=== PATIENT | female | born 1965 | race Caucasian/White ===

== ENCOUNTER 2017-07-21 14:20 | Inpatient (IN) | payer MEDICAID, SELFPAY ==
[2017-07-21 09:42] VITALS: BP 117/86; PULSE 67; RESP 18; TEMP 36.7; O2SAT 100; BMI 20.5
--- NOTE | 2017-07-21 10:05 | ED.VISSUMM ---
- ER Visit Summary Date of Service: 07/21/17 Chief Complaint: Abdominal and back pain History of Present Illness: The patient is a 52 F presenting with abdominal pain and back pain. She states this has been ongoing for several months. She states she is scheduled to have a partial colectomy and her ovaries removed on August 05. She states the surgery was initially scheduled for July 25 and was pushed back to August 05. She is having similar pain to previous. She has had no fever. She has nausea and vomiting with no diarrhea. She has been taking oxycodone at home and has almost run out of that prescription. Physical Examination: Vitals are stable. Patient is afebrile. Alert no acute distress. HEENT exam is unremarkable. Neck is supple. Lungs are clear and equal bilaterally. Heart is regular rate and rhythm. Abdomen is soft left lower quadrant tenderness, no rebound or guarding Extremities are unremarkable. Skin is warm and dry. Remainder of exam is unremarkable. Emergency Department Course and Treatment: Patient is given IV fluids, morphine, Zofran IV. CBC shows white count 12.0. Chemistries unremarkable. Alk phos 130, AST 42, lipase is normal. Discussed with Dr. Rios. Patient was evaluated by Dr. Rios in the ED and will be admitted to his service. Disposition: Admission Impression: Abdominal pain, leukocytosis This note was generated with [employer] [facility] [employer] dictation software. It may contain incorrect words, spelling, and punctuation that were not noted in review of the chart prior to signing ED Disposition - Plan for ED Patient: Chief Complaint: Back Referrals: Mack Langston MD [Primary Care Provider] -
[2017-07-21] MEDS: Ondansetron 4 MG/2 ML Vial IV (10:33)
[2017-07-21 10:35] VITALS: PULSE 101; RESP 19; O2SAT 97
[2017-07-21 10:53] LABS: Absolute Lymphocyte Count 3.64 X10^3/ul (0.83-4.51); Absolute Neutrophil Count 7.1 X10^3/uL (2.0-7.7); Basophil# 0.04 X10^3/uL; Basophil% 0.3 % (0-1); Eosinophil# 0.13 X10^3/uL; Eosinophils% 1.1 % (0-5); Hematocrit 40.1 % (37-47); Hemoglobin 13.7 g/dl (12.0-15.0); Lymphocyte # 3.64 X10^3/ul (4.0); Lymphocyte % 30.2 % (19-41); Mean Corp Hgb Conc 34.2 g/gl (32-36); Mean Corpuscular Volume 96.6 fL (81-99); Mean Platelet Vol. 9.8 fl (6.2-12.0); Monocyte# 1.12 X10^3/uL; Monocyte% 9.3 % (0-10); Neutrophil # 7.09 X10^3/uL (2.7-7.7); Neutrophil % 58.9 % (47-70); Platelet Count 333 K/mm3 (150-450); RBC Distribution Width CV 13.3 % (11.6-14.6); RBC Distribution Width SD 46.1 fl (35.1-43.9); Red Blood Count 4.15 M/mm3 (4.2-5.4)
[2017-07-21 10:54] LABS: Differential Indicated SCAN CRITERIA MET; POSITIVE COUNT NO; POSITIVE DIFFERENTIAL NO; POSITIVE MORPHOLOGY YES
[2017-07-21 11:08] LABS: ALB/GLOB Ratio 0.7 RATIO (0.9-2.4); AST(SGOT) 42 U/L (15-37); Alanine Aminotransfer ALT/SGPT 47 U/L (12-78); Albumin, Serum 3.2 g/dL (3.4-5.0); Alkaline Phosphatase 130 U/L (45-117); Anion Gap 7 (5-15); BUN 5 mg/dL (7-18); BUN/Creat Ratio 9.6 RATIO (10-20); Calcium,Total 9.2 mg/dL (8.5-10.1); Chloride 110 mmol/L (98-107); Creatinine, Serum 0.52 mg/dL (0.55-1.02); EST Glomerular Filtration Rate 130 mL/min (>60); Est Glom Filt Rate - Afr Amer 158 mL/min (>60); Estimated Creatinine Clearance 102.31 ml/min; Globulin 4.7 g/dL (2.2-4.2); Glucose 86 mg/dL (70-110); Lipase 114 U/L (73-393); Potassium 4.1 mmol/L (3.5-5.1); Protein, Total 7.9 g/dL (6.4-8.2); Sodium Level 141 mmol/L (136-145)
[2017-07-21 11:33] LABS: Atypical Lymphocyte 1+ %
[2017-07-21 13:32] VITALS: BP 112/74; PULSE 88; RESP 14; O2SAT 96
[2017-07-21 14:57] LABS: Mucous, Urine 0 SEEN /hpf (<or=2+); Red Blood Cells-Urine 0 SEEN /hpf (0-5); White Blood Cells 0 SEEN /hpf (0-5)
[2017-07-21 14:59] LABS: Color, Urine Yellow (Yellow); Glucose, Dipstick Normal (Normal); Ketone-Dipstick Negative (Negative); Leukocyte Esterase-Dipstick Negative /ul (Negative); Nitrite-Dipstick Negative (Negative); Occult Blood-Urine Negative /ul (Negative); Protein-Dipstick Negative (Negative); Urine Bilirubin Dipstick Negative (Negative); Urine Clarity Clear (Clear); Urine Urobilinogen Normal (Normal)
[2017-07-21 15:03] VITALS: BMI 21.4
[2017-07-21 15:05] LABS: Bacteria RARE /hpf (None Seen); Squamous Epithelial Cells - UA 0-5 SEEN /hpf (5-10)
[2017-07-21 15:09] VITALS: BMI 21.4
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
[2017-07-21 15:50] VITALS: O2SAT 98
[2017-07-21 15:55] VITALS: BP 101/73; PULSE 82; RESP 18; TEMP 35.8; O2SAT 99
[2017-07-21] MEDS: Calcium Carbonate 500 MG Tablet 1000 MG PO (17:43)
[2017-07-21] MEDS: oxyCODONE 5 MG Tablet PO ×2 (17:51→23:34)
[2017-07-21] MEDS: Lactated Ringers 1,000 ML 75 ML IV (17:54)
[2017-07-21 21:14] VITALS: BP 111/72; PULSE 88; RESP 16; TEMP 37.1; O2SAT 99
[2017-07-21] MEDS: Ciprofloxacin 400 MG/200 ML BAG 200 MG IV (21:17)
[2017-07-21] MEDS: Famotidine 20 MG Tablet PO (21:27)
[2017-07-21] MEDS: LORazepam 0.5 MG Tablet PO (23:33)
[2017-07-22 03:00] VITALS: BP 102/69; PULSE 60; RESP 16; TEMP 36.8; O2SAT 95
[2017-07-22] MEDS: oxyCODONE 5 MG Tablet PO ×5 (05:59→23:04)
[2017-07-22 06:34] LABS: Absolute Neutrophil Count 5.1 X10^3/uL (2.0-7.7); Basophil# 0.03 X10^3/uL; Basophil% 0.3 % (0-1); Eosinophil# 0.29 X10^3/uL; Eosinophils% 2.7 % (0-5); Hematocrit 38.7 % (37-47); Hemoglobin 13.1 g/dl (12.0-15.0); Lymphocyte % 37.5 % (19-41); Mean Corp Hgb Conc 33.9 g/gl (32-36); Mean Corpuscular Hgb 33.3 pg (27.0-32.0); Mean Corpuscular Volume 98.5 fL (81-99); Mean Platelet Vol. 9.5 fl (6.2-12.0); Monocyte# 1.24 X10^3/uL; Monocyte% 11.6 % (0-10); Neutrophil % 47.7 % (47-70); Platelet Count 337 K/mm3 (150-450); RBC Distribution Width CV 13.4 % (11.6-14.6); RBC Distribution Width SD 47.3 fl (35.1-43.9); Red Blood Count 3.93 M/mm3 (4.2-5.4); White Blood Count 10.7 K/mm3 (4.4-11.0)
[2017-07-22 06:35] LABS: POSITIVE COUNT NO; POSITIVE DIFFERENTIAL NO; POSITIVE MORPHOLOGY NO
[2017-07-22 06:53] LABS: Anion Gap 7 (5-15); BUN 6 mg/dL (7-18); BUN/Creat Ratio 8.8 RATIO (10-20); Calcium,Total 9.1 mg/dL (8.5-10.1); Chloride 102 mmol/L (98-107); Creatinine, Serum 0.68 mg/dL (0.55-1.02); EST Glomerular Filtration Rate 96 mL/min (>60); Est Glom Filt Rate - Afr Amer 116 mL/min (>60); Glucose 84 mg/dL (70-110); Phosphorus 4.2 mg/dL (2.5-4.9); Sodium Level 136 mmol/L (136-145)
--- NOTE | 2017-07-22 07:32 | PCM.PN.SRG ---
Subjective: Patient reports she is doing well this morning. She did have a soft bowel movement this morning. She is not having any nausea or vomiting she is still having severe pelvic pain only controlled with narcotic pain medicine. - Physical Exam General: Alert, Cooperative, No apparent distress Lungs: Normal air movement Cardiovascular: Regular rate, Regular Rhythm Abdomen: Soft, Non-Distended, Tender - Tender in the lower abdomen with no guarding or rebound. Musculoskeletal: No Muscle Wasting Neurological: Cranial nerves II-XII grossly intact Vital Signs Temp Pulse Resp BP Pulse Ox 98.3 F 60 16 102/69 95 07/22/17 03:00 07/22/17 03:00 07/22/17 03:00 07/22/17 03:00 07/22/17 03:00 Oxygen Delivery Method Room Air Weight: 117 lb Body Mass Index (BMI) 21.4 Intake and Output for Last 24 Hours 07/20/17 07/21/17 07/22/17 23:59 23:59 23:59 Intake Total 1550 / 1550 724 / 724 Output Total 400 / 400 600 / 600 Balance 1150 / 1150 124 / 124 Laboratory Tests Past 24 Hrs 07/21/17 07/22/17 07/22/17 14:52 06:20 06:20 WBC 10.7 RBC 3.93 L Hgb 13.1 Hct 38.7 MCV 98.5 MCH 33.3 H MCHC 33.9 RDW 13.4 RDW Differential 47.3 H Plt Count 337 MPV 9.5 Immature Gran % (Auto) 0.200 Neut % (Auto) 47.7 Lymph % (Auto) 37.5 [place] % (Auto) 11.6 H Eos % (Auto) 2.7 Baso % (Auto) 0.3 Absolute Neuts (auto) 5.1 Absolute Lymphs (auto) 4.00 Total Counted Not Reportable Sodium 136 Potassium 4.0 Chloride 102 Carbon Dioxide 27.0 Anion Gap 7 BUN 6 L Creatinine 0.68 Estim Creat Clear Calc 74.80 Est GFR (MDRD) Af Amer 116 Est GFR (MDRD) Non-Af 96 BUN/Creatinine Ratio 8.8 L Glucose 84 Calcium 9.1 Phosphorus 4.2 Magnesium 2.0 Urine Color Yellow Urine Clarity Clear Urine pH 6.0 Ur Specific [place] 1.020 Urine Protein Negative Urine Glucose (UA) Normal Urine Ketones Negative Urine Occult Blood Negative Urine Nitrite Negative Urine Bilirubin Negative Urine Urobilinogen Normal Ur Leukocyte Esterase Negative Urine RBC 0 SEEN Urine WBC 0 SEEN Ur Squamous Epith Cells 0-5 SEEN Urine Bacteria RARE Urine Mucus 0 SEEN Assessment/Plan 52-year-old female with acute diverticulitis 1. Patient WBC improving on Cipro and vanc. Continue antibiotics until C. difficile results are back. If C. difficile is negative I will decrease vancomycin to twice a day. 2. Continue clear liquids and IV fluids. Likely to start gentle bowel prep today in anticipation of surgery . All patient's questions were answered sufficiently. I will put in a consult for Dr. Chiang to see her as an inpatient before surgery. Felipe Rios MD Pager: [facility] [address], [address] [phone] Office:
[2017-07-22 07:52] VITALS: BP 122/74; PULSE 75; RESP 18; TEMP 36.8; O2SAT 99
[2017-07-22] MEDS: Enoxaparin 40 MG/0.4 ML Syringe SC (09:47)
[2017-07-22] MEDS: Famotidine 20 MG Tablet PO ×2 (09:47→23:11)
[2017-07-22] MEDS: Lactated Ringers 1,000 ML 75 ML IV ×2 (09:48→23:05)
[2017-07-22] MEDS: Ciprofloxacin 400 MG/200 ML BAG 200 MG IV ×2 (09:48→23:05)
[2017-07-22 13:53] VITALS: BP 112/69; PULSE 80; RESP 18; TEMP 36.9; O2SAT 99
--- NOTE | 2017-07-22 14:11 | CASEMGMT ---
Readmit Note. Pt dc'd 06/23/17 after treatment for recurrent sigmoid diverticulitits. She presents on 06/21/17 with abd pain, C.difficile colitis. Was switched to po vancomycin. Diarrhea worsening past 2 days. Surgery consult- plan is for surgery on for colectomy and hysterectomy with possible colostomy. LR @ 75 ml/hr. Pt is independent. Will continue to follow and assist with dc planning. Phani PHILLIPSN RN ACM
[2017-07-22 15:44] LABS: Pathologist Review Reviewed
[2017-07-22] MEDS: Electrolyte Solution/Peg's 4000 ML 2000 ML PO (16:07)
[2017-07-22] MEDS: Ondansetron 4 MG/2 ML Vial 8 MG IV (18:15)
[2017-07-22 19:53] VITALS: BP 117/72; PULSE 90; RESP 16; TEMP 37.3; O2SAT 98
[2017-07-22] MEDS: LORazepam 0.5 MG Tablet PO (23:04)
[2017-07-23 02:30] VITALS: BP 121/62; PULSE 89; RESP 16; TEMP 37.4; O2SAT 98
[2017-07-23] MEDS: oxyCODONE 5 MG Tablet PO ×5 (05:23→21:40)
[2017-07-23 07:52] VITALS: BP 122/79; PULSE 75; RESP 18; TEMP 37; O2SAT 97
[2017-07-23] MEDS: Ciprofloxacin 400 MG/200 ML BAG 200 MG IV ×2 (09:39→21:26)
[2017-07-23] MEDS: Famotidine 20 MG Tablet PO ×2 (09:40→21:27)
[2017-07-23] MEDS: Enoxaparin 40 MG/0.4 ML Syringe SC (09:40)
--- NOTE | 2017-07-23 09:59 | PCM.PN.SRG ---
Subjective: Patient is having pelvic pain this morning. She says she was having clear stool after her 1 L of GoLYTELY she is able to tolerate. - Physical Exam General: Alert, Oriented x3, Cooperative, No apparent distress HEENT: Atraumatic Oral: Moist Mucosa Neck: No JVD Lungs: Normal air movement Cardiovascular: Regular rate, Regular Rhythm Abdomen: Soft, Non-Distended, Tender Vital Signs Temp Pulse Resp BP Pulse Ox 98.6 F 75 18 122/79 H 97 07/23/17 07:52 07/23/17 07:52 07/23/17 07:52 07/23/17 07:52 07/23/17 07:52 Oxygen Delivery Method Room Air Weight: 116 lb 15.989 oz Body Mass Index (BMI) 21.4 Intake and Output for Last 24 Hours 07/21/17 07/22/17 07/23/17 23:59 23:59 23:59 Intake Total 1550 / 1550 3464 / 3464 743 / 743 Output Total 400 / 400 600 / 600 1999 / 1999 Balance 1150 / 1150 2864 / 2864 -1257 / -1257 Microbiology Past 72 Hours 07/22/17 06:20 C. difficile DNA Amplification - Final Stool Assessment/Plan 52-year-old female with diverticulitis and hydrosalpinx on the left 1. I have ordered mechanical and antibiotic bowel prep for her today. Continue vancomycin to prevent C. difficile recurrence. 2. Plan is for surgery tomorrow morning. I discussed this with her again in detail. Plan is for sigmoid colectomy with hysterectomy and ureteral stents bilaterally. I did reiterate that there is a possibility of having to perform a stoma and this may not be reversible. If there is inflammation but the colon appears viable I will perform a colonic anastomosis with a diverting ileostomy which should be reversible. Felipe Rios MD Pager: [facility] [address], [address] [place] [address] Office:
--- NOTE | 2017-07-23 11:09 | EKG12_ITS ---
Test Reason : PREOP Blood Pressure : / mmHG Vent. Rate : 085 BPM Atrial Rate : 085 BPM P-R Int : 132 ms QRS Dur : 080 ms QT Int : 378 ms P-R-T Axes : 066 048 040 degrees QTc Int : 449 ms Sinus rhythm Normal ECG When compared with ECG of 16-OCT-2015 10:17, Fusion complexes are no longer Present Confirmed by GLORY DODSON MD ([id number]), production editor JIMBO SMITH ([id number] on 07/31/2017 1:04:10 PM Referred By: Confirmed By:GLORY DODSON MD
[2017-07-23] MEDS: Electrolyte Solution/Peg's 4000 ML 1000 ML PO (12:59)
[2017-07-23] MEDS: metroNIDAZOLE 500 MG Tablet 1000 MG PO ×3 (13:00→23:39)
[2017-07-23] MEDS: Calcium Carbonate 500 MG Tablet 1000 MG PO (13:07)
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
[2017-07-23] MEDS: LORazepam 0.5 MG Tablet PO (14:15)
[2017-07-23] MEDS: Lactated Ringers 1,000 ML 75 ML IV (14:15)
[2017-07-23 14:22] VITALS: BP 112/73; PULSE 83; RESP 18; TEMP 36.9; O2SAT 99
[2017-07-23 20:19] VITALS: BP 120/64; PULSE 68; RESP 16; TEMP 37; O2SAT 98
[2017-07-23] MEDS: 0.9% NaCl Peripheral Flush Adult/Peds IV ×2 (21:26→23:38)
[2017-07-23] MEDS: Ondansetron 4 MG/2 ML Vial 8 MG IV (23:38)
[2017-07-24] VITALS (22 sets, daily range): BP systolic 105–146; BP diastolic 63–102; PULSE 72–116; RESP 8–18; TEMP 36.4–37.1; O2SAT 97–100; BMI 21.4
--- NOTE | 2017-07-24 | COLBX_PTH ---
PATIENT: LISA BULLOCK LOC: MS3 U#:[id number] AGE/SX: 52/F ROOM: MS310 RE07/21/[address]: Dr. Felipe Rios MD : 1965 BED: 1 DIS: 07/29/2017 SPEC #: [id number] RECD: 07/24/17 14:37 STATUS: CRISTIAN RETrina #: [id number] GARIMA: 07/24/17 00:[address]: Felipe Rios DEPT: SURGICAL PATHOLOGY RECD BY: Shelby Roach ENTERED: 07/24/17 15:31 SP TYPE: COLON BX OTHR DR: MD Dr. Sabiha Liang MD Tissues: A - Sigmoid colon biopsy B - Uterine cervix, NOS C - Colon Donuts D - Colon Donuts Procedures: Frozen Section (charge) Surgery Specimen Level III Surgery Specimen Level V HEADER OPERATION: Colectomy sigmoid, open, stents with primary anastomosis PRE-OP DIAGNOSIS: Acute diverticulitis and left hydrosalpinx TISSUE SUBMITTED: A ? Sigmoid colon and tubal mass, suture escalante distal colon ? sent to lab at 1434, B ? Uterus and cervix with right fallopian tube, C ? proximal and distal donuts, D ? suture escalante new distal margin FROZEN SECTION DIAGNOSIS A. Sigmoid colon and tubal mass: Diverticular disease with associated ruptured diverticula and inflammation and fibrosis. No mass lesion is identified. BECKY:mely 07/24/17 MICROSCOPIC DIAGNOSIS A. Sigmoid colon and tubal mass: Colon ? diverticulosis and diverticulitis with ruptured diverticula and associated acute inflammation. Ovary - no pathologic diagnosis. Fallopian tube - no pathologic diagnosis. B. Uterus, cervix and right fallopian tube: Cervix ? chronic cystic cervicitis. Endometrium ? cystic atrophic endometrium. Myometrium ? focal adenomyosis. Fallopian tube ? subserosal acute inflammation and fibrinous exudation. Paratubal cyst. C. Proximal and distal donuts: Colonic donuts with focal mucosal congestion and hemorrhage. D. Segment of colon: Focal subserosal acute inflammation and reactive changes. BECKY:mely 07/29/17 MICROSCOPIC DESCRIPTION Slides are reviewed. GROSS DESCRIPTION A - Received fresh for frozen section consultation labeled with the patient's name is a specimen designated sigmoid colon and tubal mass, suture escalante distal colon. The specimen consists of a segment of colon with attached adipose tissue measuring 18 cm in length. In the central portion of the colon, there is red soft tissue attached containing ovary and possible fallopian tube measuring 5.5 x 4 x 3 cm. Both resection margins of colon are stapled. The distal end is identified by a suture. The specimen is opened and shows fecal material and no mucosal lesion. Serial sections reveal multiple diverticula with a few of the diverticula appear to be ruptured. A section from the diverticular area is submitted for frozen section diagnosis. Sections of the pericolonic adipose tissue do not reveal any obviously enlarged lymph node. Sections of adherent tissue reveal an ovary which measures 2 x 1.5 x 1 cm. Sections reveal unremarkable cut surfaces. A focal area suggestive of fallopian tube is noted. Emt B sections are submitted in ten cassettes as follows: 1 ? frozen section, 2 ? proximal resection margin, 3 ? distal resection margin, 4-6 ? diverticula, 7 ? pericolonic adipose tissue, 8 ? ovary, entirely submitted, 9 & 10 ? tissue surrounding the colon with possible fallopian tube. B - Received in fixative is one container labeled with the patient's name and designated uterus, cervix and right fallopian. The specimen consists of a hysterectomy specimen consisting of uterus with cervix and detached fallopian tube. The uterus with cervix weighs 39.8 gm and measures 6.5 x 5 x 3 cm. The serosal surface is camacho, glistening. The ectocervical mucosa is circular in contour. The endocervical canal measures 3 cm in length and the endocervical mucosa shows a small camacho-pink polyp measuring 0.4 cm in greatest dimension. The triangular endometrial cavity measures 3 cm in length and 1.5 cm in width. The endometrium is camacho-pink without any mass lesion and measures <0.1 cm in thickness. Sections of the uterine wall do not reveal any mass lesion and it measures up to 1.5 cm in thickness. The detached fallopian tube measures 4 cm in length and 0.5 cm in diameter. The fimbrial end is identified. A paratubal cyst is noted measuring 1.5 cm in greatest dimension. Sections reveal unremarkable cut surfaces. Emt B sections are submitted in seven cassettes as follows: 1 - anterior cervix, 2 - posterior cervix, 3 & 4 - anterior uterine wall, 5 & 6 - posterior uterine wall, 7 ? fallopian tube and paratubal cyst. C - Received in fixative is one container labeled with the patient's name and designated proximal and distal donuts. The specimen consists of two pieces of colonic tissue measuring 2.5 x 0.5 x 0.2 cm. One of the pieces shows a suture. The second piece measures 1.5 x 1 x 0.5 cm. The entire specimen is submitted in two cassettes as follows: 1 ? colonic piece with suture, 2 ? second piece. D - Received in fixative is one container labeled with the patient's name and designated suture escalante new distal margin. The specimen consists of a segment of colon with adipose tissue measuring 3 cm in length. No mucosal lesion is identified. The new distal resection margin is open and the proximal margin is stapled. Emt B sections are submitted in three cassettes as follows: 1 ? new distal resection margin, 2 ? proximal margin, 3 ? major account representative sections from other area. / SJ:mely 07/25/17 TC:5 CPT: 41899 x3, 66354 x2, 35315
--- NOTE | 2017-07-24 | FLU_PTH ---
PATIENT: LISA BULLOCK LOC: MS3 U#:[id number] AGE/SX: 52/F ROOM: DE310 RE07/21/[address]: Dr. Felipe Rios MD : 1965 BED: 1 DIS: 07/29/2017 SPEC #: [id number] RECD: 07/24/17 15:26 STATUS: CRISTIAN RETrina #: [id number] GARIMA: 07/24/17 00:[address]: Felipe Rios DEPT: CYTOLOGY RECD BY: Michele Lloyd ENTERED: 07/24/17 15:26 SP TYPE: Fluid OTHR DR: MD Dr. Sabiha Liang MD Tissues: Pelvis, NOS Procedures: Pap Stain (control) Special Stain Group II Surgery Specimen Level IV Diff Quik Stain (control) Cell Block Cytospin Fluid HEADER OPERATION: Laparoscopic sigmoid colectomy PRE-OP DIAGNOSIS: Diverticulitis TISSUE SUBMITTED: Pelvic washing for cytology DIAGNOSIS CYTOLOGY Pelvic washing (cytospin and cell block): Negative for malignant cells. See comment. SJ:mely 07/29/17 COMMENT Please also correlate with corresponding surgical specimen [id number]. CYTOLOGY STUDY Slides are reviewed. CYTOLOGY GROSS Received is 20 ml of red, cloudy fluid labeled with the patient's name and and designated per the requisition as pelvis. Submitted for cytology preparation including cell block. 07/24/17 TC:5 CPT: 35169, 09198
[2017-07-24] MEDS: 0.9% NaCl Peripheral Flush Adult/Peds IV ×2 (00:25→05:04)
[2017-07-24] MEDS: Lactated Ringers 1,000 ML 75 ML IV (03:33)
[2017-07-24] MEDS: oxyCODONE 5 MG Tablet PO ×2 (03:33→21:50)
[2017-07-24 07:02] LABS: Absolute Lymphocyte Count 2.39 X10^3/ul (0.83-4.51); Absolute Neutrophil Count 2.9 X10^3/uL (2.0-7.7); Basophil# 0.03 X10^3/uL; Basophil% 0.5 % (0-1); Eosinophil# 0.26 X10^3/uL; Hematocrit 35.2 % (37-47); Hemoglobin 11.8 g/dl (12.0-15.0); Lymphocyte # 2.39 X10^3/ul (4.0); Lymphocyte % 36.5 % (19-41); Mean Corp Hgb Conc 33.5 g/gl (32-36); Mean Corpuscular Hgb 32.4 pg (27.0-32.0); Mean Corpuscular Volume 96.7 fL (81-99); Mean Platelet Vol. 9.5 fl (6.2-12.0); Monocyte# 0.99 X10^3/uL; Monocyte% 15.1 % (0-10); Neutrophil # 2.87 X10^3/uL (2.7-7.7); Neutrophil % 43.9 % (47-70); Platelet Count 288 K/mm3 (150-450); RBC Distribution Width CV 12.6 % (11.6-14.6); RBC Distribution Width SD 44.7 fl (35.1-43.9); Red Blood Count 3.64 M/mm3 (4.2-5.4); White Blood Count 6.5 K/mm3 (4.4-11.0)
[2017-07-24 07:06] LABS: POSITIVE COUNT NO; POSITIVE DIFFERENTIAL NO; POSITIVE MORPHOLOGY NO
[2017-07-24 07:18] LABS: Anion Gap 8 (5-15); BUN 7 mg/dL (7-18); BUN/Creat Ratio 12.6 RATIO (10-20); Calcium,Total 9.2 mg/dL (8.5-10.1); Chloride 100 mmol/L (98-107); Creatinine, Serum 0.56 mg/dL (0.55-1.02); EST Glomerular Filtration Rate 121 mL/min (>60); Est Glom Filt Rate - Afr Amer 146 mL/min (>60); Estimated Creatinine Clearance 90.83 ml/min; Glucose 85 mg/dL (70-110); Potassium 3.8 mmol/L (3.5-5.1); Sodium Level 134 mmol/L (136-145)
--- NOTE | 2017-07-24 07:24 | PCM.PN.SRG ---
Patient Problems: Active and Suspected Problems Tubo-ovarian abscess (Acute) Subjective: Patient is doing well this morning. She did complete her bowel prep yesterday evening. She still complains of pelvic pain. She does not have any nausea or vomiting. - Physical Exam General: Alert, Cooperative, No apparent distress HEENT: Atraumatic Neck: Supple, No JVD Lungs: Normal air movement Cardiovascular: Regular rate, Regular Rhythm Abdomen: Soft, Non-Distended, Tender Musculoskeletal: No Tenderness to Palpation of Joints or Extremities Neurological: Cranial nerves II-XII grossly intact Psych/Mental Status: Normal Affect Vital Signs Temp Pulse Resp BP Pulse Ox 98.2 F 74 18 112/67 98 07/24/17 03:38 07/24/17 03:38 07/24/17 03:38 07/24/17 03:38 07/24/17 03:38 Oxygen Delivery Method Room Air Weight: 116 lb 15.989 oz Body Mass Index (BMI) 21.4 Intake and Output for Last 24 Hours 07/22/17 07/23/17 07/24/17 23:59 23:59 23:59 Intake Total 3464 / 3464 3113 / 3113 423 / 423 Output Total 600 / 600 1999 / 1999 Balance 2864 / 2864 1113 / 1113 423 / 423 Microbiology Past 72 Hours 07/22/17 06:20 C. difficile DNA Amplification - Final Stool Laboratory Tests Past 24 Hrs 07/24/17 07/24/17 07/24/17 06:35 06:35 06:35 WBC 6.5 RBC 3.64 L Hgb 11.8 L Hct 35.2 L MCV 96.7 MCH 32.4 H MCHC 33.5 RDW 12.6 RDW Differential 44.7 H Plt Count 288 MPV 9.5 Immature Gran % (Auto) 0.000 Neut % (Auto) 43.9 L Lymph % (Auto) 36.5 [place] % (Auto) 15.1 H Eos % (Auto) 4.0 Baso % (Auto) 0.5 Absolute Neuts (auto) 2.9 Absolute Lymphs (auto) 2.39 Total Counted Not Reportable Sodium 134 L Potassium 3.8 Chloride 100 Carbon Dioxide 26.0 Anion Gap 8 BUN 7 Creatinine 0.56 Estim Creat Clear Calc 90.83 Est GFR (MDRD) Af Amer 146 Est GFR (MDRD) Non-Af 121 BUN/Creatinine Ratio 12.6 Glucose 85 Calcium 9.2 Blood Type Pending Antibody Screen Pending Assessment/Plan Active and Suspected Problems Tubo-ovarian abscess (Acute) 52-year-old female with acute diverticulitis and right hydrosalpinx 1. Plan for surgery today. All questions were answered and the risks and benefits were reviewed with the patient once again. 2. I reviewed once more the possibility of having to perform only a salpingectomy if the uterus was stuck with inflammation. I also reviewed the possibility of having to perform a colostomy or diverting ileostomy once more. Felipe Rios MD Pager: [facility] [address], [address] [place] [address] Office:
--- NOTE | 2017-07-24 07:36 | PN.SURG_ITS ---
Patient Problems: Active and Suspected Problems Tubo-ovarian abscess (Acute) Subjective: Patient is doing well this morning. She did complete her bowel prep yesterday evening. She still complains of pelvic pain. She does not have any nausea or vomiting. - Physical Exam General: Alert, Cooperative, No apparent distress HEENT: Atraumatic Neck: Supple, No JVD Lungs: Normal air movement Cardiovascular: Regular rate, Regular Rhythm Abdomen: Soft, Non-Distended, Tender Musculoskeletal: No Tenderness to Palpation of Joints or Extremities Neurological: Cranial nerves II-XII grossly intact Psych/Mental Status: Normal Affect Vital Signs Temp Pulse Resp BP Pulse Ox 98.2 F 74 18 112/67 98 07/24/17 03:38 07/24/17 03:38 07/24/17 03:38 07/24/17 03:38 07/24/17 03:38 Oxygen Delivery Method Room Air Weight: 116 lb 15.989 oz Body Mass Index (BMI) 21.4 Intake and Output for Last 24 Hours 07/22/17 07/23/17 07/24/17 23:59 23:59 23:59 Intake Total 3464 / 3464 3113 / 3113 423 / 423 Output Total 600 / 600 1999 / 1999 Balance 2864 / 2864 1113 / 1113 423 / 423 Microbiology Past 72 Hours 07/22/17 06:20 C. difficile DNA Amplification - Final Stool Laboratory Tests Past 24 Hrs 07/24/17 07/24/17 07/24/17 06:35 06:35 06:35 WBC 6.5 RBC 3.64 L Hgb 11.8 L Hct 35.2 L MCV 96.7 MCH 32.4 H MCHC 33.5 RDW 12.6 RDW Differential 44.7 H Plt Count 288 MPV 9.5 Immature Gran % (Auto) 0.000 Neut % (Auto) 43.9 L Lymph % (Auto) 36.5 [place] % (Auto) 15.1 H Eos % (Auto) 4.0 Baso % (Auto) 0.5 Absolute Neuts (auto) 2.9 Absolute Lymphs (auto) 2.39 Total Counted Not Reportable Sodium 134 L Potassium 3.8 Chloride 100 Carbon Dioxide 26.0 Anion Gap 8 BUN 7 Creatinine 0.56 Estim Creat Clear Calc 90.83 Est GFR (MDRD) Af Amer 146 Est GFR (MDRD) Non-Af 121 BUN/Creatinine Ratio 12.6 Glucose 85 Calcium 9.2 Blood Type Pending Antibody Screen Pending Assessment/Plan Active and Suspected Problems Tubo-ovarian abscess (Acute) 52-year-old female with acute diverticulitis and right hydrosalpinx 1. Plan for surgery today. All questions were answered and the risks and benefits were reviewed with the patient once again. 2. I reviewed once more the possibility of having to perform only a salpingectomy if the uterus was stuck with inflammation. I also reviewed the possibility of having to perform a colostomy or diverting ileostomy once more. Feilpe Rios MD Pager: [facility] [address], [address] [place] [address] Office:
[2017-07-24] MEDS: LORazepam 2 MG/ML Syringe 0.5 MG IV (08:09)
[2017-07-24] MEDS: Clindamycin 900 MG/50 ML BAG 75 MG IV ×2 (10:21→16:40)
[2017-07-24 11:44] LABS: Cytology, Body Fluid / CSF SEE PATHOLOGY REPORT
--- NOTE | 2017-07-24 14:59 | PCM.OPRPT ---
Problem List (1) Hydrosalpinx Status: Acute Report of Operation Date of Procedure: 07/24/17 Pre-Operative Diagnosis: Chronic left tubo-ovarian abscess, diverticulitis Post-Operative Diagnosis: Left hydrosalpinx, diverticulitis Surgery/Procedure Performed:: Exploratory laparotomy, total abdominal hysterectomy, left salpingo-oophorectomy, right fimbriectomy Description of Surgical Findings:: Left hydrosalpinx with significant pelvic adhesions, normal appearing left ovary, normal-appearing right tube and ovary mail handler equipment operator: Felipe Rios mail handler equipment operator: Sangita Patterson Type of Anesthesia:: General Anesthesiologist: Constantino August Specimen's removed: 1. Uterus and cervix. 2. Left tube and ovary and colon en bloc. 3. Right tubal fimbria Estimated Blood Loss (mL): 300 Description of Procedure: Indication: Ms. Palumbo is a 52-year-old postmenopausal woman with a history of chronic abdominal pelvic pain with history of diverticulitis who was found to have a left adnexal mass on CT as well as colonic mass. Her presentation was suspicious for a chronic tubo-ovarian abscess with colonic involvement due to diverticulitis. A CA 125 was normal. Following counseling she opted to proceed with total abdominal hysterectomy, left salpingo-oophorectomy, right salpingectomy at the time of laparotomy for diverticular disease. She was counseled regarding the potential residual risk for gynecologic malignancy and need for further follow-up surgery. Risks, benefits, indications and alternatives were reviewed at length. Informed consent was obtained and the patient desired to proceed. Procedure: Ms. Botello was taken to the operating room and signed and was performed. She is placed in the dorsal supine position and induced under general anesthesia and intubated. She was then placed into dorsal lithotomy and the perineum prepped and draped in sterile fashion. At this time Dr. Thompson perform cystoscopy with placement of bilateral ureteral stents. Once that portion of the procedure was completed the drapes are removed. The abdomen, vagina and rectum were prepped and draped in sterile fashion. She was placed into mid lithotomy. Attention was turned to the abdomen. A midline laparotomy is made using a scalpel brought down to incise the subcutaneous tissue and the rectus fascia at the midline. The rectus muscles were the peritoneum was identified and entered sharply accessing the intra-abdominal cavity. The abdomen was explored. The Bookwalter retractor was secured and the bowel was packed. The artery was a left adnexal mass the ovary was not able to be seen however it was suspicious for hydrosalpinx there is no soft solid component appreciated at this time. There was however significant adhesions of this to the pelvic sidewall, the sigmoid sacral depression and the uterus medially with no mobility. At this time we opted to proceed with hysterectomy to allow laterally mobility. The right lung round ligament was isolated and incised. The anterior broad ligament was opened using a Bovie and the uterine vessels were skeletonized. A bladder flap was created. Due to the significant adhesions of the mass however was unable to begin the hysterectomy from the left side. Attention was then turned to the sigmoid colon, the feeding vessel was identified and then doubly clamped and cut and STEWART stapler used to transect. We continued dissection along the posterior portion of the mass and the sigmoid colon however these were clearly encased. Please refer to the surgery dictation for further details. Significant URETEROLYSIS was also performed continued dissection and Dr. Thompson was requested for intraoperative consultation due to concern for urinary abutting the mass. With continued dissection it was clear the ureter was not encased within the mass. With freedom of the posterior cul-de-sac the uterine ovarian ligament was identified at the left this was doubly clamped and incised using the scalpel and the ovarian pedicle was suture-ligated using 0 Vicryl. The anterior broad ligament was opened and gently dissected. Due to the adherence of the mass I continued with dissection of the areolar tissue and then subsequently identified the uterine artery. The uterine artery was doubly clamped cut and the distal portion suture-ligated with hemostasis maintained. Rest of the bladder flap was also created. Posterior portion of the broad ligament was opened up however there was rupture of the hydrosalpinx. The fluid was clear and nonodorous. I continued performing a hysterectomy with serial clamping cutting and suture ligation using 0 Vicryl of the cardinal ligaments and then the uterosacral ligaments. The uterus and cervix were removed and once specimen en bloc. The vaginal cuff was reapproximated using serial 0 Vicryl figure of 8 sutures. Half attention then returned to the left hydrosalpinx and colonic complex the complex was further dissected from the deep pelvis with sharp and blunt dissection and once while mobilized the distal sigmoid was transected using surgical stapler. I continue to assist with the remaining surgery please refer to Dr. Choi does operative report for further details. - Admit VTE Documentation VTE Present on Admission: No VTE Mechan Device Prophylaxis: SCD's VTE Pharm Prophylaxis ordered?: No
[2017-07-24] MEDS: Bupivacaine Mpf 0.5% 30 ML VIAL (17:10)
--- NOTE | 2017-07-24 17:39 | EKG12_ITS ---
Test Reason : POST OP Blood Pressure : / mmHG Vent. Rate : 112 BPM Atrial Rate : 112 BPM P-R Int : 140 ms QRS Dur : 088 ms QT Int : 358 ms P-R-T Axes : 078 066 063 degrees QTc Int : 488 ms Sinus tachycardia with Premature supraventricular complexes with occasional Premature ventricular com plexes ST & T wave abnormality, consider anterior ischemia Abnormal ECG Confirmed by WEST KIM, GLORY ([id number]), brands editor JIMBO SMITH ([id number]) on 07/30/2017 9:56:10 AM Referred By: TAMELA Confirmed By:GLORY DODSON MD
--- NOTE | 2017-07-24 18:15 | PCM.OPRPT ---
Problem List (1) Acute diverticulitis Status: Acute Report of Operation Date of Procedure: 07/24/17 Pre-Operative Diagnosis: Acute on chronic diverticulitis with colon and rectal stricture Post-Operative Diagnosis: Same Surgery/Procedure Performed:: Sigmoid colectomy with primary anastomosis and diverting loop ileostomy with placement of bilateral ureteral stents, release of splenic flexure transmission operator: Sabiha Chiang transmission operator: Sangita Patterson Type of Anesthesia:: General Anesthesiologist: Constantino August Specimen's removed: 1. Sigmoid colon stitch marking the distal end. 2. New distal anastomosis margin. 3. Anastomotic doughnuts Drains: TYLER ?1 Estimated Blood Loss (mL): 300 cc Description of Procedure: The patient was brought back to the operating room and general anesthesia was induced. The patient was placed in lithotomy position. Next a cystoscopy was performed by Dr. Thompson and he placed bilateral ureteral stents. Once this was done the vagina and colon were lavaged with Betadine and saline solution. Next the abdomen was prepped and draped in the usual sterile fashion. A midline incision was made from the pubic symphysis to just superior to the umbilicus. This was deepened to the level of the fascia. The fascia was then elevated and incised sharply. Once the abdomen was entered 2 fingers were used to elevate the abdominal wall and electrocautery was used to extend the incision. Next a wound protector was placed into the abdomen. A Bookwalter was used to retract the abdomen for visualization. The abdomen was inspected visually. There is no studding of the peritoneum and the liver appeared and felt normal. Attention was then paid to the colon. The colon appeared normal except for a strong adhesion to a left hydrosalpinx. There was a concern that this was malignant. The decision was made to remove this mass en bloc with the colon. The colon was dissected free from the lateral abdominal sidewall and 5 cm were measured proximal to the mass. A linear stapler was used to divide the colon proximally. Next the colon was elevated and the sigmoidal artery was located and tied off. The mesentery was then divided inferiorly until the sacral promontory was reached using LigaSure. Next a hysterectomy was performed by Dr. Annie Durbin please see her operative report for that part of the procedure. The left tube was also dissected free from the abdominal sidewall. Once the uterus was out the located the left ureter and followed this distally. This was densely adhesed to the inflammatory mass. It was sharply divided from the mass keeping it intact. Once the pelvis was reached the colon was dissected free distally and a radial stapler was used to divide the distal colon. There was a lot of inflammation in the pelvis especially on the left side. Once the specimen was removed it was sent for pathology and frozen section. Frozen section determined that it was inflammatory in nature and there was no malignancy identified. There was not enough length to bring the descending colon into the pelvis and so a splenic flexure release was performed. The colon and splenic flexure were released from the surrounding tissue using electrocautery. After this there was adequate laxity of the colon to reach the pelvis. Next the distal end of the colon was brought through the incision and the staple line was removed. Sizers were used to size the colon. Sizers were then brought down into the pelvis and at this time it was noted that the patient had a stricture of the mid rectum. The sizers were unable to traverse the stricture where there was dense inflammation surrounding the rectum. At this time I decided to take my distal resection point into the pelvis past this area of stricture. The previously dissected rectal stump was removed leaving a short amount of rectum. This rectum was closed using interrupted 2-0 PDS sutures. Next the 25 mm EEA stapler was placed through the anus and into the distal rectum. The anvil was attached to the stapler and the stapler was fired successfully. The stapler was then removed. The pelvis was then irrigated copiously and suctioned. The ureter was inspected once more and Dr. Thompson came back to look at the ureter and he believed that it looked intact. A drain was placed in the pelvis and over the left ureter. This was brought out the left lower abdominal sidewall. Due to the fact that the patient had a lot of inflammation in the pelvis and a very low anastomosis I elected to protect it with a diverting loop ileostomy. A small area was chosen just to the right of the umbilicus and the skin was removed with electrocautery. The subcutaneous tissue was dissected free until the fascia was reached and a cruciate incision was made in the fascia. The dissection carried forward until the posterior rectus sheath was reached and this was opened as well. 2 fingers were used to dilate this tract and a loop of distal ileum was brought through this opening. Next the omentum was brought back down into the pelvis and placed between the vaginal wall and the colonic anastomosis. The wound protector was removed and all surgical staff changed their gown and gloves. The fascia was then closed with interrupted #1 PDS suture starting from both ends and joining in the middle. The wound was then copiously irrigated and stapled shut. Next attention was made to maturing the ileostomy. An ileostomy bar was placed under the loop ileostomy. This was sutured in place with 2-0 nylon suture. Next electrocautery was used to open the ileostomy and this was matured using interrupted 3-0 Vicryl sutures in a Melissa fashion. The stoma appliance was then placed over this ileostomy and the drain was placed to suction bulb. The stents were removed at the end of the case but the Correa remains in place until tomorrow. The patient was taken to PACU in stable condition and will be placed in a telemetry monitored bed overnight. The patient tolerated the procedure well. Estimated operating time was 7 hours. - Admit VTE Documentation VTE Present on Admission: No VTE Mechan Device Prophylaxis: SCD's VTE Pharm Prophylaxis ordered?: Yes
[2017-07-24 18:33] LABS: Anion Gap 12 (5-15); BUN 9 mg/dL (7-18); BUN/Creat Ratio 13.5 RATIO (10-20); Chloride 101 mmol/L (98-107); Creatinine, Serum 0.66 mg/dL (0.55-1.02); EST Glomerular Filtration Rate 98 mL/min (>60); Est Glom Filt Rate - Afr Amer 119 mL/min (>60); Estimated Creatinine Clearance 77.07 ml/min; Glucose 184 mg/dL (70-110); Magnesium 1.2 mg/dL (1.8-2.4); Potassium 3.7 mmol/L (3.5-5.1); Sodium Level 136 mmol/L (136-145)
[2017-07-24] MEDS: Ketorolac 15 MG/ML Vial IV (18:45)
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
[2017-07-24] MEDS: Lactated Ringers 1,000 ML 125 ML IV (21:10)
[2017-07-24] MEDS: Famotidine 20 MG Tablet PO (21:26)
[2017-07-24] MEDS: Ciprofloxacin 400 MG/200 ML BAG 200 MG IV (22:09)
[2017-07-24 22:44] LABS: M R Staph aureus DNA By PCR Negative (Negative); Probe Check PASS; Specimen Processing Control PASS
[2017-07-25] VITALS (30 sets, daily range): BP systolic 82–110; BP diastolic 54–87; PULSE 68–89; RESP 10–21; TEMP 36.6–37.2; O2SAT 10–100
[2017-07-25] MEDS: Lactated Ringers 1,000 ML 125 ML IV ×3 (04:35→19:40)
[2017-07-25 05:10] LABS: Absolute Lymphocyte Count 1.25 X10^3/ul (0.83-4.51); Absolute Neutrophil Count 9.8 X10^3/uL (2.0-7.7); Hematocrit 27.9 % (37-47); Hemoglobin 9.6 g/dl (12.0-15.0); Lymphocyte # 1.25 X10^3/ul (4.0); Mean Corp Hgb Conc 34.4 g/gl (32-36); Mean Corpuscular Hgb 33.2 pg (27.0-32.0); Mean Corpuscular Volume 96.5 fL (81-99); Mean Platelet Vol. 9.8 fl (6.2-12.0); Monocyte% 11.2 % (0-10); Neutrophil # 9.78 X10^3/uL (2.7-7.7); Neutrophil % 78.5 % (47-70); Platelet Count 280 K/mm3 (150-450); RBC Distribution Width CV 12.2 % (11.6-14.6); RBC Distribution Width SD 41.7 fl (35.1-43.9); Red Blood Count 2.89 M/mm3 (4.2-5.4); White Blood Count 12.5 K/mm3 (4.4-11.0)
[2017-07-25 05:11] LABS: POSITIVE COUNT NO; POSITIVE DIFFERENTIAL NO; POSITIVE MORPHOLOGY NO
[2017-07-25 05:34] LABS: Anion Gap 8 (5-15); BUN 9 mg/dL (7-18); BUN/Creat Ratio 15.2 RATIO (10-20); Calcium,Total 7.9 mg/dL (8.5-10.1); Chloride 100 mmol/L (98-107); Cholesterol 127 mg/dL (200); Creatinine, Serum 0.59 mg/dL (0.55-1.02); EST Glomerular Filtration Rate 113 mL/min (>60); Est Glom Filt Rate - Afr Amer 136 mL/min (>60); Estimated Creatinine Clearance 86.21 ml/min; Glucose 128 mg/dL (70-110); High Density Lipoprotein 46 mg/dL; Magnesium 3.1 mg/dL (1.8-2.4); Phosphorus 3.2 mg/dL (2.5-4.9); Potassium 4.4 mmol/L (3.5-5.1); Sodium Level 135 mmol/L (136-145); Triglycerides 48 mg/dL; Very Low Density Lipoprotein 10 mg/dL (5-40)
--- NOTE | 2017-07-25 05:55 | EKG12_ITS ---
Test Reason : AM EKG Blood Pressure : / mmHG Vent. Rate : 077 BPM Atrial Rate : 077 BPM P-R Int : 142 ms QRS Dur : 086 ms QT Int : 430 ms P-R-T Axes : 060 045 059 degrees QTc Int : 486 ms Normal sinus rhythm Prolonged QT Abnormal ECG When compared with ECG of 24-JUL-2017 17:45, MANUAL COMPARISON REQUIRED, DATA IS UNCONFIRMED Confirmed by WEST KIM, GLORY ([id number]), magazine editor JIMBO SMITH ([id number]) on 07/30/2017 9:44:45 AM Referred By: NATALY Confirmed By:GLORY DODSON MD
[2017-07-25] MEDS: Ketorolac 15 MG/ML Vial IV ×3 (06:47→21:06)
[2017-07-25] MEDS: Ipratropium/Albuterol Sulfate 3 ML AMPUL.NEB INHALATION (07:18)
--- NOTE | 2017-07-25 08:09 | PN.SURG_ITS ---
Patient Problems: Active and Suspected Problems Tubo-ovarian abscess (Acute) Hydrosalpinx (Acute) Subjective: Patient is complaining of extreme abdominal pain this morning but she says the pain is incisional is not pelvic as she had before. - Physical Exam General: Alert, Oriented x3 HEENT: Atraumatic Oral: Moist Mucosa Neck: No JVD Lungs: Normal air movement Cardiovascular: Regular rate, Regular Rhythm Abdomen: Soft, Non-Distended, Tender - Appropriate tenderness at the incision and drain site., - - Incision is covered with operative bandage. Ileostomy is pink with nothing in the stoma bag. Drain is serosanguineous. Musculoskeletal: No Tenderness to Palpation of Joints or Extremities, No Muscle Wasting Neurological: Cranial nerves II-XII grossly intact Vital Signs Temp Pulse Resp BP Pulse Ox 97.9 F 86 16 97/61 97 07/25/17 00:38 07/25/17 07:19 07/25/17 07:19 07/25/17 06:50 07/25/17 07:19 Oxygen Flow Rate 1 Oxygen Delivery Method Nasal Cannula Weight: 124 lb 12.506 oz Body Mass Index (BMI) 21.4 Intake and Output for Last 24 Hours 07/23/17 07/24/17 07/25/17 23:59 23:59 23:59 Intake Total 6226 / 6226 4846 / 4846 869 / 869 Output Total 4000 / 4000 1100 / 1100 1080 / 1080 Balance 2226 / 2226 3746 / 3746 -211 / -211 Microbiology Past 72 Hours 07/22/17 06:20 C. difficile DNA Amplification - Final Stool Laboratory Tests Past 24 Hrs 07/24/17 07/24/17 07/24/17 18:00 20:30 22:17 WBC RBC Hgb Hct MCV MCH MCHC RDW RDW Differential Plt Count MPV Immature Gran % (Auto) Neut % (Auto) Lymph % (Auto) [place] % (Auto) Eos % (Auto) Baso % (Auto) Absolute Neuts (auto) Absolute Lymphs (auto) Total Counted Sodium 136 Potassium 3.7 Chloride 101 Carbon Dioxide 23.0 Anion Gap 12 BUN 9 Creatinine 0.66 Estim Creat Clear Calc 77.07 Est GFR (MDRD) Af Amer 119 Est GFR (MDRD) Non-Af 98 BUN/Creatinine Ratio 13.5 Glucose 184 H Calcium 8.0 L Phosphorus Magnesium 1.2 L Troponin I < 0.02 < 0.02 Triglycerides Cholesterol LDL Cholesterol VLDL Cholesterol HDL Cholesterol MRSA (PCR) Negative Miscellaneous Cytology 07/24/17 07/25/17 07/25/17 Unknown 01:10 04:55 WBC 12.5 H RBC 2.89 L Hgb 9.6 L Hct 27.9 L MCV 96.5 MCH 33.2 H MCHC 34.4 RDW 12.2 RDW Differential 41.7 Plt Count 280 MPV 9.8 Immature Gran % (Auto) 0.300 Neut % (Auto) 78.5 H Lymph % (Auto) 10.0 L [place] % (Auto) 11.2 H Eos % (Auto) 0.0 Baso % (Auto) 0.0 Absolute Neuts (auto) 9.8 H Absolute Lymphs (auto) 1.25 Total Counted Not Reportable Sodium Potassium Chloride Carbon Dioxide Anion Gap BUN Creatinine Estim Creat Clear Calc Est GFR (MDRD) Af Amer Est GFR (MDRD) Non-Af BUN/Creatinine Ratio Glucose Calcium Phosphorus Magnesium Troponin I < 0.02 Triglycerides Cholesterol LDL Cholesterol VLDL Cholesterol HDL Cholesterol MRSA (PCR) Miscellaneous Cytology Pending 07/25/17 07/25/17 04:55 04:55 WBC RBC Hgb Hct MCV MCH MCHC RDW RDW Differential Plt Count MPV Immature Gran % (Auto) Neut % (Auto) Lymph % (Auto) [place] % (Auto) Eos % (Auto) Baso % (Auto) Absolute Neuts (auto) Absolute Lymphs (auto) Total Counted Sodium 135 L Potassium 4.4 Chloride 100 Carbon Dioxide 27.0 Anion Gap 8 BUN 9 Creatinine 0.59 Estim Creat Clear Calc 86.21 Est GFR (MDRD) Af Amer 136 Est GFR (MDRD) Non-Af 113 BUN/Creatinine Ratio 15.2 Glucose 128 H Calcium 7.9 L Phosphorus 3.2 Magnesium 3.1 H Troponin I < 0.02 Triglycerides 48 Cholesterol 127 LDL Cholesterol 71 VLDL Cholesterol 10 HDL Cholesterol 46 MRSA (PCR) Miscellaneous Cytology Assessment/Plan Active and Suspected Problems Tubo-ovarian abscess (Acute) Hydrosalpinx (Acute) 52-year-old female status post sigmoid colectomy and hysterectomy with low anterior anastomosis and diverting loop ileostomy. POD 1 1. Cardiac --patient was placed in the ICU postoperatively due to changes on her EKG in PACU. At that time her magnesium was low and it was replaced. Since then her telemetry has been normal. She has had 4 negative troponins. Repeat EKG this morning was normal sinus rhythm with no changes. I will transfer her out of the ICU to a telemetry Medr bed. I would hold on aspirin for now as all of her EKG changes have been reversed with repleting her magnesium. I would wait at least 1 more day before starting aspirin if that is what the hospital service would like. I will start her on Lovenox today. 2. Pain control--patient is opioid tolerant and not getting good relief from morphine. I will start her on a Dilaudid [employer] pump. I have also given her Toradol 48 hours. 3. GI--continue n.p.o., IV fluids. Expect postoperative ileus. Stoma looks pink and viable. Okay for sips and ice chips. Await bowel function. 4. Urinary--continue Correa for 24 more hours. The inflammatory mass was attached to the left ureter. A drain was left in place in the pelvis and I will continue to keep the bladder decompressed with Correa for 24 more hours. Urine output adequate. Urine is pink tinged due to the ureter stents. 5. ID-stop antibiotics. If there is any sign of C. difficile recurrence, I would have to place a catheter into her descending limb of her loop ileostomy for vancomycin enemas. 6. Prophylaxis-Pepcid, SCDs, Lovenox Felipe Rios MD Pager: [facility] [address], [address] [place] [address] Office:
[2017-07-25] MEDS: HYDROmorphone 1 MG/ML Syringe IV (08:30)
[2017-07-25] MEDS: HYDROmorphone PCA 0.2 MG/ML 100 ML BAG 20 MG IV (09:51)
[2017-07-25] MEDS: Enoxaparin 40 MG/0.4 ML Syringe SC (11:36)
[2017-07-25] MEDS: 0.9% NaCl Peripheral Flush Adult/Peds IV ×2 (11:36→14:10)
--- NOTE | 2017-07-25 13:04 | PN.OBGYN_ITS ---
Patient Problems: Active and Suspected Problems (Last Updated 07/25/17 @ 08:41 by Marla Baltazar) Tubo-ovarian abscess (Acute) Hydrosalpinx (Acute) Subjective: Had severe pain this morning, this is controlled with ASBESTOS SIDING INSTALLER now. Denies nausea or vomiting, tolerates sips and chips. Denies vaginal bleeding. Objective: AVSS - Physical Exam General: Alert, Oriented x3, Cooperative, No apparent distress HEENT: Atraumatic, Normocephalic Abdomen: Soft, Non-Distended, - - appropriately tender postop - incision with dressing c/d/i, TYLER in situ and stoma present Extremities: No edema, No Calf Tenderness Neurological: Neuro grossly intact Psych/Mental Status: Normal Affect, Appropriate, Alert and oriented to time, place, person, mood and affect Vital Signs Temp Pulse Resp BP Pulse Ox 98.0 F 79 16 89/54 L 96 07/25/17 12:00 07/25/17 12:00 07/25/17 12:00 07/25/17 12:00 07/25/17 12:00 Oxygen Flow Rate 1 Oxygen Delivery Method Room Air Weight: 56.6 kg Body Mass Index (BMI) 21.4 Intake and Output for Last 24 Hours 07/23/17 07/24/17 07/25/17 23:59 23:59 23:59 Intake Total 6226 / 6226 4846 / 4846 869 / 869 Output Total 4000 / 4000 1100 / 1100 1080 / 1080 Balance 2226 / 2226 3746 / 3746 -211 / -211 Microbiology Past 72 Hours 07/22/17 06:20 C. difficile DNA Amplification - Final Stool Laboratory Tests Past 24 Hrs 07/24/17 07/24/17 07/24/17 18:00 20:30 22:17 WBC RBC Hgb Hct MCV MCH MCHC RDW RDW Differential Plt Count MPV Immature Gran % (Auto) Neut % (Auto) Lymph % (Auto) [place] % (Auto) Eos % (Auto) Baso % (Auto) Absolute Neuts (auto) Absolute Lymphs (auto) Total Counted Sodium 136 Potassium 3.7 Chloride 101 Carbon Dioxide 23.0 Anion Gap 12 BUN 9 Creatinine 0.66 Estim Creat Clear Calc 77.07 Est GFR (MDRD) Af Amer 119 Est GFR (MDRD) Non-Af 98 BUN/Creatinine Ratio 13.5 Glucose 184 H Calcium 8.0 L Phosphorus Magnesium 1.2 L Troponin I < 0.02 < 0.02 Triglycerides Cholesterol LDL Cholesterol VLDL Cholesterol HDL Cholesterol MRSA (PCR) Negative 07/25/17 07/25/17 07/25/17 01:10 04:55 04:55 WBC 12.5 H RBC 2.89 L Hgb 9.6 L Hct 27.9 L MCV 96.5 MCH 33.2 H MCHC 34.4 RDW 12.2 RDW Differential 41.7 Plt Count 280 MPV 9.8 Immature Gran % (Auto) 0.300 Neut % (Auto) 78.5 H Lymph % (Auto) 10.0 L [place] % (Auto) 11.2 H Eos % (Auto) 0.0 Baso % (Auto) 0.0 Absolute Neuts (auto) 9.8 H Absolute Lymphs (auto) 1.25 Total Counted Not Reportable Sodium 135 L Potassium 4.4 Chloride 100 Carbon Dioxide 27.0 Anion Gap 8 BUN 9 Creatinine 0.59 Estim Creat Clear Calc 86.21 Est GFR (MDRD) Af Amer 136 Est GFR (MDRD) Non-Af 113 BUN/Creatinine Ratio 15.2 Glucose 128 H Calcium 7.9 L Phosphorus 3.2 Magnesium 3.1 H Troponin I < 0.02 Triglycerides 48 Cholesterol 127 LDL Cholesterol 71 VLDL Cholesterol 10 HDL Cholesterol 46 MRSA (PCR) 07/25/17 04:55 WBC RBC Hgb Hct MCV MCH MCHC RDW RDW Differential Plt Count MPV Immature Gran % (Auto) Neut % (Auto) Lymph % (Auto) [place] % (Auto) Eos % (Auto) Baso % (Auto) Absolute Neuts (auto) Absolute Lymphs (auto) Total Counted Sodium Potassium Chloride Carbon Dioxide Anion Gap BUN Creatinine Estim Creat Clear Calc Est GFR (MDRD) Af Amer Est GFR (MDRD) Non-Af BUN/Creatinine Ratio Glucose Calcium Phosphorus Magnesium Troponin I < 0.02 Triglycerides Cholesterol LDL Cholesterol VLDL Cholesterol HDL Cholesterol MRSA (PCR) Assessment/Plan Active and Suspected Problems (Last Updated 07/25/17 @ 08:41 by Marla Baltazar) Tubo-ovarian abscess (Acute) Hydrosalpinx (Acute) 52yo POD#1 s/p ex lap with partial colectomy, JOANN, LSO, right salpingectomy doing well. -UO adequate, maintain ureteral stents -GI: per Gen Surg -Heme: H/H appropriate for surgical blood loss. DVT ppx -Routine post-op care
[2017-07-25] MEDS: Famotidine 20 MG Tablet PO ×2 (13:34→21:05)
[2017-07-25] MEDS: LORazepam 0.5 MG Tablet PO (14:10)
--- NOTE | 2017-07-25 17:42 | PN_ITS ---
Patient Problems: Active and Suspected Problems (Last Updated 07/25/17 @ 08:41 by Marla Baltazar) Tubo-ovarian abscess (Acute) Hydrosalpinx (Acute) Subjective: Patient was seen and examined today in the ICU, she has not had significant arrhythmias, she is being medicated for pain with a PROPAGATOR LABORER pump. She has no complaints of any shortness of breath, she continues to complain of postop pain but is being medicated. - Physical Exam General: Alert, Oriented x3, Cooperative, No apparent distress, Well developed, Well nourished HEENT: Atraumatic, PERRLA, EOMI, Normocephalic Oral: Moist Mucosa Neck: Supple, No JVD, No Nuchal Rigidity, Trachea Midline, Thyroid Normal Size and Texture Lungs: Clear to auscultation, Normal air movement, No rhonchi, No wheeze, No rales Cardiovascular: Regular rate, Regular Rhythm, Normal S1, Normal S2, No murmurs, No Ectopic Activity, PMI Normal Abdomen: - - Ileostomy in place Extremities: No clubbing, No cyanosis, No edema, Capillary Refill Less than 3 Seconds Neurological: Cranial nerves II-XII grossly intact, Neuro grossly intact, Sensory exam intact to light touch and pain, Coordination normal Psych/Mental Status: Normal Affect, Appropriate, Alert and oriented to time, place, person, mood and affect Vital Signs Temp Pulse Resp BP Pulse Ox 99.0 F 77 14 96/58 L 96 07/25/17 14:00 07/25/17 16:14 07/25/17 16:00 07/25/17 16:00 07/25/17 16:00 Oxygen Flow Rate 1 Oxygen Delivery Method Room Air Weight: 56.6 kg Body Mass Index (BMI) 21.4 Intake and Output for Last 24 Hours 07/23/17 07/24/17 07/25/17 23:59 23:59 23:59 Intake Total 6226 / 6226 4846 / 4846 869 / 869 Output Total 4000 / 4000 1100 / 1100 1140 / 1140 Balance 2226 / 2226 3746 / 3746 -271 / -271 Laboratory Tests Past 24 Hrs 07/24/17 07/24/17 07/24/17 18:00 20:30 22:17 WBC RBC Hgb Hct MCV MCH MCHC RDW RDW Differential Plt Count MPV Immature Gran % (Auto) Neut % (Auto) Lymph % (Auto) [place] % (Auto) Eos % (Auto) Baso % (Auto) Absolute Neuts (auto) Absolute Lymphs (auto) Total Counted Sodium 136 Potassium 3.7 Chloride 101 Carbon Dioxide 23.0 Anion Gap 12 BUN 9 Creatinine 0.66 Estim Creat Clear Calc 77.07 Est GFR (MDRD) Af Amer 119 Est GFR (MDRD) Non-Af 98 BUN/Creatinine Ratio 13.5 Glucose 184 H Calcium 8.0 L Phosphorus Magnesium 1.2 L Troponin I < 0.02 < 0.02 Triglycerides Cholesterol LDL Cholesterol VLDL Cholesterol HDL Cholesterol MRSA (PCR) Negative 07/25/17 07/25/17 07/25/17 01:10 04:55 04:55 WBC 12.5 H RBC 2.89 L Hgb 9.6 L Hct 27.9 L MCV 96.5 MCH 33.2 H MCHC 34.4 RDW 12.2 RDW Differential 41.7 Plt Count 280 MPV 9.8 Immature Gran % (Auto) 0.300 Neut % (Auto) 78.5 H Lymph % (Auto) 10.0 L [place] % (Auto) 11.2 H Eos % (Auto) 0.0 Baso % (Auto) 0.0 Absolute Neuts (auto) 9.8 H Absolute Lymphs (auto) 1.25 Total Counted Not Reportable Sodium 135 L Potassium 4.4 Chloride 100 Carbon Dioxide 27.0 Anion Gap 8 BUN 9 Creatinine 0.59 Estim Creat Clear Calc 86.21 Est GFR (MDRD) Af Amer 136 Est GFR (MDRD) Non-Af 113 BUN/Creatinine Ratio 15.2 Glucose 128 H Calcium 7.9 L Phosphorus 3.2 Magnesium 3.1 H Troponin I < 0.02 Triglycerides 48 Cholesterol 127 LDL Cholesterol 71 VLDL Cholesterol 10 HDL Cholesterol 46 MRSA (PCR) 07/25/17 04:55 WBC RBC Hgb Hct MCV MCH MCHC RDW RDW Differential Plt Count MPV Immature Gran % (Auto) Neut % (Auto) Lymph % (Auto) [place] % (Auto) Eos % (Auto) Baso % (Auto) Absolute Neuts (auto) Absolute Lymphs (auto) Total Counted Sodium Potassium Chloride Carbon Dioxide Anion Gap BUN Creatinine Estim Creat Clear Calc Est GFR (MDRD) Af Amer Est GFR (MDRD) Non-Af BUN/Creatinine Ratio Glucose Calcium Phosphorus Magnesium Troponin I < 0.02 Triglycerides Cholesterol LDL Cholesterol VLDL Cholesterol HDL Cholesterol MRSA (PCR) Assessment/Plan Active and Suspected Problems (Last Updated 07/25/17 @ 08:41 by Marla Baltazar) Tubo-ovarian abscess (Acute) Hydrosalpinx (Acute) #1 chronic obstructive pulmonary disease-patient only uses her inhaler at home as needed, aerosol treatments were changed to every 6 hours as needed #2 hypomagnesemia-corrected at this time #3 PVCs-resolved, probably secondary to hypomagnesemia #4 GERD-patient is currently on Pepcid Patient appears stable for transfer to medical floor Code Visit Inpatient E&M: 35660 Subs Hosp L2
[2017-07-26] VITALS (19 sets, daily range): BP systolic 107–154; BP diastolic 62–88; PULSE 70–105; RESP 16–20; TEMP 36.7–38.3; O2SAT 93–100
--- NOTE | 2017-07-26 02:25 | NURSING ---
SATS DROPPED TO HIGH 90'S, PLACED ON 2L O2. SATS STEADY AT 98-100%.
[2017-07-26] MEDS: Lactated Ringers 1,000 ML 125 ML IV (03:08)
[2017-07-26] MEDS: Ketorolac 15 MG/ML Vial IV ×2 (05:26→13:49)
[2017-07-26] MEDS: 0.9% NaCl Peripheral Flush Adult/Peds IV ×2 (05:26→11:32)
[2017-07-26 07:31] LABS: Absolute Lymphocyte Count 2.08 X10^3/ul (0.83-4.51); Absolute Neutrophil Count 5.1 X10^3/uL (2.0-7.7); Basophil# 0.02 X10^3/uL; Basophil% 0.2 % (0-1); Eosinophil# 0.12 X10^3/uL; Eosinophils% 1.5 % (0-5); Hematocrit 25.2 % (37-47); Hemoglobin 8.3 g/dl (12.0-15.0); Lymphocyte # 2.08 X10^3/ul (4.0); Lymphocyte % 25.6 % (19-41); Mean Corp Hgb Conc 32.9 g/gl (32-36); Mean Corpuscular Hgb 32.7 pg (27.0-32.0); Mean Corpuscular Volume 99.2 fL (81-99); Mean Platelet Vol. 10.3 fl (6.2-12.0); Monocyte# 0.84 X10^3/uL; Monocyte% 10.3 % (0-10); Neutrophil # 5.06 X10^3/uL (2.7-7.7); Neutrophil % 62.2 % (47-70); Platelet Count 230 K/mm3 (150-450); RBC Distribution Width CV 12.7 % (11.6-14.6); RBC Distribution Width SD 43.5 fl (35.1-43.9); Red Blood Count 2.54 M/mm3 (4.2-5.4); White Blood Count 8.1 K/mm3 (4.4-11.0)
[2017-07-26 07:35] LABS: POSITIVE COUNT NO; POSITIVE DIFFERENTIAL NO; POSITIVE MORPHOLOGY NO
[2017-07-26 07:58] LABS: Anion Gap 9 (5-15); BUN 11 mg/dL (7-18); BUN/Creat Ratio 31.5 RATIO (10-20); Calcium,Total 7.7 mg/dL (8.5-10.1); Chloride 103 mmol/L (98-107); Creatinine, Serum 0.35 mg/dL (0.55-1.02); EST Glomerular Filtration Rate 207 mL/min (>60); Est Glom Filt Rate - Afr Amer 250 mL/min (>60); Estimated Creatinine Clearance 145.33 ml/min; Glucose 68 mg/dL (70-110); Potassium 4.1 mmol/L (3.5-5.1); Sodium Level 137 mmol/L (136-145)
--- NOTE | 2017-07-26 09:17 | PCM.PN.SRG ---
Patient Problems: Active and Suspected Problems (Last Updated 07/25/17 @ 08:41 by Marla Baltazar) Tubo-ovarian abscess (Acute) Hydrosalpinx (Acute) Subjective: Patient is doing better this morning. Her pain is much better controlled on Dilaudid BIOSTATISTICS PROFESSOR. She is not having any nausea or vomiting but she is belching a lot. - Physical Exam General: Alert, Oriented x3, Cooperative HEENT: Atraumatic Oral: Moist Mucosa Neck: No JVD Lungs: Normal air movement Cardiovascular: Regular rate, Regular Rhythm Abdomen: Soft, Non-Distended, Tender, - - TYLER is serosanguineous. Incision is clean and intact but there is serous drainage from the inferior portion. There is no erythema or ecchymosis. Stoma is pink. Musculoskeletal: No Muscle Wasting Neurological: Cranial nerves II-XII grossly intact Psych/Mental Status: Normal Affect, Appropriate Vital Signs Temp Pulse Resp BP Pulse Ox 98.1 F 83 16 125/72 H 93 07/26/17 07:00 07/26/17 07:41 07/26/17 07:27 07/26/17 07:00 07/26/17 07:36 Oxygen Flow Rate 2 Oxygen Delivery Method Room Air Weight: 132 lb 11.492 oz Body Mass Index (BMI) 21.4 Intake and Output for Last 24 Hours 07/24/17 07/25/17 07/26/17 23:59 23:59 23:59 Intake Total 4846 / 4846 2379 / 2379 1366 / 1366 Output Total 1100 / 1100 1450 / 1450 740 / 740 Balance 3746 / 3746 929 / 929 626 / 626 Laboratory Tests Past 24 Hrs 07/26/17 07/26/17 06:43 06:43 WBC 8.1 RBC 2.54 L Hgb 8.3 L Hct 25.2 L MCV 99.2 H MCH 32.7 H MCHC 32.9 RDW 12.7 RDW Differential 43.5 Plt Count 230 MPV 10.3 Immature Gran % (Auto) 0.200 Neut % (Auto) 62.2 Lymph % (Auto) 25.6 [place] % (Auto) 10.3 H Eos % (Auto) 1.5 Baso % (Auto) 0.2 Absolute Neuts (auto) 5.1 Absolute Lymphs (auto) 2.08 Total Counted Not Reportable Sodium 137 Potassium 4.1 Chloride 103 Carbon Dioxide 25.0 Anion Gap 9 BUN 11 Creatinine 0.35 L Estim Creat Clear Calc 145.33 Est GFR (MDRD) Af Amer 250 Est GFR (MDRD) Non-Af 207 BUN/Creatinine Ratio 31.5 H Glucose 68 L Calcium 7.7 L Assessment/Plan Active and Suspected Problems (Last Updated 07/25/17 @ 08:41 by Marla Baltazar) Tubo-ovarian abscess (Acute) Hydrosalpinx (Acute) 52-year-old female status post sigmoid colectomy and hysterectomy with low anterior anastomosis and diverting loop ileostomy. POD 2 1. Cardiac --patient seems stable with a normal rate and rhythm. She is on telemetry on the floor currently. 2. Pain control--patient's pain control is improved on a Dilaudid BIOSTATISTICS PROFESSOR. When she is starting a diet I will stop the BIOSTATISTICS PROFESSOR in order oral pain medicine. 3. GI--continue n.p.o. as she is having a lot of belching. I will decrease her IV fluids. Await bowel function from the stoma. Her incision is having a lot of serous drainage. There is no purulence or redness but I am concerned for a fascial dehiscence given the amount of drainage. I will check on her this afternoon and see how saturated her dressings are. I do not feel any herniated bowel contents at this time and there is no evisceration. If there is evisceration she would have to return to OR for revision. 4. Urinary--urine is clear. Will DC Correa. 5. ID-WBC normal. 6. Prophylaxis-Pepcid, SCDs, Lovenox Felipe Rios MD Pager: [facility] [address], [address] [place] [address] Office:
--- NOTE | 2017-07-26 09:31 | PN.SURG_ITS ---
Patient Problems: Active and Suspected Problems (Last Updated 07/25/17 @ 08:41 by Marla Baltazar) Tubo-ovarian abscess (Acute) Hydrosalpinx (Acute) Subjective: Patient is doing better this morning. Her pain is much better controlled on Dilaudid ABRASIVE COATING MACHINE OPERATOR. She is not having any nausea or vomiting but she is belching a lot. - Physical Exam General: Alert, Oriented x3, Cooperative HEENT: Atraumatic Oral: Moist Mucosa Neck: No JVD Lungs: Normal air movement Cardiovascular: Regular rate, Regular Rhythm Abdomen: Soft, Non-Distended, Tender, - - TYLER is serosanguineous. Incision is clean and intact but there is serous drainage from the inferior portion. There is no erythema or ecchymosis. Stoma is pink. Musculoskeletal: No Muscle Wasting Neurological: Cranial nerves II-XII grossly intact Psych/Mental Status: Normal Affect, Appropriate Vital Signs Temp Pulse Resp BP Pulse Ox 98.1 F 83 16 125/72 H 93 07/26/17 07:00 07/26/17 07:41 07/26/17 07:27 07/26/17 07:00 07/26/17 07:36 Oxygen Flow Rate 2 Oxygen Delivery Method Room Air Weight: 132 lb 11.492 oz Body Mass Index (BMI) 21.4 Intake and Output for Last 24 Hours 07/24/17 07/25/17 07/26/17 23:59 23:59 23:59 Intake Total 4846 / 4846 2379 / 2379 1366 / 1366 Output Total 1100 / 1100 1450 / 1450 740 / 740 Balance 3746 / 3746 929 / 929 626 / 626 Laboratory Tests Past 24 Hrs 07/26/17 07/26/17 06:43 06:43 WBC 8.1 RBC 2.54 L Hgb 8.3 L Hct 25.2 L MCV 99.2 H MCH 32.7 H MCHC 32.9 RDW 12.7 RDW Differential 43.5 Plt Count 230 MPV 10.3 Immature Gran % (Auto) 0.200 Neut % (Auto) 62.2 Lymph % (Auto) 25.6 [place] % (Auto) 10.3 H Eos % (Auto) 1.5 Baso % (Auto) 0.2 Absolute Neuts (auto) 5.1 Absolute Lymphs (auto) 2.08 Total Counted Not Reportable Sodium 137 Potassium 4.1 Chloride 103 Carbon Dioxide 25.0 Anion Gap 9 BUN 11 Creatinine 0.35 L Estim Creat Clear Calc 145.33 Est GFR (MDRD) Af Amer 250 Est GFR (MDRD) Non-Af 207 BUN/Creatinine Ratio 31.5 H Glucose 68 L Calcium 7.7 L Assessment/Plan Active and Suspected Problems (Last Updated 07/25/17 @ 08:41 by Marla Baltazar) Tubo-ovarian abscess (Acute) Hydrosalpinx (Acute) 52-year-old female status post sigmoid colectomy and hysterectomy with low anterior anastomosis and diverting loop ileostomy. POD 2 1. Cardiac --patient seems stable with a normal rate and rhythm. She is on telemetry on the floor currently. 2. Pain control--patient's pain control is improved on a Dilaudid ABRASIVE COATING MACHINE OPERATOR. When she is starting a diet I will stop the ABRASIVE COATING MACHINE OPERATOR in order oral pain medicine. 3. GI--continue n.p.o. as she is having a lot of belching. I will decrease her IV fluids. Await bowel function from the stoma. Her incision is having a lot of serous drainage. There is no purulence or redness but I am concerned for a fascial dehiscence given the amount of drainage. I will check on her this afternoon and see how saturated her dressings are. I do not feel any herniated bowel contents at this time and there is no evisceration. If there is evisceration she would have to return to OR for revision. 4. Urinary--urine is clear. Will DC Correa. 5. ID-WBC normal. 6. Prophylaxis-Pepcid, SCDs, Lovenox Felipe Rios MD Pager: [facility] [address], [address] [place] [address] Office:
[2017-07-26] MEDS: Enoxaparin 40 MG/0.4 ML Syringe SC (09:38)
[2017-07-26] MEDS: Famotidine 20 MG Tablet PO ×2 (09:38→21:12)
[2017-07-26] MEDS: Ondansetron 4 MG/2 ML Vial 8 MG IV (11:30)
[2017-07-26] MEDS: Lactated Ringers 1,000 ML 75 ML IV (11:32)
[2017-07-26] MEDS: HYDROmorphone PCA 0.2 MG/ML 100 ML BAG 20 MG IV (13:31)
[2017-07-26] MEDS: oxyCODONE 5 MG Tablet PO (15:55)
--- NOTE | 2017-07-26 16:00 | NURSING ---
attempted to start IV x2, accuvein was used without success, Agustin Drawer Waxer called he attempted x2 unsuccessful, Brian from ER called to start after 3 attempts was able to get IV- Dr. Wright aware of the multiple attempts
--- NOTE | 2017-07-26 18:09 | PN_ITS ---
Patient Problems: Active and Suspected Problems (Last Updated 07/25/17 @ 08:41 by Marla Baltazar) Tubo-ovarian abscess (Acute) Hydrosalpinx (Acute) Subjective: Patient was seen and examined today, she still complaining of incisional pain, hemoglobin today is 8.3. Patient has PVC's on the monitor. - Physical Exam General: Alert, Oriented x3, Cooperative, No apparent distress, Well developed, Well nourished HEENT: Atraumatic, PERRLA, EOMI, Normocephalic Oral: Moist Mucosa Neck: Supple, No JVD, No Nuchal Rigidity, Trachea Midline, Thyroid Normal Size and Texture Lungs: Clear to auscultation, Normal air movement, No rhonchi, No wheeze, No rales Cardiovascular: Regular rate, Regular Rhythm, No murmurs, - - Frequent ectopic beats were noted Extremities: No clubbing, No cyanosis, No edema, Capillary Refill Less than 3 Seconds Skin: No rashes, No breakdown Musculoskeletal: No Tenderness to Palpation of Joints or Extremities Neurological: Cranial nerves II-XII grossly intact, Neuro grossly intact, Sensory exam intact to light touch and pain, Coordination normal Psych/Mental Status: Normal Affect, Appropriate, Alert and oriented to time, place, person, mood and affect Vital Signs Temp Pulse Resp BP Pulse Ox 101 F H 105 H 20 H 134/69 H 100 07/26/17 17:00 07/26/17 17:00 07/26/17 17:00 07/26/17 17:00 07/26/17 17:00 Oxygen Flow Rate 2 Oxygen Delivery Method Room Air Weight: 60.2 kg Body Mass Index (BMI) 21.4 Intake and Output for Last 24 Hours 07/24/17 07/25/17 07/26/17 23:59 23:59 23:59 Intake Total 4846 / 4846 2379 / 2379 2768 / 2768 Output Total 1100 / 1100 1450 / 1450 1450 / 1450 Balance 3746 / 3746 929 / 929 1318 / 1318 Laboratory Tests Past 24 Hrs 07/26/17 07/26/17 06:43 06:43 WBC 8.1 RBC 2.54 L Hgb 8.3 L Hct 25.2 L MCV 99.2 H MCH 32.7 H MCHC 32.9 RDW 12.7 RDW Differential 43.5 Plt Count 230 MPV 10.3 Immature Gran % (Auto) 0.200 Neut % (Auto) 62.2 Lymph % (Auto) 25.6 [place] % (Auto) 10.3 H Eos % (Auto) 1.5 Baso % (Auto) 0.2 Absolute Neuts (auto) 5.1 Absolute Lymphs (auto) 2.08 Total Counted Not Reportable Sodium 137 Potassium 4.1 Chloride 103 Carbon Dioxide 25.0 Anion Gap 9 BUN 11 Creatinine 0.35 L Estim Creat Clear Calc 145.33 Est GFR (MDRD) Af Amer 250 Est GFR (MDRD) Non-Af 207 BUN/Creatinine Ratio 31.5 H Glucose 68 L Calcium 7.7 L Assessment/Plan Active and Suspected Problems (Last Updated 07/25/17 @ 08:41 by Marla Baltazar) Tubo-ovarian abscess (Acute) Hydrosalpinx (Acute) #1 chronic obstructive pulmonary disease-continue every 6hr aerosol treatments as needed #2 Postoperative anemia-expected as a consequence of surgery-no transfusion at the present time is needed #3 PVCs-these are periodic in nature, no treatment #4 GERD-patient is currently on Pepcid Code Visit Inpatient E&M: 92495 Subs Hosp L2
[2017-07-26] MEDS: Acetaminophen 325 MG Tablet 650 MG PO (18:30)
[2017-07-26 19:01] LABS: Hematocrit 30.7 % (37-47); Hemoglobin 10.1 g/dl (12.0-15.0); Mean Corp Hgb Conc 32.9 g/gl (32-36); Mean Corpuscular Hgb 32.6 pg (27.0-32.0); Mean Platelet Vol. 9.8 fl (6.2-12.0); Platelet Count 269 K/mm3 (150-450); RBC Distribution Width SD 47.2 fl (35.1-43.9); White Blood Count 12.6 K/mm3 (4.4-11.0)
[2017-07-26 19:07] LABS: Scan Indicated on CBC? Y/N NO
[2017-07-26 19:41] LABS: Mucous, Urine 0 SEEN /hpf (<or=2+)
[2017-07-26 19:47] LABS: Color, Urine Yellow (Yellow); Glucose, Dipstick Normal (Normal); Leukocyte Esterase-Dipstick 100 /ul (Negative); Nitrite-Dipstick Negative (Negative); Occult Blood-Urine 250 /ul (Negative); Protein-Dipstick 15 mg/dl (Negative); Urine Bilirubin Dipstick Negative (Negative); Urine Clarity Cloudy (Clear); Urine Urobilinogen Normal (Normal)
[2017-07-26 19:53] LABS: Ketone-Dipstick 150 mg/dl (Negative)
[2017-07-26 20:01] LABS: Red Blood Cells-Urine 50-100 SEEN /hpf (0-5)
[2017-07-26 20:02] LABS: Squamous Epithelial Cells - UA 5-10 SEEN /hpf (5-10); White Blood Cells 5-10 SEEN /hpf (0-5)
[2017-07-26 20:03] LABS: Bacteria RARE /hpf (None Seen); Yeast-Urine RARE /hpf (None Seen)
[2017-07-26] MEDS: Albuterol 2.5 MG/3 ML VIAL.NEB. INHALATION (20:33)
[2017-07-27] VITALS (13 sets, daily range): BP systolic 126–146; BP diastolic 48–91; PULSE 89–107; RESP 16–18; TEMP 37.2–37.9; O2SAT 94–100
[2017-07-27] MEDS: Acetaminophen 325 MG Tablet 650 MG PO (00:33)
[2017-07-27] MEDS: Ondansetron 4 MG/2 ML Vial 8 MG IV (01:46)
[2017-07-27] MEDS: Lactated Ringers 1,000 ML 75 ML IV (05:02)
--- NOTE | 2017-07-27 08:20 | RAD_ITS ---
STUDY: X-RAY CHEST REASON FOR EXAM: Female, 52 years old. Cough TECHNIQUE: PA and lateral views of the chest. COMPARISON: 08/20/2016 chest FINDINGS: There is trace blunting of the left costophrenic angle new since prior study. There is no demonstrated pleural abnormality. There is borderline cardiomegaly. Normal mediastinum and hillary. Normal visualized pulmonary arteries. Normal visualized aortic arch and descending thoracic aorta. Normal visualized thoracic spine. Normal visualized ribs, clavicles, and shoulders. There is no demonstrated abnormality of the visualized soft tissue structures of the upper abdomen. RAD/Chest PA and Lateral IMPRESSION: There is a new focal opacity in the left lung base which may represent a small focus of pneumonia and/or effusion with atelectasis. Electronically Signed: eRna Christopher MD at 8:59 EST Tel , Service support ,
[2017-07-27 10:44] LABS: Anion Gap 13 (5-15); BUN 7 mg/dL (7-18); Calcium,Total 7.9 mg/dL (8.5-10.1); Chloride 100 mmol/L (98-107); Creatinine, Serum 0.35 mg/dL (0.55-1.02); EST Glomerular Filtration Rate 206 mL/min (>60); Est Glom Filt Rate - Afr Amer 250 mL/min (>60); Estimated Creatinine Clearance 145.33 ml/min; Glucose 48 mg/dL (70-110); Potassium 3.9 mmol/L (3.5-5.1); Sodium Level 135 mmol/L (136-145)
[2017-07-27 10:49] LABS: Absolute Lymphocyte Count 1.47 X10^3/ul (0.83-4.51); Basophil# 0.02 X10^3/uL; Basophil% 0.2 % (0-1); Eosinophil# 0.09 X10^3/uL; Eosinophils% 0.8 % (0-5); Hemoglobin 8.7 g/dl (12.0-15.0); Lymphocyte # 1.47 X10^3/ul (4.0); Lymphocyte % 12.5 % (19-41); Mean Corp Hgb Conc 33.5 g/gl (32-36); Mean Corpuscular Hgb 32.7 pg (27.0-32.0); Mean Corpuscular Volume 97.7 fL (81-99); Mean Platelet Vol. 9.9 fl (6.2-12.0); Monocyte# 1.19 X10^3/uL; Monocyte% 10.1 % (0-10); Neutrophil # 8.97 X10^3/uL (2.7-7.7); Neutrophil % 76.2 % (47-70); Platelet Count 246 K/mm3 (150-450); RBC Distribution Width CV 12.9 % (11.6-14.6); RBC Distribution Width SD 45.9 fl (35.1-43.9); Red Blood Count 2.66 M/mm3 (4.2-5.4); White Blood Count 11.8 K/mm3 (4.4-11.0)
[2017-07-27 10:52] LABS: POSITIVE COUNT NO; POSITIVE DIFFERENTIAL NO; POSITIVE MORPHOLOGY NO
[2017-07-27] MEDS: levoFLOXacin 750 MG Tablet PO (11:40)
[2017-07-27] MEDS: Famotidine 20 MG Tablet PO ×2 (11:41→21:07)
[2017-07-27] MEDS: Enoxaparin 40 MG/0.4 ML Syringe SC (11:41)
[2017-07-27 11:42] LABS: Magnesium 1.5 mg/dL (1.8-2.4)
--- NOTE | 2017-07-27 11:53 | NURSING ---
Patient ambulated around unit with son.
[2017-07-27 12:15] LABS: Phosphorus 3.7 mg/dL (2.5-4.9)
[2017-07-27] MEDS: Albuterol 2.5 MG/3 ML VIAL.NEB. INHALATION (14:37)
--- NOTE | 2017-07-27 14:57 | PN_ITS ---
Patient Problems: Active and Suspected Problems (Last Updated 07/25/17 @ 08:41 by Marla Baltazar) Tubo-ovarian abscess (Acute) Hydrosalpinx (Acute) Subjective: She was seen and examined today, surgery noted that the patient was running a temperature last night and today, chest x-ray was ordered which showed a left lower lobe infiltrate versus atelectasis, we have decided to treat the patient for pneumonia. Due to the patient's tenuous IV site, I will elect to treat the patient with Levaquin, CBC and chest x-ray will be repeated to assure that the area is resolving. Patient has been refusing aerosol treatments yesterday, I have informed her that she must take them 4 times a day starting today. This area on the left lower lung may be an area of atelectasis which could cause also a spike in temperature. - Physical Exam General: Alert, Oriented x3, Cooperative, No apparent distress, Well developed, Well nourished HEENT: Atraumatic, PERRLA, EOMI, Normocephalic Oral: Moist Mucosa Neck: Supple, No JVD, Negative Carotid Bruits, Trachea Midline, Thyroid Normal Size and Texture Lungs: Clear to auscultation, Normal air movement, No rhonchi, No wheeze, Rales - Vibratory rales over the left lower lung noted on auscultation Cardiovascular: Regular rate, No murmurs, No Ectopic Activity Extremities: No clubbing, No cyanosis, No edema, Capillary Refill Less than 3 Seconds Skin: No rashes, No breakdown Musculoskeletal: No Tenderness to Palpation of Joints or Extremities Neurological: Cranial nerves II-XII grossly intact, Neuro grossly intact, Sensory exam intact to light touch and pain, Coordination normal Psych/Mental Status: Normal Affect, Appropriate, Alert and oriented to time, place, person, mood and affect Vital Signs Temp Pulse Resp BP Pulse Ox 100.0 F H 90 18 134/69 H 98 07/27/17 12:32 07/27/17 14:39 07/27/17 14:39 07/27/17 12:32 07/27/17 14:39 Oxygen Flow Rate 2 Oxygen Delivery Method Room Air Weight: 60.2 kg Body Mass Index (BMI) 21.4 Intake and Output for Last 24 Hours 07/25/17 07/26/17 07/27/17 23:59 23:59 23:59 Intake Total 2379 / 2379 2768 / 2768 477 / 477 Output Total 1450 / 1450 1450 / 1450 550 / 550 Balance 929 / 929 1318 / 1318 -73 / -73 Laboratory Tests Past 24 Hrs 07/26/17 07/26/17 07/27/17 18:30 18:45 07:45 WBC 12.6 H 11.8 H RBC 3.10 L 2.66 L Hgb 10.1 L 8.7 L Hct 30.7 L 26.0 L MCV 99.0 97.7 MCH 32.6 H 32.7 H MCHC 32.9 33.5 RDW 13.0 12.9 RDW Differential 47.2 H 45.9 H Plt Count 269 246 MPV 9.8 9.9 Immature Gran % (Auto) 0.200 Neut % (Auto) 76.2 H Lymph % (Auto) 12.5 L [place] % (Auto) 10.1 H Eos % (Auto) 0.8 Baso % (Auto) 0.2 Absolute Neuts (auto) 9.0 H Absolute Lymphs (auto) 1.47 Total Counted Not Reportable Sodium Potassium Chloride Carbon Dioxide Anion Gap BUN Creatinine Estim Creat Clear Calc Est GFR (MDRD) Af Amer Est GFR (MDRD) Non-Af BUN/Creatinine Ratio Glucose Calcium Phosphorus Magnesium Urine Color Yellow Urine Clarity Cloudy Urine pH 6.0 Ur Specific [place] 1.010 Urine Protein 15 H Urine Glucose (UA) Normal Urine Ketones 150 H Urine Occult Blood 250 H Urine Nitrite Negative Urine Bilirubin Negative Urine Urobilinogen Normal Ur Leukocyte Esterase 100 H Urine RBC 50-100 SEEN Urine WBC 5-10 SEEN Ur Squamous Epith Cells 5-10 SEEN Urine Bacteria RARE Urine Mucus 0 SEEN Urine Yeast RARE 07/27/17 07/27/17 07:45 07:45 WBC RBC Hgb Hct MCV MCH MCHC RDW RDW Differential Plt Count MPV Immature Gran % (Auto) Neut % (Auto) Lymph % (Auto) [place] % (Auto) Eos % (Auto) Baso % (Auto) Absolute Neuts (auto) Absolute Lymphs (auto) Total Counted Sodium 135 L Potassium 3.9 Chloride 100 Carbon Dioxide 22.0 Anion Gap 13 BUN 7 Creatinine 0.35 L Estim Creat Clear Calc 145.33 Est GFR (MDRD) Af Amer 250 Est GFR (MDRD) Non-Af 206 BUN/Creatinine Ratio 20.0 Glucose 48 L Calcium 7.9 L Phosphorus 3.7 Magnesium 1.5 L Urine Color Urine Clarity Urine pH Ur Specific [place] Urine Protein Urine Glucose (UA) Urine Ketones Urine Occult Blood Urine Nitrite Urine Bilirubin Urine Urobilinogen Ur Leukocyte Esterase Urine RBC Urine WBC Ur Squamous Epith Cells Urine Bacteria Urine Mucus Urine Yeast Assessment/Plan Active and Suspected Problems (Last Updated 07/25/17 @ 08:41 by Marla Baltazar) Tubo-ovarian abscess (Acute) Hydrosalpinx (Acute) #1 chronic obstructive pulmonary disease-continue every 6hr aerosol treatments #2 left lower lobe pneumonia-possibly healthcare acquired-versus atelectasis- every 6 hours aerosol treatments will be given, patient was placed on Levaquin 750 mg daily, follow-up chest x-ray will be need to be repeated #3 Postoperative anemia-expected as a consequence of surgery-no transfusion at the present time is needed #3 PVCs-these are periodic in nature, no treatment #4 GERD-patient is currently on Pepcid Code Visit Inpatient E&M: 68724 Subs Hosp L2
[2017-07-27] MEDS: HYDROmorphone PCA 0.2 MG/ML 100 ML BAG 20 MG IV (19:49)
[2017-07-28] VITALS (11 sets, daily range): BP systolic 106–132; BP diastolic 67–84; PULSE 89–117; RESP 16–18; TEMP 36.6–37.3; O2SAT 96–98
[2017-07-28] MEDS: Ondansetron 4 MG/2 ML Vial 8 MG IV (00:20)
[2017-07-28] MEDS: 0.9% NaCl Peripheral Flush Adult/Peds IV ×2 (00:20→21:18)
[2017-07-28] MEDS: LORazepam 0.5 MG Tablet PO (00:25)
[2017-07-28] MEDS: Acetaminophen 325 MG Tablet 650 MG PO ×2 (00:38→10:24)
[2017-07-28] MEDS: levoFLOXacin 750 MG Tablet PO (05:26)
--- NOTE | 2017-07-28 05:55 | RAD_ITS ---
STUDY: X-RAY CHEST REASON FOR EXAM: Female, 52 years old. Cough TECHNIQUE: Single AP portable view of the chest. COMPARISON: 07/27/2017 FINDINGS: There is minimal left basilar atelectasis. A tiny left pleural effusion is again suspected. Normal size heart. Normal mediastinum and hillary. Normal visualized pulmonary arteries. Normal visualized aortic arch and descending thoracic aorta. Normal visualized thoracic spine. Normal visualized ribs, clavicles, and shoulders. There is no demonstrated abnormality of the visualized soft tissue structures of the upper abdomen. RAD/Chest 1 View (Portable) IMPRESSION: Minimal left lower lobe airspace disease with a tiny left pleural effusion. Electronically Signed: Edilberto Soriano DO at 9:00 EST Tel , Service support ,
--- NOTE | 2017-07-28 06:51 | EKG12_ITS ---
Test Reason : Blood Pressure : / mmHG Vent. Rate : 080 BPM Atrial Rate : 080 BPM P-R Int : 128 ms QRS Dur : 082 ms QT Int : 402 ms P-R-T Axes : 059 041 046 degrees QTc Int : 463 ms Normal sinus rhythm Normal ECG When compared with ECG of 25-JUL-2017 04:54, No significant change was found Confirmed by WEST KIM, GLORY ([id number]), technical editor JIMBO SMITH ([id number]) on 08/08/2017 12:03:55 PM Referred By: ZOHRA Confirmed By:GLORY DODSON MD
--- NOTE | 2017-07-28 07:08 | PCM.PN.SRG ---
Patient Problems: Active and Suspected Problems (Last Updated 07/25/17 @ 08:41 by Marla Baltazar) Tubo-ovarian abscess (Acute) Hydrosalpinx (Acute) Subjective: Patient is doing well this morning. She tolerated a clear liquid diet with no nausea or vomiting. She is having stool in her stoma bag. Her abdominal pain is minimal this morning. - Physical Exam General: Alert, Oriented x3, Cooperative, No apparent distress HEENT: Atraumatic Neck: No JVD Lungs: Normal air movement Cardiovascular: Regular rate, - - Intermittent PVCs this morning Abdomen: Soft, Non-Distended, Tender - Mild tenderness., - - Incision is clean dry and intact. TYLER is serosanguineous. Stoma is pink with stool in the bag. Neurological: Cranial nerves II-XII grossly intact Psych/Mental Status: Normal Affect Vital Signs Temp Pulse Resp BP Pulse Ox 99.1 F 117 H 16 132/84 H 98 07/28/17 01:55 07/28/17 03:50 07/28/17 01:55 07/28/17 01:55 07/28/17 01:55 Oxygen Flow Rate 2 Oxygen Delivery Method Room Air Weight: 119 lb 14.903 oz Body Mass Index (BMI) 21.4 Intake and Output for Last 24 Hours 07/26/17 07/27/17 07/28/17 23:59 23:59 23:59 Intake Total 2768 / 2768 1007 / 1007 Output Total 1450 / 1450 1790 / 1790 2084 / 2084 Balance 1318 / 1318 -783 / -783 -2084 / -2084 Laboratory Tests Past 24 Hrs 07/27/17 07/27/17 07/27/17 07:45 07:45 07:45 WBC 11.8 H RBC 2.66 L Hgb 8.7 L Hct 26.0 L MCV 97.7 MCH 32.7 H MCHC 33.5 RDW 12.9 RDW Differential 45.9 H Plt Count 246 MPV 9.9 Immature Gran % (Auto) 0.200 Neut % (Auto) 76.2 H Lymph % (Auto) 12.5 L [place] % (Auto) 10.1 H Eos % (Auto) 0.8 Baso % (Auto) 0.2 Absolute Neuts (auto) 9.0 H Absolute Lymphs (auto) 1.47 Total Counted Not Reportable Sodium 135 L Potassium 3.9 Chloride 100 Carbon Dioxide 22.0 Anion Gap 13 BUN 7 Creatinine 0.35 L Estim Creat Clear Calc 145.33 Est GFR (MDRD) Af Amer 250 Est GFR (MDRD) Non-Af 206 BUN/Creatinine Ratio 20.0 Glucose 48 L Calcium 7.9 L Phosphorus 3.7 Magnesium 1.5 L Clinical Impression(s) from Imaging Studies Chest X-Ray 07/27/17 08:20 IMPRESSION: There is a new focal opacity in the left lung base which may represent a small focus of pneumonia and/or effusion with atelectasis. Electronically Signed: Rena Christopher MD at 8:59 EST Tel , Service support , Assessment/Plan Active and Suspected Problems (Last Updated 07/25/17 @ 08:41 by Marla Baltazar) Tubo-ovarian abscess (Acute) Hydrosalpinx (Acute) 52-year-old female status post sigmoid colectomy and hysterectomy with low anterior anastomosis and diverting loop ileostomy. POD 4 1. Cardiac --patient having PVCs. Mag pending, was hypomagnesia yesterday. I repeated an EKG today which was normal sinus rhythm with a rate of 80. 2. Pain control--DC the WOOD FENCE INSTALLER. OxyIR with morphine for breakthrough. 3. GI--tolerating clear liquid diet. There is stool in her bag. Will advance to regular diet as tolerated. 4. Respiratory--the patient was having productive cough yesterday sputum culture is pending. A chest x-ray did reveal an opacity in the left lower lobe which is possible pneumonia versus atelectasis. She was started on Levaquin due to increased white count. CBC today is pending. I did encourage incentive spirometer and ambulation. 5. Prophylaxis-Pepcid, SCDs, Lovenox 6. If she tolerates a regular diet and pain is well controlled on oral medication anticipate DC tomorrow. Felipe Rios MD Pager: [facility] [address], [address] [place] [address] Office:
--- NOTE | 2017-07-28 07:12 | PN.SURG_ITS ---
Patient Problems: Active and Suspected Problems (Last Updated 07/25/17 @ 08:41 by Marla Baltazar) Tubo-ovarian abscess (Acute) Hydrosalpinx (Acute) Subjective: Patient is doing well this morning. She tolerated a clear liquid diet with no nausea or vomiting. She is having stool in her stoma bag. Her abdominal pain is minimal this morning. - Physical Exam General: Alert, Oriented x3, Cooperative, No apparent distress HEENT: Atraumatic Neck: No JVD Lungs: Normal air movement Cardiovascular: Regular rate, - - Intermittent PVCs this morning Abdomen: Soft, Non-Distended, Tender - Mild tenderness., - - Incision is clean dry and intact. TYLER is serosanguineous. Stoma is pink with stool in the bag. Neurological: Cranial nerves II-XII grossly intact Psych/Mental Status: Normal Affect Vital Signs Temp Pulse Resp BP Pulse Ox 99.1 F 117 H 16 132/84 H 98 07/28/17 01:55 07/28/17 03:50 07/28/17 01:55 07/28/17 01:55 07/28/17 01:55 Oxygen Flow Rate 2 Oxygen Delivery Method Room Air Weight: 119 lb 14.903 oz Body Mass Index (BMI) 21.4 Intake and Output for Last 24 Hours 07/26/17 07/27/17 07/28/17 23:59 23:59 23:59 Intake Total 2768 / 2768 1007 / 1007 Output Total 1450 / 1450 1790 / 1790 2084 / 2084 Balance 1318 / 1318 -783 / -783 -2084 / -2084 Laboratory Tests Past 24 Hrs 07/27/17 07/27/17 07/27/17 07:45 07:45 07:45 WBC 11.8 H RBC 2.66 L Hgb 8.7 L Hct 26.0 L MCV 97.7 MCH 32.7 H MCHC 33.5 RDW 12.9 RDW Differential 45.9 H Plt Count 246 MPV 9.9 Immature Gran % (Auto) 0.200 Neut % (Auto) 76.2 H Lymph % (Auto) 12.5 L [place] % (Auto) 10.1 H Eos % (Auto) 0.8 Baso % (Auto) 0.2 Absolute Neuts (auto) 9.0 H Absolute Lymphs (auto) 1.47 Total Counted Not Reportable Sodium 135 L Potassium 3.9 Chloride 100 Carbon Dioxide 22.0 Anion Gap 13 BUN 7 Creatinine 0.35 L Estim Creat Clear Calc 145.33 Est GFR (MDRD) Af Amer 250 Est GFR (MDRD) Non-Af 206 BUN/Creatinine Ratio 20.0 Glucose 48 L Calcium 7.9 L Phosphorus 3.7 Magnesium 1.5 L Clinical Impression(s) from Imaging Studies Chest X-Ray 07/27/17 08:20 IMPRESSION: There is a new focal opacity in the left lung base which may represent a small focus of pneumonia and/or effusion with atelectasis. Electronically Signed: Rena Christopher MD at 8:59 EST Tel , Service support , Assessment/Plan Active and Suspected Problems (Last Updated 07/25/17 @ 08:41 by Marla Baltazar) Tubo-ovarian abscess (Acute) Hydrosalpinx (Acute) 52-year-old female status post sigmoid colectomy and hysterectomy with low anterior anastomosis and diverting loop ileostomy. POD 4 1. Cardiac --patient having PVCs. Mag pending, was hypomagnesia yesterday. I repeated an EKG today which was normal sinus rhythm with a rate of 80. 2. Pain control--DC the AERIAL GUNNER. OxyIR with morphine for breakthrough. 3. GI--tolerating clear liquid diet. There is stool in her bag. Will advance to regular diet as tolerated. 4. Respiratory--the patient was having productive cough yesterday sputum culture is pending. A chest x-ray did reveal an opacity in the left lower lobe which is possible pneumonia versus atelectasis. She was started on Levaquin due to increased white count. CBC today is pending. I did encourage incentive spirometer and ambulation. 5. Prophylaxis-Pepcid, SCDs, Lovenox 6. If she tolerates a regular diet and pain is well controlled on oral medication anticipate DC tomorrow. Felipe Rios MD Pager: [facility] [address], [address] [place] [address] Office:
[2017-07-28 07:31] LABS: Absolute Lymphocyte Count 1.69 X10^3/ul (0.83-4.51); Absolute Neutrophil Count 8.6 X10^3/uL (2.0-7.7); Basophil# 0.01 X10^3/uL; Basophil% 0.1 % (0-1); Eosinophils% 0.9 % (0-5); Hematocrit 27.2 % (37-47); Hemoglobin 9.3 g/dl (12.0-15.0); Lymphocyte # 1.69 X10^3/ul (4.0); Lymphocyte % 14.9 % (19-41); Mean Corp Hgb Conc 34.2 g/gl (32-36); Mean Corpuscular Hgb 32.9 pg (27.0-32.0); Mean Corpuscular Volume 96.1 fL (81-99); Mean Platelet Vol. 9.3 fl (6.2-12.0); Monocyte# 0.95 X10^3/uL; Monocyte% 8.3 % (0-10); Neutrophil % 75.5 % (47-70); POSITIVE COUNT NO; POSITIVE DIFFERENTIAL NO; POSITIVE MORPHOLOGY NO; Platelet Count 270 K/mm3 (150-450); RBC Distribution Width CV 12.6 % (11.6-14.6); Red Blood Count 2.83 M/mm3 (4.2-5.4); White Blood Count 11.4 K/mm3 (4.4-11.0)
[2017-07-28 07:52] LABS: Magnesium 1.6 mg/dL (1.8-2.4)
[2017-07-28] MEDS: oxyCODONE 5 MG Tablet PO ×4 (08:37→21:08)
[2017-07-28] MEDS: Famotidine 20 MG Tablet PO ×2 (08:38→21:19)
[2017-07-28] MEDS: Enoxaparin 40 MG/0.4 ML Syringe SC (08:38)
--- NOTE | 2017-07-28 10:34 | PCM.PROGNOTE ---
Patient Problems: Active and Suspected Problems (Last Updated 07/25/17 @ 08:41 by Marla Baltazar) Tubo-ovarian abscess (Acute) Hydrosalpinx (Acute) Subjective: Chief complaint: Follow-up after consultation for postoperative medical management. Patient was admitted for acute on chronic diverticulitis with colon and rectal stricture, status post sigmoid colectomy with primary anastomosis, status post exploratory laparotomy with total abdominal hysterectomy, left salpingo-oophorectomy. Patient mentioned that her pain is manageable, 3-4 out of 10 in severity. She is status post colostomy tube and surgical drain. She is on IV morphine as well as OxyIR as needed. Her vital signs are stable, afebrile. - Physical Exam General: Alert, Oriented x3, Cooperative, No apparent distress HEENT: Atraumatic, PERRLA, EOMI Oral: Moist Mucosa, No Gingival or Mucosal Lesions/ Ulcerations Neck: Supple, No JVD, Negative Carotid Bruits, Trachea Midline, Thyroid Normal Size and Texture Lungs: Clear to auscultation, No wheeze, No rales, Diminished, Rhonchi Cardiovascular: Regular rate, Regular Rhythm, Normal S1, Normal S2, No murmurs, PMI Normal Abdomen: Bowel Sounds Present, Soft, No Hepato-splenomegaly, Tender, - - Colostomy bag in place. Surgical drain at the incision site. Extremities: No clubbing, No cyanosis, No edema Skin: No rashes, No breakdown Lymphatic: No Cervical, Supraclavicular, or Inguinal Adenopathy Neurological: Cranial nerves II-XII grossly intact, Motor Exam 5/5 strength throughout Psych/Mental Status: Normal Affect, Appropriate, Alert and oriented to time, place, person, mood and affect Vital Signs Temp Pulse Resp BP Pulse Ox 97.8 F 99 18 117/70 98 07/28/17 08:33 07/28/17 08:47 07/28/17 08:33 07/28/17 08:33 07/28/17 08:33 Oxygen Flow Rate 2 Oxygen Delivery Method Room Air Weight: 119 lb 14.903 oz Body Mass Index (BMI) 21.4 Intake and Output for Last 24 Hours 07/26/17 07/27/17 07/28/17 23:59 23:59 23:59 Intake Total 2768 / 2768 1007 / 1007 Output Total 1450 / 1450 1790 / 1790 2085 / 2085 Balance 1318 / 1318 -783 / -783 -2084 / Microbiology Past 72 Hours 07/26/17 18:30 Urine Culture - Final Urine, Clean Catch Mixed Gram Positive Organisms Laboratory Tests Past 24 Hrs 07/27/17 07/27/17 07/27/17 07:45 07:45 07:45 WBC 11.8 H RBC 2.66 L Hgb 8.7 L Hct 26.0 L MCV 97.7 MCH 32.7 H MCHC 33.5 RDW 12.9 RDW Differential 45.9 H Plt Count 246 MPV 9.9 Immature Gran % (Auto) 0.200 Neut % (Auto) 76.2 H Lymph % (Auto) 12.5 L [place] % (Auto) 10.1 H Eos % (Auto) 0.8 Baso % (Auto) 0.2 Absolute Neuts (auto) 9.0 H Absolute Lymphs (auto) 1.47 Total Counted Not Reportable Sodium 135 L Potassium 3.9 Chloride 100 Carbon Dioxide 22.0 Anion Gap 13 BUN 7 Creatinine 0.35 L Estim Creat Clear Calc 145.33 Est GFR (MDRD) Af Amer 250 Est GFR (MDRD) Non-Af 206 BUN/Creatinine Ratio 20.0 Glucose 48 L Calcium 7.9 L Phosphorus 3.7 Magnesium 1.5 L 07/28/17 07/28/17 07:23 07:23 WBC 11.4 H RBC 2.83 L Hgb 9.3 L Hct 27.2 L MCV 96.1 MCH 32.9 H MCHC 34.2 RDW 12.6 RDW Differential 44.0 H Plt Count 270 MPV 9.3 Immature Gran % (Auto) 0.300 Neut % (Auto) 75.5 H Lymph % (Auto) 14.9 L [place] % (Auto) 8.3 Eos % (Auto) 0.9 Baso % (Auto) 0.1 Absolute Neuts (auto) 8.6 H Absolute Lymphs (auto) 1.69 Total Counted Not Reportable Sodium Potassium Chloride Carbon Dioxide Anion Gap BUN Creatinine Estim Creat Clear Calc Est GFR (MDRD) Af Amer Est GFR (MDRD) Non-Af BUN/Creatinine Ratio Glucose Calcium Phosphorus Magnesium 1.6 L Clinical Impression(s) from Imaging Studies Chest X-Ray 07/28/17 05:55 IMPRESSION: Minimal left lower lobe airspace disease with a tiny left pleural effusion. Electronically Signed: Edilberto Soriano, at 9:00 EST Tel , Service support , Assessment/Plan Active and Suspected Problems (Last Updated 07/25/17 @ 08:41 by Marla Baltazar) Tubo-ovarian abscess (Acute) Hydrosalpinx (Acute) This is a 52 years old female patient with past history of recurrent diverticulitis with frequent flareups, admitted for acute on chronic diverticulitis, underwent surgery with sigmoid colectomy with primary anastomosis as well as exploratory laparotomy by LINEN SUPPLY LOAD BUILDER for total abdominal hysterectomy and left salpingo-oophorectomy. #1 acute on chronic/recurrent diverticulitis: Status post sigmoid colectomy with primary anastomosis and colostomy. Postoperative day 4. She is on oral Levaquin. Vital signs are stable, tolerating regular diet. She is on IV morphine and OxyIR as needed for pain, pain is manageable. General surgery on the case. #2 chronic left tubo-ovarian abscess/left hydrosalpinx: Status post exploratory laparotomy, total abdominal hysterectomy and left salpingectomy, postoperative day 4. As above, she is tolerating regular diet. Pain is manageable. Vital signs are stable. LINEN SUPPLY LOAD BUILDER on the case. #3 acute anemia: Likely because of blood loss during surgery as well as hemodilution. Baseline hemoglobin is normal. Today's hemoglobin is 9.3 g/dL. No indication for transfusion. Plan to repeat CBC tomorrow morning. #4 hypomagnesemia: Serum magnesium is 1.5 that was yesterday. Today is 1.6. Still low. Plan to give another dose of magnesium sulfate IV 4 g ?1. #5 COPD: Clinically stable. Pulse ox is normal on room air. Chest x-ray from today reviewed, showed possible atelectasis. She is on albuterol as needed. Encourage incentive spirometer, deep breathing techniques. #6 chronic pain syndrome: Continue IV morphine and OxyIR as needed. #7 anxiety: Continue Ativan as needed. #8 VT prophylaxis: Subcu Lovenox. This note was generated with [id number] software. It may contain incorrect words, spelling, and punctuation that were not noted in checking the note before signing. DVT prophylaxis: Code Visit Inpatient E&M: 68736 Subs Hosp L2
--- NOTE | 2017-07-28 10:45 | PN_ITS ---
Patient Problems: Active and Suspected Problems (Last Updated 07/25/17 @ 08:41 by Marla Baltazar) Tubo-ovarian abscess (Acute) Hydrosalpinx (Acute) Subjective: Chief complaint: Follow-up after consultation for postoperative medical management. Patient was admitted for acute on chronic diverticulitis with colon and rectal stricture, status post sigmoid colectomy with primary anastomosis, status post exploratory laparotomy with total abdominal hysterectomy, left salpingo- oophorectomy. Patient mentioned that her pain is manageable, 3-4 out of 10 in severity. She is status post colostomy tube and surgical drain. She is on IV morphine as well as OxyIR as needed. Her vital signs are stable, afebrile. - Physical Exam General: Alert, Oriented x3, Cooperative, No apparent distress HEENT: Atraumatic, PERRLA, EOMI Oral: Moist Mucosa, No Gingival or Mucosal Lesions/ Ulcerations Neck: Supple, No JVD, Negative Carotid Bruits, Trachea Midline, Thyroid Normal Size and Texture Lungs: Clear to auscultation, No wheeze, No rales, Diminished, Rhonchi Cardiovascular: Regular rate, Regular Rhythm, Normal S1, Normal S2, No murmurs, PMI Normal Abdomen: Bowel Sounds Present, Soft, No Hepato-splenomegaly, Tender, - - Colostomy bag in place. Surgical drain at the incision site. Extremities: No clubbing, No cyanosis, No edema Skin: No rashes, No breakdown Lymphatic: No Cervical, Supraclavicular, or Inguinal Adenopathy Neurological: Cranial nerves II-XII grossly intact, Motor Exam 5/5 strength throughout Psych/Mental Status: Normal Affect, Appropriate, Alert and oriented to time, place, person, mood and affect Vital Signs Temp Pulse Resp BP Pulse Ox 97.8 F 99 18 117/70 98 07/28/17 08:33 07/28/17 08:47 07/28/17 08:33 07/28/17 08:33 07/28/17 08:33 Oxygen Flow Rate 2 Oxygen Delivery Method Room Air Weight: 119 lb 14.903 oz Body Mass Index (BMI) 21.4 Intake and Output for Last 24 Hours 07/26/17 07/27/17 07/28/17 23:59 23:59 23:59 Intake Total 2768 / 2768 1007 / 1007 Output Total 1450 / 1450 1790 / 1790 2085 / 2085 Balance 1318 / 1318 -783 / -783 -2084 / Microbiology Past 72 Hours 07/26/17 18:30 Urine Culture - Final Urine, Clean Catch Mixed Gram Positive Organisms Laboratory Tests Past 24 Hrs 07/27/17 07/27/17 07/27/17 07:45 07:45 07:45 WBC 11.8 H RBC 2.66 L Hgb 8.7 L Hct 26.0 L MCV 97.7 MCH 32.7 H MCHC 33.5 RDW 12.9 RDW Differential 45.9 H Plt Count 246 MPV 9.9 Immature Gran % (Auto) 0.200 Neut % (Auto) 76.2 H Lymph % (Auto) 12.5 L [place] % (Auto) 10.1 H Eos % (Auto) 0.8 Baso % (Auto) 0.2 Absolute Neuts (auto) 9.0 H Absolute Lymphs (auto) 1.47 Total Counted Not Reportable Sodium 135 L Potassium 3.9 Chloride 100 Carbon Dioxide 22.0 Anion Gap 13 BUN 7 Creatinine 0.35 L Estim Creat Clear Calc 145.33 Est GFR (MDRD) Af Amer 250 Est GFR (MDRD) Non-Af 206 BUN/Creatinine Ratio 20.0 Glucose 48 L Calcium 7.9 L Phosphorus 3.7 Magnesium 1.5 L 07/28/17 07/28/17 07:23 07:23 WBC 11.4 H RBC 2.83 L Hgb 9.3 L Hct 27.2 L MCV 96.1 MCH 32.9 H MCHC 34.2 RDW 12.6 RDW Differential 44.0 H Plt Count 270 MPV 9.3 Immature Gran % (Auto) 0.300 Neut % (Auto) 75.5 H Lymph % (Auto) 14.9 L [place] % (Auto) 8.3 Eos % (Auto) 0.9 Baso % (Auto) 0.1 Absolute Neuts (auto) 8.6 H Absolute Lymphs (auto) 1.69 Total Counted Not Reportable Sodium Potassium Chloride Carbon Dioxide Anion Gap BUN Creatinine Estim Creat Clear Calc Est GFR (MDRD) Af Amer Est GFR (MDRD) Non-Af BUN/Creatinine Ratio Glucose Calcium Phosphorus Magnesium 1.6 L Clinical Impression(s) from Imaging Studies Chest X-Ray 07/28/17 05:55 IMPRESSION: Minimal left lower lobe airspace disease with a tiny left pleural effusion. Electronically Signed: Edilberto Soriano, at 9:00 EST Tel , Service support , Assessment/Plan Active and Suspected Problems (Last Updated 07/25/17 @ 08:41 by Marla Baltazar) Tubo-ovarian abscess (Acute) Hydrosalpinx (Acute) This is a 52 years old female patient with past history of recurrent diverticulitis with frequent flareups, admitted for acute on chronic diverticulitis, underwent surgery with sigmoid colectomy with primary anastomosis as well as exploratory laparotomy by SALESPERSON FURS for total abdominal hysterectomy and left salpingo-oophorectomy. #1 acute on chronic/recurrent diverticulitis: Status post sigmoid colectomy with primary anastomosis and colostomy. Postoperative day 4. She is on oral Levaquin. Vital signs are stable, tolerating regular diet. She is on IV morphine and OxyIR as needed for pain, pain is manageable. General surgery on the case. #2 chronic left tubo-ovarian abscess/left hydrosalpinx: Status post exploratory laparotomy, total abdominal hysterectomy and left salpingectomy, postoperative day 4. As above, she is tolerating regular diet. Pain is manageable. Vital signs are stable. SALESPERSON FURS on the case. #3 acute anemia: Likely because of blood loss during surgery as well as hemodilution. Baseline hemoglobin is normal. Today's hemoglobin is 9.3 g/dL. No indication for transfusion. Plan to repeat CBC tomorrow morning. #4 hypomagnesemia: Serum magnesium is 1.5 that was yesterday. Today is 1.6. Still low. Plan to give another dose of magnesium sulfate IV 4 g ?1. #5 COPD: Clinically stable. Pulse ox is normal on room air. Chest x-ray from today reviewed, showed possible atelectasis. She is on albuterol as needed. Encourage incentive spirometer, deep breathing techniques. #6 chronic pain syndrome: Continue IV morphine and OxyIR as needed. #7 anxiety: Continue Ativan as needed. #8 VT prophylaxis: Subcu Lovenox. This note was generated with [employer]ation software. It may contain incorrect words, spelling, and punctuation that were not noted in checking the note before signing. DVT prophylaxis: Code Visit Inpatient E&M: 26217 Subs Hosp L2
--- NOTE | 2017-07-28 13:30 | PCM.PN.OB ---
Patient Problems: Active and Suspected Problems (Last Updated 07/25/17 @ 08:41 by Marla Baltazar) Tubo-ovarian abscess (Acute) Hydrosalpinx (Acute) Subjective: LATE ENTRY from 7:30 am rounding. Hungry and asking about diet when rounded this am -- approx 7:30 am Smiling and interactive, family members in room. Pain much better Has been tolerating clears States her lungs are improved. Has been coughing and deep breathing. Objective: sitting up in bed, semirecumbent. Looking at menu - Physical Exam General: Alert, Oriented x3, Cooperative, No apparent distress HEENT: Atraumatic Abdomen: Soft - Stoma draining stool TYLER with serosanguinous dischg. Skin: Incision - dressing dry and intact, just change per Dr. Rios per pt. Neurological: Cranial nerves II-XII grossly intact Psych/Mental Status: Normal Affect, Appropriate - in good spirits Vital Signs Temp Pulse Resp BP Pulse Ox 98.6 F 89 18 127/77 H 96 07/28/17 13:07 07/28/17 13:07 07/28/17 13:07 07/28/17 13:07 07/28/17 13:07 Oxygen Flow Rate 2 Oxygen Delivery Method Room Air Weight: 54.4 kg Body Mass Index (BMI) 21.4 Intake and Output for Last 24 Hours 07/26/17 07/27/17 07/28/17 23:59 23:59 23:59 Intake Total 2768 / 2768 1007 / 1007 600 / 600 Output Total 1450 / 1450 1790 / 1790 3285 / 3285 Balance 1318 / 1318 -783 / -783 -2685 / -2685 Microbiology Past 72 Hours 07/27/17 14:50 Gram Stain - Final Sputum, Expectorated/Coughed Respiratory Culture - Preliminary Culture exhibits no growth. 07/26/17 18:30 Urine Culture - Final Urine, Clean Catch Mixed Gram Positive Organisms Laboratory Tests Past 24 Hrs 07/28/17 07/28/17 07:23 07:23 WBC 11.4 H RBC 2.83 L Hgb 9.3 L Hct 27.2 L MCV 96.1 MCH 32.9 H MCHC 34.2 RDW 12.6 RDW Differential 44.0 H Plt Count 270 MPV 9.3 Immature Gran % (Auto) 0.300 Neut % (Auto) 75.5 H Lymph % (Auto) 14.9 L [place] % (Auto) 8.3 Eos % (Auto) 0.9 Baso % (Auto) 0.1 Absolute Neuts (auto) 8.6 H Absolute Lymphs (auto) 1.69 Total Counted Not Reportable Magnesium 1.6 L Assessment/Plan Active and Suspected Problems (Last Updated 07/25/17 @ 08:41 by Marla Baltazar) Tubo-ovarian abscess (Acute) Hydrosalpinx (Acute) POD#4 from JOANN, LSO, R salpingectomy in addition to bowel resection, reanastamosis, and diversion of stool Stable and patient in good spirits Dr Rios advancing diet. Continue care
[2017-07-29] MEDS: LORazepam 0.5 MG Tablet PO (01:09)
[2017-07-29] MEDS: oxyCODONE 5 MG Tablet PO ×3 (01:09→09:20)
[2017-07-29 03:00] VITALS: PULSE 86
[2017-07-29 03:05] VITALS: BP 119/71; PULSE 88; RESP 16; TEMP 36.3; O2SAT 97
[2017-07-29] MEDS: levoFLOXacin 750 MG Tablet PO (05:35)
[2017-07-29 06:04] LABS: Absolute Lymphocyte Count 2.49 X10^3/ul (0.83-4.51); Absolute Neutrophil Count 6.8 X10^3/uL (2.0-7.7); Anion Gap 8 (5-15); BUN 6 mg/dL (7-18); BUN/Creat Ratio 14.9 RATIO (10-20); Basophil# 0.02 X10^3/uL; Basophil% 0.2 % (0-1); Calcium,Total 8.4 mg/dL (8.5-10.1); Chloride 99 mmol/L (98-107); EST Glomerular Filtration Rate 175 mL/min (>60); Eosinophil# 0.29 X10^3/uL; Eosinophils% 2.6 % (0-5); Est Glom Filt Rate - Afr Amer 211 mL/min (>60); Estimated Creatinine Clearance 127.16 ml/min; Glucose 112 mg/dL (70-110); Hematocrit 28.3 % (37-47); Hemoglobin 9.9 g/dl (12.0-15.0); Lymphocyte # 2.49 X10^3/ul (4.0); Lymphocyte % 22.6 % (19-41); Magnesium 1.9 mg/dL (1.8-2.4); Mean Corpuscular Hgb 33.3 pg (27.0-32.0); Mean Corpuscular Volume 95.3 fL (81-99); Monocyte# 1.39 X10^3/uL; Monocyte% 12.6 % (0-10); Neutrophil # 6.78 X10^3/uL (2.7-7.7); Neutrophil % 61.7 % (47-70); Phosphorus 3.1 mg/dL (2.5-4.9); Platelet Count 332 K/mm3 (150-450); Potassium 3.4 mmol/L (3.5-5.1); RBC Distribution Width CV 12.2 % (11.6-14.6); RBC Distribution Width SD 40.7 fl (35.1-43.9); Red Blood Count 2.97 M/mm3 (4.2-5.4); Sodium Level 134 mmol/L (136-145)
[2017-07-29 06:29] LABS: POSITIVE COUNT NO; POSITIVE DIFFERENTIAL NO; POSITIVE MORPHOLOGY NO
[2017-07-29 07:15] VITALS: O2SAT 97
--- NOTE | 2017-07-29 07:56 | PCM.PN.SRG ---
Patient Problems: Active and Suspected Problems (Last Updated 07/25/17 @ 08:41 by Marla Baltazar) Tubo-ovarian abscess (Acute) Hydrosalpinx (Acute) Subjective: Patient is doing well this morning and tolerating a regular diet. She is having no complaints today. Her pain is well controlled on oral medications. - Physical Exam General: Alert, Oriented x3, Cooperative HEENT: Atraumatic Oral: Moist Mucosa Neck: Supple Lungs: Normal air movement Cardiovascular: Regular rate, Regular Rhythm Abdomen: Soft, Non-Distended, - - Incision is clean dry and intact. Stoma is pink with stool in the bag. TYLER is serosanguineous. Extremities: No clubbing Musculoskeletal: No Muscle Wasting Psych/Mental Status: Normal Affect Vital Signs Temp Pulse Resp BP Pulse Ox 97.4 F L 88 16 119/71 97 07/29/17 03:05 07/29/17 03:05 07/29/17 03:05 07/29/17 03:05 07/29/17 03:05 Oxygen Flow Rate 2 Oxygen Delivery Method Room Air Weight: 118 lb 2.684 oz Body Mass Index (BMI) 21.4 Intake and Output for Last 24 Hours 07/27/17 07/28/17 07/29/17 23:59 23:59 23:59 Intake Total 1007 / 1007 1100 / 1100 360 / 360 Output Total 1790 / 1790 4575 / 4575 355 / 355 Balance -783 / -783 -3475 / -3475 5 / 5 Microbiology Past 72 Hours 07/27/17 14:50 Gram Stain - Final Sputum, Expectorated/Coughed Respiratory Culture - Preliminary Culture exhibits no growth. 07/26/17 18:30 Urine Culture - Final Urine, Clean Catch Mixed Gram Positive Organisms Laboratory Tests Past 24 Hrs 07/29/17 07/29/17 05:16 05:16 WBC 11.0 RBC 2.97 L Hgb 9.9 L Hct 28.3 L MCV 95.3 MCH 33.3 H MCHC 35.0 RDW 12.2 RDW Differential 40.7 Plt Count 332 MPV 10.0 Immature Gran % (Auto) 0.300 Neut % (Auto) 61.7 Lymph % (Auto) 22.6 [place] % (Auto) 12.6 H Eos % (Auto) 2.6 Baso % (Auto) 0.2 Absolute Neuts (auto) 6.8 Absolute Lymphs (auto) 2.49 Total Counted Not Reportable Sodium 134 L Potassium 3.4 L Chloride 99 Carbon Dioxide 27.0 Anion Gap 8 BUN 6 L Creatinine 0.40 L Estim Creat Clear Calc 127.16 Est GFR (MDRD) Af Amer 211 Est GFR (MDRD) Non-Af 175 BUN/Creatinine Ratio 14.9 Glucose 112 H Calcium 8.4 L Phosphorus 3.1 Magnesium 1.9 Assessment/Plan Active and Suspected Problems (Last Updated 07/25/17 @ 08:41 by Marla Baltazar) Tubo-ovarian abscess (Acute) Hydrosalpinx (Acute) 52-year-old female status post sigmoid colectomy and hysterectomy with low anterior anastomosis and diverting loop ileostomy. POD 5 1. Cardiac --hypomagnesemia replaced. Regular rate and rhythm with no PVCs today. 2. Pain control--patient will be sent home with oral pain medication. 3. GI--patient has tolerated regular diet. She will have stoma teaching today and remove stoma bar. I removed her TYLER. 4. Respiratory--I will continue her Levaquin for 5 days as an outpatient. Her white count has improved today but is still slightly elevated. I encouraged her to use her incentive spirometer and walk around frequently at home. 5. Prophylaxis-Pepcid, SCDs, Lovenox 6. Planning for DC today. Felipe Rios MD Pager: [facility] [address], [address] [place] [address] Office:
--- NOTE | 2017-07-29 08:01 | PCM.DC.REC ---
Discharge Diet: No Restrictions Discharge Activity: Return to Normal Activity, May Not Drive - while you are taking narcotic pain medications. Do not drive, work with heavy equipment or sign legal documents for 24 hours after your surgery., May Shower Lifting Restrictions: 20 lbs for 4 weeks Call your doctor if your incision/area has: Continuous Slow Oozing, Sudden Increased Bleeding, Increased Pain/ Swelling, Increased Redness, Foul Smelling Discharge, Swelling at the incision site Call your doctor if you observe: Fever of 101 or Higher Allergies/Adverse Reactions: Allergies codeine Allergy (Verified 07/11/17 20:18) HALLUCINATION Penicillins Allergy (Verified 07/11/17 20:18) UNSURE CHILD Medications to take at Discharge Lorazepam [Ativan] 0.5 mg PO QDAY 07/21/17 oxycodone 5 mg capsule 5 mg PO ONCE 07/25/17 Levofloxacin [Levaquin] 750 mg PO DAILY@0600 #5 tab 07/29/17 Oxycodone HCl/Acetaminophen [Percocet 5/325] 1 - 2 tablet PO Q4H PRN PRN #50 tablet 07/29/17 The following prescriptions were given: Oxycodone HCl/Acetaminophen [Percocet 5/325] 1 - 2 tablet PO Q4H PRN PRN #50 tablet PRN Reason: Pain Levofloxacin [Levaquin] 750 mg PO DAILY@0600 #5 tab Primary Care Physician: Mack Langston MD [Primary Care Provider] - Please Follow Up With: Felipe Rios MD When: call tomorrow to make appt for Aug 07. [phone] Please Follow Up With: Sabiha Chiang MD When: call for appointment
--- NOTE | 2017-07-29 08:03 | DS.PCM_ITS ---
Discharge Date and Diagnosis Date of Admission: 07/21/17 Date of Discharge: 07/29/17 - Primary Discharge Diagnosis Active and Suspected Problems (Last Updated 07/25/17 @ 08:41 by Marla Baltazar) Tubo-ovarian abscess (Acute) Hydrosalpinx (Acute) Hypomagnesemia - Secondary Discharge Diagnosis Chronic Problems (Last Updated 07/25/17 @ 08:41 by Marla Baltazar) Chronic leg pain (Chronic) Asthma (Chronic) GERD (gastroesophageal reflux disease) (Chronic) Arthritis (Chronic) Clostridium difficile infection (Chronic) Recent discharge s/p diverticulitis diagnosis w/ resulting c. difficile colitis w/ transition outpatient to oral vancomycin. Tobacco use (Chronic) Anxiety (Chronic) COPD (chronic obstructive pulmonary disease) (Chronic) Hospital Course and Treatment Imaging Results: Clinical Impression(s) from Imaging Studies Chest X-Ray 07/27/17 08:20 IMPRESSION: There is a new focal opacity in the left lung base which may represent a small focus of pneumonia and/or effusion with atelectasis. Electronically Signed: Rena Christopher MD at 8:59 EST Tel , Service support , Chest X-Ray 07/28/17 05:55 IMPRESSION: Minimal left lower lobe airspace disease with a tiny left pleural effusion. 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 Annie Durbin Operations: - - Sigmoid colectomy and hysterectomy with left salpingo- oophorectomy and diverting ileostomy Procedures: EKG Summary of Care Provided: The patient is a 52 year old F who presented with pelvic pain. The patient had known diverticulitis and stricture. The patient was brought back for surgery after bowel prep for a planned hysterectomy and left salpingo-oophorectomy as well as sigmoid colectomy. The patient had diverting ileostomy due to the low nature of her anastomosis and high amount of inflammation in the pelvis. After surgery the patient had some PVCs that she was sent to the ICU. She had hypomagnesemia at that time and after it was repleted she had no abnormalities on EKG and troponins were negative. She was transferred to the floor and her Correa was removed on postop day 2. The patient was started on a clear liquid diet. She began to have a fever and a chest x-ray showed atelectasis versus infiltrate in the left lower lobe. She was started on p.o. Levaquin. Her fever did break and her white count improved. When she was tolerating clear liquid diet she is advanced to a regular diet. She was having good stomal output and her pain was well-controlled on p.o. meds and her abdominal TYLER was removed. She was discharged home on postop day 5 with home health care. Discharge Diet: No Restrictions Discharge Activity: Return to Normal Activity, May Not Drive - while you are taking narcotic pain medications. Do not drive, work with heavy equipment or sign legal documents for 24 hours after your surgery., May Shower Call your doctor if your incision/area has: Continuous Slow Oozing, Sudden Increased Bleeding, Increased Pain/ Swelling, Increased Redness, Foul Smelling Discharge, Swelling at the incision site Call your doctor if you observe: Fever of 101 or Higher Home Medications: Medications to take at Discharge Lorazepam [Ativan] 0.5 mg PO QDAY 07/21/17 oxycodone 5 mg capsule 5 mg PO ONCE 07/25/17 Levofloxacin [Levaquin] 750 mg PO DAILY@0600 #5 tab 07/29/17 Oxycodone HCl/Acetaminophen [Percocet 5/325] 1 - 2 tablet PO Q4H PRN PRN #50 tablet 07/29/17 Following Prescrptions Were Given to Patient: Oxycodone HCl/Acetaminophen [Percocet 5/325] 1 - 2 tablet PO Q4H PRN PRN #50 tablet PRN Reason: Pain Levofloxacin [Levaquin] 750 mg PO DAILY@0600 #5 tab Primary Care Physician: Mack Langston MD [Primary Care Provider] - Please Follow Up With: Felipe Rios MD When: call tomorrow to make appt for Aug 07. [phone] Please Follow Up With: Sabiha Chiang MD When: call for appointment Meaningful Use Info Meaningful Use Diagnoses (Choose all that apply): None applicable
--- NOTE | 2017-07-29 08:32 | NURSING ---
In to change ostomy appliance with patient. Dr Rios had been in and removed the TYLER dressing this am from the Q. midline abdominal incision is well approximated with brisa in place. no redness noted. minimal drainage noted. removed ostomy appliance. stomal nat removed per Dr Rios's order. pt tolerated well. stoma is pink, moist, and well budded. stoma measures approx 1 1/2. peristomal skin is intact. no mucocutaneous separation noted. sutures remain in place. Recommended that patient change appliance every 3 days and prn. patient has been emptying the appliance and was instructed on how to burp the appliance. cleansed the peristomal skin with Dial soap and water and patted dry. placed a 2 piece flat [place] appliance. Flange#[id number] and pouch #[id number]. sent patient home with a couple of appliances until her supplies come in. Will fax the script to [facility] per patient's request. Pt denies further questions or needs at this time. reviewed ileostomy teaching booklet with patient as well.
--- NOTE | 2017-07-29 08:54 | NURSING ---
Script for ostomy supplies faxed over to [facility]. Talked with CLIFTON Perkins and KIRILL Hoff about getting home health set up for patient as well.
--- NOTE | 2017-07-29 09:14 | CASEMGMT ---
Patient states no preference for [facility]. [facility] denied. [facility] accepted patient and agrees to start RN care on Friday, , every three days. Patient states understanding and agrees with this plan. All pertinent information faxed to [facility]. Patient discharging to home today. - Gabriele CAMPA, RN CM
[2017-07-29 09:18] VITALS: BP 83/52; PULSE 98; RESP 18; TEMP 36.7; O2SAT 94
--- NOTE | 2017-07-29 09:24 | PCM.PROGNOTE ---
Patient Problems: Active and Suspected Problems (Last Updated 07/25/17 @ 08:41 by Marla Baltazar) Tubo-ovarian abscess (Acute) Hydrosalpinx (Acute) Subjective: Chief complaint: Follow-up after consultation for postoperative medical management. Patient seen and examined. No acute events overnight. She denied any significant complaints. She has been tolerating regular diet. His pain as manageable at this time. Denied nausea vomiting. Denied chest pain or shortness of breath. Vital signs are stable. - Physical Exam General: Alert, Oriented x3, Cooperative, No apparent distress HEENT: Atraumatic, PERRLA, EOMI Oral: Moist Mucosa, No Gingival or Mucosal Lesions/ Ulcerations Neck: Supple, No JVD, Negative Carotid Bruits, Thyroid Normal Size and Texture Lungs: Clear to auscultation, No rhonchi, No wheeze, No rales, Diminished Cardiovascular: Regular rate, Regular Rhythm, Normal S1, Normal S2, No murmurs Abdomen: Bowel Sounds Present, Soft, Non-Distended, No Hepato-splenomegaly, Tender, - - Colostomy bag in place. Extremities: No clubbing, No cyanosis, No edema Skin: No rashes, No breakdown Lymphatic: No Cervical, Supraclavicular, or Inguinal Adenopathy Neurological: Neuro grossly intact Psych/Mental Status: Normal Affect, Appropriate Vital Signs Temp Pulse Resp BP Pulse Ox 98.0 F 98 18 83/52 L 94 07/29/17 09:18 07/29/17 09:18 07/29/17 09:18 07/29/17 09:18 07/29/17 09:18 Oxygen Flow Rate 2 Oxygen Delivery Method Room Air Weight: 118 lb 2.684 oz Body Mass Index (BMI) 21.4 Intake and Output for Last 24 Hours 07/27/17 07/28/17 07/29/17 23:59 23:59 23:59 Intake Total 1007 / 1007 1100 / 1100 360 / 360 Output Total 1790 / 1790 4575 / 4575 355 / 355 Balance -783 / -783 -3475 / -3475 5 / Microbiology Past 72 Hours 07/27/17 14:50 Gram Stain - Final Sputum, Expectorated/Coughed Respiratory Culture - Preliminary Culture exhibits no growth. 07/26/17 18:30 Urine Culture - Final Urine, Clean Catch Mixed Gram Positive Organisms Laboratory Tests Past 24 Hrs 07/29/17 07/29/17 05:16 05:16 WBC 11.0 RBC 2.97 L Hgb 9.9 L Hct 28.3 L MCV 95.3 MCH 33.3 H MCHC 35.0 RDW 12.2 RDW Differential 40.7 Plt Count 332 MPV 10.0 Immature Gran % (Auto) 0.300 Neut % (Auto) 61.7 Lymph % (Auto) 22.6 [place] % (Auto) 12.6 H Eos % (Auto) 2.6 Baso % (Auto) 0.2 Absolute Neuts (auto) 6.8 Absolute Lymphs (auto) 2.49 Total Counted Not Reportable Sodium 134 L Potassium 3.4 L Chloride 99 Carbon Dioxide 27.0 Anion Gap 8 BUN 6 L Creatinine 0.40 L Estim Creat Clear Calc 127.16 Est GFR (MDRD) Af Amer 211 Est GFR (MDRD) Non-Af 175 BUN/Creatinine Ratio 14.9 Glucose 112 H Calcium 8.4 L Phosphorus 3.1 Magnesium 1.9 Assessment/Plan Active and Suspected Problems (Last Updated 07/25/17 @ 08:41 by Marla Baltazar) Tubo-ovarian abscess (Acute) Hydrosalpinx (Acute) This is a 52 years old female patient with past history of recurrent diverticulitis with frequent flareups, admitted for acute on chronic diverticulitis, underwent surgery with sigmoid colectomy with primary anastomosis as well as exploratory laparotomy by PEDIATRIC PHYSICAL THERAPIST for total abdominal hysterectomy and left salpingo-oophorectomy for chronic left tubo-ovarian abscess and hydrosalpinx. #1 acute on chronic/recurrent diverticulitis: Status post sigmoid colectomy with primary anastomosis and colostomy. Postoperative day 5. She is on oral Levaquin. Vital signs remained stable, tolerating regular diet. She is on IV morphine and OxyIR as needed for pain, pain is manageable. General surgery on the case. From medical standpoint, patient is stable to go home today. Plan for follow-up with general surgery as outpatient. #2 chronic left tubo-ovarian abscess/left hydrosalpinx: Status post exploratory laparotomy, total abdominal hysterectomy and left salpingectomy, postoperative day 5. As above, she is tolerating regular diet. Pain is manageable. Vital signs are stable. Plan for follow-up with PEDIATRIC PHYSICAL THERAPIST as outpatient. #3 acute anemia: Likely because of blood loss during surgery as well as hemodilution. Baseline hemoglobin is normal. Today's hemoglobin is 9.9 g/dL. No indication for transfusion. #4 hypomagnesemia/hypokalemia: She 1 dose of IV magnesium sulfate yesterday. Today's magnesium is 1.9, normalized. Today's potassium is 3.4, 1 dose of K Dur 40 mEq ?1 given. #5 COPD: Clinically stable. Pulse ox is normal on room air remained stable. Chest x-ray from today reviewed, showed possible atelectasis. She is on albuterol as needed. #6 chronic pain syndrome: Continue Percocet as needed upon discharge. Percocet #7 anxiety: Continue Ativan as needed. #8 VT prophylaxis: Subcu Lovenox. This note was generated with [employer] dictation software. It may contain incorrect words, spelling, and punctuation that were not noted in checking the note before signing. DVT prophylaxis: Code Visit Inpatient E&M: 13013 Subs Hosp L2
--- NOTE | 2017-07-29 09:30 | PN_ITS ---
Patient Problems: Active and Suspected Problems (Last Updated 07/25/17 @ 08:41 by Marla Baltazar) Tubo-ovarian abscess (Acute) Hydrosalpinx (Acute) Subjective: Chief complaint: Follow-up after consultation for postoperative medical management. Patient seen and examined. No acute events overnight. She denied any significant complaints. She has been tolerating regular diet. His pain as manageable at this time. Denied nausea vomiting. Denied chest pain or shortness of breath. Vital signs are stable. - Physical Exam General: Alert, Oriented x3, Cooperative, No apparent distress HEENT: Atraumatic, PERRLA, EOMI Oral: Moist Mucosa, No Gingival or Mucosal Lesions/ Ulcerations Neck: Supple, No JVD, Negative Carotid Bruits, Thyroid Normal Size and Texture Lungs: Clear to auscultation, No rhonchi, No wheeze, No rales, Diminished Cardiovascular: Regular rate, Regular Rhythm, Normal S1, Normal S2, No murmurs Abdomen: Bowel Sounds Present, Soft, Non-Distended, No Hepato-splenomegaly, Tender, - - Colostomy bag in place. Extremities: No clubbing, No cyanosis, No edema Skin: No rashes, No breakdown Lymphatic: No Cervical, Supraclavicular, or Inguinal Adenopathy Neurological: Neuro grossly intact Psych/Mental Status: Normal Affect, Appropriate Vital Signs Temp Pulse Resp BP Pulse Ox 98.0 F 98 18 83/52 L 94 07/29/17 09:18 07/29/17 09:18 07/29/17 09:18 07/29/17 09:18 07/29/17 09:18 Oxygen Flow Rate 2 Oxygen Delivery Method Room Air Weight: 118 lb 2.684 oz Body Mass Index (BMI) 21.4 Intake and Output for Last 24 Hours 07/27/17 07/28/17 07/29/17 23:59 23:59 23:59 Intake Total 1007 / 1007 1100 / 1100 360 / 360 Output Total 1790 / 1790 4575 / 4575 355 / 355 Balance -783 / -783 -3475 / -3475 5 / Microbiology Past 72 Hours 07/27/17 14:50 Gram Stain - Final Sputum, Expectorated/Coughed Respiratory Culture - Preliminary Culture exhibits no growth. 07/26/17 18:30 Urine Culture - Final Urine, Clean Catch Mixed Gram Positive Organisms Laboratory Tests Past 24 Hrs 07/29/17 07/29/17 05:16 05:16 WBC 11.0 RBC 2.97 L Hgb 9.9 L Hct 28.3 L MCV 95.3 MCH 33.3 H MCHC 35.0 RDW 12.2 RDW Differential 40.7 Plt Count 332 MPV 10.0 Immature Gran % (Auto) 0.300 Neut % (Auto) 61.7 Lymph % (Auto) 22.6 [place] % (Auto) 12.6 H Eos % (Auto) 2.6 Baso % (Auto) 0.2 Absolute Neuts (auto) 6.8 Absolute Lymphs (auto) 2.49 Total Counted Not Reportable Sodium 134 L Potassium 3.4 L Chloride 99 Carbon Dioxide 27.0 Anion Gap 8 BUN 6 L Creatinine 0.40 L Estim Creat Clear Calc 127.16 Est GFR (MDRD) Af Amer 211 Est GFR (MDRD) Non-Af 175 BUN/Creatinine Ratio 14.9 Glucose 112 H Calcium 8.4 L Phosphorus 3.1 Magnesium 1.9 Assessment/Plan Active and Suspected Problems (Last Updated 07/25/17 @ 08:41 by Marla Baltazar) Tubo-ovarian abscess (Acute) Hydrosalpinx (Acute) This is a 52 years old female patient with past history of recurrent diverticulitis with frequent flareups, admitted for acute on chronic diverticulitis, underwent surgery with sigmoid colectomy with primary anastomosis as well as exploratory laparotomy by SCREENER PERFUMER for total abdominal hysterectomy and left salpingo-oophorectomy for chronic left tubo-ovarian abscess and hydrosalpinx. #1 acute on chronic/recurrent diverticulitis: Status post sigmoid colectomy with primary anastomosis and colostomy. Postoperative day 5. She is on oral Levaquin. Vital signs remained stable, tolerating regular diet. She is on IV morphine and OxyIR as needed for pain, pain is manageable. General surgery on the case. From medical standpoint, patient is stable to go home today. Plan for follow-up with general surgery as outpatient. #2 chronic left tubo-ovarian abscess/left hydrosalpinx: Status post exploratory laparotomy, total abdominal hysterectomy and left salpingectomy, postoperative day 5. As above, she is tolerating regular diet. Pain is manageable. Vital signs are stable. Plan for follow-up with SCREENER PERFUMER as outpatient. #3 acute anemia: Likely because of blood loss during surgery as well as hemodilution. Baseline hemoglobin is normal. Today's hemoglobin is 9.9 g/dL. No indication for transfusion. #4 hypomagnesemia/hypokalemia: She 1 dose of IV magnesium sulfate yesterday. Today's magnesium is 1.9, normalized. Today's potassium is 3.4, 1 dose of K Dur 40 mEq ?1 given. #5 COPD: Clinically stable. Pulse ox is normal on room air remained stable. Chest x-ray from today reviewed, showed possible atelectasis. She is on albuterol as needed. #6 chronic pain syndrome: Continue Percocet as needed upon discharge. Percocet #7 anxiety: Continue Ativan as needed. #8 VT prophylaxis: Subcu Lovenox. This note was generated with [employer] dictation software. It may contain incorrect words, spelling, and punctuation that were not noted in checking the note before signing. DVT prophylaxis: Code Visit Inpatient E&M: 78097 Subs Hosp L2
== END 2017-07-29 09:53 | disposition home health service (06) | DRG 148 ==
LOC: ED 14:28 → MS2 14:40 → ICU 07-24 20:46 → MS3 07-29 08:08
PROVIDERS: Anesthesiology; Internal Medicine; Obstetrics & Gynecology; Admitting Provider Surgery; Emergency Provider Emergency Medicine; Family Provider Internal Medicine; PCP Internal Medicine; Visit Provider Surgery
PROC: 0DTN0ZZ Resection of Sigmoid Colon, Open Approach (ICD-10-PCS; principal; 2017-07-24 08:40)
PROC: 0DTN0ZZ Resection of Sigmoid Colon, Open Approach (ICD-10-PCS; 2017-07-24 08:40)
DX: K57.32 Diverticulitis of large intestine without perforation or abscess without bleeding (principal); D62 Acute posthemorrhagic anemia; J98.11 Atelectasis; E83.42 Hypomagnesemia; F17.210 Nicotine dependence, cigarettes, uncomplicated; N70.11 Chronic salpingitis; K21.9 Gastro-esophageal reflux disease without esophagitis; F41.9 Anxiety disorder, unspecified; K62.4 Stenosis of anus and rectum; I49.3 Ventricular premature depolarization
CPT/HCPCS: 36415; 71010; 71020; 80048; 80053; 80061; 81001; 83690; 83735; 84100; 84484; 85025; 85027; 86850; 86900; 87070; 87086; 87088; 87106; 87205; 87493; 87641; 88108; 88304; 88305; 88307; 88313; 88331; 93005; 94640; 94762; 99282; 99406; J7030; J7040; J7120; A4216; J0744; J1170; J2405; J3475; J3490

== ENCOUNTER → 2017-08-29 12:15 | Outpatient (CLI) | payer MEDICAID, SELFPAY | LOC: LAB 12:16 → LABSPEC 12:17 | PROVIDERS: Family Provider Internal Medicine; PCP Internal Medicine; Visit Provider Surgery | DX: R19.7 Diarrhea, unspecified (principal); Z87.19 Personal history of other diseases of the digestive system | CPT/HCPCS: 87493 ==

== ENCOUNTER 2017-09-01 12:57 | Inpatient (IN) | payer MEDICAID, SELFPAY ==
[2017-09-01] VITALS (7 sets, daily range): BP systolic 111–128; BP diastolic 63–76; PULSE 79–105; RESP 15–18; TEMP 36.1–37; O2SAT 97–100; BMI 21.9; BMI 22.1
[2017-09-01 13:41] LABS: Absolute Lymphocyte Count 3.64 X10^3/ul (0.83-4.51); Absolute Neutrophil Count 4.4 X10^3/uL (2.0-7.7); Basophil# 0.14 X10^3/uL; Basophil% 1.5 % (0-1); Eosinophil# 0.36 X10^3/uL; Eosinophils% 3.8 % (0-5); Hematocrit 36.6 % (37-47); Hemoglobin 12.2 g/dl (12.0-15.0); Lymphocyte # 3.64 X10^3/ul (4.0); Lymphocyte % 38.2 % (19-41); Mean Corp Hgb Conc 33.3 g/gl (32-36); Mean Corpuscular Hgb 32.6 pg (27.0-32.0); Mean Corpuscular Volume 97.9 fL (81-99); Mean Platelet Vol. 10.1 fl (6.2-12.0); Monocyte# 0.93 X10^3/uL; Monocyte% 9.8 % (0-10); Neutrophil # 4.44 X10^3/uL (2.7-7.7); Neutrophil % 46.5 % (47-70); POSITIVE COUNT NO; POSITIVE DIFFERENTIAL NO; POSITIVE MORPHOLOGY NO; Platelet Count 316 K/mm3 (150-450); RBC Distribution Width CV 14.1 % (11.6-14.6); RBC Distribution Width SD 48.7 fl (35.1-43.9); Red Blood Count 3.74 M/mm3 (4.2-5.4); White Blood Count 9.5 K/mm3 (4.4-11.0)
[2017-09-01] MEDS: cloNIDine HCl 0.1 MG Tablet PO ×3 (13:56→22:05)
[2017-09-01] MEDS: Ondansetron 4 MG/2 ML Vial IV (13:56)
[2017-09-01] MEDS: 0.9% Normal Saline 1,000 ML 150 ML IV ×3 (13:57→23:34)
[2017-09-01] MEDS: Dicyclomine 20 MG/2 ML Vial IM (13:57)
[2017-09-01] MEDS: Ketorolac 30 MG/ML Syringe IV (13:57)
[2017-09-01 13:58] LABS: Anion Gap 8 (5-15); BUN 18 mg/dL (7-18); BUN/Creat Ratio 28.8 RATIO (10-20); Calcium,Total 9.3 mg/dL (8.5-10.1); Chloride 109 mmol/L (98-107); Creatinine, Serum 0.63 mg/dL (0.55-1.02); EST Glomerular Filtration Rate 105 mL/min (>60); Est Glom Filt Rate - Afr Amer 127 mL/min (>60); Estimated Creatinine Clearance 80.74 ml/min; Glucose 102 mg/dL (70-110); Potassium 4.6 mmol/L (3.5-5.1); Sodium Level 139 mmol/L (136-145)
--- NOTE | 2017-09-01 14:41 | ED.DCSUM_ITS ---
- ER Visit Summary Date of Service: 09/01/17 Chief Complaint: Opiate and benzodiazepine withdrawal History of Present Illness: The patient is a [address] Langston. She reports that she has been abusing Vicodin and Percocet since 1995. She was snorting them all the time. States that she would snort as much as she could get and her last use was 8:00 yesterday morning. She denies any IV drug abuse. Patient also reports that she is supposed be taking Ativan twice daily and she has been taking it 5-6 times a day. Last use was yesterday. Patient has had nausea and 8 episodes of diarrhea today. She has diffuse myalgias and abdominal cramping. She has a headache that 6 out of 10 severity and feels shaky. Physical Examination: Vitals: Stable. Afebrile. General: Well-nourished and well-developed. Head: Normocephalic atraumatic. Neck: Supple, no lymphadenopathy. No JVD. Nontender. Cardiovascular: Regular rate and rhythm. No murmurs. Respiratory: No respiratory distress. Clear to auscultation bilaterally. Abdominal: Soft, nontender, nondistended, normal bowel sounds. No guarding, rebound, or peritoneal signs. Back: Nontender. Extremities: Nontender, no edema. Skin: Normal color, no rash. Neurologic: Alert and oriented ?3. Cranial nerves II through XII are intact. Normal strength and sensation. Psych: Normal affect. Test Results: CBC is marked for hematocrit of 36.6, segmented neutrophils of 47 , basophils of 2. Chem-7 is more for chloride 109. Emergency Department Course and Treatment: Patient is treated with clonidine and Librium p.o. She is given Toradol and Zofran IV. She was given Bentyl IM. She is resting comfortably. Treatment Plan: The patient was seen by janet bonilla and meets admission criteria. She was discussed with Dr. Nguyen. Disposition: Admitted in improved condition. Impression: 1. Opiate/benzodiazepine withdrawal. This note was generated with [employer] dictation software. It may contain incorrect words, spelling, and punctuation that were not noted in review of the chart prior to signing ED Disposition - Plan for ED Patient: Chief Complaint: Subst Abuse Referrals: Mack Langston MD [Primary Care Provider] -
[2017-09-01] MEDS: chlordiazePOXIDE 25 MG Capsule PO ×3 (14:45→23:34)
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
--- NOTE | 2017-09-01 16:02 | ED.RN ---
pt c/o restless legs. dr. sultana informed. no new orders at this time.
--- NOTE | 2017-09-01 17:16 | EKG12_ITS ---
Test Reason : ARRYTHMI Blood Pressure : / mmHG Vent. Rate : 074 BPM Atrial Rate : 074 BPM P-R Int : 140 ms QRS Dur : 086 ms QT Int : 390 ms P-R-T Axes : 063 056 062 degrees QTc Int : 432 ms Normal sinus rhythm Normal ECG Confirmed by STACIE KIM, ZAIRA ([id number]), sports editor JIMBO SMITH ([id number] on 09/10/2017 2:33:03 PM Referred By: CAROLEE Confirmed By:ZAIRA QUINONES MD
[2017-09-01] MEDS: Enoxaparin 40 MG/0.4 ML Syringe SC (18:00)
[2017-09-01] MEDS: Methocarbamol 750 MG Tablet PO (18:00)
[2017-09-01] MEDS: QUEtiapine 25 MG Tablet PO (18:01)
[2017-09-01] MEDS: Folic Acid 1 MG Tablet PO (18:01)
[2017-09-01] MEDS: Ibuprofen 600 MG Tablet PO (18:02)
[2017-09-01] MEDS: Dicyclomine 10 MG Capsule 20 MG PO (18:02)
[2017-09-01] MEDS: Pramipexole Di-HCl 0.25 MG Tablet PO (18:08)
[2017-09-01 18:12] LABS: International Normalized Ratio 1.1; Prothrombin Time (Protime)PT. 13.4 SECONDS (11.7-14.9)
[2017-09-01 18:28] LABS: Amylase 75 U/L (25-115); Lipase 271 U/L (73-393)
[2017-09-01 18:29] LABS: Alcohol, Blood (Medical)-Serum < 3.0 mg/dL
[2017-09-01 18:40] LABS: Pregnancy, Serum, hCG Quali. NEGATIVE Negative (0-9 Nonpreg)
[2017-09-01] MEDS: Budesonide Respules 0.5 MG/2 ML AMPUL.NEB. INHALATION (19:38)
[2017-09-01] MEDS: Albuterol 2.5 MG/3 ML VIAL.NEB. INHALATION (19:38)
[2017-09-01 20:48] LABS: Amphetamine Urine VISTA NEGATIVE (<1000 ng/mL); Barbiturate Urine VISTA NEGATIVE (< 200 ng/mL); Benzodiazepine Urine VISTA NEGATIVE (< 200 ng/mL); Cocaine Urine VISTA NEGATIVE (< 300 ng/mL); Ecstacy Urine VISTA NEGATIVE (< 500 ng/mL); Methadone Urine VISTA NEGATIVE (< 300 ng/mL); PCP Urine VISTA NEGATIVE (< 25 ng/mL); THC Urine VISTA NEGATIVE (< 50 ng/mL); Vista UDS pH Range 5
[2017-09-01] MEDS: traZODone 50 MG Tablet PO (22:04)
[2017-09-02] VITALS (9 sets, daily range): BP systolic 106–122; BP diastolic 49–70; PULSE 72–92; RESP 14–18; TEMP 36.3–37.1; O2SAT 99
[2017-09-02] MEDS: cloNIDine HCl 0.1 MG Tablet PO ×5 (02:34→20:34)
[2017-09-02] MEDS: chlordiazePOXIDE 25 MG Capsule PO ×3 (06:06→20:33)
[2017-09-02] MEDS: 0.9% Normal Saline 1,000 ML 150 ML IV ×2 (06:06→11:47)
[2017-09-02] MEDS: Budesonide Respules 0.5 MG/2 ML AMPUL.NEB. INHALATION ×2 (08:02→19:36)
[2017-09-02] MEDS: Albuterol 2.5 MG/3 ML VIAL.NEB. INHALATION ×3 (08:02→19:36)
--- NOTE | 2017-09-02 08:30 | PCM.PN.HOSP ---
Patient Problems: Active and Suspected Problems (Last Reviewed 08/27/17 @ 10:42 by Lotus Davenport) Opioid withdrawal delirium, acute, hyperactive (Acute) Benzodiazepine withdrawal with delirium (Acute) Polysubstance (including opioids) dependence, daily use (Acute) Subjective: Patient is a 52-year-old lady with multiple comorbidities including polysubstance abuse admitted with acute opioid withdrawal that patient apparently does not do any IV heroin but uses Vicodin and Percocet 09/02/17 patient complains of significant lower extremity cramps Objective: GENERAL: cooperative HEENT: Clear conjunctiva, NECK; supple, normal thyroid, . CHEST: Diminished to auscultation bilaterally, HEART: Regular S1 S2, no audible murmurs ABDOMEN: soft, non-tender, normoactive bowel sounds, RECTAL: deferred EXTREMITIES: No edema, no clubbing, no cyanosis. 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 SKIN: No rash Vitals/I&O's: Vital Signs Temp Pulse Resp BP Pulse Ox 97.4 F L 82 16 106/70 99 09/02/17 08:24 09/02/17 08:24 09/02/17 08:24 09/02/17 08:24 09/02/17 08:23 Oxygen Delivery Method Room Air Weight: 54.8 kg Body Mass Index (BMI) 22.1 Intake and Output for Last 24 Hours 08/31/17 09/01/17 09/02/17 23:59 23:59 23:59 Intake Total 1110 / 1110 1660 / 1660 Output Total 200 / 200 Balance 910 / 910 1660 / 1660 Laboratory Results 09/01/17 17:49: PT 13.4, INR 1.1 09/01/17 17:49: Amylase 75, Lipase 271 09/01/17 17:49: Ethyl Alcohol < 3.0 09/01/17 17:49: Serum , Qual NEGATIVE Current Medications Acetaminophen (Tylenol) 500 mg PO Q4H PRN PRN PRN Reason: Temp > 100.4 F Al Hydroxide/Mg Hydroxide (Mylanta Ii) 30 ml PO Q6H PRN PRN PRN Reason: dyspesia Albuterol Sulfate (Ventolin Aerosols) 2.5 mg INHALATION Q6HWA.RT ERICA Last Admin: 09/01/17 19:38 Dose: 2.5 mg Bisacodyl (Dulcolax) 10 mg RECTAL DAILY PRN PRN Reason: Constipation Budesonide (Pulmicort Aerosol) 0.5 mg INHALATION Q12H.RT [facility] Last Admin: 09/01/17 19:38 Dose: 0.5 mg Chlordiazepoxide (Librium) 50 mg PO Q6H ERICA PRN Reason: Taper Stop: 09/04/17 19:59 Last Admin: 09/02/17 06:06 Dose: 50 mg Clonidine (Catapres) 0.1 mg PO Q4 [facility] Last Admin: 09/02/17 06:06 Dose: 0.1 mg Clonidine (Catapres) 0.1 mg PO Q2H PRN PRN PRN Reason: Hot/Cold Sweats or Anxiety Dicyclomine HCl (Bentyl) 20 mg PO Q6H PRN PRN PRN Reason: abdominal discomfort Last Admin: 09/01/17 18:02 Dose: 20 mg Enoxaparin Sodium (Lovenox) 40 mg SC DAILY@0600 [facility] Folic Acid (Folic Acid) 1 mg PO DAILY@0800 [facility] Last Admin: 09/01/17 18:01 Dose: 1 mg Hydroxyzine Pamoate (Vistaril) 50 mg PO Q6H PRN PRN PRN Reason: Mild Anxiety (score 1/3) Last Admin: 09/01/17 22:04 Dose: 50 mg Sodium Chloride () 1,000 mls @ 150 mls/hr IV .Q6H40M [facility] Last Admin: 09/02/17 06:06 Dose: 150 mls/hr Ibuprofen (Motrin) 600 mg PO Q8H PRN PRN PRN Reason: Mild-Moderate Pain (1-5/10) Last Admin: 09/01/17 18:02 Dose: 600 mg Loperamide HCl (Imodium) 2 - 4 mg PO UD PRN PRN Reason: LOOSE STOOLS Methocarbamol (Methocarbamol) 750 mg PO Q6H PRN PRN PRN Reason: Muscle Aches Last Admin: 09/01/17 18:00 Dose: 750 mg Multivitamins/Minerals ([facility]ivitamin With Minerals) [facility] Nicotine (Nicoderm Cq (Pbkc)) 21 mg TRANSDERM. DAILY [facility] Last Admin: 09/01/17 18:08 Dose: 21 mg Ondansetron HCl (Zofran Odt) 4 mg PO Q6H PRN PRN PRN Reason: NAUSEA Pramipexole Dihydrochloride (Mirapex) 0.25 mg PO Q12H PRN PRN PRN Reason: Restless legs Last Admin: 09/01/17 18:08 Dose: 0.25 mg Quetiapine Fumarate (Seroquel) 25 mg PO Q6H PRN PRN PRN Reason: Moderate Anxiety (score 2/3) Last Admin: 09/01/17 18:01 Dose: 25 mg Senna (Senokot) 1 tablet PO QHS PRN PRN Reason: Constipation Sodium Chloride () 5 - 30 ml IV UD PRN PRN Reason: SALINE FLUSH Thiamine HCl (Vitamin B1) 100 mg PO DAILYCM ERICA Trazodone HCl (Desyrel) 50 mg PO QHS ERICA Last Admin: 09/01/17 22:04 Dose: 50 mg Assessment/Plan Active and Suspected Problems (Last Reviewed 08/27/17 @ 10:42 by Lotus Davenport) Opioid withdrawal delirium, acute, hyperactive (Acute) Benzodiazepine withdrawal with delirium (Acute) Polysubstance (including opioids) dependence, daily use (Acute) Patient is a 52-year-old lady with multiple comorbidities including polysubstance abuse admitted with acute opioid withdrawal 1. Acute opioid and benzodiazepine withdrawal; patient admitted to regular nursing floor where patient is currently being managed with Librium for medical stabilization 2. History of recurrent diverticulitis 3. History of depression with previous suicidal attempt in 2013 4. COPD: Currently stable on Advair 5. Chronic hep C 6. Tobacco dependence-patient counseled on cessation. Offered nicotine patch for tobacco cravings 7. DVT prophylaxis; Lovenox Code Visit Inpatient E&M: 25971 Subs Hosp L3
--- NOTE | 2017-09-02 08:33 | PN_ITS ---
Patient Problems: Active and Suspected Problems (Last Reviewed 08/27/17 @ 10:42 by Lotus Davenport) Opioid withdrawal delirium, acute, hyperactive (Acute) Benzodiazepine withdrawal with delirium (Acute) Polysubstance (including opioids) dependence, daily use (Acute) Subjective: Patient is a 52-year-old lady with multiple comorbidities including polysubstance abuse admitted with acute opioid withdrawal that patient apparently does not do any IV heroin but uses Vicodin and Percocet 09/02/17 patient complains of significant lower extremity cramps Objective: GENERAL: cooperative HEENT: Clear conjunctiva, NECK; supple, normal thyroid, . CHEST: Diminished to auscultation bilaterally, HEART: Regular S1 S2, no audible murmurs ABDOMEN: soft, non-tender, normoactive bowel sounds, RECTAL: deferred EXTREMITIES: No edema, no clubbing, no cyanosis. SHANK STITCHER: Awake, no lateralizing signs. SKIN: No rash Vitals/I&O's: Vital Signs Temp Pulse Resp BP Pulse Ox 97.4 F L 82 16 106/70 99 09/02/17 08:24 09/02/17 08:24 09/02/17 08:24 09/02/17 08:24 09/02/17 08:23 Oxygen Delivery Method Room Air Weight: 54.8 kg Body Mass Index (BMI) 22.1 Intake and Output for Last 24 Hours 08/31/17 09/01/17 09/02/17 23:59 23:59 23:59 Intake Total 1110 / 1110 1660 / 1660 Output Total 200 / 200 Balance 910 / 910 1660 / 1660 Laboratory Results 09/01/17 17:49: PT 13.4, INR 1.1 09/01/17 17:49: Amylase 75, Lipase 271 09/01/17 17:49: Ethyl Alcohol < 3.0 09/01/17 17:49: Serum , Qual NEGATIVE Current Medications Acetaminophen (Tylenol) 500 mg PO Q4H PRN PRN PRN Reason: Temp > 100.4 F Al Hydroxide/Mg Hydroxide (Mylanta Ii) 30 ml PO Q6H PRN PRN PRN Reason: dyspesia Albuterol Sulfate (Ventolin Aerosols) 2.5 mg INHALATION Q6HWA.RT ERICA Last Admin: 09/01/17 19:38 Dose: 2.5 mg Bisacodyl (Dulcolax) 10 mg RECTAL DAILY PRN PRN Reason: Constipation Budesonide (Pulmicort Aerosol) 0.5 mg INHALATION Q12H.RT [facility] [place] Last Admin: 09/01/17 19:38 Dose: 0.5 mg Chlordiazepoxide (Librium) 50 mg PO Q6H [facility] PRN Reason: Taper Stop: 09/04/17 19:59 Last Admin: 09/02/17 06:06 Dose: 50 mg Clonidine (Catapres) 0.1 mg PO Q4 [facility] [place] Last Admin: 09/02/17 06:06 Dose: 0.1 mg Clonidine (Catapres) 0.1 mg PO Q2H PRN PRN PRN Reason: Hot/Cold Sweats or Anxiety Dicyclomine HCl (Bentyl) 20 mg PO Q6H PRN PRN PRN Reason: abdominal discomfort Last Admin: 09/01/17 18:02 Dose: 20 mg Enoxaparin Sodium (Lovenox) 40 mg SC DAILY@0600 [facility] [place] Folic Acid (Folic Acid) 1 mg PO DAILY@0800 [facility] Last Admin: 09/01/17 18:01 Dose: 1 mg Hydroxyzine Pamoate (Vistaril) 50 mg PO Q6H PRN PRN PRN Reason: Mild Anxiety (score 1/3) Last Admin: 09/01/17 22:04 Dose: 50 mg Sodium Chloride () 1,000 mls @ 150 mls/hr IV .Q6H40M [facility] [place] Last Admin: 09/02/17 06:06 Dose: 150 mls/hr Ibuprofen (Motrin) 600 mg PO Q8H PRN PRN PRN Reason: Mild-Moderate Pain (1-5/10) Last Admin: 09/01/17 18:02 Dose: 600 mg Loperamide HCl (Imodium) 2 - 4 mg PO UD PRN PRN Reason: LOOSE STOOLS Methocarbamol (Methocarbamol) 750 mg PO Q6H PRN PRN PRN Reason: Muscle Aches Last Admin: 09/01/17 18:00 Dose: 750 mg Multivitamins/Minerals (Multivitamin With Minerals) [facility] Nicotine (Nicoderm Cq (Pbkc)) 21 mg TRANSDERM. DAILY [facility] Last Admin: 09/01/17 18:08 Dose: 21 mg Ondansetron HCl (Zofran Odt) 4 mg PO Q6H PRN PRN PRN Reason: NAUSEA Pramipexole Dihydrochloride (Mirapex) 0.25 mg PO Q12H PRN PRN PRN Reason: Restless legs Last Admin: 09/01/17 18:08 Dose: 0.25 mg Quetiapine Fumarate (Seroquel) 25 mg PO Q6H PRN PRN PRN Reason: Moderate Anxiety (score 2/3) Last Admin: 09/01/17 18:01 Dose: 25 mg Senna (Senokot) 1 tablet PO QHS PRN PRN Reason: Constipation Sodium Chloride () 5 - 30 ml IV UD PRN PRN Reason: SALINE FLUSH Thiamine HCl (Vitamin B1) 100 mg PO DAILYCM ERICA Trazodone HCl (Desyrel) 50 mg PO QHS [facility] Last Admin: 09/01/17 22:04 Dose: 50 mg Assessment/Plan Active and Suspected Problems (Last Reviewed 08/27/17 @ 10:42 by Lotus Davenport) Opioid withdrawal delirium, acute, hyperactive (Acute) Benzodiazepine withdrawal with delirium (Acute) Polysubstance (including opioids) dependence, daily use (Acute) Patient is a 52-year-old lady with multiple comorbidities including polysubstance abuse admitted with acute opioid withdrawal 1. Acute opioid and benzodiazepine withdrawal; patient admitted to regular nursing floor where patient is currently being managed with Librium for medical stabilization 2. History of recurrent diverticulitis 3. History of depression with previous suicidal attempt in 2013 4. COPD: Currently stable on Advair 5. Chronic hep C 6. Tobacco dependence-patient counseled on cessation. Offered nicotine patch for tobacco cravings 7. DVT prophylaxis; Lovenox Code Visit Inpatient E&M: 40182 Subs Hosp L3
[2017-09-02] MEDS: Thiamine Hydrochloride 100 MG Tablet PO (08:39)
[2017-09-02] MEDS: Folic Acid 1 MG Tablet PO (08:39)
[2017-09-02] MEDS: Pramipexole Di-HCl 0.25 MG Tablet PO ×2 (08:39→20:33)
[2017-09-02] MEDS: Multivitamins,Ther W-Minerals Tablet 1 TABLET PO (08:39)
[2017-09-02] MEDS: Loperamide 2 MG Capsule PO ×2 (08:41→20:40)
[2017-09-02] MEDS: Methocarbamol 750 MG Tablet PO ×2 (08:42→20:33)
--- NOTE | 2017-09-02 08:47 | NURSING ---
Notified by in room dining server that patient has cigarettes and resident care supervisor in her purse. Refuses to give to staff to lock up- per day shift yesterday and in room dining server. This RN discussed smoking with patient- patient stated that the patch did not work much and that she was so desperate that she almost went into the bathroom to smoke last night. This RN notified patient that if she felt that way again- to notify this RN. Notified that we could get a new order that would help- maybe for gum. Reminded that if patient smokes in facility she will be discharged. patient verbalized understanding.
[2017-09-02] MEDS: Dicyclomine 10 MG Capsule 20 MG PO (12:34)
[2017-09-02] MEDS: Ibuprofen 600 MG Tablet PO (16:45)
[2017-09-02] MEDS: traZODone 50 MG Tablet PO (20:35)
[2017-09-03] VITALS (13 sets, daily range): BP systolic 83–134; BP diastolic 46–77; PULSE 62–79; RESP 16–18; TEMP 36.3–36.9; O2SAT 96–98
[2017-09-03] MEDS: chlordiazePOXIDE 25 MG Capsule PO ×3 (03:06→20:23)
[2017-09-03] MEDS: cloNIDine HCl 0.1 MG Tablet PO ×3 (03:06→13:38)
[2017-09-03] MEDS: Budesonide Respules 0.5 MG/2 ML AMPUL.NEB. INHALATION ×2 (07:55→21:47)
[2017-09-03] MEDS: Albuterol 2.5 MG/3 ML VIAL.NEB. INHALATION ×2 (07:55→21:47)
--- NOTE | 2017-09-03 08:17 | PCM.PN.HOSP ---
Patient Problems: Active and Suspected Problems (Last Reviewed 08/27/17 @ 10:42 by Lotus Davenport) Opioid withdrawal delirium, acute, hyperactive (Acute) Benzodiazepine withdrawal with delirium (Acute) Polysubstance (including opioids) dependence, daily use (Acute) Subjective: Patient has tolerated her treatment well so far. Seen this a.m. complains of feeling tired Objective: GENERAL: cooperative HEENT: Clear conjunctiva, NECK; supple, normal thyroid, . CHEST: Diminished to auscultation bilaterally, HEART: Regular S1 S2, no audible murmurs ABDOMEN: soft, non-tender, normoactive bowel sounds, RECTAL: deferred EXTREMITIES: No edema, no clubbing, no cyanosis. PIPE ORGAN TUNER AND REPAIRER: Awake, no lateralizing signs. SKIN: No rash Vitals/I&O's: Vital Signs Temp Pulse Resp BP Pulse Ox 98.2 F 76 16 124/66 H 97 09/03/17 06:16 09/03/17 06:16 09/03/17 06:16 09/03/17 06:16 09/03/17 03:02 Oxygen Delivery Method Room Air Weight: 54.8 kg Body Mass Index (BMI) 22.1 Intake and Output for Last 24 Hours 09/01/17 09/02/17 09/03/17 23:59 23:59 23:59 Intake Total 1110 / 1110 2524 / 2524 Output Total 200 / 200 Balance 910 / 910 2524 / 2524 Current Medications Acetaminophen (Tylenol) 500 mg PO Q4H PRN PRN PRN Reason: Temp > 100.4 F Al Hydroxide/Mg Hydroxide (Mylanta Ii) 30 ml PO Q6H PRN PRN PRN Reason: dyspesia Albuterol Sulfate (Ventolin Aerosols) 2.5 mg INHALATION Q6HWA.RT [facility] Last Admin: 09/03/17 07:55 Dose: 2.5 mg Bisacodyl (Dulcolax) 10 mg RECTAL DAILY PRN PRN Reason: Constipation Budesonide (Pulmicort Aerosol) 0.5 mg INHALATION Q12H.RT [facility] Last Admin: 09/03/17 07:55 Dose: 0.5 mg Chlordiazepoxide (Librium) 50 mg PO Q8H [facility] PRN Reason: Taper Stop: 09/04/17 19:59 Last Admin: 09/03/17 03:06 Dose: 50 mg Clonidine (Catapres) 0.1 mg PO Q4 [facility] Last Admin: 09/03/17 05:31 Dose: 0.1 mg Clonidine (Catapres) 0.1 mg PO Q2H PRN PRN PRN Reason: Hot/Cold Sweats or Anxiety Dicyclomine HCl (Bentyl) 20 mg PO Q6H PRN PRN PRN Reason: abdominal discomfort Last Admin: 09/02/17 12:34 Dose: 20 mg Enoxaparin Sodium (Lovenox) 40 mg SC DAILY@0600 [facility] Last Admin: 09/03/17 05:34 Dose: Not Given Folic Acid (Folic Acid) 1 mg PO DAILY@0800 [facility] Last Admin: 09/02/17 08:39 Dose: 1 mg Hydroxyzine Pamoate (Vistaril) 50 mg PO Q6H PRN PRN PRN Reason: Mild Anxiety (score 1/3) Last Admin: 09/02/17 16:45 Dose: 50 mg Ibuprofen (Motrin) 600 mg PO Q8H PRN PRN PRN Reason: Mild-Moderate Pain (1-5/10) Last Admin: 09/02/17 16:45 Dose: 600 mg Loperamide HCl (Imodium) 2 - 4 mg PO UD PRN PRN Reason: LOOSE STOOLS Last Admin: 09/02/17 20:40 Dose: 4 mg Methocarbamol (Methocarbamol) 750 mg PO Q6H PRN PRN PRN Reason: Muscle Aches Last Admin: 09/02/17 20:33 Dose: 750 mg Multivitamins/Minerals ([facility]itamin With Minerals) [facility] Last Admin: 09/02/17 08:39 Dose: 1 tablet Nicotine (Nicoderm Cq (Pbkc)) 21 mg TRANSDERM. DAILY [facility] Last Admin: 09/02/17 08:47 Dose: 21 mg Nicotine Polacrilex ([place]ugby Nicotine (Pbkc)) 4 mg PO Q2H PRN PRN PRN Reason: Nicotine Craving Ondansetron HCl (Zofran Odt) 4 mg PO Q6H PRN PRN PRN Reason: NAUSEA Pramipexole Dihydrochloride (Mirapex) 0.25 mg PO Q12H PRN PRN PRN Reason: Restless legs Last Admin: 09/02/17 20:33 Dose: 0.25 mg Quetiapine Fumarate (Seroquel) 25 mg PO Q6H PRN PRN PRN Reason: Moderate Anxiety (score 2/3) Last Admin: 09/01/17 18:01 Dose: 25 mg Senna (Senokot) 1 tablet PO QHS PRN PRN Reason: Constipation Sodium Chloride () 5 - 30 ml IV UD PRN PRN Reason: SALINE FLUSH Thiamine HCl (Vitamin B1) [facility] Last Admin: 09/02/17 08:39 Dose: 100 mg Trazodone HCl (Desyrel) 50 mg PO QHS [facility] Last Admin: 09/02/17 20:35 Dose: 50 mg Assessment/Plan Active and Suspected Problems (Last Reviewed 08/27/17 @ 10:42 by Lotus Davenport) Opioid withdrawal delirium, acute, hyperactive (Acute) Benzodiazepine withdrawal with delirium (Acute) Polysubstance (including opioids) dependence, daily use (Acute) Patient is a 52-year-old lady with multiple comorbidities including polysubstance abuse admitted with acute opioid withdrawal 1. Acute opioid and benzodiazepine withdrawal; patient admitted to regular nursing floor where patient is currently being managed with Librium for medical stabilization 2. History of recurrent diverticulitis 3. History of depression with previous suicidal attempt in 2013 4. COPD: Currently stable on Advair 5. Chronic hep C 6. Tobacco dependence-patient counseled on cessation. Offered nicotine patch for tobacco cravings 7. DVT prophylaxis; Lovenox Code Visit Inpatient E&M: 91562 Subs Hosp L2
[2017-09-03] MEDS: Multivitamins,Ther W-Minerals Tablet 1 TABLET PO (08:27)
[2017-09-03] MEDS: Folic Acid 1 MG Tablet PO (08:28)
[2017-09-03] MEDS: Enoxaparin 40 MG/0.4 ML Syringe SC (08:28)
[2017-09-03] MEDS: Thiamine Hydrochloride 100 MG Tablet PO (08:28)
--- NOTE | 2017-09-03 09:51 | NURSING ---
Nicotene patch removed from right deltoid.
[2017-09-03] MEDS: Ibuprofen 600 MG Tablet PO (17:15)
[2017-09-03] MEDS: Ondansetron ODT 4 MG Tablet PO (17:16)
[2017-09-03] MEDS: Pramipexole Di-HCl 0.25 MG Tablet PO (20:29)
[2017-09-03] MEDS: Methocarbamol 750 MG Tablet PO (20:29)
[2017-09-03] MEDS: QUEtiapine 25 MG Tablet PO (22:16)
[2017-09-03] MEDS: traZODone 50 MG Tablet PO (22:16)
[2017-09-04 02:06] VITALS: BP 87/46; PULSE 87; RESP 16; TEMP 37.1
[2017-09-04 05:48] VITALS: BP 96/52; PULSE 72; RESP 16; TEMP 36.4
--- NOTE | 2017-09-04 07:02 | NURSING ---
Removed ileostomy appliance. there was a moderate amount of liquid brown stool noted on the appliance. cleansed the peristomal skin with warm water and patted dry. there is a small amount of irritation noted to the peristomal skin. this is very minimal. stoma is pink, moist, and just above the skin level. stoma measures approx 2cm x 4cm and is oval in shape. patient states that the stoma sinks in at times. Did notice that when patient goes to sit up there is some stomal retraction to the lateral portion of the stoma. applied small amount of stoma powder to the irritated skin followed by skin prep. placed a 2 piece convex Jaime appliance with a small amount of stoma paste. Pt tolerated well. will see how the convex appliances work for the patient. May need to switch to the convex ones.
[2017-09-04] MEDS: Albuterol 2.5 MG/3 ML VIAL.NEB. INHALATION (07:22)
[2017-09-04 07:23] VITALS: PULSE 69; RESP 12
[2017-09-04] MEDS: Budesonide Respules 0.5 MG/2 ML AMPUL.NEB. INHALATION (07:23)
[2017-09-04 08:25] VITALS: BP 88/41; PULSE 79; RESP 18; TEMP 36.9; O2SAT 96
[2017-09-04] MEDS: Methocarbamol 750 MG Tablet PO (08:25)
[2017-09-04] MEDS: chlordiazePOXIDE 25 MG Capsule PO (08:25)
[2017-09-04] MEDS: Thiamine Hydrochloride 100 MG Tablet PO (08:26)
[2017-09-04] MEDS: Folic Acid 1 MG Tablet PO (08:26)
[2017-09-04] MEDS: Multivitamins,Ther W-Minerals Tablet 1 TABLET PO (08:26)
[2017-09-04] MEDS: Pramipexole Di-HCl 0.25 MG Tablet PO (08:27)
--- NOTE | 2017-09-04 09:10 | PCM.DC ---
- Discharge Diagnoses Current Active Problems: Current Active and Chronic Problems (Last Reviewed 08/27/17 @ 10:42 by Lotus Davenport) Opioid withdrawal delirium, acute, hyperactive (Acute) Benzodiazepine withdrawal with delirium (Acute) Polysubstance (including opioids) dependence, daily use (Acute) You will use the following diet at home:: No restrictions Discharge Activity: May not drive while taking narcotic pain medications. Allergies/Adverse Reactions: Allergies codeine Allergy (Verified 08/27/17 10:42) HALLUCINATION Penicillins Allergy (Verified 08/27/17 10:42) UNSURE CHILD Medications to take at Discharge Albuterol Inhaler [Ventolin Hfa] 1 - 2 puff INHALATION Q6H PRN PRN 09/01/17 Pramipexole Di-HCl [Mirapex] 0.25 mg PO Q12H PRN PRN #30 tab 09/04/17 The following prescriptions were given: Pramipexole Di-HCl [Mirapex] 0.25 mg PO Q12H PRN PRN #30 tab PRN Reason: Restless legs Primary Care Physician: Mack Langston MD [Primary Care Provider] - Please follow up with your Primary Care Physician in: in 1-2 weeks Proposed Discharge Date: 09/04/17
--- NOTE | 2017-09-04 09:12 | PCM.DC.SUM ---
Discharge Date and Diagnosis - Problem List Patient Problems: Active and Suspected Problems (Last Reviewed 08/27/17 @ 10:42 by Lotus Davneport) Opioid withdrawal delirium, acute, hyperactive (Acute) Benzodiazepine withdrawal with delirium (Acute) Polysubstance (including opioids) dependence, daily use (Acute) Date of Admission: 09/01/17 Date of Discharge: 09/04/17 - Primary Discharge Diagnosis Active and Suspected Problems (Last Reviewed 08/27/17 @ 10:42 by Lotus Davenport) Opioid withdrawal delirium, acute, hyperactive (Acute) Benzodiazepine withdrawal with delirium (Acute) Polysubstance (including opioids) dependence, daily use (Acute) - Secondary Discharge Diagnosis Chronic Problems (Last Reviewed 08/27/17 @ 10:42 by Lotus Davenport) S/P partial colectomy (Chronic) 07/24/17 History of tubal ligation (Chronic) History of attempted suicide (Chronic) Chronic leg pain (Chronic) Asthma (Chronic) GERD (gastroesophageal reflux disease) (Chronic) Arthritis (Chronic) Tubo-ovarian abscess (Chronic) Hydrosalpinx (Chronic) Clostridium difficile infection (Chronic) Recent discharge s/p diverticulitis diagnosis w/ resulting c. difficile colitis w/ transition outpatient to oral vancomycin. Tobacco use (Chronic) Anxiety (Chronic) COPD (chronic obstructive pulmonary disease) (Chronic) Hospital Course and Treatment Consultations 09/01/17 17:22 Oncology [Consult: Onc/Wound/product blending supervisor] Routine Comment: Reason for Consult:: new colostomy Operations: None Summary of Care Provided: Patient is a 52-year-old lady with multiple comorbidities including polysubstance abuse admitted with acute opioid withdrawal 1. Acute opioid and benzodiazepine withdrawal; patient admitted to regular nursing floor where patient is currently being managed with Librium for medical stabilization 2. History of recurrent diverticulitis; Status post sigmoid colectomy with primary anastomosis and colostomy on 07/24/2017 3. History of depression with previous suicidal attempt in 2013 4. COPD: Currently stable on Advair 5. Chronic hep C 6. Tobacco dependence-patient counseled on cessation. Offered nicotine patch for tobacco cravings 7. DVT prophylaxis; Lovenox Discharge Diet: No Restrictions Discharge Activity: May not drive while taking narcotic pain medications. Home Medications: Medications to take at Discharge Albuterol Inhaler [Ventolin Hfa] 1 - 2 puff INHALATION Q6H PRN PRN 09/01/17 Pramipexole Di-HCl [Mirapex] 0.25 mg PO Q12H PRN PRN #30 tab 09/04/17 Following Prescrptions Were Given to Patient: Pramipexole Di-HCl [Mirapex] 0.25 mg PO Q12H PRN PRN #30 tab PRN Reason: Restless legs Primary Care Physician: Mack Langston MD [Primary Care Provider] - Please follow up with your Primary Care Physician in: in 1-2 weeks Disposition: Home Minutes spent on discharge:: 35 Patient Condition:: Stable Meaningful Use Info Meaningful Use Diagnoses (Choose all that apply): None applicable Code Visit Inpatient E&M: 75306 Disch Hosp
--- NOTE | 2017-09-04 15:11 | CASEMGMT ---
BELL LAZO was informed patient has home health and needs a resumption of care since she was inpatient for the [facility]. BELL LAZO faxed resumption order and D/C summary & D/I to [facility].
== END 2017-09-04 11:00 | disposition home or self-care (01) | DRG 434 ==
LOC: ED 16:20 → MS2 16:54
PROVIDERS: Admitting Provider Internal Medicine; Emergency Provider Emergency Medicine; Family Provider Internal Medicine; PCP Internal Medicine; Visit Provider Internal Medicine
DX: F11.23 Opioid dependence with withdrawal (principal); J44.9 Chronic obstructive pulmonary disease, unspecified; B18.2 Chronic viral hepatitis C; F13.239 Sedative, hypnotic or anxiolytic dependence with withdrawal, unspecified; F32.9 Major depressive disorder, single episode, unspecified; F17.210 Nicotine dependence, cigarettes, uncomplicated; K21.9 Gastro-esophageal reflux disease without esophagitis; Z88.5 Allergy status to narcotic agent; Z90.49 Acquired absence of other specified parts of digestive tract; Z90.710 Acquired absence of both cervix and uterus; Z93.3 Colostomy status; Z98.51 Tubal ligation status; Z91.5 Personal history of self-harm
CPT/HCPCS: 80048; 80307; 80320; 82150; 83690; 84703; 85025; 85610; 87493; 93005; 94640; 97802; 99285; J7030; J7050; A4216; G0480; J2405

== ENCOUNTER 2017-09-16 16:01 | Emergency (ER) | payer MEDICAID, SELFPAY ==
[2017-09-16 16:03] VITALS: BP 101/70; PULSE 86; RESP 16; TEMP 36.7; O2SAT 100; BMI 22.1
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
--- NOTE | 2017-09-16 16:56 | ED.DEP ---
ED Disposition - Plan for ED Patient: Chief Complaint: Back Instructions: ED Low Back Pain Injury Prescriptions: Cyclobenzaprine [Flexeril] 10 mg PO TID PRN PRN #10 tablet PRN Reason: Muscle Spasm MethylPREDNISolone DosePak [Medrol DosePak] 4 mg PO UD #1 box Referrals: Sher Ku MD [STAFF PHYSICIAN] - 3-5 Days
[2017-09-16 17:08] VITALS: BP 125/69; PULSE 90; RESP 16; O2SAT 97
== END 2017-09-16 17:46 | disposition home or self-care (01) ==
PROVIDERS: Emergency Provider Emergency Medicine
DX: G89.29 Other chronic pain (principal); M54.9 Dorsalgia, unspecified; Z93.3 Colostomy status; Z72.0 Tobacco use
CPT/HCPCS: 96372; 99282

== ENCOUNTER → 2017-09-22 07:51 | Outpatient (CLI) | payer MEDICAID, SELFPAY ==
--- NOTE | 2017-09-22 08:10 | RAD_ITS ---
STUDY: GASTROGRAFIN BARIUM ENEMA. REASON FOR EXAM: Female, 52 years old. History of diverticulitis and bowel resection. Ostomy in the right lower quadrant. FLUOROSCOPY TIME (if supplied): (0:12) minutes/seconds TECHNIQUE: A Correa catheter was placed into the ostomy in the right lower quadrant. Gastrografin was injected through the syringe. The entire colon was opacified. COMPARISON: None. FINDINGS: There is no evidence of obstruction. No mass lesion is seen. There is no evidence of leakage of contrast. Scattered sigmoid diverticula. RAD/Barium Enema No Air Cont IMPRESSION: Scattered sigmoid diverticula. There is no evidence of obstruction. There is no evidence of leakage of contrast. Electronically Signed: Cahrles Urrutia MD at 9:18 EST Tel [phone], Service support ,
== END ==
PROVIDERS: Visit Provider Surgery
DX: K57.30 Diverticulosis of large intestine without perforation or abscess without bleeding (principal)
CPT/HCPCS: 74270

== ENCOUNTER 2017-09-30 11:15 | Emergency (ER) | payer MEDICAID, SELFPAY ==
[2017-09-30 11:16] VITALS: BP 124/57; PULSE 91; RESP 16; TEMP 36.9; O2SAT 100; BMI 22.1
--- NOTE | 2017-09-30 11:45 | RAD_ITS ---
STUDY: X-RAY - LUMBAR SPINE REASON FOR EXAM: Female, 52 years old. Low back pain following a fall. TECHNIQUE: 3 view(s) of the lumbar spine were obtained. COMPARISON: None FINDINGS: Normal lumbar lordosis. There is no substantial scoliosis. There is a normal alignment of the vertebrae. Normal vertebral bodies and endplates. Normal disc space heights. Prior intramedullary nat fixation of the proximal right femur. There is atherosclerotic calcification of the abdominal aorta without a demonstrated aneurysm. Minimal residual barium is seen in the rectum. RAD/Lumbar Spine 2 or 3 Views IMPRESSION: No acute abnormality is seen. Electronically Signed: Charles Urrutia MD at 12:36 EST Tel [phone], Service support ,
[2017-09-30] MEDS: Orphenadrine 60 MG/2 ML Ampul IM (11:52)
[2017-09-30] MEDS: Ketorolac 60 MG/2 ML Vial IM (11:52)
--- NOTE | 2017-09-30 12:39 | ED.VISSUMM ---
- ER Visit Summary Date of Service: 09/30/17 Chief Complaint: Lower back pain History of Present Illness: The patient is a 52 F with a history of prior back pain. She also has a history of polysubstance abuse. She was on a ladder. She states that she was trying to hang something on the wall when she fell. She was able to hang on but did twist her back and then hit her back on the ladder before falling to the ground. No loss of consciousness no head injury. She denies any chest pain or abdominal pain. She states occasionally she gets a brief pain radiating to her right leg which she describes as a jolt. No fever numbness tingling urinary retention or fecal incontinence. Physical Examination: Afebrile vitals unremarkable Moist mucous membranes Heart regular rate and rhythm Lungs are clear to auscultation Abdomen soft Paraspinal lumbar tenderness Negative straight leg raise bilaterally 5 out of 5 strength with dorsiflexion, plantarflexion, extensor hallucis longus, easily palpable dorsalis pedis pulses Test Results: Lumbar x-rays show no acute abnormality. Emergency Department Course and Treatment: Was treated with intramuscular Toradol and Norflex here. She was instructed on supportive care including anti-inflammatory use at home. She understands return for new or worsening symptoms. She was discharged. Treatment Plan: [] Disposition: Discharge Impression: Lumbosacral strain Back contusion This note was generated with [employer] dictation software. It may contain incorrect words, spelling, and punctuation that were not noted in review of the chart prior to signing ED Disposition - Plan for ED Patient: Chief Complaint: Back Referrals: Care Physician,No Primary [Primary Care Provider] -
--- NOTE | 2017-09-30 12:42 | ED.DCSUM_ITS ---
- ER Visit Summary Date of Service: 09/30/17 Chief Complaint: Lower back pain History of Present Illness: The patient is a 52 F with a history of prior back pain. She also has a history of polysubstance abuse. She was on a ladder. She states that she was trying to hang something on the wall when she fell. She was able to hang on but did twist her back and then hit her back on the ladder before falling to the ground. No loss of consciousness no head injury. She denies any chest pain or abdominal pain. She states occasionally she gets a brief pain radiating to her right leg which she describes as a jolt. No fever numbness tingling urinary retention or fecal incontinence. Physical Examination: Afebrile vitals unremarkable Moist mucous membranes Heart regular rate and rhythm Lungs are clear to auscultation Abdomen soft Paraspinal lumbar tenderness Negative straight leg raise bilaterally 5 out of 5 strength with dorsiflexion, plantarflexion, extensor hallucis longus , easily palpable dorsalis pedis pulses Test Results: Lumbar x-rays show no acute abnormality. Emergency Department Course and Treatment: Was treated with intramuscular Toradol and Norflex here. She was instructed on supportive care including anti- inflammatory use at home. She understands return for new or worsening symptoms. She was discharged. Treatment Plan: [] Disposition: Discharge Impression: Lumbosacral strain Back contusion This note was generated with [employer] dictation software. It may contain incorrect words, spelling, and punctuation that were not noted in review of the chart prior to signing ED Disposition - Plan for ED Patient: Chief Complaint: Back Referrals: Care Physician,No Primary [Primary Care Provider] -
--- NOTE | 2017-09-30 12:42 | ED.DEP ---
ED Disposition - Plan for ED Patient: Chief Complaint: Back Instructions: ED Sprain Strain Lumbar, ED Contusion Back Referrals: Care Physician,No Primary [Primary Care Provider] -
[2017-09-30 12:54] VITALS: PULSE 93; RESP 16; O2SAT 98
== END 2017-09-30 12:55 | disposition home or self-care (01) ==
LOC: ED 11:57
PROVIDERS: Emergency Provider Emergency Medicine
DX: S39.012A Strain of muscle, fascia and tendon of lower back, initial encounter (principal); S30.0XXA Contusion of lower back and pelvis, initial encounter; W11.XXXA Fall on and from ladder, initial encounter; Y92.009 Unspecified place in unspecified non-institutional (private) residence as the place of occurrence of the external cause; Y99.9 Unspecified external cause status
CPT/HCPCS: 72100; 96372; 99282

== ENCOUNTER 2017-10-20 11:57 | Inpatient (IN) | payer MEDICAID, SELFPAY ==
[2017-10-20 12:18] VITALS: BP 113/81; PULSE 102; RESP 16; TEMP 36.7; O2SAT 100
[2017-10-20 12:23] VITALS: BMI 22.2
[2017-10-20 12:29] VITALS: BMI 22.3
[2017-10-20 12:47] VITALS: RESP 18
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
[2017-10-20] MEDS: Electrolyte Solution/Peg's 4000 ML PO (16:19)
[2017-10-20] MEDS: Pramipexole Di-HCl 0.25 MG Tablet PO (21:42)
[2017-10-20] MEDS: LORazepam 0.5 MG Tablet PO (21:43)
[2017-10-20] MEDS: Ondansetron 4 MG/2 ML Vial IV (21:43)
[2017-10-20 21:46] VITALS: BP 116/64; PULSE 95; RESP 16; TEMP 36.8; O2SAT 98
[2017-10-21] VITALS (11 sets, daily range): BP systolic 108–167; BP diastolic 67–95; PULSE 82–124; RESP 16–18; TEMP 36.7–37.6; O2SAT 94–100; BMI 22.2
[2017-10-21 06:11] LABS: Amphetamine Urine VISTA NEGATIVE (<1000 ng/mL); Barbiturate Urine VISTA NEGATIVE (< 200 ng/mL); Benzodiazepine Urine VISTA NEGATIVE (< 200 ng/mL); Cocaine Urine VISTA NEGATIVE (< 300 ng/mL); Ecstacy Urine VISTA NEGATIVE (< 500 ng/mL); Methadone Urine VISTA NEGATIVE (< 300 ng/mL); PCP Urine VISTA NEGATIVE (< 25 ng/mL); THC Urine VISTA POSITIVE (< 50 ng/mL); Vista UDS pH Range 6
[2017-10-21 06:45] LABS: Absolute Lymphocyte Count 3.63 X10^3/ul (0.83-4.51); Absolute Neutrophil Count 3.8 X10^3/uL (2.0-7.7); Basophil# 0.04 X10^3/uL; Basophil% 0.5 % (0-1); Eosinophil# 0.18 X10^3/uL; Eosinophils% 2.2 % (0-5); Hematocrit 39.6 % (37-47); Hemoglobin 13.1 g/dl (12.0-15.0); Lymphocyte # 3.63 X10^3/ul (4.0); Lymphocyte % 44.3 % (19-41); Mean Corp Hgb Conc 33.1 g/gl (32-36); Mean Corpuscular Hgb 31.8 pg (27.0-32.0); Mean Corpuscular Volume 96.1 fL (81-99); Mean Platelet Vol. 9.9 fl (6.2-12.0); Monocyte# 0.58 X10^3/uL; Monocyte% 7.1 % (0-10); Neutrophil # 3.76 X10^3/uL (2.7-7.7); Neutrophil % 45.8 % (47-70); Platelet Count 264 K/mm3 (150-450); RBC Distribution Width CV 13.8 % (11.6-14.6); RBC Distribution Width SD 48.3 fl (35.1-43.9); Red Blood Count 4.12 M/mm3 (4.2-5.4); White Blood Count 8.2 K/mm3 (4.4-11.0)
[2017-10-21 06:49] LABS: POSITIVE COUNT NO; POSITIVE DIFFERENTIAL NO; POSITIVE MORPHOLOGY NO
[2017-10-21 07:03] LABS: Anion Gap 7 (5-15); BUN 11 mg/dL (7-18); BUN/Creat Ratio 17.4 RATIO (10-20); Calcium,Total 8.8 mg/dL (8.5-10.1); Chloride 110 mmol/L (98-107); Creatinine, Serum 0.63 mg/dL (0.55-1.02); EST Glomerular Filtration Rate 104 mL/min (>60); Est Glom Filt Rate - Afr Amer 125 mL/min (>60); Estimated Creatinine Clearance 80.74 ml/min; Glucose 98 mg/dL (74-106); Magnesium 2.1 mg/dL (1.6-2.6); Potassium 3.8 mmol/L (3.5-5.1); Sodium Level 142 mmol/L (136-145)
[2017-10-21 07:05] LABS: AST(SGOT) 27 U/L (15-37); Alanine Aminotransfer ALT/SGPT 41 U/L (13-56); Albumin, Serum 3.4 g/dL (3.2-5.0); Alkaline Phosphatase 104 U/L (45-117); Bilirubin, Direct 0.11 mg/dL (0.00-0.30); Protein, Total 7.4 g/dL (6.4-8.2)
--- NOTE | 2017-10-21 08:22 | NURSING ---
REPORT CALLED TO BELL BLAIR IN AC
--- NOTE | 2017-10-21 09:54 | PCM.OPRPT ---
Problem List (1) Diverticulitis Status: Acute Report of Operation Date of Procedure: 10/21/17 Pre-Operative Diagnosis: Diverticulitis requiring a sigmoid colectomy Post-Operative Diagnosis: Same Surgery/Procedure Performed:: Colonoscopy through loop ileostomy Description of Surgical Findings:: The patient had patent anastomosis with no signs of abnormality. The rest of the colon was normal with no polyps. Specimen's removed: None Description of Procedure: The major risks and benefits associated with the procedure were explained to the patient in detail. The patient verbalized understanding and agreement with the same. The patient was brought to the endoscopy suite. Adequate sedation was achieved and the stoma bag was removed. A well-lubricated colonoscope was placed through the distal end of her loop ileostomy. This was guided down into the colon. The colon was examined from the cecum to the anastomosis and through the anastomosis to the rectum. The rectum appeared normal. The anastomosis appeared intact. The scope was then slowly withdrawn examining the circumferential mucosa for any polyps or masses. There were no polyps or masses. The patient did have sparse diverticulosis throughout the rest of the colon. The right colon was reached and the appendiceal orifice was identified. The scope was then withdrawn into the small bowel and back out through the stoma. The patient tolerated the procedure well. The bowel prep was good. The patient was then transferred to the recovery room in stable condition. Recommendations for follow up: 10 years
[2017-10-21] MEDS: LORazepam 0.5 MG Tablet PO ×2 (10:45→22:30)
--- NOTE | 2017-10-21 11:58 | NURSING ---
PT C/O STOMA & R SIDE PAIN. PT CRYING, RESTLESS IN BED. PT STATING SOMETHING IS WRONG. VSS. DR BRAVO NOTIFIED & NEW ORDERS RECEIVED.
--- NOTE | 2017-10-21 12:11 | CASEMGMT ---
RN CM attempted to complete Face to Face with patient at this time. Patient states that she is in extreme pain would like CM to come back later. RN CM will attempted to complete assessment at later time per patient's request.
[2017-10-21] MEDS: Acetaminophen 325 MG Tablet 650 MG PO (12:20)
[2017-10-21] MEDS: Ibuprofen 600 MG Tablet PO (12:21)
--- NOTE | 2017-10-21 13:11 | NURSING ---
PT STATES IBUPROFEN/TYLENOL INEFFECTIVE. PT CONTINUES TO CRY, RESTLESS IN BED. PT STATING I CAN'T LIVE LIKE THIS. IT HURTS TO TAKE A DEEP BREATH. DR RBAVO NOTIFIED & NEW ORDER RECEIVED.
[2017-10-21] MEDS: HYDROmorphone 1 MG/ML Syringe IV (13:15)
--- NOTE | 2017-10-21 14:17 | CASEMGMT ---
RN [place] Face to Face with patient for initial transition planning/care coordination assessment. RN CM introduced self and role at [facility]. Patient lying in bed, alert and oriented, son at bedside. Patient willing to participate in assessment and is able to answer all questions appropriately. Care providers, pharmacy, and demographics verified. Patient wishes to discharge home and is requesting possible HHC for shelter. Patient states she has no preference for HHC and is agreeable to agency in her insurance network. Patient states she has no further needs or concerns at this time. CM to follow for discharge planning needs that may arise. Disposition Plan: Patient to discharge home with HHC, family support, and follow-up plans in place.
[2017-10-21] MEDS: Pramipexole Di-HCl 0.25 MG Tablet PO (14:53)
--- NOTE | 2017-10-21 17:03 | NURSING ---
RESTING IN BED W/EYES CLOSED, RESP EASY
[2017-10-21] MEDS: Ibuprofen 400 MG Tablet 800 MG PO (20:18)
[2017-10-22] VITALS (21 sets, daily range): BP systolic 86–143; BP diastolic 40–83; PULSE 60–122; RESP 12–18; TEMP 36.6–38.4; O2SAT 92–100; BMI 22.2
[2017-10-22 06:39] LABS: Absolute Lymphocyte Count 1.75 X10^3/ul (0.83-4.51); Absolute Neutrophil Count 17.2 X10^3/uL (2.0-7.7); Basophil# 0.02 X10^3/uL; Basophil% 0.1 % (0-1); Eosinophil# 0.03 X10^3/uL; Eosinophils% 0.1 % (0-5); Hematocrit 41.1 % (37-47); Hemoglobin 13.5 g/dl (12.0-15.0); Lymphocyte # 1.75 X10^3/ul (4.0); Lymphocyte % 8.5 % (19-41); Mean Corp Hgb Conc 32.8 g/gl (32-36); Mean Corpuscular Hgb 31.8 pg (27.0-32.0); Mean Corpuscular Volume 96.7 fL (81-99); Mean Platelet Vol. 10.5 fl (6.2-12.0); Monocyte# 1.65 X10^3/uL; Neutrophil # 17.19 X10^3/uL (2.7-7.7); Platelet Count 249 K/mm3 (150-450); RBC Distribution Width CV 13.9 % (11.6-14.6); RBC Distribution Width SD 49.4 fl (35.1-43.9); Red Blood Count 4.25 M/mm3 (4.2-5.4); White Blood Count 20.7 K/mm3 (4.4-11.0)
[2017-10-22] MEDS: Pramipexole Di-HCl 0.25 MG Tablet PO (06:44)
[2017-10-22 06:54] LABS: Differential Indicated SCAN CRITERIA MET; POSITIVE COUNT NO; POSITIVE DIFFERENTIAL YES; POSITIVE MORPHOLOGY NO
[2017-10-22 07:05] LABS: Differential Comment SCANNED
--- NOTE | 2017-10-22 08:00 | CT_ITS ---
STUDY: CT ABDOMEN AND PELVIS WITH CONTRAST REASON FOR EXAM: Female, 52 years old. Abdominal pain after colostomy yesterday. RADIATION DOSAGE (If Supplied By Facility): CTDIvol = ( 11.76 ) mGy, DLP = ( 511.07 ) mGycm TECHNIQUE: Transaxial images were obtained from the dome of the diaphragm to the symphysis pubis with oral contrast. 80ml ml of Isovue 300 contrast was administered. Sagittal and coronal images were reconstructed. Individualized dose optimization techniques were used for this CT. COMPARISON: 08/03/2017 FINDINGS: Mild bibasilar airspace disease is noted. Infection cannot be excluded. The visualized portions of the heart are within normal limits. Normal liver. Normal gallbladder and extrahepatic biliary system. Normal spleen. Normal pancreas. Punctate areas of intra-abdominal free air however, patient is status post surgery from yesterday. Normal bilateral adrenal glands. Normal right kidney. Normal left kidney. Normal visualized stomach. Patient is status post sigmoid resection with right lower quadrant ileostomy. Some wall edema and thickening is noted in the right lower quadrant however, likely postsurgical in nature. No evidence of fluid collection or abscess. Mesenteric edema in the right lower quadrant region. There is non-visualization of the appendix. There is diffuse atherosclerotic calcification of the abdominal aorta, without a demonstrated aneurysm. Normal inferior vena cava. Normal retroperitoneum. Normal urinary bladder. Trace pelvic free fluid. Patient is status post hysterectomy. Small amount of ascites fluid in both pericolic gutters. Normal abdominal wall. There are diffuse degenerative changes of the visualized lumbar spine. CT/Abdomen/Pelvis WITH Contrast IMPRESSION: 1. Patient is status post sigmoid resection with right lower quadrant ileostomy. Some wall thickening and edema in this region with mesenteric edema. Likely postsurgical. No evidence of fluid collection to represent developing abscess. No evidence of contrast extravasation. 2. Bibasilar airspace disease. Could represent atelectasis or infection 3. Small amount of ascites fluid and trace pelvic free fluid Electronically Signed: Cale Bonner DO at 11:12 EDT Tel , Service support ,
[2017-10-22] MEDS: 0.9% NaCl Peripheral Flush Adult/Peds IV ×2 (08:24→09:10)
[2017-10-22] MEDS: HYDROmorphone 1 MG/ML Syringe IV ×2 (08:24→20:03)
--- NOTE | 2017-10-22 08:58 | PCM.PN.SRG ---
Patient Problems: Active and Suspected Problems (Last Reviewed 10/15/17 @ 09:13 by Melanie Weiner) Diverticulitis (Acute) Subjective: Patient reports right lower quadrant pain. No nausea or vomiting. Pain is inferior to her stoma and goes into her pelvis. - Physical Exam General: Alert, Cooperative HEENT: Atraumatic, PERRLA, EOMI Lungs: Normal air movement Cardiovascular: Regular rate, Regular Rhythm Abdomen: Soft, Tender - Right lower quadrant is tender. Extremities: No clubbing Skin: No rashes Musculoskeletal: No Muscle Wasting Vital Signs Temp Pulse Resp BP Pulse Ox 98.6 F 81 18 97/67 95 10/22/17 08:19 10/22/17 08:19 10/22/17 08:19 10/22/17 08:19 10/22/17 08:19 Oxygen Delivery Method Room Air Weight: 121 lb 11.123 oz Body Mass Index (BMI) 22.2 Intake and Output for Last 24 Hours 10/20/17 10/21/17 10/22/17 23:59 23:59 23:59 Intake Total 1140 / 1140 900 / 900 Output Total 660 / 660 Balance 1140 / 1140 240 / 240 Laboratory Tests Past 24 Hrs 10/22/17 05:50 WBC 20.7 H RBC 4.25 Hgb 13.5 Hct 41.1 MCV 96.7 MCH 31.8 MCHC 32.8 RDW 13.9 RDW Differential 49.4 H Plt Count 249 MPV 10.5 Immature Gran % (Auto) 0.300 Neut % (Auto) 83.0 H Lymph % (Auto) 8.5 L Jennings % (Auto) 8.0 Eos % (Auto) 0.1 Baso % (Auto) 0.1 Absolute Neuts (auto) 17.2 H Absolute Lymphs (auto) 1.75 Total Counted Not Reportable Differential Comment SCANNED Diff Path Review May foll Medical Necessity - Tobacco Use Smoking Status: Current every day smoker Assessment/Plan Active and Suspected Problems (Last Reviewed 10/15/17 @ 09:13 by Melanie Weiner) Diverticulitis (Acute) 52-year-old female with loop ileostomy due to acute diverticulitis 1. The patient underwent colonoscopy through her loop ileostomy yesterday. Since surgery she has described right lower quadrant pain. Today her white count has risen to 20 and she is tachycardic. I am getting a stat CT with oral and IV contrast. I will also give her an IV bolus and start IV fluids. I have also made her n.p.o. 2. I discussed the possibility of perforation of the right colon during colonoscopy with patient. If CT confirms perforation with peritonitis I will take her for a laparotomy. I discussed having to perform a right colectomy versus ileocecectomy if the right colon is perforated. I also discussed that I might not have enough length with the distal loop of the loop ileostomy to perform anastomosis I might have to take down the loop ileostomy at the same time. I discussed the risks of injuring surrounding bowel due to adhesions, bleeding, infections. The patient understands the situation and she will consent for surgery if needed. Felipe Rios MD Pager: [facility] [address], [address] [place] [address] Office:
--- NOTE | 2017-10-22 09:01 | PN.SURG_ITS ---
Patient Problems: Active and Suspected Problems (Last Reviewed 10/15/17 @ 09:13 by Melanie Weiner) Diverticulitis (Acute) Subjective: Patient reports right lower quadrant pain. No nausea or vomiting. Pain is inferior to her stoma and goes into her pelvis. - Physical Exam General: Alert, Cooperative HEENT: Atraumatic, PERRLA, EOMI Lungs: Normal air movement Cardiovascular: Regular rate, Regular Rhythm Abdomen: Soft, Tender - Right lower quadrant is tender. Extremities: No clubbing Skin: No rashes Musculoskeletal: No Muscle Wasting Vital Signs Temp Pulse Resp BP Pulse Ox 98.6 F 81 18 97/67 95 10/22/17 08:19 10/22/17 08:19 10/22/17 08:19 10/22/17 08:19 10/22/17 08:19 Oxygen Delivery Method Room Air Weight: 121 lb 11.123 oz Body Mass Index (BMI) 22.2 Intake and Output for Last 24 Hours 10/20/17 10/21/17 10/22/17 23:59 23:59 23:59 Intake Total 1140 / 1140 900 / 900 Output Total 660 / 660 Balance 1140 / 1140 240 / 240 Laboratory Tests Past 24 Hrs 10/22/17 05:50 WBC 20.7 H RBC 4.25 Hgb 13.5 Hct 41.1 MCV 96.7 MCH 31.8 MCHC 32.8 RDW 13.9 RDW Differential 49.4 H Plt Count 249 MPV 10.5 Immature Gran % (Auto) 0.300 Neut % (Auto) 83.0 H Lymph % (Auto) 8.5 L Dooly % (Auto) 8.0 Eos % (Auto) 0.1 Baso % (Auto) 0.1 Absolute Neuts (auto) 17.2 H Absolute Lymphs (auto) 1.75 Total Counted Not Reportable Differential Comment SCANNED Diff Path Review May foll Medical Necessity - Tobacco Use Smoking Status: Current every day smoker Assessment/Plan Active and Suspected Problems (Last Reviewed 10/15/17 @ 09:13 by Melanie Weiner) Diverticulitis (Acute) 52-year-old female with loop ileostomy due to acute diverticulitis 1. The patient underwent colonoscopy through her loop ileostomy yesterday. Since surgery she has described right lower quadrant pain. Today her white count has risen to 20 and she is tachycardic. I am getting a stat CT with oral and IV contrast. I will also give her an IV bolus and start IV fluids. I have also made her n.p.o. 2. I discussed the possibility of perforation of the right colon during colonoscopy with patient. If CT confirms perforation with peritonitis I will take her for a laparotomy. I discussed having to perform a right colectomy versus ileocecectomy if the right colon is perforated. I also discussed that I might not have enough length with the distal loop of the loop ileostomy to perform anastomosis I might have to take down the loop ileostomy at the same time. I discussed the risks of injuring surrounding bowel due to adhesions, bleeding, infections. The patient understands the situation and she will consent for surgery if needed. Felipe Rios MD Pager: [facility] [address], [address] [place] [address] Office:
[2017-10-22] MEDS: 0.9% Normal Saline 1,000 ML 999 ML IV (09:09)
[2017-10-22] MEDS: 0.9% Normal Saline 1,000 ML 125 ML IV ×2 (11:12→18:05)
--- NOTE | 2017-10-22 11:20 | NURSING ---
DR BRAVO NOTIFIED OF CURRENT VITAL SIGNS
--- NOTE | 2017-10-22 12:00 | COL_PTH ---
PATIENT: LISA BULLOCK LOC: PCU U#:[id number] AGE/SX: 52/F ROOM: [facility] RE10/22/[address]: Dr. Felipe Rios MD : 1965 BED: 1 DIS: 10/26/2017 SPEC #: [id number] RECD: 10/22/17 16:04 STATUS: CRISTIAN MERCEDES #: [id number] GARIMA: 10/22/17 12:[address]: Felipe Rios DEPT: SURGICAL PATHOLOGY RECD BY: Michele Lloyd ENTERED: 10/23/17 08:18 SP TYPE: COLON OTHR DR: Dr. Mack Langston MD Tissues: Cecum, NOS Procedures: Surgery Specimen Level III Surgery Specimen Level V HEADER OPERATION: Exploratory laparotomy PRE-OP DIAGNOSIS: Perforated bowel, pneumoperitoneum TISSUE SUBMITTED: Ileocecum MICROSCOPIC DIAGNOSIS Ileocecum, hemicolectomy: Focal area of ulceration with associated acute and chronic inflammation. Ileostomy stoma with ulceration, acute and chronic inflammation. Appendix with luminal obliteration and acute periappendicitis. Pericolonic adipose tissue with acute and chronic inflammation. Three benign pericolonic lymph nodes with reactive changes. Distal resection margin with acute and chronic inflammation. Small intestinal and colonic donut, no pathologic diagnosis. BECKY:mely 10/27/17 MICROSCOPIC DESCRIPTION Slides are reviewed. GROSS DESCRIPTION Received in fixative is one container labeled with the patient's name and designated ileocecum. Received is a right hemicolectomy specimen consisting of small bowel, cecum with portion of ascending bowel and appendix. The segment of small bowel measures 18 cm in length. The segment of cecum with ascending colon measures 6 cm in length and the appendix measures 4.8 cm in length and 0.5 cm in diameter. 4 cm away from the proximal resection margin, a defect is noted consistent with ileostomy stoma. 10 cm away from the proximal resection margins, an area of defect is noted consistent with perforation. No mucosal lesion is identified. Sections will be submitted after overnight fixation. / BECKY:mely 10/23/17 Also received is a donut-shaped piece of tissue measuring 3.5 x 0.5 x 0.2 cm. A few brisa are noted. Sections of the appendix reveal pinpoint lumen and no mass lesions. Sections of pericolonic adipose tissue reveal a few small lymph nodes. Foil Operator sections are submitted in ten cassettes as follows: 1 ? donut, 2 ? proximal and distal resection margin, 3 & 4 ? ileostomy stroma, 5 & 6 ? area of perforation, 7 ? appendix, 8 ? ileocecal valve, 9 ? uninvolved portion of small and large bowel, 10 ? pericolonic adipose tissue with lymph nodes. / BECKY:mely 10/24/17 TC:5 CPT: 52888, 70733
--- NOTE | 2017-10-22 12:04 | NURSING ---
PT TO PACU VIA BED
[2017-10-22] MEDS: Bupivacaine Mpf 0.5% 30 ML VIAL (15:09)
--- NOTE | 2017-10-22 15:11 | NURSING ---
REPORT CALLED TO BELL MITCHELL ON PCU
--- NOTE | 2017-10-22 15:22 | PCM.OPRPT ---
Problem List (1) Diverticulitis Status: Acute Report of Operation Date of Procedure: 10/22/17 Pre-Operative Diagnosis: Pneumoperitoneum and perforated bowel Post-Operative Diagnosis: Perforated bowel with peritonitis Surgery/Procedure Performed:: Expiratory laparotomy with ileocecectomy and takedown of loop ileostomy with primary ileocolic anastomosis Description of Surgical Findings:: The patient had a CT scan which showed pneumoperitoneum and there was likely a perforation due to colonoscopy yesterday. The patient was brought back to the operating room and exploratory laparotomy yielded an abscess in the cecum with perforation of the distal small bowel. The ileostomy was taken down and all of the bowel from the ileostomy to just distal to the inflamed colon was resected and an ileocolic anastomosis was performed. Specimen's removed: Terminal ileum and cecum Description of Procedure: The patient was brought back to the operating room and general anesthesia was induced. The patient had a Correa catheter placed. Next the abdomen was prepped and draped in usual sterile fashion. A midline incision was made superior to the umbilicus and deepened to the fascia. The fascia was elevated and incised. A finger sweep was performed and the fascia was grasped with 2 Emerita's and elevated. All of the adhesions inferior where her old incision was were taken down sharply. The incision was extended inferiorly until enough room was obtained to see the terminal ileum and cecum. Next the retractors were placed into the abdomen and the right colon was located. The colon was inspected and the transverse colon appear to have no inflammation as did the distal ascending colon. The proximal ascending colon was inflamed and there was a perforation of the distal small bowel between the ostomy and the cecum. Next the loop ileostomy site was sharply incised on the ileostomy and this was dissected down to the fascia. The ileostomy was retracted back into the abdomen. Just proximal to the ileostomy site a hemostat was used to create a window underneath the small bowel and a 75 STEWART stapler was used to come across the small bowel. Next the colon was freed up from the white line of Toldt with electrocautery. This was freed up to the hepatic flexure. The colon was inspected and just distal to the inflamed area a hemostat was used to make a window underneath the colon and a 75 STEWART stapler was used to staple across the colon. Next the specimen was removed by using a LigaSure impact on the mesentery to the colon. Next the corner of the small bowel and colon staple lines were removed and the 75 STEWART stapler was placed into the colon and small bowel. These were approximated in antimesenteric to tenia orientation. Next the stapler was fired. The stapler was then removed and a TL 60 stapler was used to come across the enterotomy. A crotch stitch was placed with 3-0 silk and the mesentery was closed with a running 3-0 Vicryl suture. Next the abdomen was copiously irrigated and suctioned dry. Next the entire OR staff changed gown and gloves. The posterior peritoneum at the stoma site was closed with a running 3-0 Vicryl suture. Next the anterior midline fascia was closed with a running oh looped PDS in each direction until the middle was approximated and tied. The fascia at the stoma site was closed with an 0 PDS suture. Next both incisions were copiously irrigated and suctioned. Both incisions were anesthetized with Marcaine. Next a Telfa was cut into strips and soaked in Betadine and placed into the incision as rigo. The incision was closed in several wide areas with 4-0 Monocryl suture leaving enough room for the rigo to drain the wound. A wick was also placed into the stoma site and the stoma site was closed with 1 suture over the wick. The wound was covered with ABDs and tape. The Correa was left in at the end the case to monitor urine output. The patient was taken to PACU in stable condition. - Admit VTE Documentation VTE Mechan Device Prophylaxis: SCD's
--- NOTE | 2017-10-22 15:44 | EKG12_ITS ---
Test Reason : POST OP Blood Pressure : / mmHG Vent. Rate : 119 BPM Atrial Rate : 119 BPM P-R Int : 130 ms QRS Dur : 080 ms QT Int : 322 ms P-R-T Axes : 070 053 -19 degrees QTc Int : 452 ms Sinus tachycardia with Premature supraventricular complexes with frequent Premature ventricular compl exes ST & T wave abnormality, consider inferior ischemia Abnormal ECG Confirmed by WEST KIM, GLORY ([id number]), newspaper photo editor JIMBO SMITH ([id number]) on 10/24/2017 2:56:43 PM Referred By: Felipe Rios Confirmed By:GLORY DODSON MD
[2017-10-22 16:17] LABS: Anion Gap 13 (5-15); BUN 14 mg/dL (7-18); BUN/Creat Ratio 18.8 RATIO (10-20); Calcium,Total 7.7 mg/dL (8.5-10.1); Chloride 110 mmol/L (98-107); Creatinine, Serum 0.75 mg/dL (0.55-1.02); EST Glomerular Filtration Rate 86 mL/min (>60); Est Glom Filt Rate - Afr Amer 104 mL/min (>60); Estimated Creatinine Clearance 67.82 ml/min; Glucose 88 mg/dL (74-106); Magnesium 1.5 mg/dL (1.6-2.6); Potassium 3.7 mmol/L (3.5-5.1); Sodium Level 138 mmol/L (136-145)
[2017-10-22] MEDS: Ketorolac 15 MG/ML Vial IV (18:06)
[2017-10-23] VITALS (17 sets, daily range): BP systolic 86–152; BP diastolic 48–84; PULSE 92–115; RESP 14–20; TEMP 36.8–37.6; O2SAT 92–100
[2017-10-23] MEDS: Ketorolac 30 MG/ML Syringe 15 MG IV ×3 (01:03→17:57)
[2017-10-23] MEDS: 0.9% Normal Saline 1,000 ML 125 ML IV ×3 (03:12→19:57)
[2017-10-23] MEDS: fentaNYL 100 MCG/2 ML Ampul 50 MCG IV ×2 (04:08→06:29)
[2017-10-23 05:10] LABS: Absolute Lymphocyte Count 1.71 X10^3/ul (0.83-4.51); Absolute Neutrophil Count 7.4 X10^3/uL (2.0-7.7); Basophil# 0.01 X10^3/uL; Basophil% 0.1 % (0-1); Eosinophil# 0.04 X10^3/uL; Eosinophils% 0.4 % (0-5); Hematocrit 26.6 % (37-47); Hemoglobin 8.9 g/dl (12.0-15.0); Lymphocyte # 1.71 X10^3/ul (4.0); Lymphocyte % 17.3 % (19-41); Mean Corp Hgb Conc 33.5 g/gl (32-36); Mean Corpuscular Volume 98.5 fL (81-99); Mean Platelet Vol. 9.9 fl (6.2-12.0); Monocyte# 0.72 X10^3/uL; Monocyte% 7.3 % (0-10); Neutrophil # 7.36 X10^3/uL (2.7-7.7); Neutrophil % 74.7 % (47-70); Platelet Count 143 K/mm3 (150-450); RBC Distribution Width CV 13.8 % (11.6-14.6); RBC Distribution Width SD 47.6 fl (35.1-43.9); White Blood Count 9.9 K/mm3 (4.4-11.0)
[2017-10-23 05:12] LABS: POSITIVE COUNT NO; POSITIVE DIFFERENTIAL NO; POSITIVE MORPHOLOGY NO
[2017-10-23 05:22] LABS: Anion Gap 7 (5-15); BUN 12 mg/dL (7-18); BUN/Creat Ratio 18.7 RATIO (10-20); Calcium,Total 7.4 mg/dL (8.5-10.1); Chloride 110 mmol/L (98-107); Creatinine, Serum 0.64 mg/dL (0.55-1.02); EST Glomerular Filtration Rate 102 mL/min (>60); Est Glom Filt Rate - Afr Amer 124 mL/min (>60); Estimated Creatinine Clearance 79.48 ml/min; Glucose 88 mg/dL (74-106); Potassium 3.6 mmol/L (3.5-5.1); Sodium Level 140 mmol/L (136-145)
[2017-10-23] MEDS: Lactated Ringers 500 ML 999 ML IV (05:52)
[2017-10-23 06:26] LABS: Magnesium 2.8 mg/dL (1.6-2.6)
[2017-10-23] MEDS: fentaNYL 100 MCG/2 ML Ampul IV ×5 (09:03→23:16)
[2017-10-23] MEDS: 0.9% NaCl Peripheral Flush Adult/Peds IV ×5 (09:03→15:54)
--- NOTE | 2017-10-23 09:03 | PN.SURG_ITS ---
Patient Problems: Active and Suspected Problems (Last Reviewed 10/15/17 @ 09:13 by Melanie Weiner) Diverticulitis (Acute) Subjective: Patient reports pain and muscle spasms in her abdomen. She did report one episode of flatus last night. She has no nausea or vomiting. - Physical Exam General: Alert, Oriented x3 HEENT: Atraumatic Lungs: Normal air movement Cardiovascular: - - Patient had bigeminy overnight and during surgery. She is tachycardic this morning but normal rhythm. Abdomen: Soft, Tender - Diffusely tender. Neurological: Cranial nerves II-XII grossly intact Psych/Mental Status: Anxious Vital Signs Temp Pulse Resp BP Pulse Ox 98.8 F 99 16 102/62 97 10/23/17 06:15 10/23/17 07:00 10/23/17 06:15 10/23/17 06:15 10/23/17 06:15 Oxygen Flow Rate (L/min) 2 Oxygen Delivery Method Room Air Weight: 121 lb 11.123 oz Body Mass Index (BMI) 22.2 Intake and Output for Last 24 Hours 10/21/17 10/22/17 10/23/17 23:59 23:59 23:59 Intake Total 1140 / 1140 7547 / 7547 680 / 680 Output Total 1825 / 1825 150 / 150 Balance 1140 / 1140 5722 / 5722 530 / 530 Microbiology Past 72 Hours 10/22/17 Unknown Gram Stain - Final Incision/Surgical Site Laboratory Tests Past 24 Hrs 10/22/17 10/22/17 10/23/17 15:48 15:48 05:00 WBC 9.9 RBC 2.70 L Hgb 8.9 L Hct 26.6 L MCV 98.5 MCH 33.0 H MCHC 33.5 RDW 13.8 RDW Differential 47.6 H Plt Count 143 L MPV 9.9 Immature Gran % (Auto) 0.200 Neut % (Auto) 74.7 H Lymph % (Auto) 17.3 L [place] % (Auto) 7.3 Eos % (Auto) 0.4 Baso % (Auto) 0.1 Absolute Neuts (auto) 7.4 Absolute Lymphs (auto) 1.71 Total Counted Not Reportable Sodium 138 Potassium 3.7 Chloride 110 H Carbon Dioxide 15.0 L Anion Gap 13 BUN 14 Creatinine 0.75 Estim Creat Clear Calc 67.82 Est GFR (MDRD) Af Amer 104 Est GFR (MDRD) Non-Af 86 BUN/Creatinine Ratio 18.8 Glucose 88 Calcium 7.7 L Phosphorus 3.0 Magnesium 1.5 L Troponin I < 0.02 10/23/17 10/23/17 05:00 05:00 WBC RBC Hgb Hct MCV MCH MCHC RDW RDW Differential Plt Count MPV Immature Gran % (Auto) Neut % (Auto) Lymph % (Auto) [place] % (Auto) Eos % (Auto) Baso % (Auto) Absolute Neuts (auto) Absolute Lymphs (auto) Total Counted Sodium 140 Potassium 3.6 Chloride 110 H Carbon Dioxide 23.0 Anion Gap 7 BUN 12 Creatinine 0.64 Estim Creat Clear Calc 79.48 Est GFR (MDRD) Af Amer 124 Est GFR (MDRD) Non-Af 102 BUN/Creatinine Ratio 18.7 Glucose 88 Calcium 7.4 L Phosphorus Magnesium 2.8 H Troponin I Medical Necessity - Tobacco Use Smoking Status: Current every day smoker Assessment/Plan Active and Suspected Problems (Last Reviewed 10/15/17 @ 09:13 by Melanie Weiner) Diverticulitis (Acute) 52-year-old female status post laparotomy with ileocecectomy and primary anastomosis 1. Pain control--patient was switched from Dilaudid to fentanyl due to hypotension. She will also be getting her Ativan and muscle relaxation. She is having muscle spasms this morning I believe the Ativan will help with that. 2. Peritonitis--patient has been on Zosyn for 24 hours. Her white count is normal today. I will stop Zosyn this afternoon. 3. Anemia-patient has delusional anemia and acute blood loss anemia. Hemoglobin this morning is 8.6. I am repeating a CBC later this morning. If hemoglobin is stable I will start Lovenox. 4. Low urine output--patient received 7 L of fluid yesterday. I gave her 2 boluses of albumin and 2 500 cc boluses of fluid this morning. Urine output is marginal. Continue Correa for urine output monitoring. 5. Continue IV fluids/n.p.o. until more substantial bowel function and pain resolution. 6. Encourage incentive spirometer use and ambulation. Patient has SCDs in place and I will start Lovenox if hemoglobin stable. Felipe Rios MD Pager: [facility] [address], [facility] [address] [place] [address] Office:
[2017-10-23] MEDS: LORazepam 2 MG/ML Syringe 1 MG IV (09:16)
[2017-10-23 09:57] LABS: Hematocrit 28.3 % (37-47); Hemoglobin 9.2 g/dl (12.0-15.0); Mean Corp Hgb Conc 32.5 g/gl (32-36); Mean Corpuscular Hgb 32.2 pg (27.0-32.0); Platelet Count 136 K/mm3 (150-450); RBC Distribution Width CV 13.9 % (11.6-14.6); RBC Distribution Width SD 48.2 fl (35.1-43.9); Red Blood Count 2.86 M/mm3 (4.2-5.4); White Blood Count 7.8 K/mm3 (4.4-11.0)
[2017-10-23 09:59] LABS: Scan Indicated on CBC? Y/N NO
[2017-10-23 10:56] LABS: Pathologist Review Reviewed
[2017-10-23] MEDS: Enoxaparin 40 MG/0.4 ML Syringe SC (11:47)
[2017-10-23] MEDS: Albuterol 2.5 MG/3 ML VIAL.NEB. INHALATION (15:38)
[2017-10-23] MEDS: LORazepam 0.5 MG Tablet PO (19:46)
[2017-10-24] VITALS (12 sets, daily range): BP systolic 127–159; BP diastolic 73–96; PULSE 88–110; RESP 16; TEMP 36.8–37.3; O2SAT 92–95
[2017-10-24] MEDS: Ketorolac 30 MG/ML Syringe 15 MG IV ×3 (02:41→18:33)
[2017-10-24] MEDS: Pramipexole Di-HCl 0.25 MG Tablet PO (02:45)
[2017-10-24] MEDS: 0.9% Normal Saline 1,000 ML 125 ML IV (02:50)
[2017-10-24] MEDS: fentaNYL 100 MCG/2 ML Ampul IV (05:14)
[2017-10-24 05:26] LABS: Absolute Lymphocyte Count 1.49 X10^3/ul (0.83-4.51); Absolute Neutrophil Count 6.2 X10^3/uL (2.0-7.7); Basophil# 0.01 X10^3/uL; Basophil% 0.1 % (0-1); Eosinophil# 0.18 X10^3/uL; Eosinophils% 2.1 % (0-5); Hematocrit 28.7 % (37-47); Hemoglobin 9.3 g/dl (12.0-15.0); Lymphocyte # 1.49 X10^3/ul (4.0); Lymphocyte % 17.3 % (19-41); Mean Corp Hgb Conc 32.4 g/gl (32-36); Mean Corpuscular Hgb 31.8 pg (27.0-32.0); Mean Corpuscular Volume 98.3 fL (81-99); Mean Platelet Vol. 9.8 fl (6.2-12.0); Monocyte# 0.77 X10^3/uL; Monocyte% 8.9 % (0-10); Neutrophil # 6.15 X10^3/uL (2.7-7.7); Neutrophil % 71.5 % (47-70); Platelet Count 145 K/mm3 (150-450); RBC Distribution Width CV 13.8 % (11.6-14.6); RBC Distribution Width SD 47.8 fl (35.1-43.9); Red Blood Count 2.92 M/mm3 (4.2-5.4); White Blood Count 8.6 K/mm3 (4.4-11.0)
[2017-10-24 05:27] LABS: Urine Sodium 91 mmol/L (Not Establ.)
[2017-10-24 05:33] LABS: POSITIVE COUNT NO; POSITIVE DIFFERENTIAL NO; POSITIVE MORPHOLOGY NO
[2017-10-24 05:37] LABS: Anion Gap 10 (5-15); BUN 14 mg/dL (7-18); BUN/Creat Ratio 27.4 RATIO (10-20); Calcium,Total 7.8 mg/dL (8.5-10.1); Chloride 112 mmol/L (98-107); Creatinine, Serum 0.51 mg/dL (0.55-1.02); EST Glomerular Filtration Rate 133 mL/min (>60); Est Glom Filt Rate - Afr Amer 161 mL/min (>60); Estimated Creatinine Clearance 99.74 ml/min; Glucose 82 mg/dL (74-106); Magnesium 2.4 mg/dL (1.6-2.6); Potassium 3.4 mmol/L (3.5-5.1); Sodium Level 141 mmol/L (136-145)
--- NOTE | 2017-10-24 07:29 | PCM.PN.SRG ---
Patient Problems: Active and Suspected Problems (Last Reviewed 10/15/17 @ 09:13 by Melanie Weiner) Diverticulitis (Acute) Subjective: Patient reports she had 2 loose bowel movements yesterday and is passing gas. She has no nausea or vomiting. Her abdominal pain is controlled on the fentanyl. She has been having a cough for the last 24 hours with no purulent production. - Physical Exam General: Alert, Oriented x3, Cooperative HEENT: Atraumatic Lungs: Rhonchi Cardiovascular: Regular Rhythm Abdomen: Soft, Non-Distended, Tender - Mild tenderness to palpation, - - Incision is clean dry and intact with rigo in place. No signs of erythema or purulent drainage. Musculoskeletal: No Tenderness to Palpation of Joints or Extremities, No Muscle Wasting Neurological: Cranial nerves II-XII grossly intact Psych/Mental Status: Normal Affect, Anxious Vital Signs Temp Pulse Resp BP Pulse Ox 99.0 F 101 H 16 150/96 H 95 10/24/17 02:00 10/24/17 06:57 10/24/17 02:00 10/24/17 02:00 10/24/17 02:00 Oxygen Flow Rate (L/min) 2 Oxygen Delivery Method Nasal Cannula Weight: 121 lb 11.123 oz Body Mass Index (BMI) 22.2 Intake and Output for Last 24 Hours 10/22/17 10/23/17 10/24/17 23:59 23:59 23:59 Intake Total 7547 / 7547 3125 / 3125 704 / 704 Output Total 1825 / 1825 500 / 500 100 / 100 Balance 5722 / 5722 2625 / 2625 604 / 604 Microbiology Past 72 Hours 10/22/17 Unknown Gram Stain - Final Incision/Surgical Site Wound Culture - Preliminary Gram negative nat Laboratory Tests Past 24 Hrs 10/22/17 10/23/17 10/24/17 05:50 09:45 05:00 WBC 7.8 RBC 2.86 L Hgb 9.2 L Hct 28.3 L MCV 99.0 MCH 32.2 H MCHC 32.5 RDW 13.9 RDW Differential 48.2 H Plt Count 136 L MPV 10.0 Immature Gran % (Auto) Neut % (Auto) Lymph % (Auto) [place] % (Auto) Eos % (Auto) Baso % (Auto) Absolute Neuts (auto) Absolute Lymphs (auto) Total Counted Diff Path Review Reviewed Sodium Potassium Chloride Carbon Dioxide Anion Gap BUN Creatinine Estim Creat Clear Calc Est GFR (MDRD) Af Amer Est GFR (MDRD) Non-Af BUN/Creatinine Ratio Glucose Calcium Magnesium Ur Random Sodium Urine Creatinine 216.00 10/24/17 10/24/17 10/24/17 05:00 05:15 05:15 WBC 8.6 RBC 2.92 L Hgb 9.3 L Hct 28.7 L MCV 98.3 MCH 31.8 MCHC 32.4 RDW 13.8 RDW Differential 47.8 H Plt Count 145 L MPV 9.8 Immature Gran % (Auto) 0.100 Neut % (Auto) 71.5 H Lymph % (Auto) 17.3 L [place] % (Auto) 8.9 Eos % (Auto) 2.1 Baso % (Auto) 0.1 Absolute Neuts (auto) 6.2 Absolute Lymphs (auto) 1.49 Total Counted Not Reportable Diff Path Review Sodium 141 Potassium 3.4 L Chloride 112 H Carbon Dioxide 19.0 L Anion Gap 10 BUN 14 Creatinine 0.51 L Estim Creat Clear Calc 99.74 Est GFR (MDRD) Af Amer 161 Est GFR (MDRD) Non-Af 133 BUN/Creatinine Ratio 27.4 H Glucose 82 Calcium 7.8 L Magnesium 2.4 Ur Random Sodium 91 Urine Creatinine Medical Necessity - Tobacco Use Smoking Status: Current every day smoker Assessment/Plan Active and Suspected Problems (Last Reviewed 10/15/17 @ 09:13 by Melanie Weiner) Diverticulitis (Acute) 52-year-old female status post laparotomy with ileocecectomy and primary anastomosis POD 2 1. Pain control--continue Ativan and fentanyl 2. Peritonitis--antibiotics were stopped yesterday at noon and patient's white count continues to be normal. 3. Anemia-hemoglobin stable 4. Low urine output--patient continues to have low urine output despite being 10 L positive. She is having a cough with crackles and swelling of her feet and hands. She is not having an elevated white count or purulent productive cough. I do not believe she has pneumonia. I will stop her IV fluids and give her 40 of IV Lasix to start diuresis. If her blood pressure drops her creatinine rises I will stop the Lasix. Continue Correa until urine output is adequate. 5. Patient is having flatus and bowel function. I will start clear liquid diet. 6. Encourage incentive spirometer use and ambulation. Continue Lovenox. 7. Hypokalemia--replaced 8. Hypomagnesemia--resolved. Magnesium stable this morning. 9. No bigeminy overnight. I will transfer the patient to floor status. Felipe Rios MD Pager: [facility] [address], [address] [place] [address] Office:
[2017-10-24] MEDS: oxyCODONE 5 MG Tablet PO ×4 (08:19→21:33)
[2017-10-24] MEDS: Furosemide 40 MG/4 ML Vial IV (08:19)
[2017-10-24] MEDS: LORazepam 0.5 MG Tablet PO ×2 (09:59→21:34)
[2017-10-24] MEDS: Enoxaparin 40 MG/0.4 ML Syringe SC (11:14)
--- NOTE | 2017-10-24 11:53 | CASEMGMT ---
BELL LAZO reviewed patient chart as previous RN CLIFTON, Summer Mg and Summer Degroot, indicated patient was requesting HHC. BELL LAZO notes patient was independent prior to admission and was discharged from [facility] on 09/12. BELL LAZO noted patient does have a wicking dressing place, but otherwise has no overt skilled needs. BELL LAZO met with patient to discuss her request for HHC. Per patient she needs HHC for dressing changes. BELL LAZO notified patient HHC only comes out once a week and that she would need to have a teachable individual to learn the changes. Patient reports her son Herrera would learn. BELL LAZO called Dr. Rios, attending surgeon, and per Dr. Rios, the patient does not need home health services as this is a wicking dressing. Per Dr. Rios, this is a simple dressing which can be taught in the hospital prior to discharge. BELL LAZO met with patient and notified her of Dr. Rios's response to her request for HHC. Patient voices understanding. Gabriele Neil BSN, RN-BC, [facility]
[2017-10-24 15:05] LABS: Potassium 3.7 mmol/L (3.5-5.1)
[2017-10-25] VITALS (11 sets, daily range): BP systolic 135–143; BP diastolic 74–86; PULSE 91–111; RESP 16–20; TEMP 36.9–37.7; O2SAT 94–97
[2017-10-25] MEDS: oxyCODONE 5 MG Tablet PO ×6 (01:57→18:44)
[2017-10-25 06:25] LABS: Absolute Lymphocyte Count 1.12 X10^3/ul (0.83-4.51); Absolute Neutrophil Count 4.6 X10^3/uL (2.0-7.7); Basophil# 0.01 X10^3/uL; Basophil% 0.1 % (0-1); Eosinophil# 0.41 X10^3/uL; Eosinophils% 5.8 % (0-5); Hematocrit 26.8 % (37-47); Lymphocyte # 1.12 X10^3/ul (4.0); Lymphocyte % 15.9 % (19-41); Mean Corp Hgb Conc 33.6 g/gl (32-36); Mean Corpuscular Hgb 32.5 pg (27.0-32.0); Mean Corpuscular Volume 96.8 fL (81-99); Monocyte# 0.85 X10^3/uL; Monocyte% 12.1 % (0-10); Neutrophil # 4.64 X10^3/uL (2.7-7.7); POSITIVE COUNT NO; POSITIVE DIFFERENTIAL NO; POSITIVE MORPHOLOGY NO; Platelet Count 181 K/mm3 (150-450); RBC Distribution Width CV 13.2 % (11.6-14.6); RBC Distribution Width SD 44.8 fl (35.1-43.9); Red Blood Count 2.77 M/mm3 (4.2-5.4)
[2017-10-25 06:54] LABS: Anion Gap 7 (5-15); BUN 15 mg/dL (7-18); BUN/Creat Ratio 32.5 RATIO (10-20); Calcium,Total 7.9 mg/dL (8.5-10.1); Chloride 106 mmol/L (98-107); Creatinine, Serum 0.46 mg/dL (0.55-1.02); EST Glomerular Filtration Rate 150 mL/min (>60); Est Glom Filt Rate - Afr Amer 181 mL/min (>60); Estimated Creatinine Clearance 110.58 ml/min; Glucose 100 mg/dL (74-106); Magnesium 1.7 mg/dL (1.6-2.6); Potassium 3.3 mmol/L (3.5-5.1); Sodium Level 136 mmol/L (136-145)
--- NOTE | 2017-10-25 07:33 | PCM.PN.SRG ---
Patient Problems: Active and Suspected Problems (Last Reviewed 10/15/17 @ 09:13 by Melanie Weiner) Diverticulitis (Acute) Subjective: Patient reports another soft formed bowel movement. No nausea or vomiting. Abdominal pain is well controlled OxyIR. - Physical Exam General: Alert, Oriented x3, Cooperative HEENT: Atraumatic, PERRLA Lungs: - - Patient is having a nonproductive cough Cardiovascular: Regular rate, Regular Rhythm Abdomen: Soft, Non Tender, Non-Distended, - - Incision is clean dry and intact. Vital Signs Temp Pulse Resp BP Pulse Ox 98.4 F 93 16 143/75 H 94 10/25/17 02:00 10/25/17 03:03 10/25/17 02:00 10/25/17 02:00 10/25/17 02:00 Oxygen Flow Rate (L/min) 2 Oxygen Delivery Method Room Air Weight: 121 lb 11.123 oz Body Mass Index (BMI) 22.2 Intake and Output for Last 24 Hours 10/23/17 10/24/17 10/25/17 23:59 23:59 23:59 Intake Total 3125 / 3125 2294 / 2294 240 / 240 Output Total 500 / 500 2175 / 2175 125 / 125 Balance 2625 / 2625 119 / 119 115 / 115 Microbiology Past 72 Hours 10/22/17 Unknown Gram Stain - Final Incision/Surgical Site Wound Culture - Preliminary Klebsiella pneumoniae sp pneum Gram Positive Cocci Anaerobic Culture - Preliminary Checking for anaerobes, further studies to follow. Laboratory Tests Past 24 Hrs 10/24/17 10/25/17 10/25/17 14:35 05:20 05:20 WBC 7.0 RBC 2.77 L Hgb 9.0 L Hct 26.8 L MCV 96.8 MCH 32.5 H MCHC 33.6 RDW 13.2 RDW Differential 44.8 H Plt Count 181 MPV 10.0 Immature Gran % (Auto) 0.100 Neut % (Auto) 66.0 Lymph % (Auto) 15.9 L [place] % (Auto) 12.1 H Eos % (Auto) 5.8 H Baso % (Auto) 0.1 Absolute Neuts (auto) 4.6 Absolute Lymphs (auto) 1.12 Total Counted Not Reportable Sodium 136 Potassium 3.7 3.3 L Chloride 106 Carbon Dioxide 23.0 Anion Gap 7 BUN 15 Creatinine 0.46 L Estim Creat Clear Calc 110.58 Est GFR (MDRD) Af Amer 181 Est GFR (MDRD) Non-Af 150 BUN/Creatinine Ratio 32.5 H Glucose 100 Calcium 7.9 L Magnesium 1.7 Medical Necessity - Tobacco Use Smoking Status: Current every day smoker Assessment/Plan Active and Suspected Problems (Last Reviewed 10/15/17 @ 09:13 by Melanie Weiner) Diverticulitis (Acute) 52-year-old female status post laparotomy with ileocecectomy and primary anastomosis POD 3 1. Pain control--continue Ativan and OxyIR 2. Peritonitis-- patient's white count continues to be normal. 3. Anemia-hemoglobin stable 4. I gave the patient Lasix yesterday for diuresis. She continues to be over 8 L positive with a wet nonproductive cough. I will give her another dose of Lasix today. DC Correa. 5. Patient is having flatus and had a normal bowel movement. I will advance to regular diet 6. Encourage incentive spirometer use and ambulation. Continue Lovenox. 7. Hypokalemia--replaced 8. I changed the rigo in the patient's incision. There is no sign of purulent drainage. The wound looks good with no erythema. I will plan on removing packing tomorrow and doing a delayed primary closure of her wound at the bedside. 9. Likely DC tomorrow if diuresing well and cough subsiding. Felipe Rios MD Pager: [facility] [address], [address] [place] [address] Office:
--- NOTE | 2017-10-25 07:36 | PN.SURG_ITS ---
Patient Problems: Active and Suspected Problems (Last Reviewed 10/15/17 @ 09:13 by Melanie Weiner) Diverticulitis (Acute) Subjective: Patient reports another soft formed bowel movement. No nausea or vomiting. Abdominal pain is well controlled OxyIR. - Physical Exam General: Alert, Oriented x3, Cooperative HEENT: Atraumatic, PERRLA Lungs: - - Patient is having a nonproductive cough Cardiovascular: Regular rate, Regular Rhythm Abdomen: Soft, Non Tender, Non-Distended, - - Incision is clean dry and intact. Vital Signs Temp Pulse Resp BP Pulse Ox 98.4 F 93 16 143/75 H 94 10/25/17 02:00 10/25/17 03:03 10/25/17 02:00 10/25/17 02:00 10/25/17 02:00 Oxygen Flow Rate (L/min) 2 Oxygen Delivery Method Room Air Weight: 121 lb 11.123 oz Body Mass Index (BMI) 22.2 Intake and Output for Last 24 Hours 10/23/17 10/24/17 10/25/17 23:59 23:59 23:59 Intake Total 3125 / 3125 2294 / 2294 240 / 240 Output Total 500 / 500 2175 / 2175 125 / 125 Balance 2625 / 2625 119 / 119 115 / 115 Microbiology Past 72 Hours 10/22/17 Unknown Gram Stain - Final Incision/Surgical Site Wound Culture - Preliminary Klebsiella pneumoniae sp pneum Gram Positive Cocci Anaerobic Culture - Preliminary Checking for anaerobes, further studies to follow. Laboratory Tests Past 24 Hrs 10/24/17 10/25/17 10/25/17 14:35 05:20 05:20 WBC 7.0 RBC 2.77 L Hgb 9.0 L Hct 26.8 L MCV 96.8 MCH 32.5 H MCHC 33.6 RDW 13.2 RDW Differential 44.8 H Plt Count 181 MPV 10.0 Immature Gran % (Auto) 0.100 Neut % (Auto) 66.0 Lymph % (Auto) 15.9 L [place] % (Auto) 12.1 H Eos % (Auto) 5.8 H Baso % (Auto) 0.1 Absolute Neuts (auto) 4.6 Absolute Lymphs (auto) 1.12 Total Counted Not Reportable Sodium 136 Potassium 3.7 3.3 L Chloride 106 Carbon Dioxide 23.0 Anion Gap 7 BUN 15 Creatinine 0.46 L Estim Creat Clear Calc 110.58 Est GFR (MDRD) Af Amer 181 Est GFR (MDRD) Non-Af 150 BUN/Creatinine Ratio 32.5 H Glucose 100 Calcium 7.9 L Magnesium 1.7 Medical Necessity - Tobacco Use Smoking Status: Current every day smoker Assessment/Plan Active and Suspected Problems (Last Reviewed 10/15/17 @ 09:13 by Melanie Weiner) Diverticulitis (Acute) 52-year-old female status post laparotomy with ileocecectomy and primary anastomosis POD 3 1. Pain control--continue Ativan and OxyIR 2. Peritonitis-- patient's white count continues to be normal. 3. Anemia-hemoglobin stable 4. I gave the patient Lasix yesterday for diuresis. She continues to be over 8 L positive with a wet nonproductive cough. I will give her another dose of Lasix today. DC Correa. 5. Patient is having flatus and had a normal bowel movement. I will advance to regular diet 6. Encourage incentive spirometer use and ambulation. Continue Lovenox. 7. Hypokalemia--replaced 8. I changed the rigo in the patient's incision. There is no sign of purulent drainage. The wound looks good with no erythema. I will plan on removing packing tomorrow and doing a delayed primary closure of her wound at the bedside. 9. Likely DC tomorrow if diuresing well and cough subsiding. Felipe Rios MD Pager: [facility] [address], [address] [place] [address] Office:
[2017-10-25] MEDS: Furosemide 40 MG/4 ML Vial IV (08:19)
[2017-10-25] MEDS: LORazepam 0.5 MG Tablet PO ×2 (10:19→21:26)
[2017-10-25] MEDS: Ondansetron 4 MG/2 ML Vial IV (10:22)
[2017-10-25] MEDS: Enoxaparin 40 MG/0.4 ML Syringe SC (11:20)
--- NOTE | 2017-10-25 18:48 | NURSING ---
Reviewed and agreed on all charting with Hilary Ellison RN
[2017-10-25] MEDS: Acetaminophen 325 MG Tablet 650 MG PO (21:25)
[2017-10-25] MEDS: 0.9% NaCl Peripheral Flush Adult/Peds IV (21:26)
[2017-10-26] MEDS: oxyCODONE 5 MG Tablet PO ×3 (01:00→09:52)
[2017-10-26 02:35] VITALS: BP 146/77; PULSE 99; RESP 20; TEMP 37.7; O2SAT 94
[2017-10-26 03:32] VITALS: PULSE 89
[2017-10-26 06:01] LABS: Absolute Lymphocyte Count 1.34 X10^3/ul (0.83-4.51); Absolute Neutrophil Count 5.1 X10^3/uL (2.0-7.7); Basophil# 0.02 X10^3/uL; Basophil% 0.2 % (0-1); Eosinophil# 0.42 X10^3/uL; Eosinophils% 5.1 % (0-5); Hematocrit 29.2 % (37-47); Hemoglobin 9.8 g/dl (12.0-15.0); Lymphocyte # 1.34 X10^3/ul (4.0); Lymphocyte % 16.2 % (19-41); Mean Corp Hgb Conc 33.6 g/gl (32-36); Mean Corpuscular Hgb 31.5 pg (27.0-32.0); Mean Corpuscular Volume 93.9 fL (81-99); Mean Platelet Vol. 9.5 fl (6.2-12.0); Monocyte# 1.39 X10^3/uL; Monocyte% 16.8 % (0-10); Neutrophil # 5.09 X10^3/uL (2.7-7.7); Neutrophil % 61.5 % (47-70); Platelet Count 241 K/mm3 (150-450); RBC Distribution Width CV 13.1 % (11.6-14.6); RBC Distribution Width SD 45.2 fl (35.1-43.9); Red Blood Count 3.11 M/mm3 (4.2-5.4); White Blood Count 8.3 K/mm3 (4.4-11.0)
[2017-10-26 06:09] LABS: POSITIVE COUNT NO; POSITIVE DIFFERENTIAL NO; POSITIVE MORPHOLOGY NO
[2017-10-26 06:40] VITALS: BP 130/78; PULSE 85; RESP 16; TEMP 36.9; O2SAT 95
[2017-10-26 06:59] VITALS: PULSE 88
[2017-10-26 07:08] LABS: Anion Gap 9 (5-15); BUN 10 mg/dL (7-18); BUN/Creat Ratio 20.7 RATIO (10-20); Calcium,Total 8.3 mg/dL (8.5-10.1); Chloride 101 mmol/L (98-107); Creatinine, Serum 0.48 mg/dL (0.55-1.02); EST Glomerular Filtration Rate 142 mL/min (>60); Est Glom Filt Rate - Afr Amer 172 mL/min (>60); Estimated Creatinine Clearance 105.97 ml/min; Glucose 100 mg/dL (74-106); Potassium 3.8 mmol/L (3.5-5.1); Sodium Level 134 mmol/L (136-145)
--- NOTE | 2017-10-26 08:57 | PCM.PN.SRG ---
Patient Problems: Active and Suspected Problems (Last Reviewed 10/15/17 @ 09:13 by Melanie Weiner) Diverticulitis (Acute) Subjective: Patient reports she is doing well this morning. She is still requiring p.o. pain medications but she is passing normal bowel movements which are soft and formed and tolerating a regular diet. - Physical Exam General: Alert, Oriented x3, Cooperative Neck: Supple Lungs: Normal air movement Cardiovascular: Regular rate, Regular Rhythm Abdomen: Soft, Non Tender, Non-Distended Vital Signs Temp Pulse Resp BP Pulse Ox 98.4 F 88 16 130/78 H 95 10/26/17 06:40 10/26/17 06:59 10/26/17 06:40 10/26/17 06:40 10/26/17 06:40 Oxygen Flow Rate (L/min) 2 Oxygen Delivery Method Room Air Weight: 121 lb 11.123 oz Body Mass Index (BMI) 22.2 Intake and Output for Last 24 Hours 10/24/17 10/25/17 10/26/17 23:59 23:59 23:59 Intake Total 2294 / 2294 1180 / 1180 200 / 200 Output Total 2175 / 2175 1999 / 1999 1200 / 1200 Balance 119 / 119 -820 / -820 -1000 / -1000 Microbiology Past 72 Hours 10/22/17 Unknown Gram Stain - Final Incision/Surgical Site Wound Culture - Preliminary Klebsiella pneumoniae sp pneum Streptococcus infantarius coli Anaerobic Culture - Preliminary Checking for anaerobes, further studies to follow. Laboratory Tests Past 24 Hrs 10/26/17 10/26/17 05:21 05:21 WBC 8.3 RBC 3.11 L Hgb 9.8 L Hct 29.2 L MCV 93.9 MCH 31.5 MCHC 33.6 RDW 13.1 RDW Differential 45.2 H Plt Count 241 MPV 9.5 Immature Gran % (Auto) 0.200 Neut % (Auto) 61.5 Lymph % (Auto) 16.2 L [place] % (Auto) 16.8 H Eos % (Auto) 5.1 H Baso % (Auto) 0.2 Absolute Neuts (auto) 5.1 Absolute Lymphs (auto) 1.34 Total Counted Not Reportable Sodium 134 L Potassium 3.8 Chloride 101 Carbon Dioxide 24.0 Anion Gap 9 BUN 10 Creatinine 0.48 L Estim Creat Clear Calc 105.97 Est GFR (MDRD) Af Amer 172 Est GFR (MDRD) Non-Af 142 BUN/Creatinine Ratio 20.7 H Glucose 100 Calcium 8.3 L Medical Necessity - Tobacco Use Smoking Status: Current every day smoker Assessment/Plan Active and Suspected Problems (Last Reviewed 10/15/17 @ 09:13 by Melanie Weiner) Diverticulitis (Acute) 52-year-old female status post laparotomy with ileocecectomy and primary anastomosis POD 4 1. Pain control--continue Ativan and OxyIR. I told her I would give her 30 OxyIR and 14 Ativan as discharge prescription but I will be giving her no further narcotics or Ativan prescriptions. She needs to see her doctor or enroll in a substance dependency program. The patient is in agreement to this plan and agrees that no further narcotics will be prescribed to her. 2. White count stable off antibiotics. There is no sign of wound infection. 3. Anemia-hemoglobin stable 4. Patient diuresed well yesterday. Cough is improving. Patient urine output today without Lasix is good. 5. Tolerating regular diet 6. I removed the packing from the wound. The wound edges are clean and there is no sign of infection in the wound. I cleaned the wound with Betadine and injected the wound edges with half percent lidocaine. I then approximated the wound edges loosely with interrupted 3-0 Vicryl sutures. Stoma site was closed in the same fashion. The abdomen was cleansed and new dressings were applied. 7. Discharge home today. Follow-up in 1 week. Felipe Rios MD Pager: [facility] [address], [address] [address] Office:
--- NOTE | 2017-10-26 09:04 | PCM.DC.GB ---
Discharge Diet: Light diet - advance as tolerated Discharge Activity: Return to Normal Activity, May Shower May shower in (days): 1 - with the bandage in place. Lifting Restrictions: 20 lbs for 4 weeks Additional Activity Instructions:: Pain medication may cause nausea. You should typically eat light foods as you take your pain medications. Pain medication may also cause constipation. If this is a problem for you, please discuss with your doctor. Call your doctor if your incision/area has: Continuous Slow Oozing, Sudden Increased Bleeding, Increased Pain/ Swelling, Increased Redness, Foul Smelling Discharge, Fever of 101 or Higher Call your doctor if you observe: Fever of 101 or Higher Suture Line Care: Avoid Pulling/Pushing, Avoid Pinching/Bending Additional Dressing/Incision Instructions:: Change bandages as needed Allergies/Adverse Reactions: Allergies codeine Allergy (Verified 10/15/17 09:14) HALLUCINATION Penicillins Allergy (Verified 10/15/17 09:14) UNSURE CHILD Medications to take at Discharge Albuterol Inhaler [Ventolin Hfa] 1 - 2 puff INHALATION Q6H PRN PRN 09/01/17 Pramipexole Di-HCl [Mirapex] 0.25 mg PO Q12H PRN PRN #30 tab 09/04/17 Cyclobenzaprine [Flexeril] 10 mg PO TID PRN PRN #10 tab 09/16/17 Acetaminophen [Tylenol Tablet] 650 mg PO Q6H PRN PRN tablet 10/26/17 Lorazepam [Ativan] 0.5 mg PO BID #14 tablet 10/26/17 Oxycodone [Oxyir] 5 - 10 mg PO Q4H PRN PRN 7 Days #30 tablet 10/26/17 The following prescriptions were given: Oxycodone [Oxyir] 5 - 10 mg PO Q4H PRN PRN 7 Days #30 tablet PRN Reason: Mod-Severe Pain (4-05/13) Lorazepam [Ativan] 0.5 mg PO BID #14 tablet Primary Care Physician: Mack Langston MD [Primary Care Provider] - Please Follow Up With: Felipe Rios MD When: call tomorrow to make 1 week follow up appt [phone]
--- NOTE | 2017-10-26 09:09 | DS.PCM_ITS ---
Discharge Date and Diagnosis - Problem List Patient Problems: Active and Suspected Problems (Last Reviewed 10/15/17 @ 09:13 by Melanie Weiner) Diverticulitis (Acute) Date of Admission: 10/20/17 Date of Discharge: 10/26/17 - Primary Discharge Diagnosis Active and Suspected Problems (Last Reviewed 10/15/17 @ 09:13 by Melanie Weiner) Diverticulitis (Acute) Hypokalemia Hypomagnesemia Pneumoperitoneum with perforation of GI tract Reversal of ileostomy Acute blood loss anemia - Secondary Discharge Diagnosis Chronic Problems (Last Reviewed 10/15/17 @ 09:13 by Melanie Weiner) S/P partial colectomy (Chronic) 07/24/17 History of tubal ligation (Chronic) History of attempted suicide (Chronic) Chronic leg pain (Chronic) Asthma (Chronic) GERD (gastroesophageal reflux disease) (Chronic) Arthritis (Chronic) Tubo-ovarian abscess (Chronic) Hydrosalpinx (Chronic) Clostridium difficile infection (Chronic) Recent discharge s/p diverticulitis diagnosis w/ resulting c. difficile colitis w/ transition outpatient to oral vancomycin. Tobacco use (Chronic) Anxiety (Chronic) COPD (chronic obstructive pulmonary disease) (Chronic) Hospital Course and Treatment Imaging Results: Clinical Impression(s) from Imaging Studies Abdomen/Pelvis CT 10/22/17 08:00 IMPRESSION: 1. Patient is status post sigmoid resection with right lower quadrant ileostomy. Some wall thickening and edema in this region with mesenteric edema. Likely postsurgical. No evidence of fluid collection to represent developing abscess. No evidence of contrast extravasation. 2. Bibasilar airspace disease. Could represent atelectasis or infection 3. Small amount of ascites fluid and trace pelvic free fluid Electronically Signed: Cale Bonner DO at 11:12 EDT Tel , Service support , ADDENDUM: 10/22/17 1149 Consultations 10/23/17 10:52 Consult: Onc/Wound/physical meteorologist Routine Comment: surgical incision to abd Operations: - - Colonoscopy and laparotomy with takedown ileostomy and ileocecectomy Procedures: None Summary of Care Provided: The patient is a 52 year old F who was admitted for elective colonoscopy. Today she was admitted a catheter was placed through her loop ileostomy and bowel prep was administered. The following day she was taken for colonoscopy. The following morning her white count johnnie and a CT revealed free air. Suspected perforation during colonoscopy. She was taken that day for a laparotomy. Perforation of the different loop of the loop ileostomy was noted. The ileostomy was taken down and an ileocecectomy was performed with primary anastomosis of small bowel to right colon. Patient tolerated the procedure was brought to PACU afterwards due to bigeminy during surgery. The patient was having low urine output and the Correa had remain in and she was diuresed with Lasix. She began to pass gas and have bowel movements and was slowly advanced to a diet. On postop day 4 she was tolerating a diet and having bowel movements. Her wound was closed by delayed primary closure. White count was normal the day of discharge. She was discharged home in stable condition. She will follow-up with me in 1 week. I have given her a prescription for 30 OxyIR as well as 14 Ativan. After this is over she will enroll herself in the substance abuse program for withdrawal. I informed her and she agreed that there would be no further narcotics or Ativan prescriptions from my office. Discharge Diet: Light diet - advance as tolerated Discharge Activity: Return to Normal Activity, May Shower May shower in (days): 1 - with the bandage in place. Additional Activity Instructions:: Pain medication may cause nausea. You should typically eat light foods as you take your pain medications. Pain medication may also cause constipation. If this is a problem for you, please discuss with your doctor. Call your doctor if your incision/area has: Continuous Slow Oozing, Sudden Increased Bleeding, Increased Pain/ Swelling, Increased Redness, Foul Smelling Discharge, Fever of 101 or Higher Call your doctor if you observe: Fever of 101 or Higher Suture Line Care: Avoid Pulling/Pushing, Avoid Pinching/Bending Additional Dressing/Incision Instructions:: Change bandages as needed Home Medications: Medications to take at Discharge Albuterol Inhaler [Ventolin Hfa] 1 - 2 puff INHALATION Q6H PRN PRN 09/01/17 Pramipexole Di-HCl [Mirapex] 0.25 mg PO Q12H PRN PRN #30 tab 09/04/17 Cyclobenzaprine [Flexeril] 10 mg PO TID PRN PRN #10 tab 09/16/17 Acetaminophen [Tylenol Tablet] 650 mg PO Q6H PRN PRN tablet 10/26/17 Lorazepam [Ativan] 0.5 mg PO BID #14 tablet 10/26/17 Oxycodone [Oxyir] 5 - 10 mg PO Q4H PRN PRN 7 Days #30 tablet 10/26/17 Following Prescrptions Were Given to Patient: Oxycodone [Oxyir] 5 - 10 mg PO Q4H PRN PRN 7 Days #30 tablet PRN Reason: Mod-Severe Pain (-05/13) Lorazepam [Ativan] 0.5 mg PO BID #14 tablet Primary Care Physician: Mack Langston MD [Primary Care Provider] - Please Follow Up With: Felipe Rios MD When: call tomorrow to make 1 week follow up appt [phone] Medical Necessity - Tobacco Use Smoking Status: Current every day smoker Meaningful Use Info Meaningful Use Diagnoses (Choose all that apply): None applicable
[2017-10-26] MEDS: LORazepam 0.5 MG Tablet PO (09:53)
--- NOTE | 2017-10-26 10:54 | NURSING ---
Reviewed and agreed on all charting with Hilary Ellison RN
== END 2017-10-26 10:57 | disposition home or self-care (01) | DRG 442 ==
LOC: MS3 10-22 15:04 → PCU 10-23 06:23 → MS3 10-23 07:00 → PCU 10-23 07:00
PROVIDERS: Anesthesiology; Admitting Provider Surgery; Family Provider Internal Medicine; PCP Internal Medicine; Visit Provider Surgery
PROC: 0DJD8ZZ Inspection of Lower Intestinal Tract, Via Natural or Artificial Opening Endoscopic (ICD-10-PCS; CPT 45378; principal; 2017-10-21 09:10)
PROC: 0DTH0ZZ Resection of Cecum, Open Approach (ICD-10-PCS; CPT 49000; principal; 2017-10-22 11:45)
DX: K91.71 Accidental puncture and laceration of a digestive system organ or structure during a digestive system procedure (principal); K65.9 Peritonitis, unspecified; Z43.2 Encounter for attention to ileostomy; E83.42 Hypomagnesemia; D62 Acute posthemorrhagic anemia; J44.9 Chronic obstructive pulmonary disease, unspecified; Y83.8 Other surgical procedures as the cause of abnormal reaction of the patient, or of later complication, without mention of misadventure at the time of the procedure; Y92.239 Unspecified place in hospital as the place of occurrence of the external cause; E87.6 Hypokalemia; K57.30 Diverticulosis of large intestine without perforation or abscess without bleeding; Z90.49 Acquired absence of other specified parts of digestive tract; K21.9 Gastro-esophageal reflux disease without esophagitis; F17.200 Nicotine dependence, unspecified, uncomplicated; F41.9 Anxiety disorder, unspecified
CPT/HCPCS: 36415; 74177; 80048; 80076; 80307; 82570; 83735; 84100; 84132; 84300; 84484; 85025; 85027; 87070; 87075; 87076; 87077; 87186; 87205; 88304; 88307; 93005; 94640; 94762; J7030; J7040; J7120; P9047; Q9967; A4216; J1940; J2405

== ENCOUNTER 2017-10-31 14:19 | Inpatient (IN) | payer MEDICAID, SELFPAY ==
[2017-10-31 14:21] VITALS: BP 139/87; PULSE 101; RESP 16; TEMP 36.4; O2SAT 97; BMI 22.8
--- NOTE | 2017-10-31 14:50 | ED.VISSUMM ---
- ER Visit Summary Date of Service: 10/31/17 Chief Complaint: Opiate withdrawal History of Present Illness: The patient is a 52 F who had recent surgery by Dr. Michael German by him today. He informed her that her pain is not secondary to surgery but secondary to opiate withdrawal. Last dose was greater than 24 hours. She was taking 2 5 mg OxyContin tablets every 4 hours. Of tremors, nausea, vomiting, abdominal pain and a sense of unwellness. She denies fever or chills. She did complain of sweats. She denies any ocular, auditory or visual symptoms. She denies any cardiac or respiratory symptoms. Physical Examination: Vital signs are remarkable for an elevated blood pressure 139/87 and heart rate of 101. She is thin. Head is atraumatic normocephalic. Pupils are equal round reactive. Extraocular muscles are intact. TMs are pearly white with landmarks noted. Nares patent with no drainage. Posterior pharynx without erythema or exudate. Uvula is midline. There is no dysphonia or dysphasia. Trachea is midline. There is no stridor with auscultation of the neck. Heart is rapid and regular without murmur, gallop or rub. S1 and S2 are normal. Lungs are clear to auscultation with good movement of air bilaterally. It is slightly distended tympanitic with decreased bowel sounds. Patient has appropriate incisional tenderness. There is no guarding or rebound tenderness. Incision sites were examined and there is no evidence of infection. She has hyperreflexic with 3 beats of clonus at the ankles, neuro exam is otherwise unremarkable. Test Results: None were obtained in the emergency department Emergency Department Course and Treatment: Kathe from [facility] was contacted. She screened patient for admission. She states she qualifies. Since she has another person to see in 10 minutes she requested the hospitalist admit her. Treatment Plan: Inpatient treatment for opiate withdrawal Disposition: Admission to [facility] for opiate withdrawal Impression: Opiate withdrawal This note was generated with [employer] dictation software. It may contain incorrect words, spelling, and punctuation that were not noted in review of the chart prior to signing ED Disposition - Plan for ED Patient: Chief Complaint: Subst Abuse Referrals: Mack Langston MD [Primary Care Provider] -
--- NOTE | 2017-10-31 14:56 | ED.DCSUM_ITS ---
- ER Visit Summary Date of Service: 10/31/17 Chief Complaint: Opiate withdrawal History of Present Illness: The patient is a 52 F who had recent surgery by Dr. Michael German by him today. He informed her that her pain is not secondary to surgery but secondary to opiate withdrawal. Last dose was greater than 24 hours. She was taking 2 5 mg OxyContin tablets every 4 hours. Of tremors, nausea, vomiting, abdominal pain and a sense of unwellness. She denies fever or chills. She did complain of sweats. She denies any ocular, auditory or visual symptoms. She denies any cardiac or respiratory symptoms. Physical Examination: Vital signs are remarkable for an elevated blood pressure 139/87 and heart rate of 101. She is thin. Head is atraumatic normocephalic. Pupils are equal round reactive. Extraocular muscles are intact. TMs are pearly white with landmarks noted. Nares patent with no drainage. Posterior pharynx without erythema or exudate. Uvula is midline. There is no dysphonia or dysphasia. Trachea is midline. There is no stridor with auscultation of the neck. Heart is rapid and regular without murmur, gallop or rub. S1 and S2 are normal. Lungs are clear to auscultation with good movement of air bilaterally. It is slightly distended tympanitic with decreased bowel sounds. Patient has appropriate incisional tenderness. There is no guarding or rebound tenderness. Incision sites were examined and there is no evidence of infection. She has hyperreflexic with 3 beats of clonus at the ankles, neuro exam is otherwise unremarkable. Test Results: None were obtained in the emergency department Emergency Department Course and Treatment: Kathe from [facility] was contacted. She screened patient for admission. She states she qualifies. Since she has another person to see in 10 minutes she requested the hospitalist admit her. Treatment Plan: Inpatient treatment for opiate withdrawal Disposition: Admission to [facility] for opiate withdrawal Impression: Opiate withdrawal This note was generated with [employer] dictation software. It may contain incorrect words, spelling, and punctuation that were not noted in review of the chart prior to signing ED Disposition - Plan for ED Patient: Chief Complaint: Subst Abuse Referrals: Mack Langston MD [Primary Care Provider] -
--- NOTE | 2017-10-31 15:00 | NURSING ---
DR INGRAM FOR DR RICHARDS
[2017-10-31 15:04] VITALS: BP 140/80; PULSE 106; RESP 18; O2SAT 99
--- NOTE | 2017-10-31 15:11 | NURSING ---
MED SURG ACUTE OPIATE WITHDRAWAL WHITE
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
[2017-10-31 15:17] VITALS: BMI 22.9
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
[2017-10-31 15:33] VITALS: BMI 22.3
[2017-10-31 15:40] VITALS: BP 163/92; PULSE 86; RESP 18; TEMP 36.8
[2017-10-31 15:42] VITALS: PULSE 86
[2017-10-31] MEDS: hydrOXYzine PAM 25 MG Capsule 50 MG PO (16:14)
[2017-10-31] MEDS: Buprenorphine HCl 2 MG TAB.SUBL SL (16:14)
[2017-10-31] MEDS: Methocarbamol 750 MG Tablet PO (16:14)
[2017-10-31] MEDS: Dicyclomine 10 MG Capsule 20 MG PO (16:14)
[2017-10-31] MEDS: Pramipexole Di-HCl 0.25 MG Tablet PO (16:14)
[2017-10-31] MEDS: QUEtiapine 25 MG Tablet PO (16:14)
[2017-10-31] MEDS: Lactated Ringers 1,000 ML 125 ML IV (16:15)
[2017-10-31 16:22] LABS: Absolute Lymphocyte Count 2.72 X10^3/ul (0.83-4.51); Basophil# 0.03 X10^3/uL; Basophil% 0.3 % (0-1); Eosinophil# 0.14 X10^3/uL; Eosinophils% 1.4 % (0-5); Hematocrit 30.2 % (37-47); Lymphocyte # 2.72 X10^3/ul (4.0); Lymphocyte % 28.2 % (19-41); Mean Corp Hgb Conc 33.1 g/gl (32-36); Mean Corpuscular Hgb 31.1 pg (27.0-32.0); Mean Corpuscular Volume 93.8 fL (81-99); Mean Platelet Vol. 10.1 fl (6.2-12.0); Monocyte# 0.77 X10^3/uL; Neutrophil # 5.98 X10^3/uL (2.7-7.7); Neutrophil % 61.9 % (47-70); Platelet Count 405 K/mm3 (150-450); RBC Distribution Width CV 13.3 % (11.6-14.6); RBC Distribution Width SD 45.4 fl (35.1-43.9); Red Blood Count 3.22 M/mm3 (4.2-5.4); White Blood Count 9.7 K/mm3 (4.4-11.0)
[2017-10-31 16:23] LABS: ALB/GLOB Ratio 0.7 RATIO (0.9-2.4); AST(SGOT) 20 U/L (15-37); Alanine Aminotransfer ALT/SGPT 16 U/L (13-56); Alkaline Phosphatase 99 U/L (45-117); Anion Gap 9 (5-15); BUN 6 mg/dL (7-18); BUN/Creat Ratio 10.3 RATIO (10-20); Calcium,Total 8.6 mg/dL (8.5-10.1); Chloride 104 mmol/L (98-107); Creatinine, Serum 0.58 mg/dL (0.55-1.02); EST Glomerular Filtration Rate 114 mL/min (>60); Est Glom Filt Rate - Afr Amer 138 mL/min (>60); Globulin 4.5 g/dL (2.2-4.2); Glucose 98 mg/dL (74-106); Lipase 63 U/L (73-393); Magnesium 2.2 mg/dL (1.6-2.6); Potassium 3.6 mmol/L (3.5-5.1); Protein, Total 7.5 g/dL (6.4-8.2); Sodium Level 138 mmol/L (136-145)
[2017-10-31 16:42] LABS: International Normalized Ratio 1.1; Prothrombin Time (Protime)PT. 14.2 SECONDS (11.7-14.9)
[2017-10-31 17:07] LABS: POSITIVE COUNT NO; POSITIVE DIFFERENTIAL NO; POSITIVE MORPHOLOGY NO
[2017-10-31 17:09] LABS: HIV - WCH Non-Reactive (Nonreactive)
[2017-10-31 19:53] VITALS: BP 101/50; PULSE 95; RESP 18; TEMP 37
[2017-10-31 20:12] LABS: Amphetamine Urine VISTA NEGATIVE (<1000 ng/mL); Barbiturate Urine VISTA NEGATIVE (< 200 ng/mL); Benzodiazepine Urine VISTA NEGATIVE (< 200 ng/mL); Cocaine Urine VISTA NEGATIVE (< 300 ng/mL); Ecstacy Urine VISTA NEGATIVE (< 500 ng/mL); Methadone Urine VISTA NEGATIVE (< 300 ng/mL); PCP Urine VISTA NEGATIVE (< 25 ng/mL); THC Urine VISTA NEGATIVE (< 50 ng/mL); Vista UDS pH Range 7
[2017-10-31] MEDS: LORazepam 0.5 MG Tablet PO (21:54)
[2017-10-31] MEDS: Famotidine 20 MG Tablet PO (21:54)
[2017-10-31] MEDS: traZODone 50 MG Tablet PO (21:55)
[2017-11-01] VITALS (8 sets, daily range): BP systolic 102–135; BP diastolic 51–75; PULSE 65–100; RESP 16–18; TEMP 36.6–37; O2SAT 95–100
[2017-11-01] MEDS: Buprenorphine HCl 2 MG TAB.SUBL SL ×4 (00:01→23:02)
[2017-11-01] MEDS: Ibuprofen 600 MG Tablet PO (00:21)
[2017-11-01] MEDS: Multivitamins,Ther W-Minerals Tablet 1 TABLET PO (07:53)
[2017-11-01] MEDS: Thiamine Hydrochloride 100 MG Tablet PO (07:53)
[2017-11-01] MEDS: Folic Acid 1 MG Tablet PO (07:53)
[2017-11-01] MEDS: Acetaminophen 500 MG Tablet PO (07:53)
--- NOTE | 2017-11-01 08:38 | PCM.PROGNOTE ---
Subjective: Chief complaint: Follow-up after admission for acute opioid withdrawal for medical stabilization. Patient seen and examined. No acute events overnight. Her symptoms have been improving, abdominal pain and cramping improved as well. Her vital signs are stable. - Physical Exam General: Alert, Oriented x3, Cooperative, No apparent distress HEENT: Atraumatic, PERRLA, EOMI Oral: Moist Mucosa, No Gingival or Mucosal Lesions/ Ulcerations Neck: Supple, No JVD, Negative Carotid Bruits, Trachea Midline, Thyroid Normal Size and Texture Lungs: Clear to auscultation, No rhonchi, No wheeze, No rales, Diminished Cardiovascular: Regular rate, Regular Rhythm, Normal S1, Normal S2, PMI Normal Abdomen: Bowel Sounds Present, Soft, Non-Distended, No Hepato-splenomegaly, Tender - Minimal tenderness. No guarding or rigidity. Extremities: No clubbing, No cyanosis, No edema Skin: No rashes, No breakdown Lymphatic: No Cervical, Supraclavicular, or Inguinal Adenopathy Neurological: Cranial nerves II-XII grossly intact, Motor Exam 5/5 strength throughout Psych/Mental Status: Normal Affect, Appropriate, Alert and oriented to time, place, person, mood and affect Vital Signs Temp Pulse Resp BP Pulse Ox 98.4 F 68 16 121/65 H 95 11/01/17 07:50 11/01/17 07:50 11/01/17 07:50 11/01/17 07:50 11/01/17 07:50 Oxygen Delivery Method Room Air Weight: 122 lb Body Mass Index (BMI) 22.3 Intake and Output for Last 24 Hours 10/30/17 10/31/17 11/01/17 23:59 23:59 23:59 Intake Total 675 / 675 1217 / 1217 Output Total 500 / 500 Balance 675 / 675 717 / 717 Laboratory Tests Past 24 Hrs 10/31/17 10/31/17 10/31/17 15:58 15:58 15:58 WBC 9.7 RBC 3.22 L Hgb 10.0 L Hct 30.2 L MCV 93.8 MCH 31.1 MCHC 33.1 RDW 13.3 RDW Differential 45.4 H Plt Count 405 MPV 10.1 Immature Gran % (Auto) 0.200 Neut % (Auto) 61.9 Lymph % (Auto) 28.2 [place] % (Auto) 8.0 Eos % (Auto) 1.4 Baso % (Auto) 0.3 Absolute Neuts (auto) 6.0 Absolute Lymphs (auto) 2.72 Total Counted Not Reportable PT 14.2 INR 1.1 Sodium 138 Potassium 3.6 Chloride 104 Carbon Dioxide 25.0 Anion Gap 9 BUN 6 L Creatinine 0.58 Estim Creat Clear Calc 87.70 Est GFR (MDRD) Af Amer 138 Est GFR (MDRD) Non-Af 114 BUN/Creatinine Ratio 10.3 Glucose 98 Calcium 8.6 Magnesium 2.2 Total Bilirubin 0.30 AST 20 ALT 16 Alkaline Phosphatase 99 Total Protein 7.5 Albumin 3.0 L Globulin 4.5 H Albumin/Globulin Ratio 0.7 L Lipase 63 L Urine Opiates Screen Urine Methadone Screen Ur Barbiturates Screen Ur Phencyclidine Scrn Ur Amphetamines Screen U Methamphetamin-MDMA U Benzodiazepines Scrn Urine Cocaine Screen U Cannabinoids Screen Ur Drug Screen Comment Ethyl Alcohol Hepatitis A IgM Ab Hepatitis A Ab Total Hep Bs Antigen Hep B Core Total Ab Hep B Core IgM Ab Hepatitis C Comment HIV 1&2 Antibody 10/31/17 10/31/17 10/31/17 15:58 15:58 15:58 WBC RBC Hgb Hct MCV MCH MCHC RDW RDW Differential Plt Count MPV Immature Gran % (Auto) Neut % (Auto) Lymph % (Auto) [place] % (Auto) Eos % (Auto) Baso % (Auto) Absolute Neuts (auto) Absolute Lymphs (auto) Total Counted PT INR Sodium Potassium Chloride Carbon Dioxide Anion Gap BUN Creatinine Estim Creat Clear Calc Est GFR (MDRD) Af Amer Est GFR (MDRD) Non-Af BUN/Creatinine Ratio Glucose Calcium Magnesium Total Bilirubin AST ALT Alkaline Phosphatase Total Protein Albumin Globulin Albumin/Globulin Ratio Lipase Urine Opiates Screen Urine Methadone Screen Ur Barbiturates Screen Ur Phencyclidine Scrn Ur Amphetamines Screen U Methamphetamin-MDMA U Benzodiazepines Scrn Urine Cocaine Screen U Cannabinoids Screen Ur Drug Screen Comment Ethyl Alcohol 4.0 Hepatitis A IgM Ab Pending Hepatitis A Ab Total Pending Hep Bs Antigen Pending Hep B Core Total Ab Pending Hep B Core IgM Ab Pending Hepatitis C Comment Pending HIV 1&2 Antibody Non-Reactive 10/31/17 19:30 WBC RBC Hgb Hct MCV MCH MCHC RDW RDW Differential Plt Count MPV Immature Gran % (Auto) Neut % (Auto) Lymph % (Auto) [place] % (Auto) Eos % (Auto) Baso % (Auto) Absolute Neuts (auto) Absolute Lymphs (auto) Total Counted PT INR Sodium Potassium Chloride Carbon Dioxide Anion Gap BUN Creatinine Estim Creat Clear Calc Est GFR (MDRD) Af Amer Est GFR (MDRD) Non-Af BUN/Creatinine Ratio Glucose Calcium Magnesium Total Bilirubin AST ALT Alkaline Phosphatase Total Protein Albumin Globulin Albumin/Globulin Ratio Lipase Urine Opiates Screen NEGATIVE Urine Methadone Screen NEGATIVE Ur Barbiturates Screen NEGATIVE Ur Phencyclidine Scrn NEGATIVE Ur Amphetamines Screen NEGATIVE U Methamphetamin-MDMA NEGATIVE U Benzodiazepines Scrn NEGATIVE Urine Cocaine Screen NEGATIVE U Cannabinoids Screen NEGATIVE Ur Drug Screen Comment Ethyl Alcohol Hepatitis A IgM Ab Hepatitis A Ab Total Hep Bs Antigen Hep B Core Total Ab Hep B Core IgM Ab Hepatitis C Comment HIV 1&2 Antibody Medical Necessity - Tobacco Use Smoking Status: Current every day smoker - 1/2-1 ppd. Tobacco Use: Cigarettes Assessment/Plan This is a 52 years old female patient admitted for acute opioid withdrawal for medical stabilization. #1 acute opioid withdrawal: Patient has been snorting oxycodone. She is on [facility] protocol with tapering course of Subutex, as needed Catapres, Librium, Bentyl, Vistaril, methocarbamol, emergency room, Mirapex and Seroquel. She reported improvement of her symptoms. Vital signs are stable. Routine blood work reviewed from yesterday, revealed chronic anemia with stable hemoglobin, otherwise normal. Plan to continue same treatment. #2 history of recurrent diverticulitis: Status post recent exploratory laparotomy with ileocecectomy, loop ileostomy with primary ileocolic anastomosis and this was done for perforated bowel with peritonitis. Dissection was done on October 22, 2017. Surgical incision looks clean and dry, no infection. Patient has been tolerating diet and has been having bowel movements. Vital signs are stable. #3 COPD: Stable, pulse ox maintained on room air. She is on albuterol as needed. #4 anxiety/depression: Continue trazodone and Seroquel. #5 hepatitis C: Not a candidate for treatment at this time. LFT was normal. #6 GERD: She is on Pepcid. #7 tobacco abuse: She is on NicoDerm patch. #8 DVT prophylaxis: Subcu Lovenox. This note was generated with [employer] dictation software. It may contain incorrect words, spelling, and punctuation that were not noted in checking the note before signing. Code Visit Inpatient E&M: 28656 Subs Hosp L2
[2017-11-01] MEDS: LORazepam 0.5 MG Tablet PO ×2 (10:10→23:03)
[2017-11-01] MEDS: Enoxaparin 40 MG/0.4 ML Syringe SC (10:10)
[2017-11-01] MEDS: Famotidine 20 MG Tablet PO ×2 (10:11→23:02)
[2017-11-01] MEDS: hydrOXYzine PAM 25 MG Capsule 50 MG PO (19:47)
[2017-11-01] MEDS: Methocarbamol 750 MG Tablet PO (19:47)
[2017-11-01] MEDS: Ondansetron ODT 4 MG Tablet PO (19:47)
[2017-11-01] MEDS: Dicyclomine 10 MG Capsule 20 MG PO (19:48)
[2017-11-01] MEDS: Loperamide 2 MG Capsule PO (19:48)
[2017-11-01] MEDS: traZODone 50 MG Tablet PO (23:04)
[2017-11-02 05:39] VITALS: BP 105/47; PULSE 84; RESP 16; TEMP 37.3
[2017-11-02] MEDS: Dicyclomine 10 MG Capsule 20 MG PO ×2 (05:44→19:44)
[2017-11-02] MEDS: chlordiazePOXIDE 25 MG Capsule PO ×2 (05:44→19:44)
[2017-11-02 07:52] VITALS: BP 131/83; PULSE 78; RESP 16; TEMP 36.9; O2SAT 97
[2017-11-02 08:01] VITALS: BP 131/83; PULSE 78; RESP 16; TEMP 36.9
[2017-11-02] MEDS: Buprenorphine HCl 2 MG TAB.SUBL SL ×2 (08:05→19:39)
[2017-11-02] MEDS: Thiamine Hydrochloride 100 MG Tablet PO (08:06)
[2017-11-02] MEDS: Multivitamins,Ther W-Minerals Tablet 1 TABLET PO (08:06)
[2017-11-02] MEDS: Folic Acid 1 MG Tablet PO (08:06)
--- NOTE | 2017-11-02 08:57 | PN_ITS ---
Subjective: Chief complaint: Follow-up after admission for acute opioid withdrawal for medical stabilization. Patient seen and examined. No acute events overnight. She complains of mild abdominal soreness because of her recent surgery. Denied any other complaints. She has been tolerating diet. Vital signs are stable. - Physical Exam General: Alert, Oriented x3, Cooperative, No apparent distress HEENT: Atraumatic, PERRLA, EOMI Oral: Moist Mucosa, No Gingival or Mucosal Lesions/ Ulcerations Neck: Supple, No JVD, Negative Carotid Bruits, Trachea Midline, Thyroid Normal Size and Texture Lungs: Clear to auscultation, Normal air movement, No rhonchi, No wheeze, No rales Cardiovascular: Regular rate, Regular Rhythm, Normal S1, Normal S2, PMI Normal Abdomen: Bowel Sounds Present, Soft, Non-Distended, No Hepato-splenomegaly, Tender Extremities: No clubbing, No cyanosis, No edema Skin: No rashes, No breakdown Lymphatic: No Cervical, Supraclavicular, or Inguinal Adenopathy Neurological: Cranial nerves II-XII grossly intact, Neuro grossly intact Psych/Mental Status: Normal Affect, Appropriate Vital Signs Temp Pulse Resp BP Pulse Ox 98.4 F 78 16 131/83 H 97 11/02/17 08:01 11/02/17 08:01 11/02/17 08:01 11/02/17 08:01 11/02/17 07:52 Oxygen Delivery Method Room Air Weight: 122 lb Body Mass Index (BMI) 22.3 Intake and Output for Last 24 Hours 10/31/17 11/01/17 11/02/17 23:59 23:59 23:59 Intake Total 675 / 675 1517 / 1517 200 / 200 Output Total 500 / 500 Balance 675 / 675 1017 / 1017 200 / 200 Medical Necessity - Tobacco Use Smoking Status: Current every day smoker Tobacco Use: Cigarettes Assessment/Plan This is a 52 years old female patient admitted for acute opioid withdrawal for medical stabilization. #1 acute opioid withdrawal: She is on [facility] protocol with tapering course of Subutex, as needed Catapres, Librium, Bentyl, Vistaril, methocarbamol, emergency room, Mirapex and Seroquel. She reported improvement of her symptoms. Vital signs are stable. Routine blood work reviewed from yesterday, revealed chronic anemia with stable hemoglobin, otherwise normal. Plan to continue same treatment, anticipate discharge tomorrow. #2 history of recurrent diverticulitis: Status post recent exploratory laparotomy with ileocecectomy, loop ileostomy with primary ileocolic anastomosis and this was done for perforated bowel with peritonitis. Dissection was done on October 22, 2017. Surgical incision looks clean and dry, no infection. Patient has been tolerating diet and has been having bowel movements. Vital signs are stable. #3 COPD: Stable, pulse ox maintained on room air. She is on albuterol as needed. #4 anxiety/depression: Continue trazodone and Seroquel. #5 hepatitis C: Not a candidate for treatment at this time. LFT was normal. #6 GERD: She is on Pepcid. #7 tobacco abuse: She is on NicoDerm patch. #8 DVT prophylaxis: Subcu Lovenox. This note was generated with [employer] dictation software. It may contain incorrect words, spelling, and punctuation that were not noted in checking the note before signing. Code Visit Inpatient E&M: 15467 Subs Hosp L2
[2017-11-02] MEDS: LORazepam 0.5 MG Tablet PO ×2 (10:39→21:28)
[2017-11-02] MEDS: Enoxaparin 40 MG/0.4 ML Syringe SC (10:40)
[2017-11-02] MEDS: Famotidine 20 MG Tablet PO ×2 (10:41→21:28)
[2017-11-02 12:06] LABS: HEPATITIS B SURFACE AG Negative (Negative); Hepatitis A AB, Total Negative (Negative); Hepatitis A IgM Antibody Negative (Negative); Hepatitis B Core AB IgM Negative (Negative); Hepatitis B Core Ab Total Negative (Negative); Hepatitis C Ab >11.0 s/co ratio (0.0-0.9)
[2017-11-02 14:37] VITALS: BP 117/77; PULSE 75; RESP 16; TEMP 37.3
[2017-11-02 19:33] VITALS: BP 154/89; PULSE 72; RESP 16; TEMP 36.8
[2017-11-02] MEDS: Ondansetron ODT 4 MG Tablet PO (19:44)
[2017-11-02] MEDS: Ibuprofen 600 MG Tablet PO (21:28)
[2017-11-02] MEDS: traZODone 50 MG Tablet PO (21:28)
--- NOTE | 2017-11-03 01:06 | NURSING ---
Son, Ham, was escorted to floor by security requesting to visit his mom so he could borrow her cell phone. This nurse went to room to ask patient if he may come back, patient asleep and did not awaken when this nurse entered. She had requested not to be awakened by staff through night. Patient did not mention any visitors that would be coming through night. Speaking to visitor with security and charge nurse present, I offered use of our desk phone to square dance caller, but patient did not know the number. He said that he needed to get to [facility]. for a place to spend the night and calling his brother was the only way he could get there. I told visitor that we did not have visiting hours, but it was 1 in the morning and the patient had not rested well the past few nights. Visitor decided not to wake patient. This nurse showed google maps to visitor and location of intersection. Visitor was escorted out with security.
[2017-11-03 07:06] VITALS: O2SAT 91
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
--- NOTE | 2017-11-03 08:45 | PCM.DC ---
- Discharge Diagnoses Current Active Problems: Current Active and Chronic Problems (Last Reviewed 10/31/17 @ 13:23 by Catrina Tenorio) Hepatitis C (Chronic) You will use the following diet at home:: Regular Your food should be the consistency of: Regular Discharge Activity: Return to Normal Activity Weight Bearing Status: Weight bearing as tolerated Call your doctor if your incision/area has: Continuous Slow Oozing, Sudden Increased Bleeding, Increased Redness, Foul Smelling Discharge, Swelling at the incision site Call your doctor if you observe: Fever of 101 or Higher, Shortness of breath, Dizziness, Fainting spells, Chest pain, Increased palpitations (irregular heartbeat), Uncontrolled pain Allergies/Adverse Reactions: Allergies codeine Allergy (Verified 10/31/17 14:23) HALLUCINATION Penicillins Allergy (Verified 10/31/17 14:23) UNSURE CHILD Medications to take at Discharge Albuterol Inhaler [Ventolin Hfa] 1 - 2 puff INHALATION Q6H PRN PRN 09/01/17 Cyclobenzaprine [Flexeril] 10 mg PO TID PRN PRN #10 tab 09/16/17 Acetaminophen [Tylenol Tablet] 650 mg PO Q6H PRN PRN tab 10/26/17 Lorazepam [Ativan] 0.5 mg PO BID #14 tab 10/26/17 Docusate Sodium [Colace] 100 mg PO BID PRN PRN #20 cap 10/29/17 Pramipexole Di-HCl [Mirapex] 0.25 mg PO Q12H PRN PRN #30 tab 11/03/17 The following prescriptions were given: Pramipexole Di-HCl [Mirapex] 0.25 mg PO Q12H PRN PRN #30 tab PRN Reason: Restless legs Primary Care Physician: Mack Langston MD [Primary Care Provider] - Please follow up with your Primary Care Physician in: 2-3 WEEKS. Please Follow Up With: Felipe Rios MD When: As scheduled.
[2017-11-03 09:00] VITALS: BP 145/84; PULSE 91; RESP 18; TEMP 36.9; O2SAT 93
[2017-11-03] MEDS: Thiamine Hydrochloride 100 MG Tablet PO (09:03)
[2017-11-03] MEDS: Multivitamins,Ther W-Minerals Tablet 1 TABLET PO (09:03)
[2017-11-03] MEDS: Famotidine 20 MG Tablet PO (09:03)
[2017-11-03] MEDS: Folic Acid 1 MG Tablet PO (09:03)
[2017-11-03] MEDS: Buprenorphine HCl 2 MG TAB.SUBL SL (09:06)
[2017-11-03] MEDS: LORazepam 0.5 MG Tablet PO (09:06)
--- NOTE | 2017-11-03 10:42 | PCM.DC.SUM ---
Discharge Date and Diagnosis Date of Admission: 10/31/17 Date of Discharge: 11/03/17 - Primary Discharge Diagnosis #1 acute opioid withdrawal, admitted for medical stabilization. #2 history of recurrent diverticulitis, status post recent exploratory laparotomy with ileocecectomy, loop ileostomy with primary ileocolic anastomosis. - Secondary Discharge Diagnosis Chronic Problems (Last Reviewed 10/31/17 @ 13:23 by Catrina Tenorio) Hepatitis C (Chronic) Polysubstance (including opioids) dependence, daily use (Chronic) S/P partial colectomy (Chronic) 07/24/17 History of tubal ligation (Chronic) History of attempted suicide (Chronic) Chronic leg pain (Chronic) Asthma (Chronic) GERD (gastroesophageal reflux disease) (Chronic) Arthritis (Chronic) Tubo-ovarian abscess (Chronic) Hydrosalpinx (Chronic) Clostridium difficile infection (Chronic) Recent discharge s/p diverticulitis diagnosis w/ resulting c. difficile colitis w/ transition outpatient to oral vancomycin. Tobacco use (Chronic) Anxiety (Chronic) COPD (chronic obstructive pulmonary disease) (Chronic) Hospital Course and Treatment Operations: None, - - Colonoscopy and laparotomy with takedown ileostomy and ileocecectomy Procedures: None Summary of Care Provided: Patient seen and examined on the day of discharge and appeared to be stable to be discharged home. She has no specific complaints. Abdominal pain is improving and she has been tolerating regular diet. Vital signs are stable. - Physical Exam General: Alert, Oriented x3, Cooperative, No apparent distress. HEENT: Atraumatic, PERRLA, EOMI. Neck: Supple, No JVD, Negative Carotid Bruits, Trachea Midline, Thyroid Normal. Lungs: Diminished breath sounds bilateral, otherwise clear, No rhonchi, No wheeze, No rales. Cardiovascular: Regular rate, Regular Rhythm, Normal S1, Normal S2, PMI Normal. Abdomen: Bowel Sounds Present, Soft, minimal tenderness, Non-Distended, No Hepato-splenomegaly. Midline surgical incision is clean and dry. Extremities: No clubbing, No cyanosis, No edema Skin: No rashes, No breakdown Neurological: Neuro grossly intact Vital Signs are stable. Hospital course: The patient is a 52 year old F admitted for acute opioid withdrawal for medical stabilization. Patient has been snorting oxycodone when she came because of symptoms of abdominal pain, cramps, generalized body aches and pains, rhinorrhea and restless legs. She was initiated on [facility] protocol with tapering course of Subutex, as needed Catapres, Librium, Bentyl, Vistaril, methocarbamol, Mirapex and Seroquel. Her routine blood work was remarkable for chronic anemia with stable hemoglobin, otherwise normal. His LFT and lipase were unremarkable. Urine drug screen was negative. Blood alcohol level was 4. With above-mentioned treatment, patient symptoms improved and she did very well. She had recent surgery for history of recurrent diverticulitis and her surgery was stable. She was continued on a regular diet without any problems. Her surgical incision was clean and dry. Patient tolerated regular diet very well. Patient discharged home in a stable medical condition, discharged on Mirapex for restless legs, continued on her chronic home medication without any changes, plan to follow-up with [facility] as outpatient, follow-up with PCP in 2-3 weeks and follow-up with her surgeon as scheduled. Discharge Activity: Return to Normal Activity Weight Bearing Status: Weight bearing as tolerated Call your doctor if your incision/area has: Continuous Slow Oozing, Sudden Increased Bleeding, Increased Redness, Foul Smelling Discharge, Swelling at the incision site Call your doctor if you observe: Fever of 101 or Higher, Shortness of breath, Dizziness, Fainting spells, Chest pain, Increased palpitations (irregular heartbeat), Uncontrolled pain Home Medications: Medications to take at Discharge Albuterol Inhaler [Ventolin Hfa] 1 - 2 puff INHALATION Q6H PRN PRN 09/01/17 Cyclobenzaprine [Flexeril] 10 mg PO TID PRN PRN #10 tab 09/16/17 Acetaminophen [Tylenol Tablet] 650 mg PO Q6H PRN PRN tab 10/26/17 Lorazepam [Ativan] 0.5 mg PO BID #14 tab 10/26/17 Docusate Sodium [Colace] 100 mg PO BID PRN PRN #20 cap 10/29/17 Pramipexole Di-HCl [Mirapex] 0.25 mg PO Q12H PRN PRN #30 tab 11/03/17 Following Prescrptions Were Given to Patient: Pramipexole Di-HCl [Mirapex] 0.25 mg PO Q12H PRN PRN #30 tab PRN Reason: Restless legs Primary Care Physician: Mack Langston MD [Primary Care Provider] - Please follow up with your Primary Care Physician in: 2-3 WEEKS. Please Follow Up With: Felipe Rios MD When: As scheduled. Disposition: Home Minutes spent on discharge:: 26 Patient Condition:: Stable Medical Necessity - Tobacco Use Smoking Status: Current every day smoker Tobacco Use: Cigarettes Meaningful Use Info Meaningful Use Diagnoses (Choose all that apply): None applicable Code Visit Inpatient E&M: 45764 Disch Hosp
[2017-11-03 11:07] LABS: Hep B Surface Antibodies Non Reactive (.)
== END 2017-11-03 09:17 | disposition home or self-care (01) | DRG 434 ==
LOC: ED 14:30 → MS2 15:15
PROVIDERS: Admitting Provider Family Medicine; Emergency Provider Emergency Medicine; Family Provider Internal Medicine; PCP Internal Medicine; Visit Provider Hospitalist
DX: F11.23 Opioid dependence with withdrawal (principal); J44.9 Chronic obstructive pulmonary disease, unspecified; F17.200 Nicotine dependence, unspecified, uncomplicated; G89.29 Other chronic pain; M79.604 Pain in right leg; F32.9 Major depressive disorder, single episode, unspecified; F41.9 Anxiety disorder, unspecified; K21.9 Gastro-esophageal reflux disease without esophagitis; Z93.2 Ileostomy status; Z90.49 Acquired absence of other specified parts of digestive tract; Z88.5 Allergy status to narcotic agent; Z86.19 Personal history of other infectious and parasitic diseases; Z91.5 Personal history of self-harm
CPT/HCPCS: 80053; 80307; 80320; 83690; 83735; 85025; 85610; 86703; 86704; 86705; 86706; 86708; 86709; 86803; 87340; J7120; G0480

== ENCOUNTER 2018-06-17 12:27 | Observation (INO) | payer MEDICAID, SELFPAY ==
[2018-06-17] VITALS (9 sets, daily range): BP systolic 108–164; BP diastolic 67–101; PULSE 80–116; RESP 14–22; TEMP 36.6–37.4; O2SAT 96–98; BMI 22.8; BMI 22.9
--- NOTE | 2018-06-17 13:51 | ED.RN ---
pt informed pharmacy teacher that was working on her medication list that she snorted her oxycodone that was filled on 05/20/18. she has no more to this medications. information passed onto ed dr. Gabriel wagner rn
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
--- NOTE | 2018-06-17 15:32 | ED.VISSUMM ---
- ER Visit Summary Date of Service: 06/17/18 Chief Complaint: Opiate withdrawal History of Present Illness: The patient is a 53 F who was presented to the emergency department seeking detox for the third time for the abuse of prescription drugs. Patient states that she snorts Vicodin oxycodone any other opiate that she can get her hands on. She last used 2 days ago. She drank alcohol yesterday to help control her withdrawal symptoms. She notes that she also abuses benzodiazepines. She notes that she drinks alcohol only about once every 2 weeks. She states that a couple days ago she started 3 Percocets and thought she had . She states this was the impetus for seeking rehab. She states that she feels ill. She notes aching cold nausea vomiting diarrhea sweating. She states that she feels very fidgety and cannot sit still. Physical Examination: Afebrile vital signs are stable Gen: Well-nourished well-developed Head: Normocephalic atraumatic Eyes: Perrl EOMI ENT: TMs clear no rhinorrhea moist mucous membranes Neck: Supple no lymphadenopathy no JVD nontender CVS: Regular rate rhythm no murmurs normal S1-S2 Respiratory: No distress clear to auscultation bilaterally chest nontender Abdomen: Soft vague generalized tenderness to palpation without guarding or rebound nondistended normal bowel sounds no masses Back: Nontender Extremity: Nontender no edema Skin: Normal color no rash Neuro: alert orientated ?3 CN II-XII intact normal strength sensation reflexes gait cerebellar Psych: Patient is very restless. Emergency Department Course and Treatment: [facility] assessed the patient and felt her appropriate for inpatient detox. Hospitalist contacted and the patient will be admitted. Impression: 1. Acute opiate withdrawal 2. Polysubstance drug abuse This note was generated with [employer] dictation software. It may contain incorrect words, spelling, and punctuation that were not noted in review of the chart prior to signing ED Disposition - Plan for ED Patient: Disposition: Acute Care Hospital [facility] Chief Complaint: Substance Abuse
[2018-06-17] MEDS: Buprenorphine HCl 2 MG TAB.SUBL SL ×2 (15:40→23:36)
[2018-06-17] MEDS: Methocarbamol 750 MG Tablet PO ×2 (15:40→23:36)
[2018-06-17] MEDS: Ondansetron 8 MG Tablet PO ×2 (15:44→23:36)
[2018-06-17 15:59] LABS: Absolute Lymphocyte Count 2.45 X10^3/ul (0.83-4.51); Absolute Neutrophil Count 3.3 X10^3/uL (2.0-7.7); Basophil# 0.02 X10^3/uL; Basophil% 0.3 % (0-1); Eosinophil# 0.09 X10^3/uL; Eosinophils% 1.4 % (0-5); Hematocrit 36.4 % (37-47); Hemoglobin 12.7 g/dl (12.0-15.0); Lymphocyte # 2.45 X10^3/ul (4.0); Lymphocyte % 39.1 % (19-41); Mean Corp Hgb Conc 34.9 g/gl (32-36); Mean Corpuscular Hgb 35.3 pg (27.0-32.0); Mean Corpuscular Volume 101.1 fL (81-99); Mean Platelet Vol. 10.1 fl (6.2-12.0); Monocyte# 0.45 X10^3/uL; Monocyte% 7.2 % (0-10); Neutrophil # 3.25 X10^3/uL (2.7-7.7); Neutrophil % 51.8 % (47-70); Platelet Count 187 K/mm3 (150-450); RBC Distribution Width CV 12.1 % (11.6-14.6); RBC Distribution Width SD 43.3 fl (35.1-43.9); White Blood Count 6.3 K/mm3 (4.4-11.0)
[2018-06-17 16:11] LABS: POSITIVE COUNT NO; POSITIVE DIFFERENTIAL NO; POSITIVE MORPHOLOGY NO
[2018-06-17 16:19] LABS: ALB/GLOB Ratio 0.9 RATIO (0.9-2.4); AST(SGOT) 109 U/L (15-37); Alanine Aminotransfer ALT/SGPT 148 U/L (13-56); Albumin, Serum 3.6 g/dL (3.2-5.0); Alkaline Phosphatase 136 U/L (45-117); Anion Gap 8 (5-15); BUN 4 mg/dL (7-18); BUN/Creat Ratio 6.5 RATIO (10-20); Calcium,Total 8.5 mg/dL (8.5-10.1); Chloride 108 mmol/L (98-107); Creatinine, Serum 0.62 mg/dL (0.55-1.02); EST Glomerular Filtration Rate 106 mL/min (>60); Est Glom Filt Rate - Afr Amer 129 mL/min (>60); Estimated Creatinine Clearance 77.36 ml/min; Globulin 3.9 g/dL (2.2-4.2); Glucose 99 mg/dL (74-106); Potassium 3.7 mmol/L (3.5-5.1); Protein, Total 7.5 g/dL (6.4-8.2); Sodium Level 140 mmol/L (136-145)
[2018-06-17] MEDS: Nicotine Polacrilex 2 MG GUM PO (16:54)
[2018-06-17] MEDS: cloNIDine HCl 0.1 MG Tablet PO (16:54)
[2018-06-17] MEDS: Famotidine 20 MG Tablet PO (20:21)
[2018-06-17] MEDS: Pramipexole Di-HCl 0.25 MG Tablet PO (20:24)
[2018-06-17] MEDS: hydrOXYzine PAM 25 MG Capsule 50 MG PO (20:24)
[2018-06-18 04:09] VITALS: BP 117/73; PULSE 65; RESP 18; TEMP 36.6
[2018-06-18] MEDS: Buprenorphine HCl 2 MG TAB.SUBL SL ×3 (06:55→23:05)
[2018-06-18 07:59] VITALS: PULSE 90
--- NOTE | 2018-06-18 08:21 | PN_ITS ---
Patient Problems: Active and Suspected Problems (Last Reviewed 11/14/17 @ 09:58 by Melnaie Weiner) Opioid withdrawal (Acute) Subjective: Chief complaint: Follow-up after admission for acute opioid withdrawal for medical stabilization. Patient seen and examined. No acute events overnight. She denies any more nausea or vomiting. Still having intermittent abdominal cramps but improved. Anxiety and restless legs also started to improve. Her vital signs are stable. - Physical Exam General: Alert, Oriented x3, Cooperative, No apparent distress HEENT: Atraumatic, PERRLA, EOMI, Normocephalic Oral: Moist Mucosa, No Gingival or Mucosal Lesions/ Ulcerations Neck: Supple, No JVD, Negative Carotid Bruits, Trachea Midline, Thyroid Normal Size and Texture Lungs: Clear to auscultation, Normal air movement, No rhonchi, No wheeze, No rales Cardiovascular: Regular rate, Regular Rhythm, Normal S1, Normal S2 Abdomen: Bowel Sounds Present, Soft, Non Tender, Non-Distended, No Hepato- splenomegaly Extremities: No clubbing, No cyanosis, No edema Skin: No rashes, No breakdown Lymphatic: No Cervical, Supraclavicular, or Inguinal Adenopathy Neurological: Cranial nerves II-XII grossly intact, Motor Exam 5/5 strength throughout Psych/Mental Status: Normal Affect, Appropriate, Alert and oriented to time, place, person, mood and affect Vital Signs Temp Pulse Resp BP Pulse Ox 98 F 90 18 117/73 98 06/18/18 04:09 06/18/18 07:59 06/18/18 04:09 06/18/18 04:09 06/17/18 14:49 Oxygen Delivery Method Room Air Weight: 121 lb 3.2 oz Body Mass Index (BMI) 22.8 Laboratory Tests Past 24 Hrs 06/17/18 06/17/18 15:39 15:39 WBC 6.3 RBC 3.60 L Hgb 12.7 Hct 36.4 L MCV 101.1 H MCH 35.3 H MCHC 34.9 RDW 12.1 RDW Differential 43.3 Plt Count 187 MPV 10.1 Immature Gran % (Auto) 0.200 Neut % (Auto) 51.8 Lymph % (Auto) 39.1 Taylor % (Auto) 7.2 Eos % (Auto) 1.4 Baso % (Auto) 0.3 Absolute Neuts (auto) 3.3 Absolute Lymphs (auto) 2.45 Total Counted Not Reportable Sodium 140 Potassium 3.7 Chloride 108 H Carbon Dioxide 24.0 Anion Gap 8 BUN 4 L Creatinine 0.62 Estim Creat Clear Calc 77.36 Est GFR (MDRD) Af Amer 129 Est GFR (MDRD) Non-Af 106 BUN/Creatinine Ratio 6.5 L Glucose 99 Calcium 8.5 Total Bilirubin 0.50 AST 109 H ALT 148 H Alkaline Phosphatase 136 H Total Protein 7.5 Albumin 3.6 Globulin 3.9 Albumin/Globulin Ratio 0.9 Medical Necessity - Tobacco Use Smoking Status: Current every day smoker Tobacco Use: Cigarettes Assessment/Plan All Active Problems (Last Reviewed 11/14/17 @ 09:58 by Melanie Weiner) Opioid withdrawal (Acute) This is a 53 years old female patient admitted for acute opioid withdrawal for medical stabilization. #1 acute opioid withdrawal: She is on [facility] protocol with tapering course of Subutex, as needed Catapres, Bentyl, Vistaril, methocarbamol, Mirapex. She reported some improvement of her symptoms. Her vital signs are stable. Routine blood work was unremarkable. LFT slightly elevated likely because of chronic hepatitis C. Plan to continue same treatment. #2 COPD: Clinically stable, pulse ox is maintained on room air. She is on albuterol as needed. #3 anxiety/depression: Stable, she is not on any medications for depression or anxiety. #4 chronic hepatitis C: Never been treated for it. I recommended to follow-up with infectious disease as outpatient. #5 GERD: Continue Pepcid. #6 tobacco abuse: NicoDerm patch. #7 DVT prophylaxis: Low risk patient, no prophylaxis indicated. This note was generated with [employer] dictation software. It may contain incorrect words, spelling, and punctuation that were not noted in checking the note before signing. Code Visit Inpatient E&M: 24051 Subs Hosp L2
[2018-06-18 09:12] VITALS: BP 120/69; PULSE 63; RESP 18; TEMP 36.8
[2018-06-18] MEDS: Ibuprofen 400 MG Tablet PO (09:17)
[2018-06-18] MEDS: Famotidine 20 MG Tablet PO ×2 (09:18→21:23)
--- NOTE | 2018-06-18 10:45 | CASEMGMT ---
Pt asked physician if someone could some speak w/her about her behaviors. SW met w/pt in room, pt is here as part of the [facility] program. Pt states she would like a list of NA meetings. She is also interested in counseling at [facility] and at [facility]. Pt states that this time she is ready to stop using. Pt states in the past she was not ready--she participated in [facility] in the past as a physician had told her she had to. Pt states she has made up her mind and does not want to use. In regard to family, pt states lives w/her son, his girlfriend, and the girlfriend is . Pt states that home is stressful and she wants all of them to move out. Pt asked if [facility] still helps w/housing, SW explained that they do. Regarding mental health, pt states has anxiety, not on medications and does not want to be on medications. Pt denies being suicidal. Pt does want counseling at [facility], states she wants to speak w/someone one on one. SW asked pt about transportation. Pt does not have easy access to transportation. She states her neighbor goes to , so she may be able to go with her. SW asked pt about utilizing the food hen[employer] to free up money for transportation. Pt states she is not interested in any information on food henry. Pt states not using will free up money, and she plans to save money to buy a car. SW also asked pt about the subsidized taxi program, pt states she cannot afford this at this time either. SW explained will check w/Jonelle Patel w/[employer] to see what she is working on for pt, and can assist with whatever else is needed. SW spoke w/Jonelle Patel, she is getting pt a list of NA meetings, and is setting up pt w/appointments at both [facility] and [facility]. No other needs anticipated, pt declined information from this SW on food pantries and the taxi voucher program. KIRILL remains available should any other needs arise. SANDOR Esparza, STUDENT ADVISOR
[2018-06-18] MEDS: Methocarbamol 750 MG Tablet PO (12:22)
[2018-06-18 15:20] VITALS: BP 104/63; PULSE 60; RESP 18; TEMP 36.6
--- NOTE | 2018-06-18 15:31 | CHAPLAIN ---
Type of Pastoral Visit _x__ Initial Visit ___ Follow-up Visit ___ On-call Visit ___ General Patient Visit ___ Spiritual Assessment ___ Family Conference ___ Bereavement ___ Rapid Response ___ Code Blue ___ Other (describe below) Pastoral Care Referral From _x__ Patient ___ Family ___ Nurse ___ Physician ___ Information Lead ___ Complex Human Resources Manager ___ Other (describe below) Sacrament/Intervention _x__ Active listening ___ Anointing ___ Taoist ___ Bereavement ___ Communion _x__ Heide exploration ___ _x__ Life review _x__ Prayer ___ Reconciliation ___ Sacrament of Sick _x__ Supportive presence ___ Wedding ___ Other (describe below) Pastoral Comments patient expresses desire to talk; pt states that she is done with drugs and alcohol and wants a new life; pt states she has talked with counselors and has a plan; pt expresses need for spiritual support and prayer; pt would like to have a Bible; pt requested prayer from tow driver;
[2018-06-18] MEDS: Ondansetron 8 MG Tablet PO (17:33)
[2018-06-18 17:41] VITALS: BP 109/69; PULSE 61; RESP 18; TEMP 36.4
[2018-06-18] MEDS: hydrOXYzine PAM 25 MG Capsule 50 MG PO (17:50)
[2018-06-18] MEDS: Pramipexole Di-HCl 0.25 MG Tablet PO (21:23)
[2018-06-18] MEDS: cloNIDine HCl 0.1 MG Tablet PO (21:25)
[2018-06-18 21:26] VITALS: BP 121/81; PULSE 66; RESP 18; TEMP 36.7
[2018-06-19] VITALS (8 sets, daily range): BP systolic 98–115; BP diastolic 54–72; PULSE 56–65; RESP 16–18; TEMP 36.7–37.1; O2SAT 99–100
[2018-06-19] MEDS: Ondansetron 8 MG Tablet PO ×2 (06:56→14:48)
[2018-06-19] MEDS: Buprenorphine HCl 2 MG TAB.SUBL SL ×2 (06:56→18:49)
[2018-06-19] MEDS: Methocarbamol 750 MG Tablet PO ×2 (06:56→14:39)
[2018-06-19] MEDS: Nicotine Polacrilex 2 MG GUM PO (07:50)
[2018-06-19] MEDS: Ibuprofen 400 MG Tablet PO ×2 (07:50→18:39)
[2018-06-19] MEDS: hydrOXYzine PAM 25 MG Capsule 50 MG PO ×3 (07:51→20:34)
--- NOTE | 2018-06-19 09:11 | PN_ITS ---
Patient Problems: Active and Suspected Problems (Last Updated 06/18/18 @ 08:23 by Effie Cheema MD) Opioid withdrawal (Acute) Subjective: Chief complaint: Follow-up after admission for acute opioid withdrawal for medical stabilization. Patient seen and examined. No acute events overnight. She reported improvement of her symptoms, still having some nausea and restlessness. She has no more abdominal cramps or vomiting. Her vital signs are stable. - Physical Exam General: Alert, Oriented x3, Cooperative, No apparent distress HEENT: Atraumatic, PERRLA, EOMI, Normocephalic Oral: Moist Mucosa, No Gingival or Mucosal Lesions/ Ulcerations Neck: Supple, No JVD, Negative Carotid Bruits, Trachea Midline, Thyroid Normal Size and Texture Lungs: Clear to auscultation, Normal air movement, No rhonchi, No wheeze, No rales Cardiovascular: Regular rate, Regular Rhythm, Normal S1, Normal S2, PMI Normal Abdomen: Bowel Sounds Present, Soft, Non Tender, Non-Distended, No Hepato- splenomegaly Extremities: No clubbing, No cyanosis, No edema Skin: No rashes, No breakdown Lymphatic: No Cervical, Supraclavicular, or Inguinal Adenopathy Neurological: Cranial nerves II-XII grossly intact, Neuro grossly intact Psych/Mental Status: Normal Affect, Appropriate, Alert and oriented to time, place, person, mood and affect Vital Signs Temp Pulse Resp BP Pulse Ox 98.1 F 56 L 18 100/65 98 06/19/18 06:51 06/19/18 06:51 06/19/18 06:51 06/19/18 06:51 06/17/18 14:49 Oxygen Delivery Method Room Air Weight: 121 lb 3.2 oz Body Mass Index (BMI) 22.8 Medical Necessity - Tobacco Use Smoking Status: Current every day smoker Tobacco Use: Cigarettes Assessment/Plan All Active Problems (Last Updated 06/18/18 @ 08:23 by Effie Cheema MD) Opioid withdrawal (Acute) This is a 53 years old female patient admitted for acute opioid withdrawal for medical stabilization. #1 acute opioid withdrawal: She is on [facility] protocol with tapering course of Subutex, as needed Catapres, Bentyl, Vistaril, methocarbamol, Mirapex. Symptoms continue to improve. Her vital signs are stable. Routine blood work was unremarkable. LFT slightly elevated likely because of chronic hepatitis C. Plan to continue same treatment, anticipate discharge home tomorrow. #2 COPD: Clinically stable, pulse ox is maintained on room air. She is on albuterol as needed. #3 anxiety/depression: Stable, she is not on any medications for depression or anxiety. #4 chronic hepatitis C: Never been treated for it. I recommended to follow-up with infectious disease as outpatient. #5 GERD: Stable, continue Pepcid. #6 tobacco abuse: NicoDerm patch. #7 DVT prophylaxis: Low risk patient, no prophylaxis indicated. This note was generated with [employer] dictation software. It may contain incorrect words, spelling, and punctuation that were not noted in checking the note before signing. Code Visit Inpatient E&M: 49126 Subs Hosp L2
[2018-06-19] MEDS: Pramipexole Di-HCl 0.25 MG Tablet PO (10:53)
[2018-06-19] MEDS: Famotidine 20 MG Tablet PO ×2 (10:55→18:49)
[2018-06-19] MEDS: Dicyclomine 10 MG Capsule 20 MG PO (18:40)
[2018-06-20] MEDS: Ibuprofen 400 MG Tablet PO (04:43)
[2018-06-20 04:48] VITALS: BP 98/66; PULSE 64; RESP 18; TEMP 36.9
[2018-06-20] MEDS: Dicyclomine 10 MG Capsule 20 MG PO (05:40)
[2018-06-20] MEDS: Buprenorphine HCl 2 MG TAB.SUBL SL (07:25)
[2018-06-20 08:57] VITALS: BP 91/41; PULSE 64; RESP 20; TEMP 37; O2SAT 97
--- NOTE | 2018-06-20 08:58 | DCINST_ITS ---
- Discharge Diagnoses Current Active Problems: Current Active and Chronic Problems (Last Updated 06/18/18 @ 08:23 by Effie Cheema MD) Opioid withdrawal (Acute) You will use the following diet at home:: Regular Your food should be the consistency of: Regular Discharge Activity: Return to Normal Activity Weight Bearing Status: Full weight bearing Call your doctor if you observe: Fever of 101 or Higher, Shortness of breath, Dizziness, Fainting spells, Chest pain, Increased palpitations (irregular heartbeat), Uncontrolled pain Allergies/Adverse Reactions: Allergies codeine Allergy (Verified 06/17/18 12:27) HALLUCINATION Penicillins Allergy (Verified 06/17/18 12:27) UNSURE CHILD Medications to take at Discharge Albuterol Inhaler [Ventolin Hfa] 1 - 2 puff INHALATION Q6H PRN PRN 09/01/17 Acetaminophen [Tylenol Tablet] 650 mg PO Q6H PRN PRN tab 10/26/17 Pramipexole Di-HCl [Mirapex] 0.25 mg PO Q12H PRN PRN #30 tab 11/03/17 Primary Care Physician: Mack Langston MD [Primary Care Provider] - Please follow up with your Primary Care Physician in: 2 weeks. Test Results: Test results from this visit will be discussed in further detail at your follow- up appointment, if applicable.
[2018-06-20] MEDS: Famotidine 20 MG Tablet PO (09:17)
[2018-06-20 09:59] VITALS: BP 91/41; PULSE 64; RESP 20; TEMP 37
--- NOTE | 2018-06-20 11:21 | DS.PCM_ITS ---
Discharge Date and Diagnosis Date of Admission: 06/17/18 Date of Discharge: 06/20/18 - Primary Discharge Diagnosis Acute opioid withdrawal admitted for medical stabilization. - Secondary Discharge Diagnosis Chronic Problems (Last Updated 06/18/18 @ 08:23 by Effie Cheema MD) Hepatitis C (Chronic) Polysubstance (including opioids) dependence, daily use (Chronic) S/P partial colectomy (Chronic) 07/24/17 History of tubal ligation (Chronic) History of attempted suicide (Chronic) Chronic leg pain (Chronic) Asthma (Chronic) GERD (gastroesophageal reflux disease) (Chronic) Arthritis (Chronic) Tobacco use (Chronic) Anxiety (Chronic) COPD (chronic obstructive pulmonary disease) (Chronic) Hospital Course and Treatment Operations: None, - Procedures: None Summary of Care Provided: Patient seen and examined on the day of discharge and appeared to be stable to be discharged home. Symptoms of abdominal cramps and restlessness improved. Her vital signs are stable. The patient is a 53 year old F presented to the [facility] office requesting admission for acute opioid withdrawal for medical stabilization. Patient has been using heroin as well as prescription pain medications including oxycodone. She came in with symptoms of abdominal cramps, restless legs, anxiety and diarrhea. Her last dose of use was the day of admission. Her vital signs were stable throughout admission. Her routine blood work was unremarkable. LFT was slightly elevated which is attributed to chronic hepatitis C. She was treated with [facility] protocol with tapering course of Subutex, as needed Catapres, Bentyl, Vistaril, methocarbamol and Mirapex. With treatment, patient symptoms improved and she feels better. Patient discharged home in a stable medical condition, continued on her chronic home medications without any changes, has been using OxyIR which was discontinued upon discharge, recommended follow-up with PCP in 1 week and she was arranged to go to inpatient rehab unit by [facility] office. - Physical Exam General: Alert, Oriented x3, Cooperative, No apparent distress HEENT: Atraumatic, PERRLA, EOMI Oral: Moist Mucosa, No Gingival or Mucosal Lesions/ Ulcerations Neck: Supple, No JVD, Negative Carotid Bruits, Trachea Midline, Thyroid Normal Size and Texture Lungs: Clear to auscultation, Normal air movement, No rhonchi, No wheeze, No rales Cardiovascular: Regular rate, Regular Rhythm, Normal S1, Normal S2 Abdomen: Bowel Sounds Present, Soft, Non Tender, Non-Distended, No Hepato- splenomegaly Extremities: No clubbing, No cyanosis, No edema Skin: No rashes, No breakdown Lymphatic: No Cervical, Supraclavicular, or Inguinal Adenopathy Neurological: Cranial nerves II-XII grossly intact, Motor Exam 5/5 strength throughout Psych/Mental Status: Normal Affect, Appropriate Vital Signs Temp Pulse Resp BP Pulse Ox 98.6 F 64 20 H 91/41 L 97 06/20/18 09:59 06/20/18 09:59 06/20/18 09:59 06/20/18 09:59 06/20/18 08:57 Oxygen Delivery Method Room Air Weight: 121 lb 3.2 oz Body Mass Index (BMI) 22.8 Discharge Activity: Return to Normal Activity Weight Bearing Status: Full weight bearing Call your doctor if you observe: Fever of 101 or Higher, Shortness of breath, Dizziness, Fainting spells, Chest pain, Increased palpitations (irregular heartbeat), Uncontrolled pain Home Medications: Medications to take at Discharge Albuterol Inhaler [Ventolin Hfa] 1 - 2 puff INHALATION Q6H PRN PRN 09/01/17 Acetaminophen [Tylenol Tablet] 650 mg PO Q6H PRN PRN tab 10/26/17 Pramipexole Di-HCl [Mirapex] 0.25 mg PO Q12H PRN PRN #30 tab 11/03/17 Primary Care Physician: Mack Langston MD [Primary Care Provider] - Please follow up with your Primary Care Physician in: 2 weeks. Disposition: Home Minutes spent on discharge:: 26 Patient Condition:: Stable Medical Necessity - Tobacco Use Smoking Status: Current every day smoker Tobacco Use: Cigarettes Meaningful Use Info Meaningful Use Diagnoses (Choose all that apply): None applicable Code Visit Inpatient E&M: 05375 Disch Hosp
== END 2018-06-20 09:20 | disposition home or self-care (01) | DRG 773 ==
LOC: ED 14:05 → MS2 14:31
PROVIDERS: Admitting Provider Internal Medicine; Emergency Provider Emergency Medicine; Family Provider Internal Medicine; PCP Internal Medicine; Visit Provider Hospitalist
DX: F11.23 Opioid dependence with withdrawal (principal); F17.210 Nicotine dependence, cigarettes, uncomplicated; B18.2 Chronic viral hepatitis C; Z90.49 Acquired absence of other specified parts of digestive tract; J44.9 Chronic obstructive pulmonary disease, unspecified; K21.9 Gastro-esophageal reflux disease without esophagitis; Z98.51 Tubal ligation status; F41.9 Anxiety disorder, unspecified; F32.9 Major depressive disorder, single episode, unspecified; Z91.5 Personal history of self-harm; M19.90 Unspecified osteoarthritis, unspecified site; G89.29 Other chronic pain; M79.606 Pain in leg, unspecified
CPT/HCPCS: 80053; 85025; 99406

== ENCOUNTER 2018-08-25 12:00 | Emergency (ER) | payer MEDICAID, SELFPAY ==
[2018-06-17 14:45] VITALS: BMI 22.8
[2018-08-25 12:00] VITALS: BP 163/102; PULSE 100; RESP 18; TEMP 36.6; O2SAT 98; BMI 25.4
--- NOTE | 2018-08-25 12:35 | RAD_ITS ---
STUDY: X-RAY CHEST REASON FOR EXAM: Female, 53 years old. Chest trauma. TECHNIQUE: Single AP portable view of the chest. COMPARISON: Comparison is made with prior study dated July 28, 2017. FINDINGS: Hyperinflation. Scattered calcified granulomas. The lungs are clear. There is no demonstrated pleural abnormality. Normal size heart. Normal mediastinum and hillary. Normal visualized pulmonary arteries. Normal visualized aortic arch and descending thoracic aorta. Normal visualized thoracic spine. Normal visualized ribs, clavicles, and shoulders. There is no demonstrated abnormality of the visualized soft tissue structures of the upper abdomen. RAD/Chest 1 View IMPRESSION: Hyperinflation. The lungs are clear. Electronically Signed: Charles Urrutia MD at 13:20 EST Tel [phone], Service support ,
--- NOTE | 2018-08-25 12:42 | RAD_ITS ---
STUDY: X-RAY - LUMBAR SPINE REASON FOR EXAM: Female, 53 years old. Back pain following injury. TECHNIQUE: 3 view(s) of the lumbar spine were obtained. COMPARISON: None FINDINGS: Normal lumbar lordosis. There is no substantial scoliosis. There is a normal alignment of the vertebrae. Mild anterior spondylosis at the L3-L4 and L4-L5 levels. Normal disc space heights. There is atherosclerotic calcification of the abdominal aorta without a demonstrated aneurysm. RAD/Lumbar Spine 2 or 3 Views IMPRESSION: Degenerative changes of the spine, as detailed above. Electronically Signed: Charles Urrutia MD at 13:10 EST Tel [phone], Service support ,
[2018-08-25] MEDS: Ibuprofen 600 MG Tablet PO (12:44)
--- NOTE | 2018-08-25 13:43 | ED.DCSUM_ITS ---
- ER Visit Summary Date of Service: 08/25/18 Chief Complaint: Fall History of Present Illness: The patient is a 53 F who fell on ice yesterday. She landed on her back. She complains of pain to her lower back. Pain radiates into her ribs and abdomen. No vomiting. No GI symptoms. No weakness or numbness. No change in bowel or bladders. Physical Examination: Afebrile and vital signs unremarkable. Patient alert and oriented. Head and neck atraumatic. Heart regular. Lungs clear. Abdomen soft. Back is diffusely tender the lumbar region. Overlying skin appears normal. Straight leg raise negative. Strength and sensation normal. Good pulses. Test Results: X-rays negative. Emergency Department Course and Treatment: Patient treated with Motrin. I did initially order [place] but that I saw she has a history of opioid abuse and in her best interest and in the interest of her own safety, I did cancel that order. Patient will be discharged on anti-inflammatories. Rest, ice. Follow-up with primary care. Treatment Plan: As above Disposition: Discharge Impression: 1. Lumbar contusion This note was generated with [employer] software. It may contain incorrect words, spelling, and punctuation that were not noted in review of the chart prior to signing ED Disposition - Plan for ED Patient: Chief Complaint: Back Referrals: Care Physician,No Primary [Primary Care Provider] -
--- NOTE | 2018-08-25 13:43 | ED.DEP ---
ED Disposition - Plan for ED Patient: Chief Complaint: Back Instructions: ED Contusion Back Prescriptions: Ibuprofen [Motrin] 800 mg PO TID PRN PRN #20 tab PRN Reason: Pain Cyclobenzaprine [Flexeril] 10 mg PO TID PRN #20 tab PRN Reason: Muscle Spasm
--- OUTSIDE RECORDS SUMMARY | 2018-10-27 16:20 | XMS RPT_ITS ---
:1965 Author Organization OHIP Support Name Relationship Address Phone D Unavailable Unavailable Unavailable HARSH BROWN Unavailable [address] + [place] [address] D Unavailable Unavailable Unavailable HARSH BROWN Unavailable [address] + [place] [address] D Unavailable Unavailable Unavailable CECILIA BROWNEW Unavailable [address] + [place] [address] D Unavailable Unavailable Unavailable CECILIA BROWNEW Unavailable [address] + [place] [address] D Unavailable Unavailable Unavailable HARSH BROWN Unavailable [address] + [place] [address] D Unavailable Unavailable Unavailable HARSH BROWN Unavailable [address] + [place] [address] STEVAN AMIN Unavailable [address] + [place] [address] CLARK RIVAS Unavailable Unavailable + CLARK RIVAS Unavailable Unavailable + D Unavailable Unavailable Unavailable HARSH BROWN Unavailable [address] + [place] [address] D Unavailable Unavailable Unavailable CECILIA BROWNEW Unavailable [address] + [place] [address] D Unavailable Unavailable Unavailable HARSH BROWN Unavailable [address] + [place] [address] D Unavailable Unavailable Unavailable STEPHANIE, HARSH Unavailable [address] + [place] [address] D Unavailable Unavailable Unavailable STEPHANIE, HARSH Unavailable [address] + [place] [address] D Unavailable Unavailable Unavailable STEPHANIE, HARSH Unavailable [address] + [place] [address] D Unavailable Unavailable Unavailable STEPHANIE, HASRH Unavailable [address] + [place] [address] D Unavailable Unavailable Unavailable STEPHANIE, HARSH Unavailable [address] + [place] [address] D Unavailable Unavailable Unavailable STEPHANIE, HARSH Unavailable [address] + [place] [address] D Unavailable Unavailable Unavailable STEPHANIEHARSH Unavailable [address] + [place] [address] D Unavailable Unavailable Unavailable STEPHANIE, HARSH Unavailable [address] + [place] [address] D Unavailable Unavailable Unavailable STEPHANIEHARSH Unavailable [address] + [place] [address] D Unavailable Unavailable Unavailable HARSH BROWN Unavailable [address] + [place] [address] D Unavailable Unavailable Unavailable STEPHANIEHARSH Unavailable [address] + [place] [address] D Unavailable Unavailable Unavailable HARSH BROWN Unavailable [address] + [place] [address] D Unavailable Unavailable Unavailable STEPHANIEHARSH Unavailable [address] + [place] [address] D Unavailable Unavailable Unavailable STEPHANIEHARSH Unavailable [address] + [place] [address] D Unavailable Unavailable Unavailable STEPHANIECECILIAEW Unavailable [address] + [place] [address] D Unavailable Unavailable Unavailable STEPHANIE, HARSH Unavailable [address] + [place] [address] CLARK RIVAS Unavailable Unavailable + CLARK RIVAS Unavailable Unavailable + D Unavailable Unavailable Unavailable HARSH BROWN Unavailable [address] + [place] [address] D Unavailable Unavailable Unavailable HARSH BROWN Unavailable [address] + [place] [address] D Unavailable Unavailable Unavailable HARSH BROWN Unavailable [address] + [place] [address] D Unavailable Unavailable Unavailable HARSH BROWN Unavailable [address] + [place] [address] D Unavailable Unavailable Unavailable HRASH BROWN Unavailable [address] + [place] [address] D Unavailable Unavailable Unavailable HARSH BROWN Unavailable [address] + [place] [address] D Unavailable Unavailable Unavailable HARSH BROWN Unavailable [address] + [place] [address] D Unavailable Unavailable Unavailable HARSH BROWN Unavailable [address] + [place] [address] D Unavailable Unavailable Unavailable HARSH BROWN Unavailable [address] + [place] [address] Care Team Providers Name Role Phone Gareth Garcia Attending Unavailable Primay Care Physicia, No Primary Care Unavailable Oleghe, Efewongbe Primary Care Unavailable Patrick, Boone Admitting Unavailable Dimitry Rachel Attending Unavailable Patrick, Boone Admitting Unavailable Dimitry Rachel Attending Unavailable Oleghe, Efewongbe Primary Care Unavailable Dimitry Rachel Consulting Unavailable Patrick, Boone Admitting Unavailable Dimitry Rcahel Attending Unavailable Oleghe, Efewongbe Primary Care Unavailable Dimitry Rachel Consulting Unavailable Patrick, Boone Admitting Unavailable Dimitry Rachel Attending Unavailable Oleghe, Efewongbe Primary Care Unavailable Dimitry Rachel Consulting Unavailable Calabretta, Felipe Attending Unavailable Calabretta, Felipe Referring Unavailable Primay Care Physicia, No Primary Care Unavailable Zari Gilbert Attending Unavailable Primay Care Physicia, No Primary Care Unavailable Boone Nguyen Attending Unavailable Primay Care Physicia, No Primary Care Unavailable Pankaj Mittal Attending Unavailable Calabretta, Felipe Attending Unavailable Primay Care Physicia, No Referring Unavailable Primay Care Physicia, No Primary Care Unavailable Adrian Ahmdai Attending Unavailable Dimitry Rachel Referring Unavailable Calabretta, Felipe Admitting Unavailable Calabretta, Felipe Attending Unavailable Calabretta, Felpie Referring Unavailable Oleghe, Efewongbe Primary Care Unavailable Calabretta, Felipe Attending Unavailable Calabretta, Felipe Referring Unavailable Primay Care Physicia, No Primary Care Unavailable Calabretta, Felipe Attending Unavailable Primay Care Physicia, No Primary Care Unavailable Calabretta, Felipe Admitting Unavailable Calabretta, Felipe Attending Unavailable Calabretta, Felipe Referring Unavailable Oleghe, Efewongbe Primary Care Unavailable Calabretta, Felipe Consulting Unavailable Calabretta, Felipe Admitting Unavailable Calabretta, Felipe Attending Unavailable Calabretta, Felipe Referring Unavailable Oleghe, Efewongbe Primary Care Unavailable Calabretta, Felipe Consulting Unavailable Calabretta, Felipe Admitting Unavailable Calabretta, Felipe Attending Unavailable Calabretta, Felipe Referring Unavailable Oleghe, Efewongbe Primary Care Unavailable Calabretta, Felipe Consulting Unavailable Calabretta, Felipe Admitting Unavailable Calabretta, Felipe Attending Unavailable Calabretta, Felipe Referring Unavailable Oleghe, Efewongbe Primary Care Unavailable Calabretta, Felipe Consulting Unavailable Calabretta, Felipe Admitting Unavailable Calabretta, Felipe Attending Unavailable Calabretta, Felipe Referring Unavailable Oleghe, Efewongbe Primary Care Unavailable Calabretta, Felipe Consulting Unavailable Calabretta, Felipe Admitting Unavailable Calabretta, Felipe Attending Unavailable Calabretta, Felipe Referring Unavailable Oleghe, Efewongbe Primary Care Unavailable Calabretta, Felipe Consulting Unavailable Calabretta, Felipe Admitting Unavailable Calabretta, Felipe Attending Unavailable Calabretta, Felipe Referring Unavailable Oleghe, Efewongbe Primary Care Unavailable Calabretta, Felipe Consulting Unavailable Felipe Rios Attending Unavailable Oleghe, Efewongbe Referring Unavailable Oleghe, Efewongbe Primary Care Unavailable Oleghe, Efewongbe Primary Care Unavailable White, Liz Admitting Unavailable Ashelfah, Ghasem Attending Unavailable White, Liz Admitting Unavailable White, Liz Attending Unavailable Oleghe, Efewongbe Primary Care Unavailable White, Liz Consulting Unavailable White, Liz Admitting Unavailable Ashelfah, Ghasem Attending Unavailable Oleghe, Efewongbe Primary Care Unavailable Ashelfah, Ghasem Consulting Unavailable White, Liz Admitting Unavailable Ashelfah, Ghasem Attending Unavailable Oleghe, Efewongbe Primary Care Unavailable Ashelfah, Ghasem Consulting Unavailable White, Liz Admitting Unavailable Ashelfah, Ghasem Attending Unavailable Oleghe, Efewongbe Primary Care Unavailable Ashelfah, Ghasem Consulting Unavailable Felipe Rios Attending Unavailable Oleghe, Efewongbe Referring Unavailable Oleghe, Efewongbe Primary Care Unavailable Claude Gifford Attending Unavailable Felipe Rios Referring Unavailable Oleghe, Efewongbe Primary Care Unavailable Paintsil, Hatchechubbee Admitting Unavailable Ashelfah, Ghasem Attending Unavailable Paintsil, Hatchechubbee Admitting Unavailable Paintsil, Hatchechubbee Attending Unavailable Oleghe, Efewongbe Primary Care Unavailable Paintsil, Hatchechubbee Consulting Unavailable Paintsil, Hatchechubbee Admitting Unavailable Ashelfah, Ghasem Attending Unavailable Oleghe, Efewongbe Primary Care Unavailable Ashelfah, Ghasem Consulting Unavailable Paintsil, Hatchechubbee Admitting Unavailable Ashelfah, Ghasem Attending Unavailable Oleghe, Efewongbe Primary Care Unavailable Ashelfah, Ghasem Consulting Unavailable Paintsil, Hatchechubbee Admitting Unavailable Ashelfah, Ghasem Attending Unavailable Oleghe, Efewongbe Primary Care Unavailable Ashelfah, Ghasem Consulting Unavailable CONNER ENCINAS (PAPERHANGER SUPERVISOR) Attending Unavailable Meño Pelletier Attending Unavailable No Family Physician given Primary Care Unavailable JORDEN RICHTER, MS. MOCTEZUMA Attending Unavailable JORDEN RICHTER, MS. MOCTEZUMA Primary Care Unavailable KARY BERRIOS MD Attending Unavailable JORDEN RICHTER, MS. MOCTEZUMA Primary Care Unavailable JAYLYN GRAHAM, DR. LERMA Attending Unavailable JORDEN RICHTER, MS. MOCTEZUMA Primary Care Unavailable BRYAN WILKINSON MD Attending Unavailable JORDEN RICHTER, MS. MOCTEZUMA Primary Care Unavailable DR. HENRIETTA HARLEY DO Attending Unavailable DR. HENRIETTA HARLEY DO Referring Unavailable JORDEN WILDER, MS. MOCTEZUMA Primary Care Unavailable PROBLEMS PROBLEMS DATE TYPE CONDITION / CODE ATTENDING STATUS SOURCE 05/20/2018 Admitting Unknown / Rpabhu, Active [facility] diagnosis UNK(Unknown) [facility] [place] Repository 10/26/2017 Unknown F19.20 - Other [place]ta, Active [place] [facility] substance Hospital dependence, Repository uncomplicated / F19.20(ICD-10) 11/25/2017 Unknown R00.0 - Tachycardia, Ирина, Claude Active [facility] unspecified / Community R00.0(ICD-10) Hospital Repository 10/15/2017 Unknown K57.92 - Cal[place], Active [place] Di[facility]icul[facility] intestine, [facility] Hospital unspecified, without Repository perforation or abscess without bleeding / K57.92(ICD-10) PROCEDURES PROCEDURES No Procedure Records FoundRESULTS RESULTS EMERGENCY DEPARTMENT Observed: 08/25/2018 Status: F Source: [place] SUMMARY 4:14 PM [facility] [place] REPOSITORY [facility] Medical Records Department [address] [place] [address] Emergency Department Summary 08/25/18 1341 MR#: [id number] Acct: [id number] Name: LISA BULLOCK Rep #: [id number] : 1965 53 From: Gareth Garcia MD PCP: Care Physician, No Primary Status: DEP ER - ER Visit Summary Date of Service: 08/25/18 Chief Complaint: Fall History of Present Illness: The patient is a 53 F who fell on ice yesterday. She landed on her back. She complains of pain to her lower back. Pain radiates into her ribs and abdomen. No vomiting. No GI symptoms. No weakness or numbness. No change in bowel or bladders. Physical Examination: Afebrile and vital signs unremarkable. Patient alert and oriented. Head and neck atraumatic. Heart regular. Lungs clear. Abdomen soft. Back is diffusely tender the lumbar region. Overlying skin appears normal. Straight leg raise negative. Strength and sensation normal. Good pulses. Test Results: X-rays negative. Emergency Department Course and Treatment: Patient treated with Motrin. I did initially order [place] but that I saw she has a history of opioid abuse and in her best interest and in the interest of her own safety, I did cancel that order. Patient will be discharged on anti-inflammatories. Rest, ice. Follow-up with primary care. Treatment Plan: As above Disposition: Discharge Impression: 1. Lumbar contusion This note was generated with [employer] dictation software. It may contain incorrect words, spelling, and punctuation that were not noted in review of the chart prior to signing ED Disposition - Plan for ED Patient: Chief Complaint: Back Referrals: Care Physician,No Primary [Primary Care Provider] - What to do if you have Problems For any increased pain, shortness of breath, bleeding, nausea or vomiting, chest pain, or any unexpected problems, contact your Primary Care Provider. Call [facility] ([phone]) or report to the closest Emergency Room. Call 911 if necessary. 08/25/18 1614 <Electronically signed by Gareth Garcia MD> Date Gareth Garcia MD Cosigner Signature (If Indicated): Date CC: No Primary Care Physician DISCHARGE INSTRUCTION Observed: 08/25/2018 Status: F Source: [place] 4:14 PM [facility] REPOSITORY [facility] Medical Records Department [address] [place] [address] Discharge Instruction 08/25/18 1343 MR#: [id number] Acct: [id number] Name: LISA BULLOCK Rep #: [id number] : 1965 53 From: Gareth Garcia MD PCP: Antoni Physician, No Primary Status: DEP ER ED Disposition - Plan for ED Patient: Chief Complaint: Back Instructions: ED Contusion Back Prescriptions: Ibuprofen [Motrin] 800 mg PO TID PRN PRN #20 tab PRN Reason: Pain Cyclobenzaprine [Flexeril] 10 mg PO TID PRN #20 tab PRN Reason: Muscle Spasm What to do if you have Problems For any increased pain, shortness of breath, bleeding, nausea or vomiting, chest pain, or any unexpected problems, contact your Primary Care Provider. Call [facility] ([phone]) or report to the closest Emergency Room. Call 911 if necessary. 08/25/18 1614 <Electronically signed by Gareth Garcia MD> Date Gareth Garcia MD Cosigner Signature (If Indicated): Date CC: No Primary Care Physician LUMBAR SPINE 2 OR 3 Observed: 08/25/2018 Status: F Source: [place] VIEWS 12:27 PM [facility] REPOSITORY [facility] Imaging Services [address] [place] [address] Lumbar Spine 2 or 3 Views MR#: [id number] Acct: [id number] Name: LISA BULLOCK Rep #: [id number] : 1965 F 53 From: Charles Urrutia MD PCP: Care Physician, No Primary Status: REG ER Study: Lumbar Spine 2 or 3 Views Date of Exam: 08/25/18 Exam# [id number] Ordering Dr: Gareth Garcia MD STUDY: X-RAY - LUMBAR SPINE REASON FOR EXAM: Female, 53 years old. Back pain following injury. TECHNIQUE: 3 view(s) of the lumbar spine were obtained. COMPARISON: None FINDINGS: Normal lumbar lordosis. There is no substantial scoliosis. There is a normal alignment of the vertebrae. Mild anterior spondylosis at the L3-L4 and L4-L5 levels. Normal disc space heights. There is atherosclerotic calcification of the abdominal aorta without a demonstrated aneurysm. RAD/Lumbar Spine 2 or 3 Views IMPRESSION: Degenerative changes of the spine, as detailed above. 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 Chest trauma. TECHNIQUE: Single AP portable view of the chest. COMPARISON: Comparison is made with prior study dated July 28, 2017. FINDINGS: Hyperinflation. Scattered calcified granulomas. The lungs are clear. There is no demonstrated pleural abnormality. Normal size heart. Normal mediastinum and hillary. Normal visualized pulmonary arteries. Normal visualized aortic arch and descending thoracic aorta. Normal visualized thoracic spine. Normal visualized ribs, clavicles, and shoulders. There is no demonstrated abnormality of the visualized soft tissue structures of the upper abdomen. RAD/Chest 1 View IMPRESSION: Hyperinflation. The lungs are clear. 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 DISCHARGE SUMMARY Observed: 06/20/2018 Status: F Source: [place] 11:21 AM [facility] REPOSITORY [facility] Medical Records Department [address] [place] [address] Discharge Summary 06/20/18 1117 MR#: [id number] Acct: [id number] Name: LISA BULLOCK Rep #: [id number] : 1965 53 From: Effie Cheema MD PCP: Annette Langston MD Status: DIS IN Y [place] [facility] [id number] Discharge Date and Diagnosis Date of Admission: 06/17/18 Date of Discharge: 06/20/18 - Primary Discharge Diagnosis Acute opioid withdrawal admitted for medical stabilization. - Secondary Discharge Diagnosis Chronic Problems (Last Updated 06/18/18 @ 08:23 by Effie Cheema MD) Hepatitis C (Chronic) Polysubstance (including opioids) dependence, daily use (Chronic) S/P partial colectomy (Chronic) 07/24/17 History of tubal ligation (Chronic) History of attempted suicide (Chronic) Chronic leg pain (Chronic) Asthma (Chronic) GERD (gastroesophageal reflux disease) (Chronic) Arthritis (Chronic) Tobacco use (Chronic) Anxiety (Chronic) COPD (chronic obstructive pulmonary disease) (Chronic) Hospital Course and Treatment Operations: None, - Procedures: None Summary of Care Provided: Patient seen and examined on the day of discharge and appeared to be stable to be discharged home. Symptoms of abdominal cramps and restlessness improved. Her vital signs are stable. The patient is a 53 year old F presented to the [facility] office requesting admission for acute opioid withdrawal for medical stabilization. Patient has been using heroin as well as prescription pain medications including oxycodone. She came in with symptoms of abdominal cramps, restless legs, anxiety and diarrhea. Her last dose of use was the day of admission. Her vital signs were stable throughout admission. Her routine blood work was unremarkable. LFT was slightly elevated which is attributed to chronic hepatitis C. She was treated with [facility] protocol with tapering course of Subutex, as needed Catapres, Bentyl, Vistaril, methocarbamol and Mirapex. With treatment, patient symptoms improved and she feels better. Patient discharged home in a stable medical condition, continued on her chronic home medications without any changes, has been using OxyIR which was discontinued upon discharge, recommended follow-up with PCP in 1 week and she was arranged to go to inpatient rehab unit by [facility] office. - Physical Exam General: Alert, Oriented x3, Cooperative, No apparent distress HEENT: Atraumatic, PERRLA, EOMI Oral: Moist Mucosa, No Gingival or Mucosal Lesions/ Ulcerations Neck: Supple, No JVD, Negative Carotid Bruits, Trachea Midline, Thyroid Normal Size and Texture Lungs: Clear to auscultation, Normal air movement, No rhonchi, No wheeze, No rales Cardiovascular: Regular rate, Regular Rhythm, Normal S1, Normal S2 Abdomen: Bowel Sounds Present, Soft, Non Tender, Non-Distended, No Hepato-splenomegaly Extremities: No clubbing, No cyanosis, No edema Skin: No rashes, No breakdown Lymphatic: No Cervical, Supraclavicular, or Inguinal Adenopathy Neurological: Cranial nerves II-XII grossly intact, Motor Exam 5/5 strength throughout Psych/Mental Status: Normal Affect, Appropriate Vital Signs Temp Pulse Resp BP Pulse Ox 98.6 F 64 20 H 91/41 L 97 06/20/18 09:59 06/20/18 09:59 06/20/18 09:59 06/20/18 09:59 06/20/18 08:57 Oxygen Delivery Method Room Air Weight: 121 lb 3.2 oz Body Mass Index (BMI) 22.8 Discharge Activity: Return to Normal Activity Weight Bearing Status: Full weight bearing Call your doctor if you observe: Fever of 101 or Higher, Shortness of breath, Dizziness, Fainting spells, Chest pain, Increased palpitations (irregular heartbeat), Uncontrolled pain Home Medications: Medications to take at Discharge Albuterol Inhaler [Ventolin Hfa] 1 - 2 puff INHALATION Q6H PRN PRN 09/01/17 Acetaminophen [Tylenol Tablet] 650 mg PO Q6H PRN PRN tab 10/26/17 Pramipexole Di-HCl [Mirapex] 0.25 mg PO Q12H PRN PRN #30 tab 11/03/17 Primary Care Physician: Annette Langston MD [Primary Care Provider] - Please follow up with your Primary Care Physician in: 2 weeks. Disposition: Home Minutes spent on discharge:: 26 Patient Condition:: Stable Medical Necessity - Tobacco Use Smoking Status: Current every day smoker Tobacco Use: Cigarettes Meaningful Use Info Meaningful Use Diagnoses (Choose all that apply): None applicable Code Visit Inpatient E AND M: 00239 Disch Hosp 06/20/18 1121 <Electronically signed by Effie Cheema MD> Date Effie Cheema MD Cosigner Signature (if applicable): Date CC: Annette Langston MD; Effie Cheema Signed DISCHARGE INSTRUCTION Observed: 06/20/2018 Status: F Source: [place] 8:58 AM [facility] RE[facility] Medical Records Department [address] [place] [address] Instructions for Home/Discharge Instructions 06/20/18 0855 MR#: [id number] Acct: [id number] Name: LISA BULLOCK Rep #: [id number] : 1965 53 From: Effie Cheema MD PCP: Annette Langston MD Status: ADM IN - Discharge Diagnoses Current Active Problems: Current Active and Chronic Problems (Last Updated 06/18/18 @ 08:23 by Effie Cheema MD) Opioid withdrawal (Acute) You will use the following diet at home:: Regular Your food should be the consistency of: Regular Discharge Activity: Return to Normal Activity Weight Bearing Status: Full weight bearing Call your doctor if you observe: Fever of 101 or Higher, Shortness of breath, Dizziness, Fainting spells, Chest pain, Increased palpitations (irregular heartbeat), Uncontrolled pain Allergies/Adverse Reactions: Allergies codeine Allergy (Verified 06/17/18 12:27) HALLUCINATION Penicillins Allergy (Verified 06/17/18 12:27) UNSURE CHILD Medications to take at Discharge Albuterol Inhaler [Ventolin Hfa] 1 - 2 puff INHALATION Q6H PRN PRN 09/01/17 Acetaminophen [Tylenol Tablet] 650 mg PO Q6H PRN PRN tab 10/26/17 Pramipexole Di-HCl [Mirapex] 0.25 mg PO Q12H PRN PRN #30 tab 11/03/17 Primary Care Physician: Annette Langston MD [Primary Care Provider] - Please follow up with your Primary Care Physician in: 2 weeks. Test Results: Test results from this visit will be discussed in further detail at your follow-up appointment, if applicable. 06/20/18 0858 <Electronically signed by Effie Cheema MD> Date Effie Cheema MD CC: Annette Langston MD EMERGENCY DEPARTMENT Observed: 06/19/2018 Status: F Source: [place] SUMMARY 7:05 AM [facility] Medical Records Department [address] [place] [address] Emergency Department Summary 06/17/18 1532 MR#: [id number] Acct: [id number] Name: LISA BULLOCK Rep #: [id number] : 1965 53 From: Gareth Pacheco DO PCP: Annette Langston MD Status: ADM IN - ER Visit Summary Date of Service: 06/17/18 Chief Complaint: Opiate withdrawal History of Present Illness: The patient is a 53 F who was presented to the emergency department seeking detox for the third time for the abuse of prescription drugs. Patient states that she snorts Vicodin oxycodone any other opiate that she can get her hands on. She last used 2 days ago. She drank alcohol yesterday to help control her withdrawal symptoms. She notes that she also abuses benzodiazepines. She notes that she drinks alcohol only about once every 2 weeks. She states that a couple days ago she started 3 Percocets and thought she had . She states this was the impetus for seeking rehab. She states that she feels ill. She notes aching cold nausea vomiting diarrhea sweating. She states that she feels very fidgety and cannot sit still. Physical Examination: Afebrile vital signs are stable Gen: Well-nourished well-developed Head: Normocephalic atraumatic Eyes: Perrl EOMI ENT: TMs clear no rhinorrhea moist mucous membranes Neck: Supple no lymphadenopathy no JVD nontender CVS: Regular rate rhythm no murmurs normal S1-S2 Respiratory: No distress clear to auscultation bilaterally chest nontender Abdomen: Soft vague generalized tenderness to palpation without guarding or rebound nondistended normal bowel sounds no masses Back: Nontender Extremity: Nontender no edema Skin: Normal color no rash Neuro: alert orientated 3 CN II-XII intact normal strength sensation reflexes gait cerebellar Psych: Patient is very restless. Emergency Department Course and Treatment: [facility] assessed the patient and felt her appropriate for inpatient detox. Hospitalist contacted and the patient will be admitted. Impression: 1. Acute opiate withdrawal 2. Polysubstance drug abuse This note was generated with [employer] dictation software. It may contain incorrect words, spelling, and punctuation that were not noted in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 Discharge Summary 10/26/17 0905 MR#: [id number] Acct: [id number] Name: LISA BULLOCK Rep #: [id number] : 1965 52 From: Felipe Rios MD PCP: Annette Langston MD Status: ADM IN Y Location: [place] [address] Discharge Date and Diagnosis - Problem List Patient Problems: Active and Suspected Problems (Last Reviewed 10/15/17 @ 09:13 by Melanie Weiner) Diverticulitis (Acute) Date of Admission: 10/20/17 Date of Discharge: 10/26/17 - Primary Discharge Diagnosis Active and Suspected Problems (Last Reviewed 10/15/17 @ 09:13 by Melanie Weiner) Diverticulitis (Acute) Hypokalemia Hypomagnesemia Pneumoperitoneum with perforation of GI tract Reversal of ileostomy Acute blood loss anemia - Secondary Discharge Diagnosis Chronic Problems (Last Reviewed 10/15/17 @ 09:13 by Melanie Weiner) S/P partial colectomy (Chronic) 07/24/17 History of tubal ligation (Chronic) History of attempted suicide (Chronic) Chronic leg pain (Chronic) Asthma (Chronic) GERD (gastroesophageal reflux disease) (Chronic) Arthritis (Chronic) Tubo-ovarian abscess (Chronic) Hydrosalpinx (Chronic) Clostridium difficile infection (Chronic) Recent discharge s/p diverticulitis diagnosis w/ resulting c. difficile colitis w/ transition outpatient to oral vancomycin. Tobacco use (Chronic) Anxiety (Chronic) COPD (chronic obstructive pulmonary disease) (Chronic) Hospital Course and Treatment Imaging Results: Clinical Impression(s) from Imaging Studies Abdomen/Pelvis CT 10/22/17 08:00 IMPRESSION: 1. Patient is status post sigmoid resection with right lower quadrant ileostomy. Some wall thickening and edema in this region with mesenteric edema. Likely postsurgical. No evidence of fluid collection to represent developing abscess. No evidence of contrast extravasation. 2. Bibasilar airspace disease. Could represent atelectasis or infection 3. 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 Today she was admitted a catheter was placed through her loop ileostomy and bowel prep was administered. The following day she was taken for colonoscopy. The following morning her white count johnnie and a CT revealed free air. Suspected perforation during colonoscopy. She was taken that day for a laparotomy. Perforation of the different loop of the loop ileostomy was noted. The ileostomy was taken down and an ileocecectomy was performed with primary anastomosis of small bowel to right colon. Patient tolerated the procedure was brought to PACU afterwards due to bigeminy during surgery. The patient was having low urine output and the Correa had remain in and she was diuresed with Lasix. She began to pass gas and have bowel movements and was slowly advanced to a diet. On postop day 4 she was tolerating a diet and having bowel movements. Her wound was closed by delayed primary closure. White count was normal the day of discharge. She was discharged home in stable condition. She will follow- up with me in 1 week. I have given her a prescription for 30 OxyIR as well as 14 Ativan. After this is over she will enroll herself in the substance abuse program for withdrawal. I informed her and she agreed that there would be no further narcotics or Ativan prescriptions from my office. Discharge Diet: Light diet - advance as tolerated Discharge Activity: Return to Normal Activity, May Shower May shower in (days): 1 - with the bandage in place. Additional Activity Instructions:: Pain medication may cause nausea. You should typically eat light foods as you take your pain medications. Pain medication may also cause constipation. If this is a problem for you, please discuss with your doctor. Call your doctor if your incision/area has: Continuous Slow Oozing, Sudden Increased Bleeding, Increased Pain/ Swelling, Increased Redness, Foul Smelling Discharge, Fever of 101 or Higher Call your doctor if you observe: Fever of 101 or Higher Suture Line Care: Avoid Pulling/Pushing, Avoid Pinching/Bending Additional Dressing/Incision Instructions:: Change bandages as needed Home Medications: Medications to take at Discharge Albuterol Inhaler [Ventolin Hfa] 1 - 2 puff INHALATION Q6H PRN PRN 09/01/17 Pramipexole Di-HCl [Mirapex] 0.25 mg PO Q12H PRN PRN #30 tab 09/04/17 Cyclobenzaprine [Flexeril] 10 mg PO TID PRN PRN #10 tab 09/16/17 Acetaminophen [Tylenol Tablet] 650 mg PO Q6H PRN PRN tablet 10/26/17 Lorazepam [Ativan] 0.5 mg PO BID #14 tablet 10/26/17 Oxycodone [Oxyir] 5 - 10 mg PO Q4H PRN PRN 7 Days #30 tablet 10/26/17 Following Prescrptions Were Given to Patient: Oxycodone [Oxyir] 5 - 10 mg PO Q4H PRN PRN 7 Days #30 tablet PRN Reason: Mod-Severe Pain (-05/13) Lorazepam [Ativan] 0.5 mg PO BID #14 tablet Primary Care Physician: Annette Langston MD [Primary Care Provider] - Please Follow Up With: Felipe Rios MD When: call tomorrow to make 1 week follow up appt [phone] Medical Necessity - Tobacco Use Smoking Status: Current every day smoker Meaningful Use Info Meaningful Use Diagnoses (Choose all that apply): None applicable 10/26/17908 <Electronically signed by Felipe Rios MD> Date Felipe Rios MD Cosigner Signature (if applicable): Date CC: Felipe Rios MD; Annette Langston MD Signed DISCHARGE INSTRUCTION Observed: 10/26/2017 Status: F Source: [place] 9:05 AM [facility] REPOSITORY [facility] Medical Records Department [address] [place] [address] Instructions for Home/Discharge Instructions 10/26/17903 MR#: [id number] Acct: [id number] Name: LISA BULLOCK Rep #: [id number] : 1965 52 From: Felipe Rios MD PCP: Annette Langston MD Status: ADM IN Discharge Diet: Light diet - advance as tolerated Discharge Activity: Return to Normal Activity, May Shower May shower in (days): 1 - with the bandage in place. Lifting Restrictions: 20 lbs for 4 weeks Additional Activity Instructions:: Pain medication may cause nausea. You should typically eat light foods as you take your pain medications. Pain medication may also cause constipation. If this is a problem for you, please discuss with your doctor. Call your doctor if your incision/area has: Continuous Slow Oozing, Sudden Increased Bleeding, Increased Pain/ Swelling, Increased Redness, Foul Smelling Discharge, Fever of 101 or Higher Call your doctor if you observe: Fever of 101 or Higher Suture Line Care: Avoid Pulling/Pushing, Avoid Pinching/Bending Additional Dressing/Incision Instructions:: Change bandages as needed Allergies/Adverse Reactions: Allergies codeine Allergy (Verified 10/15/17 09:14) HALLUCINATION Penicillins Allergy (Verified 10/15/17 09:14) UNSURE CHILD Medications to take at Discharge Albuterol Inhaler [Ventolin Hfa] 1 - 2 puff INHALATION Q6H PRN PRN 09/01/17 Pramipexole Di-HCl [Mirapex] 0.25 mg PO Q12H PRN PRN #30 tab 09/04/17 Cyclobenzaprine [Flexeril] 10 mg PO TID PRN PRN #10 tab 09/16/17 Acetaminophen [Tylenol Tablet] 650 mg PO Q6H PRN PRN tablet 10/26/17 Lorazepam [Ativan] 0.5 mg PO BID #14 tablet 10/26/17 Oxycodone [Oxyir] 5 - 10 mg PO Q4H PRN PRN 7 Days #30 tablet 10/26/17 The following prescriptions were given: Oxycodone [Oxyir] 5 - 10 mg PO Q4H PRN PRN 7 Days #30 tablet PRN Reason: Mod-Severe Pain (4-10/10) Lorazepam [Ativan] 0.5 mg PO BID #14 tablet Primary Care Physician: Annette Langston MD [Primary Care Provider] - Please Follow Up With: Felipe Rios MD When: call tomorrow to make 1 week follow up appt [phone] 10/26/17 0905 <Electronically signed by Felipe Rios MD> Date Felipe Rios MD CC: Annette Langston MD CBC W/DIFF, AUTOMATED Collected: 10/26/2017 Status: F Source: [place] 5:21 AM [facility] REPOSITORY TYPE CODE TESTS RESULT OUT OF RANGE REFERENCE UNITS LAB L100.1000 4.4-11.0 K/mm3 Normal WBC 8.3 LAB L100.1200 4.2-5.4 M/mm3 Low RBC 3.11 LAB L100.1300 12.0-15.0 g/dl Low HGB 9.8 LAB L100.1400 37-47 % Low HCT 29.2 LAB L100.1500 81-99 fL Normal MCV 93.9 LAB L100.1600 27.0-32.0 pg Normal MCH 31.5 LAB L100.1700 32-36 g/gl Normal MCHC 33.6 LAB L100.1810 11.6-14.6 % Normal RDW CV 13.1 LAB L100.1820 35.1-43.9 fl High RDW SD 45.2 LAB L100.1900 150-450 K/mm3 Normal PLT 241 LAB L100.2000 6.2-12.0 fl Normal MPV 9.5 LAB L100.2100 47-70 % Normal NEUT% 61.5 LAB L100.2200 19-41 % Low LY% 16.2 LAB L100.2300 0-10 % High MONO% 16.8 LAB L100.2400 0-5 % High EO% 5.1 LAB L100.2500 0-1 % Normal BASO% 0.2 LAB L100.2550 0.0-0.9 % Normal IM GRAN % 0.200 Result Comment: IG% - Immature Granulocytes (promyelocytes, myelocytes and metamyelocytes) > 1% indicates that a LEFT SHIFT is Present. LAB L100.2620 2.0-7.7 X10 3/uL Normal Absolute Neut 5.1 LAB L100.2720 0.83-4.51 X10 3/ul Normal Absolute Lymph 1.34 Performed By: #### L100.0100 #### [facility] [address] [place], [place], [address] BASIC METABOLIC Collected: 10/26/2017 Status: F Source: [place] PROFILE ([facility]) 5:21 AM [facility] REPOSITORY TYPE CODE TESTS RESULT OUT OF RANGE REFERENCE UNITS LAB L501.0100 74-106 mg/dL Normal GLU 100 Result Comment: Fasting Glucose result from 100 to 125 mg/dL suggests IMPAIRED HOMEOSTASIS per A.D.A. criteria. Please note revised GLUCOSE reference range effective 2017. LAB L501.1000 7-18 mg/dL Normal BUN 10 LAB L501.1100 0.55-1.02 mg/dL Low CREAT,SERUM 0.48 Result Comment: The validity of the calculated GFR AND GFRAA in patients over 70 years has not been determined. Clinical correlation is essential. LAB L501.1110 >60 mL/min Normal EST GFR 142 Result Comment: Non- GFR Calc LAB L501.1115 >60 mL/min Normal EST GFR - AA 172 Result Comment: GFR Calc LAB L501.1255 ml/min Normal Estimated CRCL 105.97 LAB L501.1300 10-20 RATIO High BUN/CRE 20.7 LAB L501.2200 8.5-10 mg/dL Low .1 CA 8.3 LAB L501.5300 136-14 mmol/L Low 5 NA 134 LAB L501.5600 3.5-5. mmol/L 1 K Normal 3.8 LAB L501.5900 98-107 mmol/L CL Normal 101 LAB L501.6100 21.0-3 mmol/L 2.0 CO2 Normal 24.0 LAB L501.6200 5-15 GAP Normal 9 Performed By: #### L500.2500 #### [facility] [address] [place], [place], [address] CBC W/DIFF, AUTOMATED Collected: 10/25/2017 Status: F Source: [place] 5:20 AM [facility] REPOSITORY TYPE CODE TESTS RESULT OUT OF RANGE REFERENCE UNITS LAB L100.1000 4.4-11.0 K/mm3 Normal WBC 7.0 LAB L100.1200 4.2-5.4 M/mm3 Low RBC 2.77 LAB L100.1300 12.0-15.0 g/dl Low HGB 9.0 LAB L100.1400 37-47 % Low HCT 26.8 LAB L100.1500 81-99 fL Normal MCV 96.8 LAB L100.1600 27.0-32.0 pg High MCH 32.5 LAB L100.1700 32-36 g/gl Normal MCHC 33.6 LAB L100.1810 11.6-14.6 % Normal RDW CV 13.2 LAB L100.1820 35.1-43.9 fl High RDW SD 44.8 LAB L100.1900 150-450 K/mm3 Normal PLT 181 LAB L100.2000 6.2-12.0 fl Normal MPV 10.0 LAB L100.2100 47-70 % Normal NEUT% 66.0 LAB L100.2200 19-41 % Low LY% 15.9 LAB L100.2300 0-10 % High MONO% 12.1 LAB L100.2400 0-5 % High EO% 5.8 LAB L100.2500 0-1 % Normal BASO% 0.1 LAB L100.2550 0.0-0.9 % Normal IM GRAN % 0.100 Result Comment: IG% - Immature Granulocytes (promyelocytes, myelocytes and metamyelocytes) > 1% indicates that a LEFT SHIFT is Present. LAB L100.2620 2.0-7.7 X10 3/uL Normal Absolute Neut 4.6 LAB L100.2720 0.83-4.51 X10 3/ul Normal Absolute Lymph 1.12 Performed By: #### L100.0100 #### [facility] [address] [place], [address] BASIC METABOLIC Collected: 10/25/2017 Status: F Source: [place] PROFILE ([facility]) 5:20 AM [facility] REPOSITORY TYPE CODE TESTS RESULT OUT OF RANGE REFERENCE UNITS LAB L501.0100 74-106 mg/dL Normal GLU 100 Result Comment: Fasting Glucose result from 100 to 125 mg/dL suggests IMPAIRED HOMEOSTASIS per A.D.A. criteria. Please note revised GLUCOSE reference range effective 2017. LAB L501.1000 7-18 mg/dL Normal BUN 15 LAB L501.1100 0.55-1.02 mg/dL Low CREAT,SERUM 0.46 Result Comment: The validity of the calculated GFR AND GFRAA in patients over 70 years has not been determined. Clinical correlation is essential. LAB L501.1110 >60 mL/min Normal EST GFR 150 Result Comment: Non- GFR Calc LAB L501.1115 >60 mL/min Normal EST GFR - AA 181 Result Comment: GFR Calc LAB L501.1255 ml/min Normal Estimated CRCL 110.58 LAB L501.1300 10-20 RATIO High BUN/CRE 32.5 LAB L501.2200 8.5-10 mg/dL Low .1 CA 7.9 LAB L501.5300 136-14 mmol/L 5 NA Normal 136 LAB L501.5600 3.5-5. mmol/L Low 1 K 3.3 LAB L501.5900 98-107 mmol/L CL Normal 106 LAB L501.6100 21.0-3 mmol/L 2.0 CO2 Normal 23.0 LAB L501.6200 5-15 GAP Normal 7 Performed By: #### L500.2500, L501.5200 #### [facility] [address] [facility] [place], [address] MAGNESIUM Collected: 10/25/2017 Status: F Source: [place] 5:20 AM [facility] REPOSITORY TYPE CODE TESTS RESULT OUT OF RANGE REFERENCE UNITS LAB L501.5200 1.6-2.6 mg/dL Normal MG 1.7 Result Comment: Please note revised Magnesium reference range effective 2017. Performed By: #### L500.2500, L501.5200 #### [facility] [address] [facility] [place], [address] 12 LEAD ELECTROCARDIOGRAM Observed: 10/24/2017 Status: F Source: [place] 2:57 PM [facility] REPOSITORY [facility] Cardiovascular Services [address] [place] [address] 12 Lead EKG 10/22/17 1541 MR#: [id number] Acct: [id number] Name: LISA BULLOCK Rep #: [id number] : 1965 52 From: Claude Gifford MD Attending Dr: Felipe Rios MD Status: ADM IN Ordering Dr: Felipe Rios MD Date: 10/22/17 Location: [facility] Sex: F C Admitted: 10/22/17 Test Reason : POST OP Blood Pressure : / mmHG Vent. Rate : 119 BPM Atrial Rate : 119 BPM P-R Int : 130 ms QRS Dur : 080 ms QT Int : 322 ms P-R-T Axes : 070 053 -19 degrees QTc Int : 452 ms Sinus tachycardia with Premature supraventricular complexes with frequent Premature ventricular complexes ST AND T wave abnormality, consider inferior ischemia Abnormal ECG Confirmed by ИРИНА KIM, CLAUDE ([id number]), make up editor JIMBO SMITH ([id number]) on 10/24/2017 2:56:43 PM Referred By: Felipe Rios Confirmed By:CLAUDE GIFFORD MD 10/24/17 1456 Date Claude Gifford MD CC: Felipe Rios MD; Annette Langston MD Signed POTASSIUM Collected: 10/24/2017 Status: F Source: [place] 2:35 PM [facility] REPOSITORY TYPE CODE TESTS RESULT OUT OF RANGE REFERENCE UNITS LAB L501.5600 3.5-5.1 mmol/L Normal K 3.7 Performed By: #### L501.5600 #### [facility] [address] [place], [place] [address], [address] CBC W/DIFF, AUTOMATED Collected: 10/24/2017 Status: F Source: [place] 5:15 AM [facility] REPOSITORY TYPE CODE TESTS RESULT OUT OF RANGE REFERENCE UNITS LAB L100.1000 4.4-11.0 K/mm3 Normal WBC 8.6 LAB L100.1200 4.2-5.4 M/mm3 Low RBC 2.92 LAB L100.1300 12.0-15.0 g/dl Low HGB 9.3 LAB L100.1400 37-47 % Low HCT 28.7 LAB L100.1500 81-99 fL Normal MCV 98.3 LAB L100.1600 27.0-32.0 pg Normal MCH 31.8 LAB L100.1700 32-36 g/gl Normal MCHC 32.4 LAB L100.1810 11.6-14.6 % Normal RDW CV 13.8 LAB L100.1820 35.1-43.9 fl High RDW SD 47.8 LAB L100.1900 150-450 K/mm3 Low PLT 145 LAB L100.2000 6.2-12.0 fl Normal MPV 9.8 LAB L100.2100 47-70 % High NEUT% 71.5 LAB L100.2200 19-41 % Low LY% 17.3 LAB L100.2300 0-10 % Normal MONO% 8.9 LAB L100.2400 0-5 % Normal EO% 2.1 LAB L100.2500 0-1 % Normal BASO% 0.1 LAB L100.2550 0.0-0.9 % Normal IM GRAN % 0.100 Result Comment: IG% - Immature Granulocytes (promyelocytes, myelocytes and metamyelocytes) > 1% indicates that a LEFT SHIFT is Present. LAB L100.2620 2.0-7.7 X10 3/uL Normal Absolute Neut 6.2 LAB L100.2720 0.83-4.51 X10 3/ul Normal Absolute Lymph 1.49 Performed By: #### L100.0100 #### [facility] [address] [place], [place], [address] BASIC METABOLIC Collected: 10/24/2017 Status: F Source: [place] ([facility]) 5:15 AM [facility] REPOSITORY TYPE CODE TESTS RESULT OUT OF RANGE REFERENCE UNITS LAB L501.0100 74-106 mg/dL Normal GLU 82 Result Comment: Please note revised GLUCOSE reference range effective 2017. LAB L501.1000 7-18 mg/dL Normal BUN 14 LAB L501.1100 0.55-1.02 mg/dL Low CREAT,SERUM 0.51 Result Comment: The validity of the calculated GFR AND GFRAA in patients over 70 years has not been determined. Clinical correlation is essential. LAB L501.1110 >60 mL/min Normal EST GFR 133 Result Comment: Non- GFR Calc LAB L501.1115 >60 mL/min Normal EST GFR - AA 161 Result Comment: GFR Calc LAB L501.1255 ml/min Normal Estimated CRCL 99.74 LAB L501.1300 10-20 RATIO High BUN/CRE 27.4 LAB L501.2200 8.5-10 mg/dL Low .1 CA 7.8 LAB L501.5300 136-14 mmol/L Normal 5 NA 141 LAB L501.5600 3.5-5. mmol/L Low 1 K 3.4 LAB L501.5900 98-107 mmol/L High CL 112 LAB L501.6100 21.0-3 mmol/L Low 2.0 CO2 19.0 LAB L501.6200 5-15 Normal GAP 10 Performed By: #### L500.2500, L501.5200 #### [facility] [address] [place], [address] MAGNESIUM Collected: 10/24/2017 Status: F Source: [place] 5:15 AM [facility] REPOSITORY TYPE CODE TESTS RESULT OUT OF RANGE REFERENCE UNITS LAB L501.5200 1.6-2.6 mg/dL Normal MG 2.4 Result Comment: Please note revised Magnesium reference range effective 2017. Performed By: #### L500.2500, L501.5200 #### [facility] [address] [facility] [place], [address] URINE SODIUM Collected: 10/24/2017 Status: F Source: [place] 5:00 AM [facility] REPOSITORY Order Comment: Comments: must be drawn at same time as BMP TYPE CODE TESTS RESULT OUT OF RANGE REFERENCE UNITS LAB L501.5500 Not Establ. mmol/L Normal UR NA 91 Performed By: #### L501.5500 #### [facility] [address] [place], [address] CREATININE, URINE Collected: 10/24/2017 Status: F Source: [place] 5:00 AM [facility] REPOSITORY Order Comment: Comments: must be drawn at same time as BMP TYPE CODE TESTS RESULT OUT OF RANGE REFERENCE UNITS LAB L502.0300 NO RANGE EST. mg/dL Normal URINE 216.00 CREAT Performed By: #### L502.0300 #### [facility] [address] [place], [place], [address] CBC-COMPLETE BLOOD CNT Collected: 10/23/2017 Status: F Source: [place] NO DIFF 9:45 AM [facility] REPOSITORY TYPE CODE TESTS RESULT OUT OF RANGE REFERENCE UNITS LAB L100.1000 4.4-11.0 K/mm3 Normal WBC 7.8 LAB L100.1200 4.2-5.4 M/mm3 Low RBC 2.86 LAB L100.1300 12.0-15.0 g/dl Low HGB 9.2 LAB L100.1400 37-47 % Low HCT 28.3 LAB L100.1500 81-99 fL Normal MCV 99.0 LAB L100.1600 27.0-32.0 pg High MCH 32.2 LAB L100.1700 32-36 g/gl Normal MCHC 32.5 LAB L100.1810 11.6-14.6 % Normal RDW CV 13.9 LAB L100.1820 35.1-43.9 fl High RDW SD 48.2 LAB L100.1900 150-450 K/mm3 Low PLT 136 LAB L100.2000 6.2-12.0 fl Normal MPV 10.0 Performed By: #### L100.0500 #### [facility] [address], [place], [address] CBC W/DIFF, AUTOMATED Collected: 10/23/2017 Status: F Source: [place] 5:00 AM [facility] REPOSITORY TYPE CODE TESTS RESULT OUT OF RANGE REFERENCE UNITS LAB L100.1000 4.4-11.0 K/mm3 Normal WBC 9.9 LAB L100.1200 4.2-5.4 M/mm3 Low RBC 2.70 LAB L100.1300 12.0-15.0 g/dl Low HGB 8.9 LAB L100.1400 37-47 % Low HCT 26.6 LAB L100.1500 81-99 fL Normal MCV 98.5 LAB L100.1600 27.0-32.0 pg High MCH 33.0 LAB L100.1700 32-36 g/gl Normal MCHC 33.5 LAB L100.1810 11.6-14.6 % Normal RDW CV 13.8 LAB L100.1820 35.1-43.9 fl High RDW SD 47.6 LAB L100.1900 150-450 K/mm3 Low PLT 143 LAB L100.2000 6.2-12.0 fl Normal MPV 9.9 LAB L100.2100 47-70 % High NEUT% 74.7 LAB L100.2200 19-41 % Low LY% 17.3 LAB L100.2300 0-10 % Normal MONO% 7.3 LAB L100.2400 0-5 % Normal EO% 0.4 LAB L100.2500 0-1 % Normal BASO% 0.1 LAB L100.2550 0.0-0.9 % Normal IM GRAN % 0.200 Result Comment: IG% - Immature Granulocytes (promyelocytes, myelocytes and metamyelocytes) > 1% indicates that a LEFT SHIFT is Present. LAB L100.2620 2.0-7.7 X10 3/uL Normal Absolute Neut 7.4 LAB L100.2720 0.83-4.51 X10 3/ul Normal Absolute Lymph 1.71 Performed By: #### L100.0100 #### [facility] [address] [place], [address] BASIC METABOLIC Collected: 10/23/2017 Status: F Source: [place] [facility]FILE ([facility]) 5:00 AM [facility] REPOSITORY TYPE CODE TESTS RESULT OUT OF RANGE REFERENCE UNITS LAB L501.0100 74-106 mg/dL Normal GLU 88 Result Comment: Please note revised GLUCOSE reference range effective 2017. LAB L501.1000 7-18 mg/dL Normal BUN 12 LAB L501.1100 0.55-1.02 mg/dL Normal CREAT,SERUM 0.64 Result Comment: The validity of the calculated GFR AND GFRAA in patients over 70 years has not been determined. Clinical correlation is essential. LAB L501.1110 >60 mL/min Normal EST GFR 102 Result Comment: Non- GFR Calc LAB L501.1115 >60 mL/min Normal EST GFR - AA 124 Result Comment: GFR Calc LAB L501.1255 ml/min Normal Estimated CRCL 79.48 LAB L501.1300 10-20 RATIO Normal BUN/CRE 18.7 LAB L501.2200 8.5-10 mg/dL Low .1 CA 7.4 LAB L501.5300 136-14 mmol/L Normal 5 NA 140 LAB L501.5600 3.5-5. mmol/L Normal 1 K 3.6 LAB L501.5900 98-107 mmol/L High CL 110 LAB L501.6100 21.0-3 mmol/L Normal 2.0 CO2 23.0 LAB L501.6200 5-15 Normal GAP 7 Performed By: #### L500.2500 #### [facility] [address] [place], [address] MAGNESIUM Collected: 10/23/2017 Status: F Source: [place] 5:00 AM [facility] REPOSITORY TYPE CODE TESTS RESULT OUT OF RANGE REFERENCE UNITS LAB L501.5200 1.6-2.6 mg/dL High MG 2.8 Result Comment: Please note revised Magnesium reference range effective 2017. Performed By: #### L501.5200 #### [facility] [address] [facility] [place], [address] TROPONIN-I Collected: 10/22/2017 Status: F Source: [place] 3:48 PM [facility] REPOSITORY Order Comment: Comments: FREQUENT PVC'S, IN PACU 'TROP' Serial specimen #1, #2, #3, or #4: 1 TYPE CODE TESTS RESULT OUT OF RANGE REFERENCE UNITS LAB L501.4010 <0.06 ng/mL Normal < 0.02 TROPONIN-I Result Comment: TROPONIN-I EXPECTED VALUES <0.05 NEGATIVE 0.06 - 0.59 AT RISK OF MN > OR = 0.60 SUGGEST MN Performed By: #### L501.4010 #### [facility] [address] [place], [address] BASIC METABOLIC Collected: 10/22/2017 Status: F Source: [place] PROFILE (BMP) 3:48 PM [facility] REPOSITORY TYPE CODE TESTS RESULT OUT OF RANGE REFERENCE UNITS LAB L501.0100 74-106 mg/dL Normal GLU 88 Result Comment: Please note revised GLUCOSE reference range effective 2017. LAB L501.1000 7-18 mg/dL Normal BUN 14 LAB L501.1100 0.55-1.02 mg/dL Normal CREAT,SERUM 0.75 Result Comment: The validity of the calculated GFR AND GFRAA in patients over 70 years has not been determined. Clinical correlation is essential. LAB L501.1110 >60 mL/min Normal EST GFR 86 Result Comment: Non- GFR Calc LAB L501.1115 >60 mL/min Normal EST GFR - AA 104 Result Comment: GFR Calc LAB L501.1255 ml/min Normal Estimated CRCL 67.82 LAB L501.1300 10-20 RATIO Normal BUN/CRE 18.8 LAB L501.2200 8.5-10 mg/dL Low .1 CA 7.7 LAB L501.5300 136-14 mmol/L Normal 5 NA 138 LAB L501.5600 3.5-5. mmol/L Normal 1 K 3.7 LAB L501.5900 98-107 mmol/L High CL 110 LAB L501.6100 21.0-3 mmol/L Low 2.0 CO2 15.0 LAB L501.6200 5-15 Normal GAP 13 Performed By: #### L500.2500, L501.2300, L501.5200 #### [facility] [address] [place], [place], [id number] PHOSPHORUS Collected: 10/22/2017 Status: F Source: [place] 3:48 PM [facility] REPOSITORY TYPE CODE TESTS RESULT OUT OF RANGE REFERENCE UNITS LAB L501.2300 2.5-4.9 mg/dL Normal PHOS 3.0 Performed By: #### L500.2500, L501.2300, L501.5200 #### [facility] [address] [place], [place], [address] MAGNESIUM Collected: 10/22/2017 Status: F Source: [place] 3:48 PM [facility] REPOSITORY TYPE CODE TESTS RESULT OUT OF RANGE REFERENCE UNITS LAB L501.5200 1.6-2.6 mg/dL Low MG 1.5 Result Comment: Please note revised Magnesium reference range effective 2017. Performed By: #### L500.2500, L501.2300, L501.5200 #### [facility] [address] [place], [place], [id number] OPERATIVE REPORT Observed: 10/22/2017 Status: F Source: [place] 3:30 PM [facility] REPOSITORY [facility] Medical Records Department [address] [place] [address] Operative Report 10/22/17 1522 MR#: [id number] Acct: [id number] Name: LISA BULLOCK Rep #: [id number] : 1965 52 From: Felipe Rios MD PCP: Annette Langston MD Status: ADM IN Y Location: [facility] [place] DX035-5 Problem List (1) Diverticulitis Status: Acute Report of Operation Date of Procedure: 10/22/17 Pre-Operative Diagnosis: Pneumoperitoneum and perforated bowel Post-Operative Diagnosis: Perforated bowel with peritonitis Surgery/Procedure Performed:: Expiratory laparotomy with ileocecectomy and takedown of loop ileostomy with primary ileocolic anastomosis Description of Surgical Findings:: The patient had a CT scan which showed pneumoperitoneum and there was likely a perforation due to colonoscopy yesterday. The patient was brought back to the operating room and exploratory laparotomy yielded an abscess in the cecum with perforation of the distal small bowel. The ileostomy was taken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 rest, Sputum production Gastrointestinal: Denies: Abdominal Pain, Nausea, Vomiting Genitourinary: Denies: Dysuria Musculoskeletal: Denies: Joint Pain, Joint Tenderness Skin: Denies: Rash, Wounds Neurological: Denies: Numbness, Tingling, Focal weakness Psychiatric: Reports: Anxiety, Depression. Denies: Homicidal Ideations, Suicidal Ideations Hematologic/ Lymphatic: Denies: Easy Bruising, Easy Bleeding VTE Information - Inpt Only VTE Present on Admission: No VTE Mechan Device Prophylaxis: SCD's VTE Pharm Prophylaxis ordered?: Yes Patient Problems: Active and Suspected Problems (Last Reviewed 08/27/17 @ 10:42 by Lotus Davenport) Opioid withdrawal delirium, acute, hyperactive (Acute) Benzodiazepine withdrawal with delirium (Acute) Polysubstance (including opioids) dependence, daily use (Acute) - Physical Exam General: Alert, Oriented x3, Cooperative HEENT: Atraumatic, PERRLA, EOMI, Normocephalic Oral: Dry Mucosa Neck: Supple, No JVD, Negative Carotid Bruits Lungs: Clear to auscultation, No rhonchi, No rales, Diminished Cardiovascular: Regular rate, No murmurs Abdomen: Bowel Sounds Present, Soft, Non Tender, Non-Distended Extremities: No edema, Capillary Refill Less than 3 Seconds Skin: No rashes, No breakdown Musculoskeletal: No Tenderness to Palpation of Joints or Extremities, Arthritic Changes Neurological: Cranial nerves II-XII grossly intact, Neuro grossly intact Psych/Mental Status: Normal Affect, Appropriate Vital Signs Temp Pulse Resp BP Pulse Ox 98.2 F 105 H 16 128/72 H 98 09/01/17 12:58 09/01/17 12:58 09/01/17 12:58 09/01/17 12:58 09/01/17 12:58 Oxygen Delivery Method Room Air Weight: 120 lb Body Mass Index (BMI) 21.9 Laboratory Tests Past 24 Hrs WBC 9.5 RBC 3.74 L Hgb 12.2 Hct 36.6 L MCV 97.9 MCH 32.6 H MCHC 33.3 Assessment/Plan Active and Suspected Problems (Last Reviewed 08/27/17 @ 10:42 by Lotus Davenport) Opioid withdrawal delirium, acute, hyperactive (Acute) Benzodiazepine withdrawal with delirium (Acute) Polysubstance (including opioids) dependence, daily use (Acute) The patient is a 52 year old F with history of diverticulitis and tubo-ovarian abscess and hydrosalpinx status post hysterectomy with tubal ligation and colostomy came to ER for stabilization of withdrawal symptoms. Currently she is having leg pain, muscle pain anxiety, restlessness, goosebumps, diarrhea and abdominal cramps. She was seen in the ER. Patient takes 2.5-3 mg Ativan daily. Last dose was yesterday. Patient also his notes Percocet and Vicodin 5 325/10/325 milligrams about 10 tablets a day, last dose was yesterday. Patient was also admitted in the past with alcohol withdrawal in 1997 after that she claims that she has quit alcohol. She was admitted in June 2017 for acute recurrent sigmoid diverticulitis. Patient has suicide attempt in 2013 with alcohol and Ativan. 1. Acute opioid and benzodiazepine withdrawal: Patient is being admitted on the regular floor. On IV fluid normal saline for dehydration. Order set for medical stabilization for benzodiazepine and opioid withdrawals entered. Patient is admitted through [facility] protocol. 2. Polysubstance use including benzodiazepine, Ativan, and nicotine dependence: Drug cessation counseling done. 3. Past history of Alcohol and suicidal attempted in 2013: Patient quit alcohol in 1997. Currently, patient denies suicidal ideation/suicidal attempt. COPD:: No acute exacerbation. On inhaler. On Advair Past history of diverticulitis status post ileostomy, hysterectomy, and salpingo-oophorectomy secondary to tubo-ovarian abscess: Stable. Anxiety and depression, chronic hepatitis C since 2017, fall: Stable. Code Visit Inpatient E AND M: [id number] Init Hosp L3 09/01/171817 <Electronically signed by Boone Nguyen MD> Date Boone Nguyen MD Cosigner Signature: Date (if applicable) CC: Annette Langston MD; Boone Nguyen MD Signed PROTHROMBIN TIME W/INR Collected: 09/01/2017 Status: F Source: [place] 5:49 PM [facility] REPOSITORY TYPE CODE TESTS RESULT OUT OF RANGE REFERENCE UNITS LAB L300.4150 11.7-14.9 SECONDS Normal PROTIME 13.4 LAB L300.4200 Normal INR 1.1 Performed By: #### L300.3900 #### [facility] [address] [place], [address] AMYLASE Collected: 09/01/2017 Status: F Source: [place] 5:49 PM [facility] REPOSITORY TYPE CODE TESTS RESULT OUT OF RANGE REFERENCE UNITS LAB L501.2400 25-115 U/L Normal KATHE 75 Performed By: #### L501.2400, L501.2450 #### [facility] [address] [place], [address] LIPASE Collected: 09/01/2017 Status: F Source: [place] 5:49 PM [facility] REPOSITORY TYPE CODE TESTS RESULT OUT OF RANGE REFERENCE UNITS LAB L501.2450 73-393 U/L Normal LIPASE 271 Performed By: #### L501.2400, L501.2450 #### [facility] [address] [facility] [place], [address] ALCOHOL, BLOOD Collected: 09/01/2017 Status: F Source: [place] (MEDICAL)-SERUM 5:49 PM [facility] REPOSITORY TYPE CODE TESTS RESULT OUT OF RANGE REFERENCE UNITS LAB L501.9100 mg/dL Normal SERUM < 3.0 ETOH Result Comment: The serum:whole blood ethanol ratio is approximately 1.14 and varies slightly with hematocrit. Medical Alcohol reference interval and critical value in non-tolerant individuals; 50 - 100 Impairment 100 Intoxication 100 - 250 Severe Poisoning 250 - 400 Deep/possible fatal coma Performed By: #### L501.9100 #### [facility] [place], [address] ,SERUM,HCG QUALI. Collected: Status: F Source: [place] 09/01/2017 5:49 PM [facility] REPOSITORY TYPE CODE TESTS RESULT OUT OF REFERENCE UNITS RANGE LAB L700.7000 0-9 Nonpreg Negative Normal HCGSQUAL NEGATIVE LAB L700.6700 =>Qualitative mIU/mL Normal HCG Qual 1 triggr Performed By: #### L700.6800 #### [facility] [place], [address] EMERGENCY DEPARTMENT Observed: 09/01/2017 Status: F Source: [place] SUMMARY 5:21 PM [facility] REPOSITORY [facility] Medical Records Department [address] [place] [address] Emergency Department Summary 09/01/17 1439 MR#: [id number] Acct: [id number] Name: LISA BULLOCK Rep #: [id number] : 1965 52 From: Murphy Fernandez MD PCP: Annette Langston MD Status: ADM IN - ER Visit Summary Date of Service: 09/01/17 Chief Complaint: Opiate and benzodiazepine withdrawal History of Present Illness: The patient is a [address] Langston. She reports that she has been abusing Vicodin and Percocet since 1995. She was snorting them all the time. States that she would snort as much as she could get and her last use was 8:00 yesterday morning. She denies any IV drug abuse. Patient also reports that she is supposed be taking Ativan twice daily and she has been taking it 5-6 times a day. Last use was yesterday. Patient has had nausea and 8 episodes of diarrhea today. She has diffuse myalgias and abdominal cramping. She has a headache that 6 out of 10 severity and feels shaky. Physical Examination: Vitals: Stable. Afebrile. General: Well-nourished and well-developed. Head: Normocephalic atraumatic. Neck: Supple, no lymphadenopathy. No JVD. Nontender. Cardiovascular: Regular rate and rhythm. No murmurs. Respiratory: No respiratory distress. Clear to auscultation bilaterally. Abdominal: Soft, nontender, nondistended, normal bowel sounds. No guarding, rebound, or peritoneal signs. Back: Nontender. Extremities: Nontender, no edema. Skin: Normal color, no rash. Neurologic: Alert and oriented 3. Cranial nerves II through XII are intact. Normal strength and sensation. Psych: Normal affect. Test Results: CBC is marked for hematocrit of 36.6, segmented neutrophils of 47, basophils of 2. Chem-7 is more for chloride 109. Emergency Department Course and Treatment: Patient is treated with clonidine and Librium p.o. She is given Toradol and Zofran IV. She was given Bentyl IM. She is resting comfortably. Treatment Plan: The patient was seen by janet bonilla and meets admission criteria. She was discussed with Dr. Nguyen. Disposition: Admitted in improved condition. Impression: 1. Opiate/benzodiazepine withdrawal. This note was generated with [employer] dictation software. It may contain incorrect words, spelling, and punctuation that were not noted in review of the chart prior to signing ED Disposition - Plan for ED Patient: Chief Complaint: Subst Abuse Referrals: Annette Langston MD [Primary Care Provider] - What to do if you have Problems For any increased pain, shortness of breath, bleeding, nausea or vomiting, chest pain, or any unexpected problems, contact your Primary Care Provider. Call [facility] ([phone]) or report to the closest Emergency Room. Call 911 if necessary. 09/01/17 1721 <Electronically signed by Murphy Fernandez MD> Date Murphy Fernandez MD Cosigner Signature (If Indicated): Date CC: Annette Langston MD URINE DRUG SCREEN Collected: 09/01/2017 Status: F Source: [place] (VISTA) 2:47 PM [facility] REPOSITORY TYPE CODE TESTS RESULT OUT OF RANGE REFERENCE UNITS LAB L505.0075 TO BE Normal CONFIRMED Result Comment: CONFIRMATORY TESTING FOR ALL POSITIVE URINE DRUG SCREEN RESULTS WILL ONLY BE SENT OUT UPON PHYSICIAN ORDER. VISTA Urine Drug Screen methods provide only preliminary analytical test results. A more specific alternate chemical method must be used in order to obtain a confirmed analytical result. Gas chromatography/mass spectrometery (GC/MS) is the preferred confirmatory method. Clinical consideration and professional judgement should be applied to any drug of abuse test result, particularly when preliminary positive results are used. URINE TCA TESTING MUST BE ORDERED SEPARATELY. USE TEST MNEMONIC: [facility] LAB L505.5005 VISTA UDS PH 5 Normal LAB L505.5015 <1000 ng/mL AMPHETAMINES Normal NEGATIVE LAB L505.5025 < 200 ng/mL BARBITIURATES Normal NEGATIVE LAB L505.5035 < 200 ng/mL BENZODIAZIPINE Normal NEGATIVE LAB L505.5045 < 300 ng/mL COCAINE Normal NEGATIVE LAB L505.5055 < 500 ng/mL ECSTACY Normal NEGATIVE LAB L505.5065 < 300 ng/mL METHADONE Normal NEGATIVE LAB L505.5075 < 300 High ng/mL OPIATES POSITIVE LAB L505.5085 < 25 ng/mL PCP Normal NEGATIVE LAB L505.5095 < 50 ng/mL THC Normal NEGATIVE Performed By: #### L505.5000 #### [facility] [address] [place], [place], [address] CBC W/DIFF, AUTOMATED Collected: 09/01/2017 Status: F Source: [place] 1:34 PM [facility] REPOSITORY TYPE CODE TESTS RESULT OUT OF RANGE REFERENCE UNITS LAB L100.1000 4.4-11.0 K/mm3 Normal WBC 9.5 LAB L100.1200 4.2-5.4 M/mm3 Low RBC 3.74 LAB L100.1300 12.0-15.0 g/dl Normal HGB 12.2 LAB L100.1400 37-47 % Low HCT 36.6 LAB L100.1500 81-99 fL Normal MCV 97.9 LAB L100.1600 27.0-32.0 pg High MCH 32.6 LAB L100.1700 32-36 g/gl Normal MCHC 33.3 LAB L100.1810 11.6-14.6 % Normal RDW CV 14.1 LAB L100.1820 35.1-43.9 fl High RDW SD 48.7 LAB L100.1900 150-450 K/mm3 Normal PLT 316 LAB L100.2000 6.2-12.0 fl Normal MPV 10.1 LAB L100.2100 47-70 % Low NEUT% 46.5 LAB L100.2200 19-41 % Normal LY% 38.2 LAB L100.2300 0-10 % Normal MONO% 9.8 LAB L100.2400 0-5 % Normal EO% 3.8 LAB L100.2500 0-1 % High BASO% 1.5 LAB L100.2550 0.0-0.9 % Normal IM GRAN % 0.200 Result Comment: IG% - Immature Granulocytes (promyelocytes, myelocytes and metamyelocytes) > 1% indicates that a LEFT SHIFT is Present. LAB L100.2620 2.0-7.7 X10 3/uL Normal Absolute Neut 4.4 LAB L100.2720 0.83-4.51 X10 3/ul Normal Absolute Lymph 3.64 Performed By: #### L100.0100 #### [facility] [address] [place], [place], [address] BASIC METABOLIC Collected: 09/01/2017 Status: F Source: [place] PROFILE (BMP) 1:34 PM [facility] REPOSITORY TYPE CODE TESTS RESULT OUT OF RANGE REFERENCE UNITS LAB L501.0100 70-110 mg/dL Normal GLU 102 LAB L501.1000 7-18 mg/dL Normal BUN 18 LAB L501.1100 0.55-1.02 mg/dL Normal 0.63 CREAT,SERUM Result Comment: The validity of the calculated GFR AND GFRAA in patients over 70 years has not been determined. Clinical correlation is essential. LAB L501.1110 >60 mL/min Normal EST GFR 105 Result Comment: Non- GFR Calc LAB L501.1115 >60 mL/min Normal EST GFR - AA 127 Result Comment: GFR Calc LAB L501.1255 ml/min Normal Estimated CRCL 80.74 LAB L501.1300 10-20 RATIO High BUN/CRE 28.8 LAB L501.2200 8.5-10 mg/dL Normal .1 CA 9.3 LAB L501.5300 136-14 mmol/L Normal 5 NA 139 LAB L501.5600 3.5-5. mmol/L Normal 1 K 4.6 Result Comment: Moderate Hemolysis, Result may be falsely increased. LAB L501.5900 98-107 mmol/L High CL 109 LAB L501.6100 21.0-32.0 mmol/L Normal CO2 22.0 LAB L501.6200 5-15 Normal 8 GAP Performed By: #### L500.2500 #### [facility] [place], [address] ALLERGIES ALLERGIES DATE TYPE / NAME / CODE REACTION SEVERITY SOURCE CODE 08/25/2018 Drug Penicillins/[id number] UNSURE CHILD Unknown [place] Allergy/41 476(RXNORM) [facility] [id number]([facility]) Repository 08/25/2018 Drug codeine/[id number]( hallucination Unknown [place] Allergy/41 RXNORM) [facility] 8116824([facility]) Repository 04/09/2016 DRUG ETODOLAC GI UPSET [place] [address] [facility] [address] 9088985([facility]) Repository 01/10/2012 DRUG METRONIDAZOLE HCL GI UPSET [place] INGREDI/41 Clinic Main 8445809([facility]) Repository 05/09/2009 DRUG ORPHENADRINE INTOLERANCE [place] INGREDI/41 CITRATE Clinic Main 1279128([facility]) Repository 05/09/2009 DRUG SULINDAC INTOLERANCE [place] INGREDI/41 Clinic Main 2474719([facility]) Repository 04/25/2005 DRUG CODEINE Mental Chg High [place] INGREDI/41 Clinic Main 9085940([facility]) Repository 04/25/2005 Drug PENICILLINS INTOLERANCE [facility] Class/4195 Clinic Main [address]([facility] ED CT) Repository ENCOUNTERS ENCOUNTERS ADMIT/DISCHARGE ACCOUNT NUMBER ADMITTING ENCOUNTER LOCATION SOURCE CLASS 08/25/2018/08/25/19 [id number] Emergency [place] Mar[place] 19 [facility] ding:ED Repository 06/17/2018/06/20/20 [id number] [place], Inpatient [place] 18 [place] Encounter [facility] ding:[id number] Repository : [id number]: 1 06/17/2018 [id number] [place], Ambulatory BMSBuilding: [place] BMS.[facility] Repository 06/17/2018 [id number] [place], Ambulatory BMSBuilding: [place] BMS.[facility] Repository 06/17/2018 [id number] [place], Ambulatory BMSBuilding: [place] BMS.[facility] Repository 06/17/2018 [id number] [place], Ambulatory BMSBuilding: [place] BMS.[facility] Repository 05/20/[id number] [facility] [facility]PM 12/30/2017 [id number] Ambulatory BBuilding:PH [facility] Repository 11/25/2017/11/26/19 [id number] Emergency BBuilding:ER [address] Repository 11/14/2017/11/15/19 [id number] Ambulatory BMSBuilding: [place] 18 [facility] Repository 10/31/2017/11/04/19 [id number] [place], Inpatient Marilyn Marilyn 18 [place] Encounter [facility] ding:[id number] Repository : [id number]: 1 10/31/2017 [id number] [place], Ambulatory BMSBuilding: [place] Liz BMS.[facility] Repository 10/31/2017 [id number] [place], Ambulatory BMSBuilding: [place] Liz BMS.[facility] Repository 10/31/2017 [id number] [place], Ambulatory BMSBuilding: [place] Liz BMS.[facility] Repository 10/31/2017 [id number] [place], Ambulatory BMSBuilding: [place] Liz BMS.[facility] Repository 10/31/2017/11/01/19 [id number] Ambulatory BMSBuilding: [place] 18 BMS.[facility] Repository 10/22/2017/10/27/19 [id number] [place], Inpatient [place] 18 [place] [facility] ding:PCURoom Repository : [id number]: 1 10/22/2017 [id number] [place], Ambulatory BMSBuilding: [place] BMS..[facility] Repository 10/22/2017 [id number] [place], Ambulatory BMSBuilding: [place] BMS..[facility] Repository 10/22/2017 [id number] [place], Ambulatory BMSBuilding: Mar[place]n [place] BMS..[facility] Repository 10/22/2017 [id number] [place], Ambulatory BMSBuilding: Mar[place]n [place] BMS..[facility] Repository 10/22/2017/10/27/19 [id number] Ambulatory BMSBuilding: Mar[place]n 18 [facility] Repository 10/21/2017 [id number] Inpatient [place] [facility] ding:SDC Repository 10/21/2017 [id number] Inpatient Marilyn Marilyn [facility] Repository 10/20/2017 [id number] Blanca, Ambulatory BMSBuilding: [place] BMS.CF.[facility] Repository 10/20/2017 [id number] Jose Mabretta, Ambulatory BMSBuilding: [place] BMS.CF.[facility] Repository 10/20/2017 [id number] Madeleineetta, Ambulatory BMSBuilding: [place] BMS.CF.[facility] Repository 10/15/2017/10/16/19 [id number] Ambulatory BMSBuilding: [place] 18 BMS.[facility] Repository 10/14/2017/10/15/19 [id number] Emergency BBuilding:ER [address] Repository 10/11/2017/10/12/19 [id number] Emergency BBuilding:ER [address] Repository 10/10/2017 [id number] Ambulatory BBuilding:RE [facility] Repository 10/01/2017/10/04/19 [id number] Ambulatory [address] Repository 09/30/2017/09/30/19 [id number] Emergency [address] ding:ED Repository 09/22/2017 [id number] Ambulatory [facility] ding:RAD Repository 09/16/2017/09/16/19 [id number] Emergency [address] ding:ED Repository 09/01/2017/09/04/19 [id number] [facility], Inpatient Marilyn Marilyn[address] [facility]counter [facility] Hospital ding:[id number] Repository : [id number]: 1 09/01/2017 [id number] [facility], Ambulatory BMSBuilding: [place] [facility] [facility] Repository 09/01/2017 [id number] [facility], Ambulatory BMSBuilding: [place] [facility] Repository 09/01/2017 [id number] [facility], Ambulatory BMSBuilding: [place] [facility]MS[facility] Repository 09/01/2017/09/04/19 [id number] Ambulatory BMSBuilding: [place] [facility] Repository 09/01/2017/09/04/19 [id number] Ambulatory BMSBuilding: [place] [facility] Repository PAYERS PAYERS ENCOUNTER GUARANTOR PAYER SUBSCRIBER SOURCE 08/25/2018 LISA Gregory Primary LISA [id number] NOLD Insurance[facility]: [facility] MIREILLE la jasmin Number: [id number] Hospital 47[address]Flm: (330 [id number] Repository [phone] (HP) Date:2018-08-25[address]ATTN: [place] [address]FH: 08/25/2018 Secondary NOT GIVENUNK [place] Insurance:SELF PAY [facility] Number: Effective Repository Date:2018-08-25 06/17/2018 LISA Gregory Primary LISA Sanders [id number] NOLD Insurance:CARESOURCEP BRENNERDOB: [facility] Number: [id number] Hospital 68457Xgf: (299) [id number] Repository [phone] (HP) Date:2018-06-17[address]ATTN: [place] [address]SG: 06/17/2018 Secondary NOT GIVENUNK [place] Insurance:SELF PAY [facility] Number: Effective Repository Date:2018-06-17 06/17/2018 LISA Gregory Primary LISA Sanders [id number] NOLD Insurance:CARESOURCEP BRENNERDOB: [facility] Number: [id number] Hospital 85481Vrt: (330 [id number] Repository [phone] () Date:2018-06-[address]ATTN: [place] [address]IA: 06/17/2018 Secondary NOT GIVENUNK [place] Insurance:SELF PAY [facility] Number: Effective Repository Date:2018-06-17 06/17/2018 LISA Gregory Primary LISA Sanders [id number] NOLD Insurance:CARESOURCEP BRENNERDOB: [facility] Number: [id number] Hospital 47722Plw: (060) [id number] Repository [phone] (HP) Date:2018-06-[address]ATTN: [place] [address]GK: 06/17/2018 Secondary NOT GIVENUNK [place] Insurance:SELF PAY [facility] Number: Effective Repository Date:2018-06-17 06/17/2018 LISA Gregory Primary LISA Sanders [id number] NOLD Insurance:CARESOURCBANNERB: [facility] Number: [id number] Hospital 660[address]Mqo: 330 [id number] Repository [phone] () Date:2018-06-17[address]ATTN: [place] [address]ST: 06/17/2018 Secondary NOT GIVENUNK [place] Insurance:SELF PAY [facility] Number: Effective Repository Date:2018-06-17 06/17/2018 LISA Gregory Primary LISA [facility]Select [facility] [id number] NOLD Insurance:[facility]ESOTURN[facility] POINT [facility] CARE UNITB: [facility] Number: [id number] Hospital 64768Mzh: 330 [id number] Repository [phone] () Date:2018-06-[address]ATTN: [place] [address]JC: 06/17/2018 Secondary NOT GIVENUNK [place] Insurance:SELF PAY [facility] Number: Effective Repository Date:2018-06-17 05/20/2018 LISA RAMOSER922 Primary LISAMENG RAMOSROSA [facility], [facility] [address]Zqi: olicy Number: Repository [id number] (HP) Date:[address] [place] [address]80[address]UP: 12/30/2017 [facility]ISA [facility] [id number] MEDICAIDPolicy [id number] Repository 08/05 [address] Number: 1 08/05 [place] [id number] [place], [place] [address]Dhs: (330) Date:2017-12-30Tel: (HP) [phone] Name:XPO Box (HP)Tel: 000) [place] [phone] (WP) [address]QX: 11/25/2017 LISA Gregory Primary LISA Gregory [facility] BRENNERDOB: Insurance:[facility]ESSM RE[facility]OSPITALB: [facility] [id number] MEDICAIDPolicy [id number] Repository 08/05 [address] Number: 1 08/05 [place] [id number] [place] [address]Wiv: (330) Date:2017-11-25Tel: (HP) [phone] [phone] Name:X[address] Box (HP)Tel: (000) [place] [address] (WP) [address]SP: 11/14/2017 LISA Gregory Primary LISA Sanders [id number] 08/05 Insurance:CARESOURCBANNERB: [facility] Number: [id number] [place], [place] [id number] Repository [address]Ckp: (330) Date:2017-10-31 O [phone] () [address]ATTN: CLAIMS [facility] [place] [address]VE: 11/14/2017 Secondary NOT GIVENUNK [place] Insurance:SELF PAY [facility] Number: Effective Repository Date:2017-11-14 10/31/2017 LISA Gregory Primary LISA Sanders [id number] 08/05 Insurance:CARESOURCEP BRENNERDOB: [facility] Number: [id number] [place], [place] [id number] Repository [address]Ncw: (330) Date:2017-10-31 O [phone] (HP) [address]ATTN: [place] [address]CV: 10/31/2017 Secondary NOT GIVENUNK [place] Insurance:SELF PAY [facility] Number: Effective Repository Date:2017-10-31 10/31/2017 LISA Gregory Primary LISA Sanders [id number] 1/2 Insurance:CARESOURCEP BRENNERDOB: [facility] Number: [id number] [place], [place] [id number] Repository [address]Mzj: (330) Date:2017-10-31P O [phone] (HP) [address]ATTN: [place] [address]AP: 10/31/2017 Secondary NOT GIVENUNK [place] Insurance:SELF PAY [facility] Number: Effective Repository Date:2017-10-31 10/31/2017 LISA Gregory Primary LISA Sanders [id number] 1/2 Insurance:CARESOURCEP BRENNERDOB: [facility] Number: [id number] Island, [place] [id number] Repository 95[address]Wcy: (330) Date:2017-10-31P O [phone] (HP) [address]ATTN: [place] [address]RL: 10/31/2017 Secondary NOT GIVENUNK [place] Insurance:SELF PAY [facility] Number: Effective Repository Date:2017-10-31 10/31/2017 LISA Gregory Primary LISA Sanders [id number] 1/2 Insurance:CARESOURCEP BRENNERDOB: [facility] Number: [id number] Island, [place] [id number] Repository [address]Nmd: (330) Date:2017-10-31P O [phone] (HP) [address]ATTN: [place] [address]FO: 10/31/2017 Secondary NOT GIVENUNK [place] Insurance:SELF PAY [facility] Number: Effective Repository Date:2017-10-31 10/31/2017 LISA Gregory Primary LISA Sanders [id number] 1/2 Insurance:CARESOURCEP BRENNERDOB: [facility] Number: [id number] Island, [place] [id number] Repository [address]Ery: (330) Date:2017-10-31P O [phone] () [address]ATTN: [place] [address]GG: 10/31/2017 Secondary NOT GIVENUNK [place] Insurance:SELF PAY [facility] Number: Effective Repository Date:2017-10-31 10/31/2017 LISA Gregory Primary LISA Sanders [id number] Insurance:CARESOURCEP BRENNERDOB: [facility] Number: [id number] Island, [place] [id number] Repository [address]Gpx: (330) Date:2017-10-29P O [phone] () [address]ATTN: [place] [address]WD: 10/31/2017 Secondary NOT GIVENUNK [place] Insurance:SELF PAY [facility] Number: Effective Repository Date:2017-10-31 10/22/2017 LISA Gregory Primary LISA Sanders [id number] 1/2 Insurance:CARESOURCEP BRENNERDOB: [facility] Number: [id number] Island, [place] [id number] Repository [address]Eqw: (330) Date:2017-10-20P O [phone] () [address]ATTN: [place] [address]IW: 10/22/2017 Secondary NOT GIVENUNK [place] Insurance:SELF PAY [facility] Number: Effective Repository Date:2017-10-20 10/22/2017 LISA Gregory Primary LISA Sanders [id number] 1/2 Insurance:CARESOURCEP BRENNERDOB: [facility] Number: [id number] [place], [place] [id number] Repository 85299Api: (330) Date:2017-10-20P O [phone] () [address]ATTN: [place] [address]RV: 10/22/2017 Secondary NOT GIVENUNK [place] Insurance:SELF PAY [facility] Number: Effective Repository Date:2017-10-22 10/22/2017 LISA Gregory Primary LISA Sanders [id number] 2 Insurance:CARESOURCEP BRENNERDOB: [facility] Number: [id number] [place] [id number] Repository [address]Qbi: (330) Date:2017-10-20P O [phone] () [address]ATTN: [place] [address]LK: 10/22/2017 Secondary NOT GIVENUNK [place] Insurance:SELF PAY [facility] Number: Effective Repository Date:2017-10-22 10/22/2017 LISA Gregory Primary LISA Sanders [id number] Insurance:CARESOURCEP BRENNERDOB: [facility] Number: [id number] Island, [place] [id number] Repository 953[address]Qdt: (330) Date:2017-10-20 O [phone] () [address]ATTN: [place] [address]EO: 10/22/2017 Secondary NOT GIVENUNK [place] Insurance:SELF PAY [facility] Number: Effective Repository Date:2017-10-22 10/22/2017 LISA Gregory Primary LISA Sanders [id number] 2 Insurance:CARESOURCEP BRENNERDOB: [facility] Number: [id number] [place], [place] [id number] Repository [address]Pvx: (330) Date:2017-10-20P O [phone] (HP) [address]ATTN: [place] [address]HM: 10/22/2017 Secondary NOT GIVENUNK [place] Insurance:SELF PAY [facility] Number: Effective Repository Date:2017-10-22 10/22/2017 LISA Gregory Primary LISA Sanders [id number] Insurance:CARESOURCEP BRENNERDOB: [facility] Number: [id number] Island, [place] [id number] Repository 520[address]Jau: (330) Date:2017-10-20P O [phone] (HP) [address]ATTN: [place] [address]CX: 10/22/2017 Secondary NOT GIVENUNK [place] Insurance:SELF PAY [facility] Number: Effective Repository Date:2017-10-22 10/21/2017 LISA Gregory Primary LISA Sanders [id number] Insurance:CARESOURCEP BRENNERDOB: [facility] Number: [id number] Island, [place] [id number] Repository 19671Xtr: (330) Date:2017-10-17P O [phone] (HP) [address]ATTN: [place] [address]GG: 10/21/2017 Secondary NOT GIVENUNK [place] Insurance:SELF PAY [facility] Number: Effective Repository Date:2017-10-17 10/21/2017 LISA Gregory Primary LISA Sanders [id number] Insurance:CARESOURCEP BRENNERDOB: [facility] Number: [id number] Island, [place] [id number] Repository 61726Ysc: (330) Date:2017-10-17P O [phone] (HP) [address]ATTN: CLAIMS [facility] [place] [address]LI: 10/21/2017 Secondary NOT GIVENUNK [place] Insurance:SELF PAY [facility] Number: Effective Repository Date:2017-10-17 10/20/2017 LISA Gregory Primary LISA Sanders [id number] 1/2 Insurance:CARESOURCEP BRENNERDOB: [facility] Number: [id number] [place], [place] [id number] Repository 99[address]Wbs: (330) Date:2017-10-20P O [phone] () [address]ATTN: [place] [address]BU: 10/20/2017 Secondary NOT GIVENUNK [place] Insurance:SELF PAY [facility] Number: Effective Repository Date:2017-10-20 10/20/2017 LISA Gregory Primary LISA Sanders [id number] 1/2 Insurance:CARESOURCEP BRENNERDOB: [facility] Number: [id number] Island, [place] [id number] Repository 360[address]Nna: (330) Date:2017-10-20P O [phone] () [address]ATTN: [place] [address]CU: 10/20/2017 Secondary NOT GIVENUNK [place] Insurance:SELF PAY [facility] Number: Effective Repository Date:2017-10-20 10/20/2017 LISA Gregory Primary LISA Sanders [id number] 1/2 Insurance:CARESOURCEP BRENNERDOB: [facility] Number: [id number] Island, [place] [id number] Repository 36[address]Zel: (330) Date:2017-10-20P O [phone] () [address]ATTN: [place] [address]JT: 10/20/2017 Secondary NOT GIVENUNK [place] Insurance:SELF PAY [facility] Number: Effective Repository Date:2017-10-20 10/15/2017 LISA Gregory Primary LISA Sanders [id number] 1/2 Insurance:CARESOURCEP BRENNERDOB: [facility] Number: [id number] [place], [place] [id number] Repository 436[address]Qnu: (330) Date:2017-10-10 O [phone] (HP) [address]ATTN: [place] [address]XF: 10/15/2017 Secondary NOT GIVENUNK [place] Insurance:SELF PAY [facility] Number: Effective Repository Date:2017-10-10 10/14/2017 LISA Gregory [facility] LISA Gregory [facility] BRENNERDOB: Insurance:CARESOURCE BRENNERDOB: [facility] [id number] MEDICAIDPolicy [id number] Repository 08/05 [address] Number: 08/05 [place] [id number] [place] [address]Sjz: (330) Date:2017-10-14 01002Vav: (HP) [phone] [phone] Name:XPO Box (HP)Tel: 000) [place], [place] [phone] (WP) [address]HS: 10/11/2017 LISA Gregory [facility] LISA Gregory [facility] BRENNERDOB: Insurance:CARESOURCE BRENNERDOB: [facility] [id number] MEDICAIDPolicy [id number] Repository 08/05 [address] Number: 08/05 [place] [id number] [place], [place] [address]Wpe: (330) Date:2017-10-11 704[address]Asl: (HP) [phone] Name:XPO Box (HP)Tel: 000) 5730DayLe[place], [place] 000[address] (WP) [address]XU: 10/10/2017 LISA Gregory [facility] LISA Colt [facility] BRENNERDOB: Insurance:CARESOURCE BRENNERDOB: [facility] [id number] MEDICAIDPolicy [id number] Repository 08/05 [address] Number: 1 08/05 [place] [id number] [place] [address]Ppy: (330) Date:2017-10-10 84746Ecs: (HP) [phone] [phone] Name:XPO Box ()Tel: 000) 9730Day[place], [place] [address] () [address]ZS: 09/30/2017 LISA Gregory Primary LISA Sanders [id number] 08/05 Insurance:CARESOURCEP BRENNERDOB: [facility] Number: [id number] Island, [place] [id number] Repository 39[address]Uwg: (330) Date:2017-09-30P O [phone] () [address]ATTN: [place] [address]SC: 09/30/2017 Secondary NOT GIVENUNK [place] Insurance:SELF PAY [facility] Number: Effective Repository Date:2017-09-30 09/22/2017 LISA Gregory Primary LISA Sanders [id number] 08/05 Insurance:CARESOURCEP BRENNERDOB: [facility] Number: [id number] Island, [place] [id number] Repository 837[address]Ofp: (330) Date:2017-08-27P O [phone] () [address]ATTN: [place] [address]SO: 09/22/2017 Secondary NOT GIVENUNK [place] Insurance:SELF PAY [facility] Number: Effective Repository Date:2017-08-27 09/16/2017 LISA Gregory Primary LISA Sanders [id number] 2 Insurance:CARESOURCEP BRENNERDOB: [facility] Number: [id number] [place], [place] [id number] Repository [address]Tjs: (330) Date:2017-09-16P O [phone] (HP) [address]ATTN: [place] [address]KD: 09/16/2017 Secondary NOT GIVENUNK [place] Insurance:SELF PAY [facility] Number: Effective Repository Date:2017-09-16 09/01/2017 LISA Gregory Primary LISA Sanders [id number] 1/2 Insurance:CARESOURCEP BRENNERDOB: [facility] Number: [id number] Island, [place] [id number] Repository 76963Btl: (330) Date:2017-09-01P O [phone] (HP) [address]ATTN: [place] [address]TG: 09/01/2017 Secondary NOT GIVENUNK [place] Insurance:SELF PAY [facility] Number: Effective Repository Date:2017-09-01 09/01/2017 LISA Gregory Primary LISA Sanders [id number] 1/2 Insurance:CARESOURCEP BRENNERDOB: [facility] Number: [id number] [place], [place] [id number] Repository [address]Yxz: (330) Date:2017-09-01P O [phone] (HP) [address]ATTN: [place] [address]QY: 09/01/2017 Secondary NOT GIVENUNK [place] Insurance:SELF PAY [facility] Number: Effective Repository Date:2017-09-01 09/01/2017 LISA Gregory Primary LISA Sanders [id number] 1/2 Insurance:CARESOURCEP BRENNERDOB: [facility] Number: [id number] Island, [place] [id number] Repository [address]47[address]Aym: (330) Date:2017-09-01P O [phone] (HP) [address]ATTN: CLAIMS [facility] [place] [address]US: 09/01/2017 Secondary NOT GIVENUNK [place] Insurance:SELF PAY [facility] Number: Effective Repository Date:2017-09-01 09/01/2017 LISA Gregory Primary LISA Sanders [id number] 1/2 Insurance:CARESOURCEP BRENNERDOB: [facility] Number: [id number] [place], [place] [id number] Repository 312[address]Gib: (330) Date:2017-09-01P O [phone] (HP) [address]ATTN: [place] [address]RF: 09/01/2017 Secondary NOT GIVENUNK [place] Insurance:SELF PAY [facility] Number: Effective Repository Date:2017-09-01 09/01/2017 LISA Gregory Primary LISA Sanders [id number] 1/2 Insurance:CARESOURCEP BRENNERDOB: [facility] Number: [id number] [place], [place] [id number] Repository [address]44[address]Lyf: (330) Date:2017-09-01P O [phone] (HP) [address]ATTN: [place] [address]NW: 09/01/2017 Secondary NOT GIVENUNK [place] Insurance:SELF PAY [facility] Number: Effective Repository Date:2017-09-01 09/01/2017 LISA Gregory Primary LISA Sanders [id number] 1/2 Insurance:CARESOURCEP BRENNERDOB: [facility] Number: [id number] [place], [place] [id number] Repository 562[address]Ick: (330) Date:2017-09-01P O [phone] (HP) [address]ATTN: [place] [address]OT: 09/01/2017 Secondary NOT GIVENUNK [place] Insurance:SELF PAY [facility] Number: Effective Repository Date:2017-09-01
== END 2018-08-25 14:09 | disposition home or self-care (01) ==
LOC: ED 12:40
PROVIDERS: Emergency Provider Emergency Medicine
DX: S30.0XXA Contusion of lower back and pelvis, initial encounter (principal); W00.0XXA Fall on same level due to ice and snow, initial encounter; Y93.9 Activity, unspecified; Y92.89 Other specified places as the place of occurrence of the external cause; Y99.9 Unspecified external cause status; J44.9 Chronic obstructive pulmonary disease, unspecified; Z72.0 Tobacco use
CPT/HCPCS: 71045; 72100; 99283

== ENCOUNTER 2018-09-14 12:40 | Emergency (ER) | payer MEDICAID, SELFPAY ==
[2018-09-14 12:41] VITALS: BP 162/95; PULSE 115; RESP 18; TEMP 36.8; O2SAT 99; BMI 21.0
--- NOTE | 2018-09-14 13:19 | EKG12_ITS ---
Test Reason : CP Blood Pressure : / mmHG Vent. Rate : 107 BPM Atrial Rate : 107 BPM P-R Int : 132 ms QRS Dur : 078 ms QT Int : 354 ms P-R-T Axes : 066 065 043 degrees QTc Int : 472 ms Sinus tachycardia with Premature supraventricular complexes Nonspecific ST abnormality Abnormal ECG Confirmed by WEST KIM, GLORY ([id number]), assignment desk editor JIMBO SMITH ([id number]) on 09/18/2018 8:51:49 AM Referred By: ALPHONSO Confirmed By:GLORY DODSON MD
[2018-09-14] MEDS: 0.9% Normal Saline 1,000 ML 1000 ML IV (13:33)
[2018-09-14] MEDS: Ondansetron 4 MG/2 ML Vial IV ×2 (13:33→15:16)
[2018-09-14 13:34] VITALS: O2SAT 100
--- NOTE | 2018-09-14 13:37 | RAD_ITS ---
STUDY: X-RAY CHEST REASON FOR EXAM: Female, 53 years old. Dizziness. TECHNIQUE: Single AP portable view of the chest. COMPARISON: Comparison is made with prior study dated August 25, 2018. FINDINGS: EKG electrodes are seen. The lungs are clear and expanded. Scattered calcified granulomas. The lungs are clear. There is no demonstrated pleural abnormality. Normal size heart. Normal mediastinum and hillary. Normal visualized pulmonary arteries. Normal visualized aortic arch and descending thoracic aorta. Normal visualized thoracic spine. Normal visualized ribs, clavicles, and shoulders. There is no demonstrated abnormality of the visualized soft tissue structures of the upper abdomen. RAD/Chest 1 View (Portable) IMPRESSION: Normal x-ray examination of the chest. Electronically Signed: Charles Urrutia MD at 14:04 EST , Service support ,
[2018-09-14 13:49] LABS: Absolute Lymphocyte Count 2.45 X10^3/ul (0.83-4.51); Absolute Neutrophil Count 6.4 X10^3/uL (2.0-7.7); Basophil# 0.01 X10^3/uL; Basophil% 0.1 % (0-1); Eosinophil# 0.02 X10^3/uL; Eosinophils% 0.2 % (0-5); Hematocrit 42.6 % (37-47); Hemoglobin 14.6 g/dl (12.0-15.0); Lymphocyte # 2.45 X10^3/ul (4.0); Lymphocyte % 26.5 % (19-41); Mean Corp Hgb Conc 34.3 g/gl (32-36); Mean Corpuscular Hgb 35.1 pg (27.0-32.0); Mean Corpuscular Volume 102.4 fL (81-99); Monocyte% 4.3 % (0-10); Neutrophil # 6.35 X10^3/uL (2.7-7.7); Neutrophil % 68.8 % (47-70); Platelet Count 212 K/mm3 (150-450); RBC Distribution Width CV 14.1 % (11.6-14.6); RBC Distribution Width SD 52.3 fl (35.1-43.9); Red Blood Count 4.16 M/mm3 (4.2-5.4); White Blood Count 9.2 K/mm3 (4.4-11.0)
[2018-09-14 13:50] LABS: POSITIVE COUNT NO; POSITIVE DIFFERENTIAL NO; POSITIVE MORPHOLOGY NO
[2018-09-14 14:04] LABS: Anion Gap 10 (5-15); BUN 7 mg/dL (7-18); BUN/Creat Ratio 12.2 RATIO (10-20); Calcium,Total 9.3 mg/dL (8.5-10.1); Chloride 103 mmol/L (98-107); Creatinine, Serum 0.58 mg/dL (0.55-1.02); EST Glomerular Filtration Rate 115 mL/min (>60); Est Glom Filt Rate - Afr Amer 140 mL/min (>60); Estimated Creatinine Clearance 86.68 ml/min; Glucose 96 mg/dL (74-106); Potassium 3.9 mmol/L (3.5-5.1); Sodium Level 137 mmol/L (136-145)
[2018-09-14 14:58] VITALS: BP 165/96; PULSE 97; RESP 18; O2SAT 99
--- NOTE | 2018-09-14 15:18 | ED.VISSUMM ---
- ER Visit Summary Date of Service: 09/14/18 Chief Complaint: Nausea and vomiting all night after snorting Percocet History of Present Illness: The patient is a 53 F history of opiate abuse also cervical cancer for which she had a hysterectomy. Partial colectomy with colostomy reversal. Patient has a history of abusing opiates. Has been doing so in the last several weeks. She thinks someone put something else in her opiates. And has had nausea and vomiting throughout the night. No melena. No hematemesis. No fever. She felt like she might pass out. She also had diarrhea. Physical Examination: Vital signs are stable. She is afebrile. Her heart rate 115 pulse ox 99%. No hypoxia. He does not look septic or toxic. HEENT exam unremarkable with moist weeks membranes. Neck nontender no lymphadenopathy. Lungs clear to auscultation bilaterally. Heart tachycardic rate of 115 no murmur. Abdomen is soft and nontender. Normal bowel sounds no peritoneal signs. Extremities moves all 4. Calves nontender without edema. Normal range of motion. Back nontender. Neurologically she is awake alert with no focal motor deficits. Test Results: Chest x-ray chronic changes no acute process read both by myself and radiologist. EKG is a sinus rhythm abdomen with a few PVCs. Otherwise no acute signs of IA or ischemia. CBC normal with a white count of 9. Hemoglobin 14. Electrolytes unremarkable with a normal creatinine and gap. Troponin normal. Emergency Department Course and Treatment: Patient treated with a liter of normal saline. IV Zofran. Her nausea improved but then returned she was given a second dose of Zofran. Repeat exam patient is doing well at 1570. She feels comfortable being discharged home. She is requesting meds for her restless leg syndrome which I told her she can get follow-up with a primary care physician. She will be discharged with Zofran. Treatment Plan: Zofran as needed for nausea. Fluids and rest. Strongly consider detox or outpatient drug abuse counseling. Disposition: Discharge Impression: Percocet abuse Nausea, vomiting and diarrhea. Atypical chest pain and near syncope This note was generated with [employer] dictation software. It may contain incorrect words, spelling, and punctuation that were not noted in review of the chart prior to signing ED Disposition - Plan for ED Patient: Referrals: Care Physician,No Primary [Primary Care Provider] -
[2018-09-14 15:22] VITALS: BP 149/94; PULSE 99; RESP 18; O2SAT 99
--- NOTE | 2018-09-14 15:22 | ED.DCSUM_ITS ---
- ER Visit Summary Date of Service: 09/14/18 Chief Complaint: Nausea and vomiting all night after snorting Percocet History of Present Illness: The patient is a 53 F history of opiate abuse also cervical cancer for which she had a hysterectomy. Partial colectomy with colostomy reversal. Patient has a history of abusing opiates. Has been doing so in the last several weeks. She thinks someone put something else in her opiates. And has had nausea and vomiting throughout the night. No melena. No hematemesis. No fever. She felt like she might pass out. She also had diarrhea. Physical Examination: Vital signs are stable. She is afebrile. Her heart rate 115 pulse ox 99%. No hypoxia. He does not look septic or toxic. HEENT exam unremarkable with moist weeks membranes. Neck nontender no lymphadenopathy. Lungs clear to auscultation bilaterally. Heart tachycardic rate of 115 no murmur. Abdomen is soft and nontender. Normal bowel sounds no peritoneal signs. Extremities moves all 4. Calves nontender without edema. Normal range of motion. Back nontender. Neurologically she is awake alert with no focal motor deficits. Test Results: Chest x-ray chronic changes no acute process read both by myself and radiologist. EKG is a sinus rhythm abdomen with a few PVCs. Otherwise no acute signs of CT or ischemia. CBC normal with a white count of 9. Hemoglobin 14. Electrolytes unremarkable with a normal creatinine and gap. Troponin bandar l. Emergency Department Course and Treatment: Patient treated with a liter of normal saline. IV Zofran. Her nausea improved but then returned she was given a second dose of Zofran. Repeat exam patient is doing well at 1570. She feels comfortable being discharged home. She is requesting meds for her restless leg syndrome which I told her she can get follow-up with a primary care physician. She will be discharged with Zofran. Treatment Plan: Zofran as needed for nausea. Fluids and rest. Strongly consider detox or outpatient drug abuse counseling. Disposition: Discharge Impression: Percocet abuse Nausea, vomiting and diarrhea. Atypical chest pain and near syncope This note was generated with [employer] software. It may contain incorrect words, spelling, and punctuation that were not noted in review of the chart prior to signing ED Disposition - Plan for ED Patient: Referrals: Care Physician,No Primary [Primary Care Provider] -
--- NOTE | 2018-09-14 15:22 | ED.DEP ---
ED Disposition - Plan for ED Patient: Disposition: Home or Assisted Living Instructions: ED Dizziness [facility] Prescriptions: Ondansetron [Zofran Odt] 4 mg PO Q8H PRN PRN #7 tab PRN Reason: Nausea Referrals: Paco Yost MD [NON-STAFF] - As soon as possible Additional Instructions: Plenty of fluids and rest. Zofran as needed for nausea. Follow-up with a local primary care physician
== END 2018-09-14 15:27 | disposition home or self-care (01) ==
PROVIDERS: Emergency Provider Emergency Medicine
DX: F11.10 Opioid abuse, uncomplicated (principal); R11.2 Nausea with vomiting, unspecified; R19.7 Diarrhea, unspecified; R07.89 Other chest pain; R55 Syncope and collapse; Z72.0 Tobacco use
CPT/HCPCS: 71045; 80048; 84484; 85025; 93005; 96374; 96376; 99284; J7030; A4216; J2405

== ENCOUNTER → 2021-06-12 13:20 | Outpatient (CLI) | payer MEDICAID, SELFPAY | PROVIDERS: Referring Provider Student in an Organized Health Care Education/Training Program; Visit Provider Student in an Organized Health Care Education/Training Program | DX: Z11.59 Encounter for screening for other viral diseases (principal) | CPT/HCPCS: 87635; C9803; U0005; U0003 ==

== ENCOUNTER 2021-10-28 08:47 | Emergency (ER) | payer MEDICAID, SELFPAY ==
[2021-10-28 08:48] VITALS: BP 136/93; PULSE 83; RESP 18; TEMP 36.3; O2SAT 100; BMI 26.8
--- NOTE | 2021-10-28 09:25 | EDS_ITS ---
HPI History of Present Illness Chief Complaint: Back Informant: patient Onset/Context/Timing Onset: Yesterday Context: Sudden Onset Injury: direct trauma Timing: Continuous Quality: Sharp and Burning Location: Thoracic and Lumbar Worsened by: improves with Movement Relieved by: Nothing Associated Symptoms Associated Symptoms: Negative for Numbness, Tingling, Radiation to Right Leg, Radiation to Left Leg, Fever, Abdominal Pain, Dysuria, Unable to Ambulate, Unable to Transfer, Urinary Retention, Urinary Incontinence, Constipation and Fecal Incontinence Narrative Narrative: Patient presents with back pain that began last night. Patient states she was sitting on the bottom bunk bed when the top bunk bed fell and hit her on the right upper thoracic area. Patient states this has caused pain in her lumbar area as well. Patient states her pain is constant. Patient describes it as burning and sharp. Patient states it is worse in the lumbar a rosalia. Patient states it is worse with movement. Patient denies any radiation of the pain. Patient denies any paresthesias or weakness. Patient denies any bowel or bladder changes. Patient denies any saddle anesthesia. [facility] Medical History (Updated 10/28/21 @ 10:[address] Constantino Page DO) Arthritis Asthma Chronic leg pain GERD (gastroesophageal reflux disease) Hay fever Headache History of attempted suicide History of hemorrhoids History of stomach ulcers Lung disease Home Medications tramadol 50 mg PO Q6H PRN PRN 3 Days #10 tab 10/28/21 [Rx Last Taken Unknown] Allergy/AdvReac Type Severity Reaction Status Date / Time Penicillins Allergy Mild Rash Verified 10/28/21 08:52 codeine Allergy HALLUCINATI Verified 10/28/21 08:52 ON Family History Grandmother Heart disease Myocardial infarction Uncle Myocardial infarction Grandfather Colon cancer Surgical History History of tubal ligation S/P partial colectomy Social History Smoking Status: Current every day smoker tobacco type: cigarettes Tobacco: How many years used: 40 alcohol intake: never substance use type: does not use what type of physical activity do you participate in: none ROS ROS ED Constitutional Constitutional ED: Denies chills or fever(s) Eyes Eyes: Denies blurry vision or change in vision ENT ENT ED: Denies rhinorrhea or sore throat Cardiovascular Cardiovascular: Denies chest pain or palpitations Respiratory/Chest Respiratory/Chest: Denies cough or dyspnea Gastrointestinal Gastrointestinal: Reports nausea; Denies abdominal pain, diarrhea or vomiting Genitourinary Genitourinary ED: Denies dysuria or hematuria Musculoskeletal Musculoskeletal: Reports back pain; Denies neck pain Integumentary Denies abscess or rash Neurologic Neurologic: Denies headache(s) or weakness Allergic/Immunologic Allergic/Immunologic ED: Denies mouth swelling or urticaria EXAM Physical Exam Const Vital Signs: 10/28/21 08:48 Temperature 97.3 F L Temperature Source Temporal Pulse Rate 83 Respiratory Rate 18 Blood Pressure 136/93 H Blood Pressure Mean 107 Pulse Ox 100 Oxygen Delivery Method Room Air Positive well nourished and well developed General Appearance ED: well developed and NAD HEENT Reports moist mucous membranes Neck supple and no JVD Back/Spine Back/Spine Narrative: There is tenderness over the right thoracic and lumbar paraspinal muscles. There is no bony crepitance or step-off. There is no obvious deformity. Range of motion was limited in all motions of the thoracic and lumbar spine secondary to pain. Straight leg raises were negative bilaterally. Strength is 5/5 bilaterally in the lower extremities. There are no sensory deficits. Thoracic Spine / Upper Back: paraspinal muscle tenderness right Lumbar Spine / Lower Back: ROM limited and straight leg raise negative bilaterally Extremity normal to inspection Neuro oriented x3 and no sensory deficits noted Sensorium / Orientation: alert Motor Exam: strength 5/5 throughout Psych mental status grossly normal MDM MDM MDM Narrative Medical decision making narrative: Patient was given a dose of tramadol here. X-rays of the thoracic spine were obtained. There are 3 views. On my interpretation, there is no acute fracture or spondylolisthesis. There are some degenerative changes. Radiologist also interpreted the x-rays and agrees. X- rays of the lumbar spine were also obtained. There are 2 views. On my interpretation, there are no acute fractures. There is no spondylolisthesis. There is some degenerative changes. Radiologist also interpreted the x-rays and agrees. Patient was advised of her findings. Patient was instructed to use ice to the area. Patient was given a prescription for a short course of tramadol. Patient was instructed to follow-up with her primary care physician in 3 to 5 days. Patient understood and was agreeable with the plan. All questions were answered. Radiography Diagnostic Testing: Clinical Impression(s) from Imaging Studies Lumbar Spine X-Ray 10/28/21 09:30 IMPRESSION: Stable degenerative changes of the lumbar spine, as detailed above. Electronically Signed: Bret Bess MD at 10:23 EDT , Thoracic Spine X-Ray 10/28/21 09:30 IMPRESSION: Mild degenerative changes of the mid to lower thoracic spine. Electronically Signed: Bret Bess MD at 10:24 EDT , Discharge Plan Triage Chief Complaint: Back ED Provider: Constantino Page Dx/Rx/DC Orders Clinical Impression: Acute thoracic myofascial strain, Acute lumbosacral myofascial strain Instructions: ED Back Sprain/Strain Prescriptions: New tramadol 50 MG tablet 50 mg PO Q6H PRN PRN (Reason: Pain) 3 Days Qty: 10 RF: 0 Primary Care Provider: Care Physician,No Primary Referrals: Care Physician,No Primary [Primary Care Provider] - Doctor,Your [STAFF PHYSICIAN] - 3-5 Days Disposition Disposition: Home, Self Care
--- NOTE | 2021-10-28 09:30 | RAD_ITS ---
STUDY: X-RAY - LUMBAR SPINE REASON FOR EXAM: Female, 56 years old. Injury/Pain TECHNIQUE: 2 view(s) of the lumbar spine were obtained. COMPARISON: 3 images of the lumbar spine 08/25/2018 FINDINGS: Normal lumbar lordosis. There is no substantial scoliosis. There is a normal alignment of the vertebrae. There is stable anterior spurring/osteophyte formation of the superior L4 and L5 vertebral endplates. Stable borderline narrowing of the L3-4 intervertebral disc height. There is no demonstrated osseous destructive lesion or acute compression fracture. There is stable degenerative arthroses of the mid to lower lumbar facet joints. There is atherosclerotic calcification of the abdominal aorta without a demonstrated aneurysm. Surgical sutures are again seen in the right lower quadrant of the abdomen, and there are stable clips in the lower abdomen/pelvis just left of midline. RAD/Lumbar Spine 2 or 3 Views IMPRESSION: Stable degenerative changes of the lumbar spine, as detailed above. Electronically Signed: Bret Bess MD at 10:23 EDT ,
--- NOTE | 2021-10-28 09:30 | RAD_ITS ---
STUDY: X-RAY - THORACIC SPINE REASON FOR EXAM: Female, 56 years old. Injury/Pain TECHNIQUE: 2 view(s) of the thoracic spine were obtained on 3 films. COMPARISON: None. FINDINGS: Normal kyphosis of the thoracic spine. There is no substantial scoliosis. There is multilevel mild anterior endplate spondylosis of a few mid to lower thoracic vertebrae. Normal disc space heights. There is no demonstrated osseous destructive lesion or acute compression fracture. The paraspinal soft tissue structures are unremarkable. Some calcific plaquing noted in the thoracoabdominal aorta. RAD/Thoracic Spine 3 Views IMPRESSION: Mild degenerative changes of the mid to lower thoracic spine. Electronically Signed: Bret Bess MD at 10:24 EDT ,
[2021-10-28] MEDS: traMADol 50 MG Tablet PO (10:09)
== END 2021-10-28 10:44 | disposition home or self-care (01) ==
PROVIDERS: Emergency Provider Emergency Medicine; Visit Provider Emergency Medicine
DX: S39.012A Strain of muscle, fascia and tendon of lower back, initial encounter (principal); W19.XXXA Unspecified fall, initial encounter; S29.019A Strain of muscle and tendon of unspecified wall of thorax, initial encounter; F17.210 Nicotine dependence, cigarettes, uncomplicated; K21.9 Gastro-esophageal reflux disease without esophagitis; J45.909 Unspecified asthma, uncomplicated
CPT/HCPCS: 72072; 72100; 99284

== ENCOUNTER 2022-06-08 00:27 | Emergency (ER) | payer MEDICAID, SELFPAY ==
[2022-06-08 00:27] VITALS: BP 131/89; PULSE 83; RESP 18; TEMP 36.6; O2SAT 100; BMI 27.6
--- NOTE | 2022-06-08 01:41 | CT_ITS ---
STUDY: CT CERVICAL SPINE WITHOUT CONTRAST REASON FOR EXAM: Female, 57 years old. Injury RADIATION DOSAGE (If Supplied By Facility): CTDIvol = ( 11.79 ) mGy, DLP = ( 211.15 ) mGycm TECHNIQUE: High resolution transaxial imaging was performed without contrast material. Sagittal and coronal images were reconstructed. Individualized dose optimization techniques were used for this CT. COMPARISON: CT sinuses partial visualization of the cervical spine August 20, 2013. FINDINGS: Normal craniovertebral junction. There are degenerative changes of the anterior atlantoaxial articulation. Normal odontoid process. Normal cervical lordosis. Normal vertebral bodies and posterior osseous elements. C2-3: Normal endplates. Normal disc height and morphology. Normal central canal and intervertebral neuroforamina. C3-4: Normal endplates. Normal disc height and morphology. Normal central canal and intervertebral neuroforamina. C4-5: Normal endplates. Normal disc height and morphology. Normal central canal and intervertebral neuroforamina. C5-6: There is disc space narrowing spondylosis C4 no central stenosis without neural foraminal narrowing. C6-7: Normal endplates. Normal disc height and morphology. Normal central canal and intervertebral neuroforamina. C7-T1: Normal endplates. Normal disc height and morphology. Normal central canal and intervertebral neuroforamina. Calcification of the bilateral carotid arteries. CT/Spine Cervical without Contras IMPRESSION: Degenerative change no visualized acute fracture. Electronically Signed: Rena Christopher MD at 2:48 EDT Reading Location ID and State: [facility] / [place] Tel , Service support ,
--- NOTE | 2022-06-08 01:41 | CT_ITS ---
STUDY: CT BRAIN WITHOUT CONTRAST REASON FOR EXAM: Female, 57 years old. Head injury RADIATION DOSAGE (If Supplied By Facility): CTDIvol = ( 44.99 ) mGy, DLP = ( 863.60 ) mGycm TECHNIQUE: Transaxial CT imaging of the brain was performed without administration of intravenous contrast material. Individualized dose optimization techniques were used for this CT. COMPARISON: August 20, 2013 CT head FINDINGS: There is a right frontal focus of soft tissue edema Normal calvarium. There is calcification of the bilateral cavernous carotid arteries. There is mild cerebral atrophy with widening of the extra-axial spaces and ventricular dilatation. Normal white matter tracts of the cerebral hemispheres. Normal basal ganglia and thalami. Normal brainstem. There is mild cerebellar atrophy. There is no intracranial hemorrhage. There are no findings of an acute ischemic infarction. Normal visualized paranasal sinuses. CT/Brain/Head without Contrast IMPRESSION: Mild atrophy no evidence of acute hemorrhage infarct or edema. Right frontal superficial soft tissue edema. Electronically Signed: Rena Christopher MD at 2:41 EDT ,
[2022-06-08] MEDS: Ondansetron 4 MG/2 ML Vial IV (01:59)
[2022-06-08] MEDS: Morphine 4 MG/ML Syringe IV (01:59)
--- NOTE | 2022-06-08 02:35 | RAD_ITS ---
STUDY: X-RAY - UNILATERAL RIBS ( RIGHT ) WITH CHEST REASON FOR EXAM: Female, 57 years old. Pain TECHNIQUE - RIBS: 2 view(s) of the ribs. TECHNIQUE -chest: Single PA view. COMPARISON: None. FINDINGS - RIBS: Normal visualized ribs without a demonstrated fracture. FINDINGS - CHEST: There is blunting of the left costophrenic angle that was not seen on the prior study. There is no demonstrated pleural abnormality. Normal size heart. Normal mediastinum and hillary. Normal visualized pulmonary arteries. There is atherosclerotic tortuosity of the aortic arch and descending thoracic aorta. Normal visualized thoracic spine. There is slight cortical irregularity at the level of approximately the right ninth rib. There is no demonstrated abnormality of the visualized soft tissue structures of the upper abdomen. RAD/Ribs Uni Min 3V w/PA Chest IMPRESSION: RIBS: Findings suggest possible nondisplaced fracture right rib 9. CHEST: Trace left effusion and atelectasis. Electronically Signed: Rena Christopher MD at 3:16 EDT Reading Location ID and State: [facility] / [place] Tel , Service support ,
--- NOTE | 2022-06-08 03:30 | EX.ED.DYSGE1 ---
HPI History of Present Illness Chief Complaint: Fall Narrative Narrative: Patient is a 57-year-old female who states around 10 PM she was walking on a dock when she did not notice that the dock was in 2 separate pieces and she tripped and fell landing on her right side. She does report striking her head but denies any loss of consciousness history of bleeding disorder or blood thinner use. She also reports pain in her right ribs. She states she has been at home resting and trying [id number] medication with minimal symptom improvement and secondary to this comes in for evaluation. [facility] Medical History (Updated 06/08/22 @ 03:[address] Dima Marino, DO) Arthritis Asthma Chronic leg pain GERD (gastroesophageal reflux disease) Hay fever Headache History of attempted suicide History of hemorrhoids History of stomach ulcers Lung disease Home Medications tramadol 50 mg tablet 50 mg PO Q6H PRN PRN Pain 3 days #10 tabs 10/28/21 [Rx Last Taken Unknown] methocarbamol 500 mg tablet 500 mg PO 4X/DAY PRN PRN Muscle pain/spasm 10 days #40 tabs 06/08/22 [Rx Last Taken Unknown] ondansetron 4 mg disintegrating tablet 4 mg PO TID PRN nausea and vomiting #21 tabs 06/08/22 [Rx Last Taken Unknown] oxycodone-acetaminophen 5 mg-325 mg tablet (Percocet) 1 tab PO Q6H PRN pain 3 days #12 tabs 06/08/22 [Rx Last Taken Unknown] Allergy/AdvReac Type Severity Reaction Status Date / Time Penicillins Allergy Mild Rash Verified 10/28/21 08:52 codeine Allergy HALLUCINATI Verified 10/28/21 08:52 ON Family History Grandmother Heart disease Myocardial infarction Uncle Myocardial infarction Grandfather Colon cancer Surgical History History of tubal ligation S/P partial colectomy Social History Smoking Status: Current every day smoker tobacco type: cigarettes Tobacco: How many years used: 40 alcohol intake: never substance use type: does not use what type of physical activity do you participate in: none ROS ROS ED Constitutional Constitutional ED: Denies chills or fever(s) ENT ENT ED: Denies sore throat Cardiovascular Cardiovascular: Denies chest pain Respiratory/Chest Respiratory/Chest: Denies cough or dyspnea Gastrointestinal Gastrointestinal: Denies abdominal pain, diarrhea, nausea or vomiting Genitourinary Genitourinary ED: Denies dysuria Musculoskeletal Musculoskeletal: Reports other Details: Positive rib pain ; Denies neck pain Integumentary Reports Abrasions; Denies rash Neurologic Neurologic: Reports headache(s); Denies paresthesias Hematologic/Lymphatic Hematologic/Lymphatic: Denies easy bleeding or easy bruising EXAM Physical Exam Const Vital Signs: 06/08/22 00:27 06/08/22 01:27 06/08/22 03:43 Temperature 98 F Temperature Source Oral Pulse Rate 83 67 Respiratory Rate 18 18 Respiratory Effort Short of Breath Splinting Respiratory Depth Shallow Respiratory Pattern Normal Blood Pressure 131/89 H 121/79 H Blood Pressure Mean 103 Pulse Ox 100 97 Oxygen Delivery Method Room Air Room Air Positive well nourished and well developed General Appearance ED: well developed HEENT HEENT Narrative: Patient has superficial abrasion with hematoma along the right frontal portion of the scalp without signs of depressed or basilar skull fracture. Eyes PERRL and EOMs intact bilaterally Neck supple Neck Narrative: No bony deformity or step-off of the cervical spine no midline pain on palpation Chest Wall Chest Narrative: No bony deformity or crepitance palpated the patient does have pain on palpation along the right anterior rib regions 8-10 Resp normal respiratory effort and clear to auscultation bilaterally Cardio regular rate and regular rhythm GI normal to inspection, nondistended, normoactive bowel sounds, non-tender and non-distended Auscultation: normoactive bowel sounds Palpation: soft Back/Spine Back/Spine Narrative: No bony deformity or step-off of the thoracic or lumbar spine no midline pain on palpation Extremity normal to inspection Extremity Narrative: Pelvis is stable there is no shortening or external rotation of either lower extremity Neuro oriented x3 and CN's II-XII intact bilaterally Sensorium / Orientation: alert Psych mental status grossly normal Skin Skin Narrative: Superficial abrasion with hematoma along the right frontal portion of the scalp as documented above MDM MDM MDM Narrative Medical decision making narrative: Patient presented to the ER multiple hours after fall with stable vitals and a normal neurologic exam. She also reported a mechanical fall so I felt no need for a cardiac or syncope work-up. Because of the fall with head trauma CTs of the head and cervical spine were obtained. These revealed no acute traumatic findings. . With the fall and chest/rib pain there was concern for rib fracture and/or pneumothorax so a right rib series was ordered. This showed changes consistent with right rib fracture which does correlate with her exam. At this time she is not hypoxic or requiring submental oxygen she does not have a cervical spine injury or brain bleed and therefore this can be treated on an outpatient basis and patient can be discharged home Radiography Diagnostic Testing: Clinical Impression(s) from Imaging Studies Brain CT 06/08/22 01:41 IMPRESSION: Mild atrophy no evidence of acute hemorrhage infarct or edema. Right frontal superficial soft tissue edema. Electronically Signed: Rena Christopher MD at 2:41 EDT Reading Location ID and State: [id number] / [employer] Tel , Service support , Cervical Spine CT 06/08/22 01:41 IMPRESSION: Degenerative change no visualized acute fracture. Electronically Signed: Rena Christopher MD at 2:48 EDT , Ribs w/Chest X-Ray 06/08/22 02:35 IMPRESSION: RIBS: Findings suggest possible nondisplaced fracture right rib 9. CHEST: Trace left effusion and atelectasis. Electronically Signed: Rena Christopher MD at 3:16 EDT , Right rib series x-ray with 1 view chest as interpreted by the emergency medicine physician reveals a nondisplaced right rib fracture without infiltrate or pneumothorax Discharge Plan Triage Chief Complaint: Fall ED Provider: Dima Marino Dx/Rx/DC Orders Clinical Impression: Right rib fracture, Closed head injury, Hematoma of frontal scalp, Accidental fall Instructions: Rib Fracture (Broken Rib), ED Head Injury (Adult) Prescriptions: New ondansetron 4 mg tablet,disintegrating 4 mg PO TID PRN (Reason: nausea and vomiting) Qty: 21 0RF methocarbamol 500 mg tablet 500 mg PO 4X/DAY PRN PRN (Reason: Muscle pain/spasm) 10 Days Qty: 40 0RF oxycodone-acetaminophen [Percocet] 5-325 mg tablet 1 tab PO Q6H PRN (Reason: pain) 3 Days Qty: 12 0RF No Action tramadol 50 MG tablet 50 mg PO Q6H PRN PRN (Reason: Pain) 3 Days Qty: 10 0RF Primary Care Provider: Care Physician,No Primary Referrals: Sher Lynn DO [Med Staff - Desk Officer] - Care Physician,No Primary [Primary Care Provider] - Disposition Disposition: Home, Self Care Discharge Date/Time: 06/08/22 03:45
[2022-06-08 03:43] VITALS: BP 121/79; PULSE 67; RESP 18; O2SAT 97
== END 2022-06-08 03:45 | disposition home or self-care (01) ==
PROVIDERS: Emergency Provider Emergency Medicine; Visit Provider Emergency Medicine
DX: S22.31XA Fracture of one rib, right side, initial encounter for closed fracture (principal); J90 Pleural effusion, not elsewhere classified; J98.11 Atelectasis; S00.03XA Contusion of scalp, initial encounter; F17.210 Nicotine dependence, cigarettes, uncomplicated; W01.0XXA Fall on same level from slipping, tripping and stumbling without subsequent striking against object, initial encounter
CPT/HCPCS: 70450; 71101; 72125; 99284; J2405

== ENCOUNTER 2022-07-14 16:59 | Emergency (ER) | payer MEDICAID, SELFPAY ==
[2022-07-14 17:01] VITALS: BP 131/83; PULSE 100; RESP 18; TEMP 38.3; O2SAT 96; BMI 27.7
--- NOTE | 2022-07-14 17:29 | EX.ED.DYSGE1 ---
HPI History of Present Illness Chief Complaint: Headache Detail of Chief Complaint: Headache with flulike symptoms that started yesterday Informant: patient Onset/Context/Timing Onset: Yesterday Timing: Continuous Quality: Bilateral headache, nausea, myalgias, arthralgias, temperature 102.0 ?F Location: Systemic Current Severity: Moderate Maximum Severity: Severe Worsened by: Light, activity Relieved by: Nothing Associated Symptoms Associated Symptoms: Slight cough Narrative Narrative: Patient is a 57-year-old woman who presents with flulike symptoms that started yesterday with a document temperature of 102.0 ?F. She complains of bilateral headache, photophobia, neck pain, neck stiffness, myalgias, arthralgias with slight cough. She does report nausea without vomiting or diarrhea. She has not noted a rash. She states she has no energy. She has been lying around. She believes because she is less active that is why she feels terrible. She denies urologic symptoms. She denies cardiac symptoms. She denies GI symptoms other than nausea. Prior similar symptoms: No Recent Illness/Hospitalization: No [facility] Medical History (Updated 07/14/22 @ 19:[address] Kristopher Hutchinson MD) Arthritis Asthma Chronic leg pain GERD (gastroesophageal reflux disease) Hay fever Headache History of attempted suicide History of hemorrhoids History of stomach ulcers Lung disease Home Medications methocarbamol 500 mg tablet 500 mg PO 4X/DAY PRN PRN Muscle pain/spasm 10 days #40 tabs 06/08/22 [Rx Last Taken Unknown] naproxen 500 mg tablet 500 mg PO BID #14 tabs 07/14/22 [Rx Last Taken Unknown] oseltamivir 75 mg capsule (Tamiflu) 75 mg PO BID 5 days #10 caps 07/14/22 [Rx Last Taken Unknown] Allergy/AdvReac Type Severity Reaction Status Date / Time Penicillins Allergy Mild Rash Verified 07/14/22 17:08 codeine Allergy HALLUCINATI Verified 07/14/22 17:08 ON Family History Grandmother Heart disease Myocardial infarction Uncle Myocardial infarction Grandfather Colon cancer Surgical History History of tubal ligation S/P partial colectomy Social History (Updated 07/14/22 @ 17:[address] Kristopher Hutchinson MD) household members: none Smoking Status: Current every day smoker tobacco type: cigarettes Tobacco: How many years used: 40 alcohol intake: never substance use type: does not use what type of physical activity do you participate in: none ROS ROS ED Constitutional Constitutional ED: Reports chills, fever(s) and sweats; Denies subjective or weight loss Eyes Eyes: Reports other Details: Photophobia ; Denies blurry vision, change in vision or diplopia ENT ENT ED: Reports rhinorrhea and sore throat; Denies ear pain Cardiovascular Cardiovascular: Denies chest pain, orthopnea, palpitations, paroxysmal nocturnal dyspnea or racing heartbeat Respiratory/Chest Respiratory/Chest: Reports cough; Denies dyspnea, dyspnea on exertion, orthopnea, paroxysmal nocturnal dyspnea or sputum Gastrointestinal Gastrointestinal: Reports nausea; Denies abdominal pain, constipation, diarrhea, melena or vomiting Genitourinary Genitourinary ED: Denies dysuria, hematuria or urinary frequency Musculoskeletal Musculoskeletal: Reports arthralgias, myalgias and neck pain; Denies back pain Integumentary Denies Abrasions or rash Neurologic Neurologic: Reports headache(s); Denies paresthesias or weakness Psychiatric Psychiatric: Denies anxiety or depression Endocrine Endocrinology: Denies cold intolerance or heat intolerance Hematologic/Lymphatic Hematologic/Lymphatic: Reports systems reviewed and no addt'l complaints, except as documented; Denies anemia, easy bleeding or easy bruising EXAM Physical Exam Const Vital Signs: 07/14/22 17:01 Temperature 100.9 F H Temperature Source Temporal Pulse Rate 100 Respiratory Rate 18 Blood Pressure 131/83 H Blood Pressure Mean 99 Pulse Ox 96 Oxygen Delivery Method Room Air Positive well nourished and well developed General Appearance ED: well developed; Negative for cyanotic, diaphoretic, NAD or pallor HEENT Reports moist mucous membranes HEENT Narrative: Patient complains of bifrontal and bimaxillary sinus tenderness to percussion. Nares patent with clear drainage. Posterior pharynx out erythema or exudate. Uvula midline. No deviation tongue or protrusion. There is no pain the patient over the right or left temporal artery region. Eyes PERRL and EOMs intact bilaterally Eyes Narrative: Patient has no photophobia. There is no APD. Cup-to-disc ratio is normal. There is no papilledema. General Eye ED: Negative for pale conjunctiva or scleral icterus Neck no lymphadenopathy, supple and no JVD Neck Narrative: There are no meningeal findings. Chest Wall inspection of chest normal and palpation of chest normal Resp normal respiratory effort and clear to auscultation bilaterally Cardio regular rate, regular rhythm, S1 normal heart sound, S2 normal heart sound and no murmurs GI normal to inspection, nondistended, normoactive bowel sounds, non-tender, non-distended, hepatosplenomegaly and no masses Auscultation: normoactive bowel sounds Back/Spine no CVA tenderness Cervical Spine: Negative for cervical spine tenderness Thoracic Spine / Upper Back: Negative for thoracic spinal tenderness Lumbar Spine / Lower Back: Negative for lumbar spinal tenderness Neuro oriented x3, CN's II-XII intact bilaterally and no sensory deficits noted Sensorium / Orientation: alert Motor Exam: strength 5/5 throughout Psych Psych Narrative: Affect is flat. Skin no rashes or lesions noted and no wounds General Skin Exam: Negative for jaundice or pallor MDM MDM MDM Narrative Medical decision making narrative: With documented fever patient in all likelihood has a viral headache. There is no photophobia or meningeal findings. This would make subarachnoid hemorrhage and meningitis very unlikely. Her symptoms are consistent with a systemic viral infection and most likely influenza. She was tested for influenza. She was administered 500 cc bolus of normal saline. She was administered 4 mg of Zofran for her nausea and 15 mg of Toradol IV push for her headache. Patient was reassessed at 1816. Patient states her body aches have improved markedly. She states her head still hurts. Nausea has improved. Will order morphine for her headache. Awaiting results of influenza screen. Lab Data Attestation: I reviewed the patient's lab results. Lab results narrative: Influenza rapid screen was positive for influenza type A. Patient was made aware of this. Patient states her headache is resolved. She was treated with Tamiflu since her symptoms started yesterday. Discharge Plan Triage Chief Complaint: Headache ED Provider: Kristopher Hutchinson Dx/Rx/DC Orders Clinical Impression: Type A influenza, COPD (chronic obstructive pulmonary disease), Viral cephalgia, Nausea, Dehydration, mild Instructions: ED Influenza (Adult) Prescriptions: New naproxen 500 mg tablet 500 mg PO BID Qty: 14 0RF oseltamivir [Tamiflu] 75 mg capsule 75 mg PO BID 5 Days Qty: 10 0RF No Action methocarbamol 500 mg tablet 500 mg PO 4X/DAY PRN PRN (Reason: Muscle pain/spasm) 10 Days Qty: 40 0RF Primary Care Provider: Care Physician,No Primary Referrals: Care Physician,No Primary [Primary Care Provider] - Doctor,Your [Non-Staff] - 1 Week if not improving Disposition Disposition: Home, Self Care
[2022-07-14] MEDS: Ketorolac 15 MG/ML Vial IV (17:35)
[2022-07-14] MEDS: Ondansetron 4 MG/2 ML Vial IV (17:35)
[2022-07-14] MEDS: Morphine 4 MG/ML Syringe IV (18:45)
[2022-07-14 19:51] VITALS: BP 124/76; PULSE 89; RESP 18; O2SAT 96
[2022-07-14] MEDS: Oseltamivir Phosphate 75 MG Capsule PO (20:10)
== END 2022-07-14 20:11 | disposition home or self-care (01) ==
PROVIDERS: Emergency Provider Emergency Medicine; Visit Provider Emergency Medicine
DX: J11.1 Influenza due to unidentified influenza virus with other respiratory manifestations (principal); J44.0 Chronic obstructive pulmonary disease with (acute) lower respiratory infection; E86.0 Dehydration; F17.210 Nicotine dependence, cigarettes, uncomplicated; R11.0 Nausea; M79.10 Myalgia, unspecified site
CPT/HCPCS: 87804; 96361; 96374; 96375; 99285; J7040; A4216; J2405

== ENCOUNTER 2024-07-09 01:58 | Emergency (ER) | payer MEDICAID, SELFPAY ==
[2024-07-09 02:00] VITALS: PULSE 89; RESP 16; TEMP 36.4; O2SAT 97; BMI 29.0
[2024-07-09 02:02] VITALS: BP 132/69; PULSE 86; RESP 16; TEMP 36.4; O2SAT 98
--- NOTE | 2024-07-09 02:17 | CT_ITS ---
EXAM: CT Abdomen And Pelvis W/ Contrast Injection HISTORY: abd pain diarrhea, mora, panic attacks x 2 weeks, hx c-diff, pt colectomy TECHNIQUE: Routine protocol CT abdomen pelvis. IV Contrast: IV 100mL [id number] . Oral Contrast: without. Sagittal and coronal images were reconstructed. RADIATION DOSAGE (If Supplied By Facility): CTDIvol = ( 13.99 ) mGy, DLP = ( 852.46 ) mGycm Individualized dose optimization techniques were used for this CT. COMPARISON: CT abdomen pelvis 06/20/2017. LIMITATIONS: None. FINDINGS: LOWER CHEST: Lung bases are clear. LIVER: Small cyst in the left lobe. GALLBLADDER/BILE DUCTS: Unremarkable. PANCREAS: Unremarkable. SPLEEN: Unremarkable. ADRENAL GLANDS: Unremarkable. KIDNEYS / URETERS: Unremarkable. Small cyst in the left kidney, no follow-up needed. BOWEL / MESENTERY: Surgical clips in the right mid and lower abdomen. No bowel obstruction. APPENDIX: Not identified. PERITONEUM: No free air. No free fluid. VESSELS: Abdominal aorta is normal caliber. RETROPERITONEUM: Unremarkable. REPRODUCTIVE ORGANS: Uterus not identified. BLADDER: Unremarkable. ABDOMINAL WALL: 2.5 cm rounded cystic structure subcutaneous upper abdominal wall overlying the xiphoid process is larger compared to prior, probable sebaceous cyst. Small left paraumbilical hernia is new compared to prior, contains only fat, no bowel, no associated stranding. BONES: No acute abnormality. Surgical hardware right femur. OTHER: None. CT/Abdomen/Pelvis W IV Cont ONLY IMPRESSION: No acute findings. Left periumbilical fat-containing hernia without evidence of complication. Small subcutaneous cystic structure overlying the xiphoid process probable sebaceous cyst, the xiphoid process is larger compared to prior. Electronically Signed: Socorro Graves MD at 4:08 EST ,
--- NOTE | 2024-07-09 02:22 | EX.ED.DYSGE1 ---
HPI History of Present Illness Chief Complaint: Diarrhea Informant: patient Narrative Narrative: Patient is a 59-year-old female with past medical history of COPD GERD anxiety and previous colitis requiring a hemicolectomy. She also states that she had C. difficile years ago secondary to recurrent antibiotics from her colitis. She reports she was exposed to a family member who was reportedly diagnosed with C. difficile 1 to 2 weeks ago. She states since that time she has been having fluctuating bouts of watery diarrhea and loose stool. She states her anxiety has increased daily as well as she has concern for developing infection. As her symptoms have not resolved over the last 2 weeks she presents for evaluation [facility] Medical History C. difficile colitis Headache Hay fever History of stomach ulcers History of hemorrhoids Lung disease History of attempted suicide Chronic leg pain Asthma GERD (gastroesophageal reflux disease) Arthritis Home Medications ?Medication ?Instructions ?Recorded ?Last Taken ?Type lorazepam 1 mg tablet (Ativan) 1 mg PO TID PRN anxiety 5 days #15 07/09/24 Unknown Rx tabs ondansetron 4 mg disintegrating 4 mg PO TID PRN nausea and 07/09/24 Unknown Rx tablet vomiting #21 tabs Allergy/AdvReac Type Severity Reaction Status Date / Time Penicillins Allergy Mild Rash Verified 07/09/24 01:59 codeine Allergy HALLUCINATI Verified 07/09/24 01:59 ON Family History Grandmother Heart disease Myocardial infarction Uncle Myocardial infarction Grandfather Colon cancer Surgical History S/P partial colectomy History of tubal ligation Social History (Updated 07/14/22 @ 17:[address] Kristopher Hutchinson MD) household members: none Smoking Status: Current every day smoker tobacco type: cigarettes Tobacco: How many years used: 40 alcohol intake: never substance use type: does not use what type of physical activity do you participate in: none ROS ROS ED Constitutional Constitutional ED: Denies chills or fever(s) ENT ENT ED: Denies sore throat Cardiovascular Cardiovascular: Denies chest pain Respiratory/Chest Respiratory/Chest: Denies cough or dyspnea Gastrointestinal Gastrointestinal: Reports abdominal pain, diarrhea and nausea; Denies melena or vomiting Genitourinary Genitourinary ED: Denies dysuria Musculoskeletal Musculoskeletal: Denies myalgias Integumentary Denies rash Neurologic Neurologic: Denies headache(s) Psychiatric Psychiatric: Reports anxiety Hematologic/Lymphatic Hematologic/Lymphatic: Denies easy bleeding or easy bruising EXAM Physical Exam Const Vital Signs: 07/09/24 02:00 07/09/24 02:02 07/09/24 03:00 Temperature 97.6 F L 97.6 F L 97.9 F Temperature Source Oral Oral Oral Pulse Rate 89 86 80 Respiratory Rate 16 16 16 Blood Pressure 132/69 H 145/81 H Blood Pressure Mean 90 102 Pulse Ox 97 98 96 Oxygen Delivery Method Room Air Room Air Room Air 07/09/24 04:00 Temperature 98.6 F Temperature Source Oral Pulse Rate 76 Respiratory Rate 18 Blood Pressure 141/74 H Blood Pressure Mean 96 Pulse Ox 97 Oxygen Delivery Method Room Air Positive well nourished and well developed General Appearance ED: well developed; Negative for pallor HEENT Reports moist mucous membranes HEENT Narrative: No tongue or lip swelling no oral lesions no airway edema or compromise No secondary findings in the posterior pharynx to suggest infection Eyes PERRL and EOMs intact bilaterally General Eye ED: Negative for scleral icterus Neck supple Neck Narrative: No nuchal rigidity or meningeal signs noted Resp normal respiratory effort Resp Narrative: Breath sounds are diminished throughout with faint expiratory wheeze and rhonchi in the bilateral bases consistent with history of COPD. However no signs of respiratory distress Cardio regular rate and regular rhythm Rate: other Other Details: Heart is regular rate and rhythm without murmurs rubs or gallops Radial and carotid pulses are equal and symmetric GI no masses GI Narrative: Abdomen is soft with slight distention and hyperactive bowel sounds. There is mild diffuse pain with palpation without voluntary guarding or rigidity. No pulsatile mass or fluid wave. No increased tympany noted Auscultation: hyperactive bowel sounds Palpation: soft Extremity normal to inspection Neuro oriented x3, CN's II-XII intact bilaterally and no sensory deficits noted Sensorium / Orientation: alert Motor Exam: strength 5/5 throughout Psych Psych Narrative: Patient has a nervous/anxious affect Skin no rashes or lesions noted and No skin turgor normal Skin Narrative: Skin turgor slightly increased General Skin Exam: Negative for jaundice or pallor MDM MDM MDM Narrative Medical decision making narrative: Patient arrived to the ER hypertensive but otherwise with stable vitals. She reported fluctuating bouts of watery diarrhea with loose stool and potential exposure to someone with C. difficile. Based on her previous abdominal surgery and exposure I do have concern for underlying intestinal infection such as colitis versus diverticulitis versus C. difficile infection. There is also concern that she may have acute kidney injury or severe electrolyte abnormality. Therefore basic labs were obtained and I chose to add a CT scan based on her previous history of abdominal surgery and prolonged symptoms. CT revealed no clinically significant findings. Lab work showed no leukocytosis or left shift nor were there any signs of acute kidney injury or severe electrolyte abnormality. The patient had no bouts of diarrhea while in the ER and reported feeling much better after the medications that were given. On reevaluation her abdomen remains soft and nonsurgical and vital stable. Therefore this time I do feel that her recurrent diarrhea is most likely related to her worsening anxiety. She will be prescribed medications to help control this but as she does not have signs of systemic infection ALEJANDRO or severe electrolyte abnormality she is otherwise safe for discharge Lab Data Labs: Laboratory Results - last 24 hr 07/09/24 02:33 WBC 8.6 RBC 4.29 Hgb 13.3 Hct 39.4 MCV 91.8 MCH 31.0 MCHC 33.8 RDW Std Deviation 44.4 H RDW Coeff of Urvashi 13.2 Plt Count 291 MPV 10.1 Immature Gran % (Auto) 0.200 Neut % (Auto) 41.6 L Lymph % (Auto) 44.[address] [place] % (Auto) 9.3 Eos % (Auto) 3.4 Baso % (Auto) 0.9 Absolute Neuts (auto) 3.6 Absolute Lymphs (auto) 3.84 Nucleated RBC % 0 Sodium 139 Potassium 3.7 Chloride 107 Carbon Dioxide 26.0 Anion Gap 6 BUN 14 Creatinine 0.84 Estim Creat Clear Calc 62.75 Est GFR (MDRD) Af Amer 88 Est GFR (MDRD) Non-Af 73 BUN/Creatinine Ratio 16.6 Glucose 158 H Calcium 8.8 Magnesium 2.0 Total Bilirubin 0.30 Direct Bilirubin 0.17 AST 54 H ALT 71 H Alkaline Phosphatase 121 H Total Protein 7.3 Albumin 3.3 Globulin 4.0 Lipase 77 H Radiography Diagnostic Testing: Clinical Impression(s) from Imaging Studies Abdomen/Pelvis CT 07/09/24 02:17 IMPRESSION: No acute findings. Left periumbilical fat-containing hernia without evidence of complication. Small subcutaneous cystic structure overlying the xiphoid process probable sebaceous cyst, the xiphoid process is larger compared to prior. Electronically Signed: Socorro Graves MD at 4:08 EST , Discharge Plan Triage Chief Complaint: Diarrhea Other Complaint: Anxiety Headache ED Provider: Dima Marino Dx/Rx/DC Orders Clinical Impression: Anxiety, Diarrhea, COPD (chronic obstructive pulmonary disease), GERD (gastroesophageal reflux disease) Instructions: Anxiety Disorders Tx, ED Diarrhea, Unknown Cause Prescriptions: New ondansetron 4 mg tablet,disintegrating 4 mg PO TID PRN (Reason: nausea and vomiting) Qty: 21 0RF lorazepam [Ativan] 1 mg tablet 1 mg PO TID PRN (Reason: anxiety) 5 Days Qty: 15 0RF Primary Care Provider: Care Physician,No Primary Referrals: Care Physician,No Primary [Primary Care Provider] - Activity Restrictions/Additional Instructions: Your workup did not reveal any obvious infectious process as the cause of your symptoms. I do feel that your increased anxiety and bouts of loose stool are most likely related to breakthrough anxiety. Use the prescribed medications as directed to help control symptoms and follow-up with your family doctor to discuss further treatment. Return to the ER should you have any further concerns Print Language: [place] Disposition Disposition: Home, Self Care
[2024-07-09] MEDS: Ondansetron 4 MG/2 ML Vial IV (02:31)
[2024-07-09] MEDS: LORazepam 2 MG/ML Syringe 1 MG IV (02:31)
[2024-07-09] MEDS: 0.9% Normal Saline (1000mL) 1,000 ML 999 ML IV (02:31)
[2024-07-09 02:43] LABS: Absolute Lymphocyte Count 3.84 X10^3/uL (0.83-4.51); Absolute Neutrophil Count 3.6 X10^3/uL (2.0-7.7); Basophil# 0.08 X10^3/uL; Basophil% 0.9 % (0-1); Eosinophil# 0.29 X10^3/uL; Eosinophils% 3.4 % (0-5); Hematocrit 39.4 % (37-47); Hemoglobin 13.3 g/dL (12.0-15.0); Lymphocyte # 3.84 X10^3/ul (0.83-4.51); Lymphocyte % 44.6 % (19-41); Mean Corp Hgb Conc 33.8 g/dL (32-36); Mean Corpuscular Volume 91.8 fL (81-99); Mean Platelet Vol. 10.1 fl (6.2-12.0); Monocyte% 9.3 % (0-10); NRBC Flagged by Analyzer 0 % (0-5); Neutrophil # 3.58 X10^3/uL (2.7-7.7); Neutrophil % 41.6 % (47-70); Platelet Count 291 K/mm3 (150-450); RBC Distribution Width CV 13.2 % (11.6-14.6); RBC Distribution Width SD 44.4 fl (35.1-43.9); Red Blood Count 4.29 M/mm3 (4.2-5.4); White Blood Count 8.6 K/mm3 (4.4-11.0)
[2024-07-09 03:00] VITALS: BP 145/81; PULSE 80; RESP 16; TEMP 36.6; O2SAT 96
[2024-07-09 03:00] LABS: AST(SGOT) 54 U/L (15-37); Alanine Aminotransfer ALT/SGPT 71 U/L (13-56); Albumin, Serum 3.3 g/dL (3.2-5.0); Alkaline Phosphatase 121 U/L (45-117); Anion Gap 6 (5-15); BUN 14 mg/dL (7-18); BUN/Creat Ratio 16.6 RATIO (10-20); Bilirubin, Direct 0.17 mg/dL (0.00-0.30); Calcium,Total 8.8 mg/dL (8.5-10.1); Chloride 107 mmol/L (98-107); Creatinine, Serum 0.84 mg/dL (0.55-1.02); EST Glomerular Filtration Rate 73 mL/min (>60); Est Glom Filt Rate - Afr Amer 88 mL/min (>60); Estimated Creatinine Clearance 62.75 ml/min; Glucose 158 mg/dL (74-106); Lipase 77 U/L (13-75); Potassium 3.7 mmol/L (3.5-5.1); Protein, Total 7.3 g/dL (6.4-8.2); Sodium Level 139 mmol/L (136-145)
[2024-07-09 04:00] VITALS: BP 141/74; PULSE 76; RESP 18; TEMP 37; O2SAT 97
[2024-07-09 04:52] VITALS: BP 149/78; PULSE 77; RESP 18; TEMP 37; O2SAT 97
[2024-07-09] MEDS: LORazepam 1 MG Tablet PO (04:52)
== END 2024-07-09 04:53 | disposition home or self-care (01) ==
PROVIDERS: Emergency Provider Emergency Medicine; Visit Provider Emergency Medicine
DX: R19.7 Diarrhea, unspecified (principal); J44.9 Chronic obstructive pulmonary disease, unspecified; F41.9 Anxiety disorder, unspecified; K21.9 Gastro-esophageal reflux disease without esophagitis; F17.210 Nicotine dependence, cigarettes, uncomplicated; Z79.899 Other long term (current) drug therapy
CPT/HCPCS: 74177; 80048; 80076; 83690; 83735; 85025; 96361; 96374; 96375; 99285; Q9967; A4216; J2405

== ENCOUNTER 2024-07-19 11:49 | Emergency (ER) | payer MEDICAID, SELFPAY ==
[2024-07-19 11:49] VITALS: BP 146/81; PULSE 77; RESP 15; TEMP 35.8; O2SAT 99
--- NOTE | 2024-07-19 12:04 | EKG12_ITS ---
Test Reason : CP Blood Pressure : */* mmHG Vent. Rate : 77 BPM Atrial Rate : 77 BPM P-R Int : 128 ms QRS Dur : 76 ms QT Int : 396 ms P-R-T Axes : 53 45 48 degrees QTcB Int : 448 ms Normal sinus rhythm Normal ECG Confirmed by WEST KIM, GLORY ([id number]), marketing editor KENZIE CUELLAR ([id number]) on 07/21/2024 6:32:27 AM Referred By: MAURICE Confirmed By: GLORY DODSON MD
[2024-07-19] MEDS: Lidocaine 2% Viscous15 ML UDC 15 ML PO (12:07)
[2024-07-19] MEDS: Mag Hydrox/Al Hydrox/Simeth 30 ML UDC PO (12:07)
[2024-07-19] MEDS: Famotidine 200 MG/20 ML MDV 20 MG in 0.9% Normal Saline (Pres. free 8 ML 300 MG IV (12:11)
[2024-07-19 12:21] LABS: Absolute Lymphocyte Count 4.06 X10^3/uL (0.83-4.51); Absolute Neutrophil Count 4.1 X10^3/uL (2.0-7.7); Basophil# 0.07 X10^3/uL; Basophil% 0.7 % (0-1); Eosinophils% 3.1 % (0-5); Hemoglobin 13.4 g/dL (12.0-15.0); Lymphocyte # 4.06 X10^3/ul (0.83-4.51); Lymphocyte % 41.3 % (19-41); Mean Corp Hgb Conc 33.5 g/dL (32-36); Mean Corpuscular Hgb 30.6 pg (27.0-32.0); Mean Corpuscular Volume 91.3 fL (81-99); Mean Platelet Vol. 10.2 fl (6.2-12.0); Monocyte# 1.24 X10^3/uL; Monocyte% 12.6 % (0-10); NRBC Flagged by Analyzer 0 % (0-5); Neutrophil # 4.13 X10^3/uL (2.7-7.7); Neutrophil % 42.1 % (47-70); POSITIVE MORPHOLOGY YES; Platelet Count 264 K/mm3 (150-450); RBC Distribution Width CV 13.3 % (11.6-14.6); RBC Distribution Width SD 44.7 fl (35.1-43.9); Red Blood Count 4.38 M/mm3 (4.2-5.4); White Blood Count 9.8 K/mm3 (4.4-11.0)
[2024-07-19 12:23] LABS: Differential Indicated SCAN CRITERIA MET
[2024-07-19 12:45] LABS: Atypical Lymphocyte 1+ %
[2024-07-19 12:47] LABS: ALB/GLOB Ratio 0.8 RATIO (0.9-2.4); AST(SGOT) 68 U/L (15-37); Alanine Aminotransfer ALT/SGPT 83 U/L (13-56); Albumin, Serum 3.4 g/dL (3.2-5.0); Alkaline Phosphatase 154 U/L (45-117); Anion Gap 6 (5-15); BUN 15 mg/dL (7-18); BUN/Creat Ratio 20.5 RATIO (10-20); Calcium,Total 9.1 mg/dL (8.5-10.1); Chloride 108 mmol/L (98-107); Creatinine, Serum 0.73 mg/dL (0.55-1.02); EST Glomerular Filtration Rate 86 mL/min (>60); Est Glom Filt Rate - Afr Amer 104 mL/min (>60); Globulin 4.2 g/dL (2.2-4.2); Glucose 85 mg/dL (74-106); Lipase 43 U/L (13-75); Potassium 3.9 mmol/L (3.5-5.1); Protein, Total 7.6 g/dL (6.4-8.2); Sodium Level 139 mmol/L (136-145); Troponin-I HS 6 pg/mL (3.0-54.0)
[2024-07-19 12:49] VITALS: PULSE 70; RESP 14; O2SAT 99
[2024-07-19 13:00] VITALS: PULSE 70; RESP 17; O2SAT 98
--- NOTE | 2024-07-19 13:18 | ED.VIS.CHEST ---
HPI History of Present Illness Chief Complaint: Chest Pain Detail of Chief Complaint: Indigestion/heartburn epigastric area Informant: patient Onset/Context/Timing Onset: Days Activity at onset: sudden Timing: Continuous Quality: Positive for Aching, Burning and Indigestion Location: - (Epigastrium radiating towards the neck) Current Severity: Mild Maximum Severity: Moderate Worsened By: Nothing Relieved By: Nothing Associated Symptoms: Negative for Nausea, Vomiting, Diaphoresis, Dyspnea, Cough, Fever, Lightheadedness, Acid Reflux or Palpitations Narrative Narrative: Patient is a 59-year-old woman. She was seen by her doctor and sent to the emergency room because of concern for cardiac chest pain. She does have a history of GERD. She is presently on no medicine for her GERD. Not compliant with her diet. She does have history of COPD. She has history of hepatitis, drug abuse and arthritis. She denies nausea, vomiting, melena, shortness of breath, dyspnea on exertion, diaphoresis or radiation of the pain to her extremities or back. She denies history of PE or DVT. Denies leg pain, swelling discoloration. Prior Similar Symptoms: No CVD Risk Factors: Positive for Smoking; Negative for Hypertension, Diabetes, Hypercholesterolemia or Family History 1' </=55 PE Risk Factors: Negative for Recent Travel/Surgery, Recent Immobilization, Prior DVT or PE, Cancer or OCP + Smoking + >/=35 TAD Risk Factors: Negative for Marfan's Syndrome, Hypertension or Family History [facility] Medical History C. difficile colitis Headache Hay fever History of stomach ulcers History of hemorrhoids Lung disease History of attempted suicide Chronic leg pain Asthma GERD (gastroesophageal reflux disease) Arthritis Home Medications ?Medication ?Instructions ?Recorded ?Last Taken ?Type lorazepam 1 mg tablet (Ativan) 1 mg PO TID PRN anxiety 5 days #15 07/09/24 Unknown Rx tabs ondansetron 4 mg disintegrating 4 mg PO TID PRN nausea and 07/09/24 Unknown Rx tablet vomiting #21 tabs pantoprazole 40 mg tablet,delayed 40 mg PO DAILY #30 tabs 07/19/24 Unknown Rx release (Protonix) Allergy/AdvReac Type Severity Reaction Status Date / Time Penicillins Allergy Mild Rash Verified 07/19/24 11:49 codeine Allergy HALLUCINATI Verified 07/19/24 11:49 ON Family History Grandmother Heart disease Myocardial infarction Uncle Myocardial infarction Grandfather Colon cancer Surgical History S/P partial colectomy History of tubal ligation Social History household members: none Smoking Status: Light Smoker (<10/day) Tobacco: How many years used: 40 alcohol intake: never substance use type: does not use what type of physical activity do you participate in: none ROS ROS ED Constitutional Constitutional ED: Denies chills, fever(s), subjective or sweats Eyes Eyes: Reports none ENT ENT ED: Denies rhinorrhea or sore throat Cardiovascular Cardiovascular: Reports as per HPI; Denies orthopnea or paroxysmal nocturnal dyspnea Respiratory/Chest Respiratory/Chest: Denies dyspnea, dyspnea on exertion, orthopnea or paroxysmal nocturnal dyspnea Gastrointestinal Gastrointestinal: Reports abdominal pain; Denies constipation, diarrhea, melena, nausea or vomiting Genitourinary Genitourinary ED: Denies dysuria, hematuria or urinary frequency Musculoskeletal Musculoskeletal: Denies arthralgias, back pain, myalgias or neck pain Integumentary Denies rash Neurologic Neurologic: Denies headache(s) or paresthesias Endocrine Endocrinology: Denies cold intolerance or heat intolerance Hematologic/Lymphatic Hematologic/Lymphatic: Denies easy bleeding or easy bruising EXAM Physical Exam Const Vital Signs: 07/19/24 11:49 07/19/24 12:49 07/19/24 13:00 Temperature 96.5 F L Temperature Source Temporal Pulse Rate 77 70 70 Respiratory Rate 15 14 17 Blood Pressure 146/81 H Blood Pressure Mean 102 Pulse Ox 99 99 98 Oxygen Delivery Method Room Air Room Air Room Air 07/19/24 14:00 Temperature Temperature Source Pulse Rate Respiratory Rate Blood Pressure Blood Pressure Mean Pulse Ox 97 Oxygen Delivery Method Room Air Positive well nourished and well developed General Appearance ED: well developed and NAD; Negative for pallor HEENT Reports moist mucous membranes normocephalic and atraumatic Eyes PERRL and EOMs intact bilaterally General Eye ED: Negative for pale conjunctiva or scleral icterus Neck no lymphadenopathy, supple and no JVD Neck Narrative: Trachea is midline. There is no stridor. Chest Wall palpation of chest normal Resp normal respiratory effort and clear to auscultation bilaterally Cardio regular rate, regular rhythm, S1 normal heart sound, S2 normal heart sound and no murmurs Peripheral Pulses: pulses 2+ throughout GI normal to inspection, nondistended, normoactive bowel sounds, soft to palpation and non-distended; Negative for non-tender, hepatosplenomegaly or no masses GI Narrative: There is tenderness in the epigastrium. There is no tenderness in the right upper quadrant or clinical Pool sign. There is no hepatosplenomegaly. Back/Spine no CVA tenderness Extremity normal to inspection Extremity Narrative: There is no asymmetry, swelling, discoloration, leg vein distention, palpable cords or tenderness along the distribution of the deep venous system. Patient does have stigmata of peripheral arterial disease with absent hair on her toes. General Extremety ED: Negative for edema or pulses abnormal General Extremity: Negative for edema or pulses abnormal Neuro oriented x3 and CN's II-XII intact bilaterally Sensorium / Orientation: awake and alert Psych mental status grossly normal Skin no rashes or lesions noted and no wounds General Skin Exam: Negative for jaundice or pallor Heart Score History: Slightly/Non-Suspicious ECG: Normal Age: >45 - <65 years Risk Factors: 1 or 2 Risk Factors Troponin: </= Normal Limit Score: 2 MDM MDM MDM Narrative Medical decision making narrative: Differential diagnosis cardiac versus noncardiac. In my opinion this is noncardiac and most likely related to the fact that she has a history of peptic ulcers and reflux and is not taking any medicine. Will obtain EKG and troponin. Will also obtain CBC to assess for anemia since she reported black stools in the recent past. BMP to assess BUN to creatinine ratio as well as renal function. Lipase was ordered to assess for pancreatitis. She was seen approxi-1 week ago in the ER for COPD exacerbation. June 2002 she was seen for accidental fall. October 2021 for acute lumbosacral myofascial strain. March 2020 for dental abscess and September 2018 for opiate abuse with out complications. History & Record Review Additional record(s) reviewed:: Prior ED visit and Prior labs Lab Data Attestation: I reviewed the patient's lab results. Lab results narrative: CBC is normal. Comprehensive metabolic panel visit elevated AST and ALT of 68 and 83. Alkaline phosphatase slightly elevated. Since patient endorses on 3 questioning intolerance to greasy food and she has elevated liver enzymes we will obtain ultrasound of her gallbladder. She last ate at 0730. Labs: Laboratory Results - last 24 hr 07/19/24 12:10 WBC 9.8 RBC 4.38 Hgb 13.4 Hct 40.0 MCV 91.3 MCH 30.6 MCHC 33.5 RDW Std Deviation 44.7 H RDW Coeff of Urvashi 13.3 Plt Count 264 MPV 10.2 Immature Gran % (Auto) 0.200 Neut % (Auto) 42.1 L Lymph % (Auto) 41.3 H [place] % (Auto) 12.6 H Eos % (Auto) 3.1 Baso % (Auto) 0.7 Absolute Neuts (auto) 4.1 Absolute Lymphs (auto) 4.06 Nucleated RBC % 0 Atypical Lymphocytes 1+ Sodium 139 Potassium 3.9 Chloride 108 H Carbon Dioxide 25.0 Anion Gap 6 BUN 15 Creatinine 0.73 Estim Creat Clear Calc 73.50 Est GFR (MDRD) Af Amer 104 Est GFR (MDRD) Non-Af 86 BUN/Creatinine Ratio 20.5 H Glucose 85 Calcium 9.1 Total Bilirubin 0.40 AST 68 H ALT 83 H Alkaline Phosphatase 154 H Troponin I High Sens 6 Total Protein 7.6 Albumin 3.4 Globulin 4.2 Albumin/Globulin Ratio 0.8 L Lipase 43 Radiography Diagnostic Testing: Clinical Impression(s) from Imaging Studies Gallbladder Ultrasound 07/19/24 13:27 IMPRESSION: Normal right upper quadrant ultrasound examination. Electronically Signed: Charles Urrutia MD at 14:28 EST , Treatment and Re-Evaluation :: Ultrasound does not reveal any acute pathology. Discharge Plan Triage Chief Complaint: Chest Pain ED Provider: Marvin Hutchinsono Dx/Rx/DC Orders Clinical Impression: Acute epigastric pain, Chest pain due to GERD Instructions: ED GERD (Adult) Prescriptions: New pantoprazole [Protonix] 40 mg tablet,delayed release (DR/EC) 40 mg PO DAILY Qty: 30 0RF No Action ondansetron 4 mg tablet,disintegrating 4 mg PO TID PRN (Reason: nausea and vomiting) Qty: 21 0RF lorazepam [Ativan] 1 mg tablet 1 mg PO TID PRN (Reason: anxiety) 5 Days Qty: 15 0RF Primary Care Provider: Mack Langston Referrals: Mack Langston MD [Primary Care Provider] - 1-2 Weeks Print Language: Surinamese Disposition Disposition: Home, Self Care
--- NOTE | 2024-07-19 13:27 | US_ITS ---
STUDY: ABDOMINAL ULTRASOUND - RIGHT UPPER QUADRANT REASON FOR VISIT: Female, 59 years old Pain, elevated liver transaminases and intolerance -- Last ate 729 TECHNIQUE: Ultrasound evaluation of the right upper quadrant was performed with real-time and static boyer-scale imaging. TECHNICAL QUALITY: Adequate. COMPARISON: Comparison is made with prior CT scan and pelvis dated July 09, 2024. FINDINGS: Liver: The liver measures 16.7 cm. There is normal echogenicity of the liver. The bile ducts are within normal limits. There is hepatic color flow. The direction of portal flow is hepatopetal. There is no demonstrated mass lesion. Gallbladder: Normal distended gallbladder. The gallbladder wall measures 2.0 mm. There is a negative sonographic Pool''s sign. There is no pericholecystic fluid. There are no gallstones. Common Bile Duct (C.B.D.): The common bile duct measures 4 mm. Pancreas: Normal size of the head, body and tail of the pancreas. There is normal echogenicity of the pancreas. There is no demonstrated pancreatic mass or cyst. Right Kidney: Normal size of the right kidney. The right kidney measures 11.7 cm x 5.6 cm x 4.3 cm. Normal renal cortex. The right cortex measures 1.8 cm. There is no demonstrated renal mass or cyst. There is no right hydronephrosis. US/Gallbladder IMPRESSION: Normal right upper quadrant ultrasound examination. Electronically Signed: Charles Urrutia MD at 14:28 EST ,
[2024-07-19 14:00] VITALS: O2SAT 97
== END 2024-07-19 15:43 | disposition home or self-care (01) ==
PROVIDERS: Emergency Provider Emergency Medicine; PCP Internal Medicine; Visit Provider Emergency Medicine
DX: R10.13 Epigastric pain (principal); J44.9 Chronic obstructive pulmonary disease, unspecified; R07.9 Chest pain, unspecified; K21.9 Gastro-esophageal reflux disease without esophagitis; F17.200 Nicotine dependence, unspecified, uncomplicated; F41.9 Anxiety disorder, unspecified; Z79.899 Other long term (current) drug therapy; Z90.49 Acquired absence of other specified parts of digestive tract; Z98.51 Tubal ligation status
CPT/HCPCS: 76705; 80053; 82274; 83690; 84484; 85025; 93005; 99285; A4216

== ENCOUNTER 2024-12-26 14:16 | Emergency (ER) | payer MEDICAID, SELFPAY ==
[2024-12-26 14:16] VITALS: BP 154/70; PULSE 85; RESP 14; TEMP 36.2; O2SAT 100; BMI 26.2
== END 2024-12-26 16:56 | disposition left against medical advice (07) ==
LOC: ED 17:07
PROVIDERS: PCP Internal Medicine
DX: Z00.00 Encounter for general adult medical examination without abnormal findings (principal)

== ENCOUNTER 2025-03-21 14:12 | Emergency (ER) | payer MEDICAID, SELFPAY ==
[2025-03-21] VITALS (13 sets, daily range): BP systolic 122–152; BP diastolic 62–94; PULSE 60–95; RESP 8–18; TEMP 36.8–37.2; O2SAT 94–100
--- NOTE | 2025-03-21 14:30 | EKG12_ITS ---
Test Reason : chest pain/sob Blood Pressure : */* mmHG Vent. Rate : 68 BPM Atrial Rate : 68 BPM P-R Int : 126 ms QRS Dur : 80 ms QT Int : 424 ms P-R-T Axes : 54 48 48 degrees QTcB Int : 450 ms Normal sinus rhythm Normal ECG Confirmed by WEST KIM, GLORY ([id number]), state editor SUNSHINE PENALOZA ([id number]) on 03/22/2025 9:03:21 AM Referred By: Confirmed By: GLORY DODSON MD
[2025-03-21 15:44] LABS: Hematocrit 36.8 % (37-47); Hemoglobin 12.5 g/dL (12.0-15.0); Immature Granulocytes Count 0.010 X10^3/uL (0.0-0.0); Mean Corp Hgb Conc 34.0 g/dL (32-36); Mean Corpuscular Volume 93.2 fL (81-99); Mean Platelet Vol. 9.8 fl (6.2-12.0); NRBC Flagged by Analyzer 0 % (0-5); Platelet Count 250 K/mm3 (150-450); RBC Distribution Width CV 14.0 % (11.6-14.6); RBC Distribution Width SD 47.9 fl (35.1-43.9); Red Blood Count 3.95 M/mm3 (4.2-5.4); White Blood Count 7.3 K/mm3 (4.4-11.0)
[2025-03-21 16:26] LABS: Anion Gap 9 (5-15); BUN 13 mg/dL (4-19); BUN/Creat Ratio 21.4 RATIO (10-20); Calcium,Total 9.5 mg/dL (7.6-11.0); Carbon Dioxide 28.0 mmol/L (21.0-32.0); Chloride 103 mmol/L (98-108); Glucose 88 mg/dL (70-99); Potassium 4.0 mmol/L (3.3-5.1)
--- NOTE | 2025-03-21 16:27 | RAD_ITS ---
PROCEDURE: CHEST PA AND LATERAL 03/21/2025 REASON FOR EXAM: SUBJECTIVE FEVER, NONPRODUCTIVE COUGH AND INTERMIT TECHNIQUE: CHEST PA AND LATERAL COMPARISON: 06/08/2022 FINDINGS: Lungs/Pleura: Clear. No airspace consolidation, pneumothorax or pleural effusion. Heart/Mediastinum: Normal in size. Aortic arch calcification. Bones/Soft tissues: No significant abnormality. RAD/Chest PA and Lateral IMPRESSION: No evidence of acute cardiopulmonary disease. Reading Location: [id number]
--- NOTE | 2025-03-21 16:29 | EDS_ITS ---
HPI History of Present Illness Chief Complaint: Shortness of Breath Detail of Chief Complaint: Upper respiratory tract symptoms with intermittent wheezing and shortness o Informant: patient Onset/Context/Timing Onset: Days (Onset March 18) Context: sudden Timing: Continuous and Waxes and wanes Quality: Positive for Dyspnea on exertion and Wheezing; Negative for Orthopnea or PND Current Severity: Mild Maximum Severity: Moderate Worsened by: Exertion and Coughing Relieved by: Nothing Associated Symptoms cough, rhinorrhea, fever, subjective and sweats; Negative for post nasal drip, ear pain, sore throat, chills, clear sputum, white sputum, yellow sputum or green sputum Chest Pain: Positive for Intermittent (Only when she coughs) Narrative Narrative: Patient is a 60-year-old female. She has history of COPD, hepatitis, generalized anxiety disorder, and GERD who presents with upper respiratory tract infection symptoms started March 18. She endorses rhinorrhea, congestion, nonproductive cough with intermittent wheezing and shortness of breath. She states her inhaler has . She has not been on prednisone in the last 3 months. She had prophylaxis for DVT in 1993 when both of her lower extremity exam are in casts. She is never had a VTE. She denies leg pain, swelling discoloration. Patient denies abdominal pain, nausea, vomiting or diarrhea. She smokes and states 1 pack lasts a week. 5 years ago she smoked 2 to 3 packs/day. She denies weight loss. PE Risk Factors: Negative for Cancer, OCP + Smoking + > 35, Prior DVT or PE, Recent immobilization, Recent surgery or Recent travel Prior similar symptoms: Yes Recent Illness/Hospitalization: No PFSH [facility] Medical History CASSANDRA (generalized anxiety disorder) Panic C. difficile colitis Headache Hay fever History of stomach ulcers History of hemorrhoids Lung disease History of attempted suicide Chronic leg pain Asthma GERD (gastroesophageal reflux disease) Arthritis Home Medications ?Medication ?Instructions ?Recorded ?Last Taken ?Type hydroxyzine HCl 25 mg tablet 25 mg PO TID PRN anxiety #90 tabs 09/30/24 Unknown Rx paroxetine HCl 10 mg tablet 10 mg PO QDAY #30 tabs Unknown Rx propranolol 10 mg tablet 10 mg PO TID PRN anxiety #90 tabs 11/29/24 Unknown Rx prednisone 20 mg tablet 60 mg (3 x 20 mg) PO DAILY # 15 03/21/25 Unknown Rx TABLETS Allergy/AdvReac Type Severity Reaction Status Date / Time Penicillins Allergy Mild Rash Verified 03/21/25 14:14 codeine Allergy HALLUCINATI Verified 03/21/25 14:14 ON Family History Grandmother Heart disease Myocardial infarction Uncle Myocardial infarction Grandfather Colon cancer Surgical History S/P partial colectomy History of tubal ligation Social History household members: none Smoking Status: Light Smoker (<10/day) Tobacco: How many years used: 40 alcohol intake: never substance use type: does not use what type of physical activity do you participate in: none ROS ROS ED Constitutional Constitutional ED: Reports chills, fever(s) and sweats; Denies weight loss Eyes Eyes: Denies blurry vision or change in vision ENT ENT ED: Reports rhinorrhea; Denies ear pain or sore throat Cardiovascular Cardiovascular: Reports chest pain; Denies orthopnea, palpitations, paroxysmal nocturnal dyspnea or racing heartbeat Respiratory/Chest Respiratory/Chest: Reports cough and dyspnea; Denies dyspnea on exertion, orthopnea, paroxysmal nocturnal dyspnea or sputum Gastrointestinal Gastrointestinal: Denies abdominal pain, diarrhea, nausea or vomiting Musculoskeletal Musculoskeletal: Denies arthralgias or myalgias Integumentary Denies rash Neurologic Neurologic: Reports weakness; Denies headache(s) Psychiatric Psychiatric: Denies anxiety or depression Endocrine Endocrinology: Denies cold intolerance or heat intolerance EXAM Physical Exam Const Vital Signs: 03/21/25 14:12 03/21/25 16:04 03/21/25 16:05 Temperature 99 F Temperature Source Temporal Pulse Rate 95 63 60 Respiratory Rate 18 16 Respiratory Effort Respiratory Depth Respiratory Pattern Blood Pressure 123/62 H 135/75 H Blood Pressure Mean 82 95 Pulse Ox 99 100 98 Oxygen Delivery Method Room Air Room Air 03/21/25 16:05 03/21/25 16:05 03/21/25 16:15 Temperature Temperature Source Pulse Rate 63 Respiratory Rate 8 L Respiratory Effort Normal Non-Labored Respiratory Depth Respiratory Pattern Blood Pressure 122/72 H Blood Pressure Mean 87 Pulse Ox 97 Oxygen Delivery Method Room Air 03/21/25 16:30 03/21/25 16:30 03/21/25 16:45 Temperature Temperature Source Pulse Rate 66 61 Respiratory Rate 11 L 8 L Respiratory Effort Respiratory Depth Respiratory Pattern Blood Pressure 130/75 H 130/75 H 137/75 H Blood Pressure Mean 90 90 93 Pulse Ox 100 99 Oxygen Delivery Method 03/21/25 17:00 03/21/25 17:15 03/21/25 17:30 Temperature Temperature Source Pulse Rate 69 69 67 Respiratory Rate 9 L 16 10 L Respiratory Effort Respiratory Depth Respiratory Pattern Blood Pressure 136/75 H 150/86 H 151/78 H Blood Pressure Mean 94 105 101 Pulse Ox 94 100 100 Oxygen Delivery Method 03/21/25 17:45 03/21/25 18:00 03/21/25 18:15 Temperature Temperature Source Pulse Rate 67 67 70 Respiratory Rate 11 L 10 L 18 Respiratory Effort Respiratory Depth Respiratory Pattern Blood Pressure 128/74 H 136/74 H 148/94 H Blood Pressure Mean 90 92 110 Pulse Ox 100 99 100 Oxygen Delivery Method 03/21/25 18:29 Temperature Temperature Source Pulse Rate Respiratory Rate Respiratory Effort Normal Non-Labored Respiratory Depth Normal Respiratory Pattern Normal Blood Pressure Blood Pressure Mean Pulse Ox Oxygen Delivery Method Room Air Positive well nourished and well developed Constitutional Narrative: Patient appears ill. Vital signs are unremarkable other than slight elevation of blood pressure. General Appearance ED: well developed and NAD; Negative for pallor HEENT Reports moist mucous membranes HEENT Narrative: Head is atraumatic, cephalic. Ears normal. Nares patent with slight clear drainage. Posterior pressures no erythema or exudate. Eyes PERRL and EOMs intact bilaterally General Eye ED: Negative for pale conjunctiva or scleral icterus Neck no lymphadenopathy, supple, no meningeal signs and no JVD Resp normal respiratory effort and No clear to auscultation bilaterally Auscultation: rales right base Cardio regular rate, regular rhythm, S1 normal heart sound, S2 normal heart sound and no murmurs GI non-tender, non-distended and no masses Auscultation: normoactive bowel sounds Palpation: soft Back/Spine Back/Spine Narrative: Inspection of the back is normal. Extremity normal to inspection General Extremety ED: Negative for edema or tenderness General Extremity: Negative for edema Neuro oriented x3 and CN's II-XII intact bilaterally Sensorium / Orientation: alert Psych mental status grossly normal Skin no wounds and skin turgor normal General Skin Exam: Negative for jaundice or pallor MDM MDM MDM Narrative Medical decision making narrative: Patient probably has upper respiratory infection that is exacerbated her COPD. Will obtain x-ray to assess for pneumonia. CCBC was ordered per nurse protocol for to assess white count differential. Clinically she is not anemic. Temitope panel to assess for endorgan dysfunction. Since she has some intermittent wheezing we will treat with albuterol metered-dose inhaler and prednisone. Because she had chest pain per nurse protocol she had EKG done. The chest pain is pleuritic and only occurs when she is coughing at the end of coughing. There is no concern for PE. Lab Data Attestation: I reviewed the patient's lab results. Lab results narrative: White count is normal. H&H is unremarkable. Differential is normal. Basic metabolic panel reveals slightly elevated BUN to creatinine ratio otherwise normal. Labs: Laboratory Results - last 24 hr 03/21/25 15:34 WBC 7.3 RBC 3.95 L Hgb 12.5 Hct 36.8 L MCV 93.2 MCH 31.6 MCHC 34.0 RDW Std Deviation 47.9 H RDW Coeff of Urvashi 14.0 Plt Count 250 MPV 9.8 Immature Gran % (Auto) 0.100 Neut % (Auto) 47.2 Lymph % (Auto) 36.3 Warrick % (Auto) 12.2 H Eos % (Auto) 3.7 Baso % (Auto) 0.5 Absolute Neuts (auto) 3.4 Absolute Lymphs (auto) 2.64 Nucleated RBC % 0 Sodium 140 Potassium 4.0 Chloride 103 Carbon Dioxide 28.0 Anion Gap 9 BUN 13 Creatinine 0.59 L Est GFR (MDRD) Non-Af 102 BUN/Creatinine Ratio 21.4 H Glucose 88 Calcium 9.5 Radiography Chest X-Ray - ED: 2 View and Read by ED Physician (Cardiac silhouette size normal. There is slight hyperaeration. There is no infiltrate or effusion. Hilum is normal. Osseous structures with no acute process.) Diagnostic Testing: Clinical Impression(s) from Imaging Studies Chest X-Ray 03/21/25 16:27 IMPRESSION: No evidence of acute cardiopulmonary disease. Reading Location: [facility] EKG Initial EKG: Attestation: I personally reviewed and interpreted this EKG as follows: Interpretation: Sinus Rhythm (Rate is 68. The EKG is normal. Parables under 26 ms. QS duration 80 ms. QT duration 444 ms. Parker is normal.) Treatment and Re-Evaluation :: Patient was informed of results at 1854. Plan is to discharge with the inhaler and burst of prednisone. Patient was not placed on antibiotics as she does not have a productive cough or fever. Discharge Plan Triage Chief Complaint: Shortness of Breath Other Complaint: Chest Pain ED Provider: Kristopher Hutchinson Dx/Rx/DC Orders Clinical Impression: Acute exacerbation of chronic obstructive pulmonary disease, Acute bronchospasm, Upper respiratory infection with cough and congestion Instructions: ED COPD Flare Prescriptions: New prednisone 20 mg tablet 60 mg PO DAILY Qty: 15 0RF No Action hydroxyzine HCl 25 mg tablet 25 mg PO TID PRN (Reason: anxiety) Qty: 90 2RF paroxetine HCl 10 mg tablet 10 mg PO QDAY Qty: 30 2RF propranolol 10 mg tablet 10 mg PO TID PRN (Reason: anxiety) Qty: 90 1RF Primary Care Provider: Care Physician,No Primary Referrals: Mack Langston MD [Med Staff - Active Staff] - 3-5 Days Activity Restrictions/Additional Instructions: 1. 2 puffs of inhaler every 2-4 hours while awake for the next 2 to 3 days and every 4-6 hours as needed for shortness of breath or wheezing. 2. Take prednisone until gone Print Language: [place] Disposition Disposition: Home, Self Care
[2025-03-21] MEDS: Albuterol Sulfate 8 gm Inhaler (60 puffs) 6 PUFF INHALATION (17:00)
--- OUTSIDE RECORDS SUMMARY | 2025-03-21 23:53 | XMS RPT_ITS | CCD ---
Author Organization [facility] CliniSysd Care Team Providers Care Site Superintendent Name Role Phone Prabhu Meño Unavailable Unavailable No Family Physician given Unavailable Unavai james COE, JOSE ELIAS Primary Care Physician BINH JON DO Attending Unavailable BINH JON DO Primary Care Unavailable BINH JON DO Admitting Unavailable Felipe Rios MD Unavailable Sangita Patterson MD Unavailable [phone] Chantal MATHIAS-Lian Williamson Unavailable Unavailable Annette Langston MD B Primary Care Provider JOSE ELIAS PARISI Primary Care Physician ANGEL LUIS LY DO Attending Unavailable JOSE ELIAS PARISI Primary Care Unavail able Unavailable Primary Care Provider Unavailabl e OLEGHE, EFEWONGBE B Primary Care Unavailable OLEGHE, EFEWONGBE B Primary Care Unavailable OLEGHE, EFEWONGBE B Primary Care Unavailable RIYA CAMARILLO Attending Unavailable RIYA CAMARILLO Attending Unavailable OLEGHE, EFEWONGBE B Primary Care Unavailable Oleghe, Efewongbe Primary Care Unavailable Fabby Cadet Attending Unavailable Oleghe, Efewongbe Primary Care Unavailable Provider, Ed Physician Attending Unavailab le Oleghe, Efewongbe Primary Care Unavailable Fabby Cadet Attending Unavailable Oleghe, Efewongbe Primary Care Unavailable Fabby Cadet Attending Unavailable Oleghe, Efewongbe Primary Care Unavailable Hutchinson, Kristopher Attending Unavailable Care Physician, No Primary Primary Care Unava ilDima Osullivan Attending Unavailable Allergies Allergy Classification Reported Allergen(s) Allergy Type Date of Onset Reaction(s) Facility (13 sources) Codeine; Translations: [codeine] Drug Allergy 5 Mental Status Change [facility] (2 sources) Penicillin; Translations: [penicillins] Drug Allergy [facility] (1 source) Codeine Drug Allergy [facility] (1 source) Penicillin Drug Allergy [facility] (13 sources) Codeine Drug Allergy 7 [facility] Work Phone: (12 sources) Penicillins; Translations: [PENICILLINS] Allergy to substance 5 Intolerance [facility] Work Phone: (9 sources) Etodolac; Translations: [ETODOLAC] Drug Allergy 6 GI Upset [facility] (9 sources) metroNIDAZOLE; Translations: [METRONIDAZOLE HCL] Drug Allergy 2 GI Upset [facility] (9 sources) Orphenadrine; Translations: [ORPHENADRINE CITRATE] Drug Allergy 9 Intolerance [facility] (9 sources) Sulindac; Translations: [SULINDAC] Drug Allergy 9 [facility] (1 source) Codeine Drug Allergy 5 [facility] Medications Current Medications Medication Drug Class(es) Dates Sig (Normalized) Sig (Original) acetaminophen 325 mg / oxyCODONE hydrochloride 5 mg oral tablet (1 source) Opioid Agonist Start: 06-07-2021 End: 06-12-2021 take 1 tablet by mouth every six hours as needed for pain Percocet 5 mg-325 mg oral tablet Dose = 1 tab(s), Oral, q6h, PRN for pain, X 5 day(s), # 15 tab(s), 0 Refill(s), Closed left wrist fracture, 59.1 Start Date: 06/07/21 Stop Date: 06/12/21 Status: Ordered 30 actuat aclidinium bromide 0.4 mg/actuat dry powder inhaler (8 sources) Start: 02-02-2015 take 1 dose by inhalation twice daily aclidinium bromide (TUDORZA PRESSAIR) 400 mcg/actuation aepb Indications: chronic obstructive pulmonary disease with bronchospasms Inhale 1 Inhalation as instructed twice daily. Indications: CHRONIC OBSTRUCTIVE PULMONARY DISEASE WITH BRONCHOSPASMS 1 Each 11 02/02/2015 Active [id number] 200 actuat albuterol 0.09 mg/actuat metered dose inhaler (9 sources) beta2-Adrenergic Agonist Start: 09-29-2024 End: 10-29-2024 take 2 puff(s) by inhalation every four hours as needed for wheezing albuterol HFA (PROVENTIL HFA, VENTOLIN HFA) 90 mcg/actuation inhaler Indications: Acute exacerbation of COPD with asthma (HCC) Inhale 2 Puffs as instructed every 4 hours as needed for wheezing/shortness of breath. 1 Each 09/29/2024 Active Start: 04-16-2017 End: 09-29-2024 albuterol HFA (PROAIR HFA) 9 0 mcg/actuation inhaler Inhale 2 Puffs as instructed four times daily. and q2hour prn 1 Inhaler 5 04/16/2017 09/29/2024 Discontinued (Course of therapy completed) azithromycin 250 mg oral tablet (5 sources) Macrolide Antimicrobial Start: 09-29-2024 azithromycin (ZITHROMAX Z-BRITT) 250 mg tablet Indications: Acute exacerbation of COPD with asthma (HCC) Take 2 tablets (500 mg) by mouth on day 1, then take 1 tablet (250 mg) by mouth for 4 days. 6 tablet 09/29/2024 Active Start: 06-22-2024 End: 06-27-2024 azithromycin (ZITHROMAX Z-PA K) 250 mg tablet Take 2 tablets day one, then, 1 tablet daily until gone. 6 tablet 06/22/2024 06/27/2024 Active benzonatate 100 mg oral capsule (1 source) Non-narcotic Antitussive Start: 09-29-2024 End: 10-06-2024 take 1 capsule by mouth three times daily as needed for cough benzonatate (TESSALON PERLE) 100 mg capsule Indications: Acute exacerbation of COPD with asthma (HCC) Take 1 capsule by mouth three times a day as needed for cough for up to 7 days. 21 capsule 09/29/2024 10/06/2024 Active cyclobenzaprine hydrochloride 5 mg oral tablet (3 sources) Muscle Relaxant Start: 09-09-2024 End: 09-14-2024 cyclobenzaprine 5 mg oral tablet Dose : 5 mg = 1 tab(s), Oral, q8h, PRN As needed for muscle pain, X 5 day(s), # 10 tab(s), 0 Refill(s), 09/14/24 5:36:00 PM EST, Neck strain Start Date: 09/09/24 Stop Date: 09/14/24 Status: Ordered Quantity: 10.0 Unit: tab(s) Repeat number: 1 Indication: Strain of muscle, fascia and tendon at neck level, initial encounter Start: 09-16-2017 End: 11-14-2017 take 10 mg by mouth three times daily as needed Cyclobenzaprine Discontinued 10 MG PO 3 TIMES DAILY NEEDED September 16, 2017 5:56pm November 14, 2017 10:11am doxycycline monohydrate 100 mg oral tablet (2 sources) Tetracycline-class Drug Start: 12-26-2024 End: 01-05-2025 take 1 tablet by mouth twice daily doxycycline monohydrate 100 mg tablet Take 1 tablet by mouth two times a day for 10 days. 20 tablet 12/26/2024 01/05/2025 Active 60 actuat fluticasone propionate 0.1 mg/actuat dry powder inhaler (8 sources) Corticosteroid Start: 09-06-2013 take 2 puff(s) by inhalation twice daily Fluticasone Propionate (FLOVENT DISKUS) 100 mcg/actuation dsdv Indications: COPD (chronic obstructive pulmonary disease) ([facility]) Inhale 2 Puffs as instructed twice daily. 1 Inhaler 12 09/06/2013 Active ibuprofen 400 mg oral tablet (2 sources) Nonsteroidal Anti-inflammatory Drug Start: 11-25-2017 take 1 dose by mouth every six hours Motrin Dose : 400 mg =, Oral, q6hr Start Date: 11/25/17 Status: Ordered Repeat number: 1 Inhalational Spacing Device (1 source) Start: 09-29-2024 End: 09-29-2024 Inhalational Spacing Device Indications: Acute exacerbation of COPD with asthma ([facility]) 1 Device one time only for 1 dose. 1 Each 09/29/2024 09/29/2024 Active lidocaine 0.05 mg/mg medicated patch (1 source) Antiarrhythmic, Amide Local Anesthetic Start: 09-09-2024 End: 10-09-2024 Lidoderm 5% topical film Apply 1 patch(es), Topical, qDay, PRN As needed for muscle pain, remove patches after 12 hours, X 30 day(s), # 30 patch(es), 0 Refill(s), 68.2 Start Date: 09/09/24 Stop Date: 10/09/24 Status: Ordered Quantity: 30.0 Unit: patch(es) Repeat number: 1 methocarbamol 500 mg oral tablet (1 source) Muscle Relaxant Start: 06-08-2022 take 500 mg by mouth four times daily as needed Methocarbamol Active 500 MG PO 4 TIMES DAILY NEEDED 40 June 08, 2022 2:32am naproxen 500 mg oral tablet (1 source) Nonsteroidal Anti-inflammatory Drug Start: 07-14-2022 take 500 mg by mouth twice daily Naproxen Active 500 MG PO TWICE A DAY July 14, 2022 12:00am oseltamivir 75 mg oral capsule (1 source) Neuraminidase Inhibitor Start: 07-14-2022 take 1 capsule by mouth twice daily Oseltamivir (Tamiflu) 75 mg capsule Active 75 MG PO TWICE A DAY 10 July 14, 2022 12:00am predniSONE 20 mg oral tablet (1 source) Start: 09-29-2024 End: 10-04-2024 take 1 tablet by mouth twice daily predniSONE (DELTASONE) 20 mg tablet Indications: Acute exacerbation of COPD with asthma (HCC) Take 1 tablet by mouth two times a day for 5 days. 10 tablet 09/29/2024 10/04/2024 Active traMADol hydrochloride 50 mg oral tablet (1 source) Opioid Agonist Start: 10-28-2021 take 50 mg by mouth every six hours as needed Tramadol Active 50 MG PO EVERY 6 HOURS NEEDED 10 October 28, 2021 10:31am Completed/Discontinued Medications Medication Drug Class(es) Dates Sig (Normalized) Sig (Original) acetaminophen 325 mg / HYDROcodone bitartrate 7.5 mg oral tablet (4 sources) Opioid Agonist Start: 07-11-2017 End: 07-29-2017 Hydrocodone-Acetami nophen Discontinued 1 EACH PO EVERY 6 HOURS NEEDED July 11, 2017 9:15pm July 29, 2017 7:55am Start: 06-06-2013 End: 08-20-2013 take 1 tablet by mouth every six hours as needed Hydrocodone-Acetaminophen Discontinued 1 TABLET PO EVERY 6 HOURS NEEDED June 06, 2013 4:56pm August 20, 2013 10:28pm Start: 06-06-2013 End: 08-20-2013 take 1 tablet by mouth every six hours as needed Hydrocodone-Acetaminophen Discontinued 1 TABLET PO EVERY 6 HOURS NEEDED June 05, 2013 11:00pm August 20, 2013 9:28pm 24 hr ciprofloxacin 500 mg extended release oral tablet (15 sources) Quinolone Antimicrobial Start: 06-25-2017 take 1 tablet by mouth twice daily CIPRO XR 500 MG [id number] One tablet by mouth twice daily CIPROFLOXACIN-CIPROFLOX HCL [id number] Lian MATHIAS-C Start: 06-06-2013 End: 08-20-2013 take 500 mg by mouth twice daily Ciprofloxacin Hcl Discontinued 500 MG PO TWICE A DAY June 06, 2013 6:22pm August 20, 2013 10:28pm lidocaine 2 % 4 mL buffered injection (XYLOCAINE) (2 sources) Start: 12-26-2024 End: 12-26-2024 lidocaine 2 % 4 mL buffered injection (XYLOCAINE) Start: 12-26-2024 End: 12-26-2024 4 mL, INTRADERMAL, ONCE, 1 d ose, Starting on 12/26/24 at 1524, Until 12/26/24 at 1524 LORazepam 0.5 mg oral tablet (20 sources) Benzodiazepine Start: 10-20-2017 End: 11-14-2017 take 0.5 mg by mouth twice daily Lorazepam Discontinued 0.5 MG PO TWICE A DAY October 26, 2017 8:02am November 14, 2017 9:11am Start: 07-16-2017 End: 09-04-2017 take 0.5 mg by mouth once daily Lorazepam Discontinued 0.5 MG PO DAILY July 21, 2017 3:07pm September 04, 2017 9:08am Start: 06-17-2017 End: 07-16-2017 take 1 tablet by mouth twice daily as needed LORAZEPAM 0.5 MG TABS One tablet by mouth twice daily as needed LORAZEPAM [id number] Lian A Cornejo ORDER CHECKER-C metroNIDAZOLE 500 mg oral tablet (20 sources) Nitroimidazole Antimicrobial Start: 06-30-2017 take 1 tablet by mouth once in the evening FLAGYL 500 MG TABS Take 1 tablet by mouth at 1pm, 2pm, and 10 pm the day before surgery METRONIDAZOLE [id number] Felipe Rios MD Start: 06-25-2017 take 1 tablet by baldev th three times daily METRONIDAZOLE 500 MG TABS One tablet by mouth three times daily METRONIDAZOLE [id number] Lian Cornejo ORDER CHECKER-C Start: 06-06-2013 End: 08-20-2013 take 500 mg by mouth every eight hours Metronidazole Discontinued 500 MG PO EVERY 8 HOURS June 06, 2013 6:22pm August 20, 2013 10:27pm neomycin sulfate 500 mg oral tablet (9 sources) Aminoglycoside Antibacterial Start: 06-30-2017 NEOMYCIN SULFATE 500 MG TABS Take 2 tablets at 1pm, 2pm, and 10pm the day before surgery NEOMYCIN SULFATE [id number] Felipe Rios MD ondansetron 4 mg disintegrating oral tablet (2 sources) Serotonin-3 Receptor Antagonist Start: 09-14-2018 End: 03-26-2020 take 4 mg by mouth every eight hours as needed Ondansetron Discontinued 4 MG PO EVERY 8 HOURS NEEDED September 14, 2018 4:23pm March 26, 2020 1:05pm oxyCODONE hydrochloride 5 mg oral tablet (20 sources) Opioid Agonist Start: 06-17-2018 End: 06-20-2018 take 5 mg by mouth three times daily Oxycodone Discontinued 5 MG PO THREE TIMES A DAY June 17, 2018 2:51pm June 20, 2018 9:55am Start: 10-26-2017 End: 10-31-2017 take 5-10 mg by mouth every four hours as needed Oxycodone Discontinued 5 - 10 MG PO EVERY 4 HOURS NEEDED 02 03October 26, 2017 9:00am October 31, 2017 1:31pm Start: 06-25-2017 take 1 tablet by baldev th every twelve hours as needed OXYCODONE HCL 5 MG TABS One tablet by mouth every 12 hours as needed OXYCODONE HCL [id number] Lian Cornejo ORDER CHECKER-C Start: 06-25-2017 take 1 tablet by baldev th every six hours as needed OXYCODONE HCL 5 MG TABS One tablet by mouth every 6 hours as needed OXYCODONE HCL [id number] Lian Cornejo ORDER CHECKER-C Start: 06-17-2017 End: 06-23-2017 take 5 mg by mouth every six hours as needed Oxycodone Discontinued 5 MG PO EVERY 6 HOURS NEEDED June 17, 2017 6:26pm June 23, 2017 6:56pm Start: 04-21-2017 End: 06-04-2017 take 5 mg by mouth every eight hours as needed Oxycodone Discontinued 5 MG PO EVERY 8 HOURS NEEDED April 21, 2017 10:19am June 04, 2017 7:56am polyethylene glycol [id number] mg / potassium chloride 2820 mg / sodium bicarbonate 6360 mg / sodium chloride 5530 mg / sodium sulfate 98595 mg powder for oral solution (9 sources) Osmotic Laxative Start: 06-30-2017 GOLYTELY 227.1 GM SOLR take as directed by the office prior to surgery PEG 3033-[id number]-NASULF [id number] Felipe Rios MD pramipexole dihydrochloride 0.25 mg oral tablet (2 sources) Nonergot Dopamine Agonist Start: 09-04-2017 End: 11-03-2017 take 0.25 mg by mouth every twelve hours as needed Pramipexole Discontinued 0.25 MG PO EVERY 12 HOURS NEEDED September 04, 2017 10:08am November 03, 2017 8:45am vancomycin 250 mg oral capsule (11 sources) Glycopeptide Antibacterial Start: 07-25-2017 End: 07-29-2017 take 250 mg by mouth once Vancomycin Discontinued 250 MG PO ONCE July 25, 2017 9:35am July 29, 2017 8:55am Start: 06-30-2017 take 1 tablet by baldev th every six hours VANCOMYCIN HCL 250 MG CAPS 1 tab PO every 6 hours VANCOMYCIN HCL [id number] Felipe Rios MD Problems Active Problems Problem Classification Problem Date Documented Da te Episodic/Chronic Alcohol-related disorders (16 sources) Alcohol dependence; Translations: [Alcohol dependence syndrome] Onset: 6 02-12-2024 Chronic Anxiety disorders (20 sources) Anxiety; Translations: [Anxiety disorder, unspecified] Onset: 6 07-01-2017 Chronic Asthma (13 sources) Asthma; Translations: [Unspecified asthma, uncomplicated] 06-30-2017 Chronic Blindness and vision defects (1 source) Blurring of visual image; Translations: [Other visual disturbances] 03-30-2024 Episodic Chronic obstructive pulmonary disease and bronchiectasis (20 sources) Chronic obstructive lung disease; Translations: [Chronic obstructive pulmonary disease, unspecified] Onset: 3 06-30-2017 Chronic Disorders of lipid metabolism (8 sources) Hyperlipidemia; Translations: [Hyperlipidemia, unspecified] Onset: 0 09-06-2013 Chronic Diverticulosis and diverticulitis (17 sources) Diverticular disease of colon; Translations: [Diverticulitis of colon] Onset: 7 10-14-2017 Chronic E Codes: Fall (1 source) Accidental fall ; Translations: [Unspecified fall, initial encounter] Episodic Esophageal disorders (20 sources) Gastroesophageal reflux disease; Translations: [Gastro-esophageal reflux disease with esophagitis] Onset: 1 06-30-2017 Chronic Fluid and electrolyte disorders (1 source) Mild dehydration; Translations: [Dehydration] Episodic Fracture of upper limb (1 source) Closed fracture of carpal bone; Translations: [Fracture of unspecified carpal bone, left wrist, initial encounter for closed fracture] Onset: 1 Episodic Headache; including migraine (8 sources) Migraine; Translations: [Migraine, unspecified, not intractable, without status migrainosus] Onset: 6 02-18-2016 Chronic Hepatitis (19 sources) Chronic hepatitis C; Translations: [Chronic viral hepatitis C] Onset: 7 07-01-2017 Chronic Hepatitis (2 sources) Viral hepatitis C; Translations: [Unspecified viral hepatitis C without hepatic coma] Episodic Influenza (1 source) Influenza due to Influenza A virus; Translations: [Influenza due to other identified influenza virus with other respiratory manifestations] Episodic Menstrual disorders (8 sources) Amenorrhea; Translations: [Amenorrhea, unspecified] Onset: 0 09-06-2013 Chronic Nausea and vomiting (1 source) Nausea; Translations: [Nausea] Episodic Nonspecific chest pain (1 source) Chest pain; Translations: [Chest pain, unspecified] 07-19-2024 Episodic Osteoarthritis (2 sources) Arthritis; Translations: [Unspecified osteoarthritis, unspecified site] Chronic Other aftercare (1 source) Follow-up status; Translations: [Encounter for change or removal of nonsurgical wound dressing] 12-29-2024 Episodic Other aftercare (1 source) Admission statuses; Translations: [Encounter for other specified aftercare] 12-29-2024 Episodic Other aftercare (1 source) Encounter for change or removal of nonsurgical wound dressing; Translations: [Encounter for abscess packing removal] Onset: 5 Episodic Other aftercare (1 source) Encounter for other specified aftercare; Translations: [Wound check, abscess] Onset: 5 Episodic Other connective tissue disease (15 sources) Pain in lower limb; Translations: [Pain in leg, unspecified] Onset: 7 06-25-2017 Episodic Other fractures (1 source) Fracture of rib; Translations: [Fracture of one rib, right side, initial encounter for closed fracture] Episodic Other gastrointestinal disorders (1 source) Diarrhea; Translations: [Diarrhea, unspecified] 06-22-2024 Episodic Other injuries and conditions due to external causes (1 source) Closed injury of head; Translations: [Unspecified injury of head, initial encounter] Episodic Other lower respiratory disease (1 source) Dyspnea; Translations: [Shortness of breath] 07-19-2024 Episodic Other nervous system disorders (8 sources) Chronic pain due to injury; Translations: [Chronic pain due to trauma] Onset: 4 07-30-2021 Chronic Other nervous system disorders (8 sources) Chronic pain syndrome; Translations: [Chronic pain syndrome] Onset: 6 02-18-2016 Chronic Residual codes; unclassified (2 sources) History of partial resection of colon; Translations: [Acquired absence of other specified parts of digestive tract] Episodic Screening and history of mental health and substance abuse codes (2 sources) H/O: attempted suicide; Translations: [History of suicide attempt] Episodic Skin and subcutaneous tissue infections (2 sources) Abscess of buttock; Translations: [Cutaneous abscess of buttock] Onset: 5 12-26-2024 Episodic Sprains and strains (5 sources) Strain of thoracic region; Translations: [Strain of muscle and tendon of unspecified wall of thorax, initial encounter] Onset: 5 Episodic Substance-related disorders (14 sources) Tobacco dependence syndrome; Translations: [Nicotine dependence, unspecified, uncomplicated] Onset: 7 07-01-2017 Chronic Superficial injury; contusion (1 source) Hematoma of scalp; Translations: [Contusion of scalp, initial encounter] Episodic Unclassified (1 source) Unknown / UNK(Unknown) Onset: 8 Viral infection (1 source) Viral headache; Translations: [Viral infection, unspecified] Episodic Past or Other Problems Problem Classification Problem Date Documented Da te Episodic/Chronic Abdominal pain (3 sources) Abdominal pain; Translations: [Unspecified abdominal pain] Onset: 09-30-2024 Episodic Other aftercare (13 sources) Long-term drug therapy; Translations: [Other skilled nursing (current) drug therapy] Onset: 06-25-2017 06-25-2017 Episodic Other gastrointestinal disorders (1 source) Diarrhea, unspecified; Translations: [Diarrhea, unspecified] Onset: 09-30-2024 Episodic Other skin disorders (8 sources) Sebaceous cyst of skin; Translations: [Sebaceous cyst] Onset: 09-06-2013 07-30-2021 Episodic Other skin disorders (8 sources) Mass of axilla; Translations: [Localized swelling, mass and lump, unspecified upper limb] Onset: 03-18-2013 Resolved: 09-06-2013 09-06-2013 Episodic Residual codes; unclassified (10 sources) Tobacco use and exposure - finding; Translations: [Tobacco use] Onset: 02-02-2015 02-02-2015 Episodic Residual codes; unclassified (8 sources) Reduced libido; Translations: [Decreased libido] Onset: 05-15-2010 05-15-2010 Episodic Residual codes; unclassified (8 sources) Drug therapy finding; Translations: [Controlled substance agreement terminated] Onset: 06-16-2017 06-16-2017 Episodic Spondylosis; intervertebral disc disorders; other back problems (11 sources) Backache; Translations: [Dorsalgia, unspecified] Onset: 06-25-2017 06-30-2017 Episodic Substance-related disorders (17 sources) Opioid withdrawal; Translations: [Opioid use, unspecified with withdrawal] Onset: 06-16-2017 06-16-2017 Episodic Unclassified (1 source) NEW CONSULT Onset: 05-20-2018 Results Test Name Value Interpretation Reference Range Facility [facility] 12-29-2024 CNOV Office Visit (UCWSTR ) LISA BOTELLO ([id number]) 1965 F Date Time Provider Department 12/29/24 10:30 AM RIYA CAMARILLO [facility] During your visit today, we recorded the following information about you: Temperature Pulse Respiration Blood pressure 97 degrees 68/minute 16/minute 120/72 Weight 65.7 kg Riya Camarillo, [employer] HR DEVELOPER.CHOPPER OPERATOR 12/29/2024 10:51 AM Signed [facility] Subjective Lisa Botello is a 59 year old female. Patient presents with: Derm Problem: packing change under right buttock placed friday HPI Lisa Botello is a 59 year old female who presents for removal of packing from abscess and wound check. Patient had incision and drainage of abscess here on 12/26. She is taking doxycycline as prescribed. Gives her some nausea but is tolerating it ok. She denies fever. States pain at site is improved. There has been some yellow drainage. She has changed the dressing daily. Review of Systems Constitutional: Negative for chills, fatigue and fever. Gastrointestinal: Positive for nausea (due to antibiotic). Musculoskeletal: Negative for arthralgias and myalgias. Skin: Positive for color change. Negative for rash. Objective BP 120/72 Pulse 68 Temp 36.1 ?C (97 ?F) Resp 16 Wt 65.7 kg (144 lb 13.5 oz) LMP 10/14/2011 SpO2 97% BMI 26.92 kg/m? .[facility] Physical Exam Vitals reviewed. Constitutional: Appearance: Normal appearance. Skin: General: Skin is warm and dry. Capillary Refill: Capillary refill takes less than 2 seconds. Findings: Erythema present. No bruising or rash. Neurological: Mental Status: She is alert. {ASSESSMENT/PLAN: 1. Encounter for abscess packing removal - ICD9: V58.30, ICD10: Z48.00 (primary diagnosis) 2. Wound check, abscess - ICD9: V58.89, ICD10: Z51.89 - continue doxycycline, wound culture final result still pending. - change dressing daily or anytime it becomes wet or dirty. - soak area in warm water with epsom salt or use warm compresses twice daily. - Follow-up with your PCP in 3-5 days if symptoms have not improved or sooner if symptoms worsen - Discussed red flags and need for immediate medical evaluation if any occur. - Discussed supportive care treatment with rest and analgesia. - Discussed expected course of illness Riya Camarillo APRN.NEELAM Disposition The patient was discharged. Riya Marks APRN.CNP 12/29/2024 10:51 AM Signed ASSESSMENT/PLAN: 1. Encounter for abscess packing removal - ICD9: V58.30, ICD10: Z48.00 (primary diagnosis) 2. Wound check, abscess - ICD9: V58.89, ICD10: Z51.89 - continue doxycycline, wound culture final result still pending. - change dressing daily or anytime it becomes wet or dirty. - soak area in warm water with epsom salt or use warm compresses twice daily. - Follow-up with your PCP in 3-5 days if symptoms have not improved or sooner if symptoms worsen - Discussed red flags and need for immediate medical evaluation if any occur. - Discussed supportive care treatment with rest and analgesia. - Discussed expected course of illness Riya Camarillo APRN.CNP Allergies As of Date: 12/29/2024 Noted Allergy Reaction CODEINE 04/25/2005 1 - Mental Status Change Comments: hallucinations PENICILLINS 04/25/2005 5 - Intolerance ETODOLAC 04/09/2016 8 - GI Upset Comments: Abdominal cramping FLAGYL (METRONIDAZOLE HCL) 01/10/2012 8 - GI Upset Comments: tear my guts up NORFLEX (ORPHENADRINE CITRATE) 05/09/2009 5 - Intolerance Comments: dizzy,nausea SULINDAC 05/09/2009 5 - Intolerance Comments: dizzy,tingly ,hot and cold flash Date Reviewed: 12/29/2024 Reviewed by: Dipti Herr MA - Fully Assessed Reason for Visit: Derm Problem [33] Cmt: packing change under right buttock placed friday Primary Visit Diagnosis:Encounter for abscess packing removal [Z48.00] Other Visit Diagnosis:Wound check, abscess [Z51.89] Prescriptions as of 12/29/2024 - doxycycline monohydrate 100 mg tablet Take 1 tablet by mouth two times a day for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 administered prior to incision by Anesthesia Staff. We performed the timeout with all parties in attendance and in agreement with the side, site, and operation to be performed. No concerns were voiced, and we elected to proceed. The left upper extremity was then exsanguinated with an Esmarch bandage. Tourniquet was inflated to 250 mmHg where it remained for approximately 30 minutes. I then removed the Esmarch. I marked the standard FCR incision overlying the FCR tendon at the distal radius. The skin was sharply incised with a 15 blade scalpel down through the skin and subcutaneous tissue. The volar aspect of the FCR tendon sheath was identified and split inline with the incision. We retracted the FCR tendon ulnarly. I split the floor of the FCR sheath. I identified the FPL muscle belly and tendon, and retracted that ulnarly. Pronator quadratus was then encountered. Self-retaining retractors were placed deep. I performed an L shaped tenotomy of the pronator quadratus and retracted it ulnarly. This exposed the distal radius and fracture. I performed the brachioradialis tenotomy after first identifying its insertion onto the radial styloid. I then performed an open reduction maneuver with mostly manual traction and volar translation of the carpus. This achieved excellent reduction with return to normal parameters of the distal radius. I then selected a narrow Arthrex plate. We ensured proper plate positioning on orthogonal fluoroscopy. I then placed two K-wires. I then placed distal locking peg in the distal most holes. I placed two fully threaded locking screws in the radial styloid. I then proceeded and placed first cortical screws into the shaft holes and then a subsequent locking screw most distal hole. Final fluoroscopy was obtained orthogonally confirming appropriately sized hardware and a near anatomic reduction. I then deflated the tourniquet. Hemostasis was excellent. We thoroughly irrigated the wound with copious normal saline. Dermis was reapproximated with buried 3-0 Vi (more content not included)... Normal [facility] C-ARM USAGE 1 HOUR 021 C-ARM USAGE 1 HOUR [place] [id number] Patient: LISA BOTELLO Phone#: : [phone] Age: 56 Gender: F Pt. Type: Out Account: [id number] Location: [id number] Ordering: DR. BINH JON Exam Date: 06/14/2021/15:41 Family Phys: Charge Code: [id number] Physician: [place] Order #: [id number] DLP Dose#: PROCEDURE: C-ARM USEAGE 1 HR COMPARISON: None. INDICATIONS: Surical Guidance. TOTAL DOSE: 1.92 mGy Time: 47 seconds FINDINGS: IMAGES: Intraoperative spot images of the distal left radius BONES: Intraoperative spot images of the distal right left radius demonstrate placement of plate and screw hardware for fixation of distal radial fracture. Eight screws are identified. The hardware appears intact. EFFUSION: None visible. OTHER: Negative. CONCLUSION: 1. Intraoperative spot images for fixation of distal radial fracture. Dictated by: Ne Felipe MD on 06/14/2021 at 16:23 Approved by: Ne Felipe MD on 06/14/2021 at 16:[address] [facility] [address] HEAD OR BRAIN W/O CONTRAS Ton 06-07-2021 CT HEAD OR BRAIN W/O CONTRAST ORIGINAL EXAMINATION: CT OF THE HEAD WITHOUT CONTRAST 06/07/2021 4:01 am TECHNIQUE: CT of the head was performed without the administration of intravenous contrast. Dose modulation, iterative reconstruction, and/or weight based adjustment of the mA/kV was utilized to reduce the radiation dose to as low as reasonably achievable. COMPARISON: None. HISTORY: ORDERING SYSTEM PROVIDED HISTORY: Reason for Exam: fall FINDINGS: BRAIN/VENTRICLES: There is no acute intracranial hemorrhage, mass effect or midline shift. No abnormal extra-axial fluid collection. The boyer-white differentiation is maintained without evidence of an acute infarct. Scattered periventricular and deep white matter hypodensities, most compatible with mild chronic microangiopathy. There is no evidence of hydrocephalus. ORBITS: The visualized portion of the orbits demonstrate no acute abnormality. SINUSES: The visualized paranasal sinuses and mastoid air cells demonstrate no acute abnormality. SOFT TISSUES/SKULL: No acute abnormality of the visualized skull or soft tissues. IMPRESSION: No acute intracranial abnormality. Mild chronic microangiopathy. I have personally reviewed the images of this examination and agree with the resident's findings and interpretation. Interpreted by: Morteza Vidales MD Preliminary Report By: Hamzah North Electronically signed By Morteza Vidales MD Dictated Date: 06/07/2021 4:09:01 AM Prelim Date: 06/07/2021 4:11:37 AM Sign Date: 06/07/2021 4:28:42 AM [facility]ing [facility] CERVICAL W/O ZAKA Maricarmen 06-07-2021 CT SPINE CERVICAL W/O CONTRAST ORIGINAL EXAMINATION: CT OF THE CERVICAL SPINE WITHOUT CONTRAST 06/07/2021 4:06 am TECHNIQUE: CT of the cervical spine was performed without the administration of intravenous contrast. Multiplanar reformatted images are provided for review. Dose modulation, iterative reconstruction, and/or weight based adjustment of the mA/kV was utilized to reduce the radiation dose to as low as reasonably achievable. COMPARISON: None. HISTORY: ORDERING SYSTEM PROVIDED HISTORY: Reason for Exam: fall FINDINGS: BONES/ALIGNMENT: There is no acute fracture or traumatic malalignment. Straightening of the cervical spine is likely secondary to patient positioning or spasm. DEGENERATIVE CHANGES: Mild multilevel degenerative changes. No spinal canal stenosis. SOFT TISSUES: There is no prevertebral soft tissue swelling. A few scattered parenchymal cysts are noted in the lung apices, suggestive of mild emphysema. IMPRESSION: No acute abnormality of the cervical spine. I have personally reviewed the images of this examination and agree with the resident's findings and interpretation. Interpreted by: Morteza Vidales MD Preliminary Report By: Hamzah North Electronically signed By Morteza Vidales MD Dictated Date: 06/07/2021 4:11:44 AM Prelim Date: 06/07/2021 4:15:54 AM Sign Date: 06/07/2021 4:29:53 AM Ordering Provider: CHANDLER GALAN [facility]) XR FOREARM 2 VIEWS LEFTon XR FOREARM 2 VIEWS LEFT ORIGINAL EXAMINATION: TWO XRAY VIEWS OF THE LEFT FOREARM; 6 XRAY VIEWS OF THE left wrist and hand 06/07/2021 2:36 am COMPARISON: None. HISTORY: ORDERING SYSTEM PROVIDED HISTORY: Reason for Exam: fall, wrist pain. FINDINGS: Both forearm views were obtained in partial supination. Acute comminuted and mildly impacted fracture of the distal radial metaphysis with intra-articular extension. The major fracture line is oriented transversely. Slight dorsal angulation of the dominant distal fracture fragment. Proximal radius is intact. Ulna and carpal bones are intact. A round 5 mm lucent lesion is present in the scaphoid, most likely representing a subchondral cyst. Normal alignment of the elbow joint. Mild degenerative changes at the 1st carpometacarpal joint. No radiopaque foreign body. IMPRESSION: Acute comminuted, impacted, and angulated fracture of the distal radial metaphysis with intra-articular extension. Round lucent lesion in the scaphoid, probably representing a subchondral cyst. I have personally reviewed the images of this examination and agree with the resident's findings and interpretation. Interpreted by: Morteza Vidales MD Preliminary Report By: Hamzah North Electronically signed By Morteza Vidales MD Dictated Date: 06/07/2021 2:43:17 AM Prelim Date: 06/07/2021 2:51:49 AM Sign Date: 06/07/2021 3:18:18 AM Ordering Provider: [facility]) XR HAND AND WRIST 6 VIEWS LE Ethann 06-07-2021 XR HAND AND WRIST 6 VIEWS LEFT ORIGINAL EXAMINATION: TWO XRAY VIEWS OF THE LEFT FOREARM; 6 XRAY VIEWS OF THE left wrist and hand 06/07/2021 2:36 am COMPARISON: None. HISTORY: ORDERING SYSTEM PROVIDED HISTORY: Reason for Exam: fall, wrist pain. FINDINGS: Both forearm views were obtained in partial supination. Acute comminuted and mildly impacted fracture of the distal radial metaphysis with intra-articular extension. The major fracture line is oriented transversely. Slight dorsal angulation of the dominant distal fracture fragment. Proximal radius is intact. Ulna and carpal bones are intact. A round 5 mm lucent lesion is present in the scaphoid, most likely representing a subchondral cyst. Normal alignment of the elbow joint. Mild degenerative changes at the 1st carpometacarpal joint. No radiopaque foreign body. IMPRESSION: Acute comminuted, impacted, and angulated fracture of the distal radial metaphysis with intra-articular extension. Round lucent lesion in the scaphoid, probably representing a subchondral cyst. I have personally reviewed the images of this examination and agree with the resident's findings and interpretation. Interpreted by: Morteza Vidales MD Preliminary Report By: Hamzah North Electronically signed By Morteza Vidales MD Dictated Date: 06/07/2021 2:43:17 AM Prelim Date: 06/07/2021 2:51:49 AM Sign Date: 06/07/2021 3:18:18 AM Ordering Provider: CHANDLER [facility] ([place]) Lab Report: CBC W/Diff, Auto matedon 08-13-2017 Basophils/100 WBC (Bld) 0.2 % Invalid Interpretation Code 0-1 [facility] Work Phone: Eosinophils/100 WBC (Bld) 3.1 % Invalid Interpretation Code 0-5 [facility] Work Phone: Erythrocyte distribution width (RBC) [Ratio] 13.4 % Invalid Interpretation Code 11.6-14.6 [facility] [employer] Work Phone: Hematocrit (Bld) [Volume fraction] 34.9 % Low 37-47 [facility] [employer] Work Phone: Hemoglobin (Bld) [Mass/Vol] 11.3 g/dL Low 12.0-15.0 [facility] [employer] Work Phone: [phone] Immature granulocytes/100 WBC (Bld) 0.200 % Invalid Interpretation Code 0.0-0.9 [facility] [employer] Work Phone: Lymphocytes (Bld) [#/Vol] 2.91 X10 3/UL Invalid Interpretation Code 0.83-4.51 [facility] [employer] Work Phone: Lymphocytes/100 WBC (Bld) 29.0 % Invalid Interpretation Code 19-41 [facility] [employer] Work Phone: MCH (RBC) [Entitic mass] 31.5 pg Invalid Interpretation Code 27.0-32.0 [facility] [employer] Work Phone: [phone] MCV (RBC) [Entitic vol] 97.2 fL Invalid Interpretation Code 81-99 [facility] [employer] Work Phone: mean corpuscular hemoglobin concentration, RBC 32.4 G/GL Invalid Interpretation Code 32-36 [facility] [employer] Work Phone: Monocytes/100 WBC (Bld) 6.3 % Invalid Interpretation Code 0-10 [facility] [employer] Work Phone: neutrophil count, blood 6.2 X10 3/UL Invalid Interpretation Code 2.0-7.7 [facility] [employer] Work Phone: Neutrophils/100 WBC (Bld) 61.2 % Invalid Interpretation Code 47-70 [facility] [employer] Work Phone: Platelet mean volume (Bld) [Entitic vol] 8.9 fL Invalid Interpretation Code 6.2-12.0 [facility] [employer] Work Phone: Platelets (Bld) [#/Vol] 500 10*3/uL High 150-450 [facility] [employer] Work Phone: RBC (Bld) [#/Vol] 3.59 10*6/uL Low 4.2-5.4 [facility] Work Phone: red blood cell distribution width, size density 47.6 fL High 35.1-43.9 [facility] Work Phone: WBC (Bld) [#/Vol] 10.0 10*3/uL Invalid Interpretation Code 4.4-11.0 [facility] [employer] Work Phone: Microbiology: Culture, Deep Woundon 08-11-2017 GE use only - for [employer] import when terms are not otherwise specified Cult, Anaerobic No anaerobic bacteria isolated. Invalid Interpretation Code [facility] [employer] Work Phone: Lab Report: Basic Metabolic Profile (BMP)on 07-29-2017 Anion gap [Moles/Vol] 8 mmol/L Invalid Interpretation Code 5-15 [facility] [employer] Work Phone: Calcium [Mass/Vol] 8.4 mg/dL Low 8.5-10.1 Count includes the [facility] Work Phone: calculated corrected value of creatinine clearance with body surface area 127.16 mL/min Invalid Interpretation Code [facility] [employer] Work Phone: Chloride [Moles/Vol] 99 mmol/L Invalid Interpretation Code 98-107 [facility] [employer] Work Phone: CO2 (BldV) [Partial pressure] 27.0 mmol/L Invalid Interpretation Code 21.0-32.0 [facility] [employer] Work Phone: Creatinine [Mass/Vol] 0.40 mg/dL Low 0.55-1.02 [facility] [employer] Work Phone: GFR/1.73 sq M.predicted among non-blacks MDRD (S/P/Bld) [Vol rate/Area] 175 mL/min/{1.73_m2} Invalid Interpretation Code >60 [facility] [employer] Work Phone: Glomerular Filtration rate 211 mL/min Invalid Interpretation Code >60 [facility] [employer] Work Phone: Glucose [Mass/Vol] 112 mg/dL High 70-110 [facility] Work Phone: Potassium [Moles/Vol] 3.4 mmol/L Low 3.5-5.1 [facility] [employer] Work Phone: Sodium [Moles/Vol] 134 mmol/L Low 136-145 [facility] Work Phone: Urea nitrogen [Mass/Vol] 6 mg/dL Low 7-18 [facility] [employer] Work Phone: Urea nitrogen/Creatinine [Mass ratio] 14.0740242 mg/mg Invalid Interpretation Code 10-20 [facility] [employer] Work Phone: Lab Report: CBC W/Diff, Auto matedon 07-29-2017 Basophils/100 WBC (Bld) 0.2 % Invalid Interpretation Code 0-1 [facility] [employer] Work Phone: Eosinophils/100 WBC (Bld) 2.6 % Invalid Interpretation Code 0-5 [facility] [employer] Work Phone: Erythrocyte distribution width (RBC) [Ratio] 12.2 % Invalid Interpretation Code 11.6-14.6 [facility] [employer] Work Phone: Hematocrit (Bld) [Volume fraction] 28.3 % Low 37-47 [facility] [employer] Work Phone: Hemoglobin (Bld) [Mass/Vol] 9.9 g/dL Low 12.0-15.0 [facility] [employer] Work Phone: Immature granulocytes/100 WBC (Bld) 0.300 % Invalid Interpretation Code 0.0-0.9 [facility] [employer] Work Phone: Lymphocytes (Bld) [#/Vol] 2.49 X10 3/UL Invalid Interpretation Code 0.83-4.51 [facility] [employer] Work Phone: Lymphocytes/100 WBC (Bld) 22.6 % Invalid Interpretation Code 19-41 [facility] [employer] Work Phone: MCH (RBC) [Entitic mass] 33.3 pg High 27.0-32.0 [facility] [employer] Work Phone: MCV (RBC) [Entitic vol] 95.3 fL Invalid Interpretation Code 81-99 [facility] Work Phone: mean corpuscular hemoglobin concentration, RBC 35.0 G/GL Invalid Interpretation Code 32-36 [facility] Work Phone: Monocytes/100 WBC (Bld) 12.6 % High 0-[address] [facility] Work Phone: neutrophil count, blood 6.8 X10 3/UL Invalid Interpretation Code 2.0-7.7 [facility] Work Phone: Neutrophils/100 WBC (Bld) 61.7 % Invalid Interpretation Code 47-70 [facility] [address] [facility] Work Phone: Platelet mean volume (Bld) [Entitic vol] 10.0 fL Invalid Interpretation Code 6.2-12.0 [facility] Surgical [facility] Work Phone: Platelets (Bld) [#/Vol] 332 10*3/uL Invalid Interpretation Code 150-450 [facility] Surgical [facility] Work Phone: RBC (Bld) [#/Vol] 2.97 10*6/uL Low 4.2-5.4 [facility] Work Phone: red blood cell distribution width, size density 40.7 fL Invalid Interpretation Code 35.1-43.9 [facility] Surgical [facility] Work Phone: WBC (Bld) [#/Vol] 11.0 10*3/uL Invalid Interpretation Code 4.4-11.0 [facility] Work Phone: Lab Report: Magnesiumon 07-05 Magnesium [Mass/Vol] 1.9 mg/dL Invalid Interpretation Code 1.8-2.4 [facility] [employer] Work Phone: Lab Report: Phosphoruson Phosphate [Mass/Vol] 3.1 mg/dL Invalid Interpretation Code 2.5-4.9 [facility] Surgical [facility] Work Phone: Microbiology: (P) Culture, S putumon 07-29-2017 Bacteria identified Respiratory culture Nom (Sput) . Invalid Interpretation Code [facility] Work Phone: Microbiology: Culture, Sputu mon 07-29-2017 Bacteria identified Respiratory culture Nom (Sput) . Invalid Interpretation Code [facility] Surgical [facility] Work Phone: Microbiology: Culture, Urine on 07-28-2017 GE use only - for [employer] import when terms are not otherwise specified . Invalid Interpretation Code [facility] Surgical [facility] Work Phone: Lab Report: (P) Urinalysis, Completeon 07-26-2017 Albumin Ql (U) 15 High Negative [facility] Surgic al [facility] Work Phone: Bilirubin Ql (U) Negative Invalid Interpretation Code Negative [facility] Surgical [facility] Work Phone: Clarity (U) Cloudy Invalid Interpretation Code Clear [facility] Work Phone: Color (U) Yellow Invalid Interpretation Code Yellow [facility] Surgical [facility] Work Phone: Glucose Ql (U) Normal mg/dl Invalid Interpretation Code Normal [facility] Surgical [facility] Work Phone: Ketones (U) [Mass/Vol] 150 mg/dL High Negative [facility] Surgical [facility] Work Phone: Leukocyte esterase Test strip Ql (U) 100 High Negative [facility] Surgical [facility] Work Phone: Occult Blood, urine 250 High Negative [facility] S urgical [facility] Work Phone: pH (U) 6.0 [pH] Invalid Interpretation Code 5.0 - 8.0 [facility] Surgical [facility] Work Phone: Specific gravity Refractometry (U) [Rel density] 1.010 Invalid Interpretation Code 1.002-1.030 [facility] Surgical [facility] Work Phone: Lab Report: Urinalysis, Comp leteon 07-26-2017 bacteria, urine, microscopic RARE /hpf Invalid Interpretation Code None Seen [facility] Surgical [facility] Work Phone: Epithelial cells LM.HPF (Urine sed) [#/Area] 5-10 SEEN Invalid Interpretation Code 5-10 [facility] Surgical [facility] Work Phone: Mucus Ql (Urine sed) 0 SEEN Invalid Interpretation Code [facility] Surgical [facility] Work Phone: RBC LM.HPF (Urine sed) [#/Vol] 50-100 SEEN Invalid Interpretation Code 0-5 [facility] [employer] Work Phone: Urinalysis, white blood cells, culture and sensitivity 5-10 SEEN Invalid Interpretation Code 0-5 [facility] [employer] Work Phone: Lab Report: Basic Metabolic Profile (BMP)on 07-25-2017 Anion gap [Moles/Vol] 8 mmol/L Invalid Interpretation Code 5-15 [facility] [employer] Work [phone] Calcium [Mass/Vol] 7.9 mg/dL Low 8.5-10.1 [facility] Work Phone: calculated corrected value of creatinine clearance with body surface area 86.21 mL/min Invalid Interpretation Code [facility] [employer] Work Phone: Chloride [Moles/Vol] 100 mmol/L Invalid Interpretation Code 98-107 [facility] [employer] Work Phone: CO2 (BldV) [Partial pressure] 27.0 mmol/L Invalid Interpretation Code 21.0-32.0 [facility] [employer] Work Phone: Creatinine [Mass/Vol] 0.59 mg/dL Invalid Interpretation Code 0.55-1.02 [facility] [employer] Work Phone: GFR/1.73 sq M.predicted among non-blacks MDRD (S/P/Bld) [Vol rate/Area] 113 mL/min/{1.73_m2} Invalid Interpretation Code >60 [facility] [employer] Work Phone: Glomerular Filtration rate 136 mL/min Invalid Interpretation Code >60 [facility] [employer] Work Phone: Glucose [Mass/Vol] 128 mg/dL High 70-110 [facility] [employer] Work Phone: Potassium [Moles/Vol] 4.4 mmol/L Invalid Interpretation Code 3.5-5.1 [facility] [employer] Work Phone: Sodium [Moles/Vol] 135 mmol/L Low 136-145 [facility] [employer] Work Phone: Urea nitrogen [Mass/Vol] 9 mg/dL Invalid Interpretation Code 7-18 [facility] [employer] Work Phone: Urea nitrogen/Creatinine [Mass ratio] 15.9644124 mg/mg Invalid Interpretation Code 10-20 [facility] [employer] Work Phone: Lab Report: CBC W/Diff, Auto matedon 07-25-2017 Basophils/100 WBC (Bld) 0.0 % Invalid Interpretation Code 0-1 [facility] [employer] Work Phone: Eosinophils/100 WBC (Bld) 0.0 % Invalid Interpretation Code 0-5 [facility] [employer] Work Phone: Erythrocyte distribution width (RBC) [Ratio] 12.2 % Invalid Interpretation Code 11.6-14.6 [facility] [employer] Work Phone: Hematocrit (Bld) [Volume fraction] 27.9 % Low 37-47 [facility] [employer] Work Phone: Hemoglobin (Bld) [Mass/Vol] 9.6 g/dL Low 12.0-15.0 [facility] [employer] Work Phone: Immature granulocytes/100 WBC (Bld) 0.300 % Invalid Interpretation Code 0.0-0.9 [facility] [employer] Work Phone: Lymphocytes (Bld) [#/Vol] 1.25 X10 3/UL Invalid Interpretation Code 0.83-4.51 [facility] [employer] Work Phone: Lymphocytes/100 WBC (Bld) 10.0 % Low 19-41 [facility] [employer] Work Phone: MCH (RBC) [Entitic mass] 33.2 pg High 27.0-32.0 [facility] [employer] Work Phone: MCV (RBC) [Entitic vol] 96.5 fL Invalid Interpretation Code 81-99 [facility] [employer] Work Phone: mean corpuscular hemoglobin concentration, RBC 34.4 G/GL Invalid Interpretation Code 32-36 [facility] [employer] Work Phone: Monocytes/100 WBC (Bld) 11.2 % High 0-10 [facility] [employer] Work Phone: neutrophil count, blood 9.8 X10 3/UL High 2.0-7.7 [facility] [employer] Work Phone: Neutrophils/100 WBC (Bld) 78.5 % High 47-70 [facility] [employer] Work Phone: Platelet mean volume (Bld) [Entitic vol] 9.8 fL Invalid Interpretation Code 6.2-12.0 [facility] [employer] Work Phone: [phone] Platelets (Bld) [#/Vol] 280 10*3/uL Invalid Interpretation Code 150-450 [facility] [employer] Work Phone: RBC (Bld) [#/Vol] 2.89 10*6/uL Low 4.2-5.4 [facility] [employer] Work Phone: red blood cell distribution width, size density 41.7 fL Invalid Interpretation Code 35.1-43.9 [facility] [employer] Work Phone: WBC (Bld) [#/Vol] 12.5 10*3/uL High 4.4-11.0 [facility] [employer] Work Phone: Lab Report: Lipid Profileon 07-25-2017 Cholesterol [Mass/Vol] 127 mg/dL Invalid Interpretation Code 200 [facility] [employer] Work Phone: Cholesterol in HDL [Mass/Vol] 46 mg/dL Invalid Interpretation Code [facility] [employer] Work Phone: Cholesterol in LDL [Mass/Vol] 71 mg/dL Invalid Interpretation Code 0-130 [facility] [employer] Work Phone: Lipoprotein.pre-beta [Mass/Vol] 10 mg/dL Invalid Interpretation Code 5-40 [facility] [employer] Work Phone: Triglyceride [Mass/Vol] 48 mg/dL Invalid Interpretation Code [facility] [employer] Work Phone: Lab Report: Magnesiumon 07-05 Magnesium [Mass/Vol] 3.1 mg/dL High 1.8-2.4 [facility] [employer] Work Phone: Lab Report: Phosphoruson Phosphate [Mass/Vol] 3.2 mg/dL Invalid Interpretation Code 2.5-4.9 [facility] [employer] Work Phone: Lab Report: Troponin-Ion Troponin I.cardiac [Mass/Vol] ng/mL Invalid Interpretation Code <0.06 [facility] [employer] Work Phone: Blood Bank: Type AND Screeno n 07-24-2017 GE use only - for [employer] import when terms are not otherwise specified Negative Normal [facility] [employer] Work Phone: Lab Report: Basic Metabolic Profile (BMP)on 07-24-2017 Anion gap [Moles/Vol] 8 mmol/L Invalid Interpretation Code 5-15 [facility] [employer] Work Phone: Calcium [Mass/Vol] 9.2 mg/dL Invalid Interpretation Code 8.5-10.1 [facility] [employer] Work Phone: calculated corrected value of creatinine clearance with body surface area 90.83 mL/min Invalid Interpretation Code [facility] [employer] Work Phone: Chloride [Moles/Vol] 100 mmol/L Invalid Interpretation Code 98-107 [facility] [employer] Work Phone: CO2 (BldV) [Partial pressure] 26.0 mmol/L Invalid Interpretation Code 21.0-32.0 [facility] [employer] Work Phone: Creatinine [Mass/Vol] 0.56 mg/dL Invalid Interpretation Code 0.55-1.02 [facility] [employer] Work Phone: GFR/1.73 sq M.predicted among non-blacks MDRD (S/P/Bld) [Vol rate/Area] 121 mL/min/{1.73_m2} Invalid Interpretation Code >60 [facility] [employer] Work Phone: Glomerular Filtration rate 146 mL/min Invalid Interpretation Code >60 [facility] [employer] Work Phone: Glucose [Mass/Vol] 85 mg/dL Invalid Interpretation Code 70-110 [facility] [employer] Work Phone: Potassium [Moles/Vol] 3.8 mmol/L Invalid Interpretation Code 3.5-5.1 [facility] [employer] Work Phone: Sodium [Moles/Vol] 134 mmol/L Low 136-145 [facility] [employer] Work Phone: Urea nitrogen [Mass/Vol] 7 mg/dL Invalid Interpretation Code 7-18 [facility] [employer] Work Phone: Urea nitrogen/Creatinine [Mass ratio] 12.6862126 mg/mg Invalid Interpretation Code 10-20 [facility] Work Phone: Lab Report: CBC W/Diff, Auto matedon 07-24-2017 Basophils/100 WBC (Bld) 0.5 % Invalid Interpretation Code 0-1 [facility] Work Phone: Eosinophils/100 WBC (Bld) 4.0 % Invalid Interpretation Code 0-5 [facility] Work Phone: Erythrocyte distribution width (RBC) [Ratio] 12.6 % Invalid Interpretation Code 11.6-14.6 [facility] Work Phone: Hematocrit (Bld) [Volume fraction] 35.2 % Low 37-47 [facility] [employer] Work Phone: Hemoglobin (Bld) [Mass/Vol] 11.8 g/dL Low 12.0-15.0 [facility] [employer] Work Phone: Immature granulocytes/100 WBC (Bld) 0.000 % Invalid Interpretation Code 0.0-0.9 [facility] Work Phone: Lymphocytes (Bld) [#/Vol] 2.39 X10 3/UL Invalid Interpretation Code 0.83-4.51 [facility] [employer] Work Phone: Lymphocytes/100 WBC (Bld) 36.5 % Invalid Interpretation Code 19-41 [facility] [employer] Work Phone: MCH (RBC) [Entitic mass] 32.4 pg High 27.0-32.0 [facility] [employer] Work Phone: MCV (RBC) [Entitic vol] 96.7 fL Invalid Interpretation Code 81-99 [facility] [employer] Work Phone: mean corpuscular hemoglobin concentration, RBC 33.5 G/GL Invalid Interpretation Code 32-36 [facility] [employer] Work Phone: Monocytes/100 WBC (Bld) 15.1 % High 0-10 [facility] [employer] Work Phone: neutrophil count, blood 2.9 X10 3/UL Invalid Interpretation Code 2.0-7.7 [facility] [employer] Work Phone: Neutrophils/100 WBC (Bld) 43.9 % Low 47-70 [facility] [employer] Work Phone: Platelet mean volume (Bld) [Entitic vol] 9.5 fL Invalid Interpretation Code 6.2-12.0 [facility] [employer] Work Phone: Platelets (Bld) [#/Vol] 288 10*3/uL Invalid Interpretation Code 150-450 [facility] [employer] Work Phone: RBC (Bld) [#/Vol] 3.64 10*6/uL Low 4.2-5.4 [facility] Work Phone: red blood cell distribution width, size density 44.7 fL High 35.1-43.9 [facility] [employer] Work Phone: WBC (Bld) [#/Vol] 6.5 10*3/uL Invalid Interpretation Code 4.4-11.0 [facility] [employer] Work Phone: Lab Report: M R Staph Aureus DNA by PCRon 07-24-2017 Methicillin-resistant Staphylococcus aureus (mecA gene) by PCR Negative Invalid Interpretation Code Negative [facility] [employer] Work Phone: Lab Report: Basic Metabolic Profile (BMP)on 07-22-2017 Anion gap [Moles/Vol] 7 mmol/L Invalid Interpretation Code 5-15 [facility] [employer] Work Phone: Calcium [Mass/Vol] 9.1 mg/dL Invalid Interpretation Code 8.5-10.1 [facility] [employer] Work Phone: calculated corrected value of creatinine clearance with body surface area 74.80 mL/min Invalid Interpretation Code [facility] [employer] Work Phone: Chloride [Moles/Vol] 102 mmol/L Invalid Interpretation Code 98-107 [facility] [employer] Work Phone: CO2 (BldV) [Partial pressure] 27.0 mmol/L Invalid Interpretation Code 21.0-32.0 [facility] [employer] Work Phone: Creatinine [Mass/Vol] 0.68 mg/dL Invalid Interpretation Code 0.55-1.02 [facility] [employer] Work Phone: GFR/1.73 sq M.predicted among non-blacks MDRD (S/P/Bld) [Vol rate/Area] 96 mL/min/{1.73_m2} Invalid Interpretation Code >60 [facility] [employer] Work Phone: Glomerular Filtration rate 116 mL/min Invalid Interpretation Code >60 [facility] [employer] Work Phone: Glucose [Mass/Vol] 84 mg/dL Invalid Interpretation Code 70-110 [facility] [employer] Work Phone: Potassium [Moles/Vol] 4.0 mmol/L Invalid Interpretation Code 3.5-5.1 [facility] [employer] Work Phone: Sodium [Moles/Vol] 136 mmol/L Invalid Interpretation Code 136-145 [facility] [employer] Work Phone: Urea nitrogen [Mass/Vol] 6 mg/dL Low 7-18 [facility] [employer] Work Phone: Urea nitrogen/Creatinine [Mass ratio] 8.8656958 mg/mg Low 10-20 [facility] [employer] Work Phone: Lab Report: CBC W/Diff, Auto matedon 07-22-2017 Basophils/100 WBC (Bld) 0.3 % Invalid Interpretation Code 0-1 [facility] [employer] Work Phone: Eosinophils/100 WBC (Bld) 2.7 % Invalid Interpretation Code 0-5 [facility] [employer] Work Phone: Erythrocyte distribution width (RBC) [Ratio] 13.4 % Invalid Interpretation Code 11.6-14.6 [facility] [employer] Work Phone: Hematocrit (Bld) [Volume fraction] 38.7 % Invalid Interpretation Code 37-47 [facility] [employer] Work Phone: Hemoglobin (Bld) [Mass/Vol] 13.1 g/dL Invalid Interpretation Code 12.0-15.0 [facility] [employer] Work Phone: Immature granulocytes/100 WBC (Bld) 0.200 % Invalid Interpretation Code 0.0-0.9 [facility] [employer] Work Phone: Lymphocytes (Bld) [#/Vol] 4.00 X10 3/UL Invalid Interpretation Code 0.83-4.51 [facility] [employer] Work Phone: Lymphocytes/100 WBC (Bld) 37.5 % Invalid Interpretation Code 19-41 [facility] [employer] Work Phone: MCH (RBC) [Entitic mass] 33.3 pg High 27.0-32.0 [facility] [employer] Work Phone: MCV (RBC) [Entitic vol] 98.5 fL Invalid Interpretation Code 81-99 [facility] [employer] Work Phone: mean corpuscular hemoglobin concentration, RBC 33.9 G/GL Invalid Interpretation Code 32-36 [facility] [employer] Work Phone: Monocytes/100 WBC (Bld) 11.6 % High 0-10 [facility] [employer] Work Phone: neutrophil count, blood 5.1 X10 3/UL Invalid Interpretation Code 2.0-7.7 [facility] [employer] Work Phone: Neutrophils/100 WBC (Bld) 47.7 % Invalid Interpretation Code 47-70 [facility] [employer] Work Phone: Platelet mean volume (Bld) [Entitic vol] 9.5 fL Invalid Interpretation Code 6.2-12.0 [facility] [employer] Work Phone: Platelets (Bld) [#/Vol] 337 10*3/uL Invalid Interpretation Code 150-450 [facility] [employer] Work Phone: RBC (Bld) [#/Vol] 3.93 10*6/uL [facility] Work Phone: red blood cell distribution width, size density 47.3 fL High 35.1-43.9 [facility] [employer] Work Phone: WBC (Bld) [#/Vol] 10.7 10*3/uL Invalid Interpretation Code 4.4-11.0 [facility] [employer] Work Phone: Lab Report: Magnesiumon 07-04 Magnesium [Mass/Vol] 2.0 mg/dL Invalid Interpretation Code 1.8-2.4 [facility] [employer] Work Phone: Lab Report: Phosphoruson Phosphate [Mass/Vol] 4.2 mg/dL Invalid Interpretation Code 2.5-4.9 [facility] [employer] Work Phone: Microbiology: CDIFF (Molecul ar)on 07-22-2017 GE use only - for [employer] import when terms are not otherwise specified . Invalid Interpretation Code [facility] [employer] Work Phone: Office Visit: rectal pain/ h ospital follow upon 06-30-2017 Tobacco smoking status Never Invalid Interpretation Code [facility] [employer] Work Phone: Tobacco smoking status Tobacco smoking s tatus NHIS Invalid Interpretation Code [facility] [employer] Work Phone: Lab Report: (P) Urine Drug S creen (VISTA)on 06-25-2017 GE use only - for [employer] import when terms are not otherwise specified Invalid Interpretation Code [facility] Work Phone: Lab Report: Urine Drug Scree n (VISTA)on 06-25-2017 Amphetamines Ql (U) Negative Invalid Interpretation Code <1000 ng/mL [facility] Work Phone: [phone] Barbiturates Ql (U) Negative Invalid Interpretation Code < 200 ng/mL [facility] Work Phone: [phone] Benzodiazepines Ql (U) Negative Invalid Interpretation Code < 200 ng/mL [facility] Work Phone: [phone] Cocaine Ql (U) Negative Invalid Interpretation Code < 300 ng/mL [facility] Work Phone: [phone] Opiates Ql (U) Positive High < 300 ng/mL [facility] Work Phone: [phone] pH (U) 6 [pH] Invalid Interpretation Code [facility] Work Phone: Tetrahydrocannabinol Ql (U) Negative Invalid Interpretation Code < 50 ng/mL [facility] Work Phone: Office Visit: [facility] hosp f/uon 06-25-2017 Tobacco smoking status Never Invalid Interpretation Code [facility] [employer] Work Phone: Tobacco use status CPH[facility] Current every da y smoker Invalid Interpretation Code [facility] [employer] Work Phone: Microbiology: CDIFF (Molecul ar)on 06-21-2017 GE use only - for [employer] import when terms are not otherwise specified . Invalid Interpretation Code [facility] [employer] Work Phone: Lab Report: Basic Metabolic Profile (BMP)on 06-18-2017 Anion gap [Moles/Vol] 7 mmol/L Invalid Interpretation Code 5-15 [facility] [employer] Work Phone: Calcium [Mass/Vol] 8.5 mg/dL Invalid Interpretation Code 8.5-10.1 [facility] [employer] Work Phone: calculated corrected value of creatinine clearance with body surface area 80.74 mL/min Invalid Interpretation Code [facility] [employer] Work Phone: Chloride [Moles/Vol] 107 mmol/L Invalid Interpretation Code 98-107 [facility] [employer] Work Phone: CO2 (BldV) [Partial pressure] 26.0 mmol/L Invalid Interpretation Code 21.0-32.0 [facility] [employer] Work Phone: Creatinine [Mass/Vol] 0.63 mg/dL Invalid Interpretation Code 0.55-1.02 [facility] [employer] Work Phone: GFR/1.73 sq M.predicted among non-blacks MDRD (S/P/Bld) [Vol rate/Area] 105 mL/min/{1.73_m2} Invalid Interpretation Code >60 [facility] [employer] Work Phone: Glomerular Filtration rate 127 mL/min Invalid Interpretation Code >60 [facility] [employer] Work Phone: Glucose [Mass/Vol] 91 mg/dL Invalid Interpretation Code 70-110 [facility] [employer] Work Phone: [phone] Potassium [Moles/Vol] 4.2 mmol/L Invalid Interpretation Code 3.5-5.1 [facility] [employer] Work Phone: Sodium [Moles/Vol] 140 mmol/L Invalid Interpretation Code 136-145 [facility] [employer] Work Phone: Urea nitrogen [Mass/Vol] 7 mg/dL Invalid Interpretation Code 7-18 [facility] [employer] Work Phone: Urea nitrogen/Creatinine [Mass ratio] 11.4744845 mg/mg Invalid Interpretation Code 10-20 [facility] [employer] Work Phone: Lab Report: CBC W/Diff, Auto matedon 06-18-2017 Basophils/100 WBC (Bld) 0.5 % Invalid Interpretation Code 0-1 [facility] [employer] Work Phone: Eosinophils/100 WBC (Bld) 3.1 % Invalid Interpretation Code 0-5 [facility] [employer] Work Phone: Erythrocyte distribution width (RBC) [Ratio] 13.5 % Invalid Interpretation Code 11.6-14.6 [facility] [employer] Work Phone: Hematocrit (Bld) [Volume fraction] 37.4 % Invalid Interpretation Code 37-47 [facility] [employer] Work Phone: Hemoglobin (Bld) [Mass/Vol] 12.1 g/dL Invalid Interpretation Code 12.0-15.0 [facility] [employer] Work Phone: Immature granulocytes/100 WBC (Bld) 0.200 % Invalid Interpretation Code 0.0-0.9 [facility] [employer] Work Phone: Lymphocytes (Bld) [#/Vol] 2.60 X10 3/UL Invalid Interpretation Code 0.83-4.51 [facility] [employer] Work Phone: Lymphocytes/100 WBC (Bld) 42.4 % High 19-41 [facility] [employer] Work Phone: MCH (RBC) [Entitic mass] 33.5 pg High 27.0-32.0 [facility] [employer] Work Phone: MCV (RBC) [Entitic vol] 103.6 fL High 81-99 [facility] Work Phone: mean corpuscular hemoglobin concentration, RBC 32.4 G/GL Invalid Interpretation Code 32-36 [facility] [employer] Work Phone: Monocytes/100 WBC (Bld) 8.0 % Invalid Interpretation Code 0-10 [facility] [employer] Work Phone: neutrophil count, blood 2.8 X10 3/UL Invalid Interpretation Code 2.0-7.7 [facility] [employer] Work Phone: Neutrophils/100 WBC (Bld) 45.8 % Low 47-70 [facility] [employer] Work Phone: Platelet mean volume (Bld) [Entitic vol] 9.7 fL Invalid Interpretation Code 6.2-12.0 [facility] [employer] Work Phone: Platelets (Bld) [#/Vol] 214 10*3/uL Invalid Interpretation Code 150-450 [facility] [employer] Work Phone: RBC (Bld) [#/Vol] 3.61 10*6/uL Low 4.2-5.4 [facility] [employer] Work Phone: red blood cell distribution width, size density 51.3 fL High 35.1-43.9 [facility] [employer] Work Phone: WBC (Bld) [#/Vol] 6.1 10*3/uL Invalid Interpretation Code 4.4-11.0 [facility] [employer] Work Phone: Microbiology: Culture, Blood (WB)on 09-29-2016 Bacteria identified Cx Nom (Bld) BC No growth in 5 days. Invalid Interpretation Code [facility] [employer] Work Phone: Lab Report: Magnesiumon 09-05 Magnesium [Mass/Vol] 1.7 mg/dL Low 1.8-2.4 [facility] [employer] Work Phone: Lab Report: Phosphoruson Phosphate [Mass/Vol] 2.8 mg/dL Invalid Interpretation Code 2.5-4.9 [facility] [employer] Work Phone: Lab Report: Lactic Acidon Lactate [Moles/Vol] 0.8 mmol/L Invalid Interpretation Code 0.4-2.0 [facility] Work Phone: No Panel Information Influenza Types A,B Direct FA (DAINA) Influenzae A [facility] Work Phone: Vital Signs Date Time Vital Sign Value Performing Clinician Facility 12-29-2024 10:37-0400 Body mass index (BMI) [Ratio] 26.92 kg/m2 Riya Praisler-Wood [employer] HR DEVELOPER.CHOPPER OPERATOR Work Phone: [facility] 12-29-2024 10:37-0400 Body temperature 97 [degF] Riya Praisler-Wood [employer] DEVELOPER.CHOPPER OPERATOR Work Phone: [facility] 12-29-2024 10:37-0400 Body weight 65.7 kg Riya Praisler-Wood [employer] HR DEVELOPER.CHOPPER OPERATOR Work Phone: [facility] 12-29-2024 10:37-0400 Diastolic blood pressure 72 mm[Hg] Riya Praisler-Wood [employer] HR DEVELOPER.CHOPPER OPERATOR Work Phone: [facility] 12-29-2024 10:37-0400 Heart rate 68 /min Riya Praisler-Wood [employer] HR DEVELOPER.CHOPPER OPERATOR Work Phone: [facility] 12-29-2024 10:37-0400 Respiratory rate 16 /min Riya Praisler-Wood [employer] HR DEVELOPER.CHOPPER OPERATOR Work Phone: [facility] 12-29-2024 10:37-0400 SaO2% (BldA) [Mass fraction] 97 % Riya Praisler-Wood [employer] HR DEVELOPER.CHOPPER OPERATOR Work Phone: [facility] 12-29-2024 10:37-0400 Systolic blood pressure 120 mm[Hg] Riya Praisler-Wood [employer] HR DEVELOPER.CHOPPER OPERATOR Work Phone: [facility] 12-26-2024 14:39-0400 Body height 156.2 cm Riya Praisler-Wood [employer] HR DEVELOPER.CHOPPER OPERATOR Work Phone: [facility] 12-26-2024 14:39-0400 Body mass index (BMI) [Ratio] 26.64 kg/m2 Riya Praisler-Wood [employer] HR DEVELOPER.CHOPPER OPERATOR Work Phone: [facility] 12-26-2024 14:39-0400 Body temperature 97 [degF] Riya Praisler-Wood [employer] HR DEVELOPER.CHOPPER OPERATOR Work Phone: [facility] 12-26-2024 14:39-0400 Body weight 65 kg Riya Praisler-Wood [employer] HR DEVELOPER.CHOPPER OPERATOR Work Phone: [facility] 12-26-2024 14:39-0400 Diastolic blood pressure 78 mm[Hg] Riya Praisler-Wood [employer] HR DEVELOPER.[facility] Work Phone: [facility] 12-26-2024 14:39-0400 Heart rate 94 /min Riya Praisler-Wood [employer] HR DEVELOPER.[facility] Work Phone: [facility] 12-26-2024 14:39-0400 SaO2% (BldA) [Mass fraction] 99 % Riya Praisler-Wood [employer] HR DEVELOPER.CHOPPER OPERATOR Work Phone: [facility] 12-26-2024 14:39-0400 Systolic blood pressure 130 mm[Hg] Riya Praisler-Wood [employer] HR DEVELOPER.CHOPPER OPERATOR Work Phone: [facility] 09-29-2024 13:12-0500 Body mass index (BMI) [Ratio] 29.92 kg/m2 Lian Clutter PA-C Work Phone: [facility] 09-29-2024 13:12-0500 Body temperature 97.3 [degF] Lian Clutter PA-C Work Phone: [facility] 09-29-2024 13:12-0500 Body weight 73 kg Lian Clutter PA-C Work Phone: [facility] 09-29-2024 13:12-0500 Diastolic blood pressure 72 mm[Hg] Lian Clutter PA-C Work Phone: [facility] 09-29-2024 13:12-0500 Heart rate 82 /min Lian Clutter PA-C Work Phone: [facility] 09-29-2024 13:12-0500 Respiratory rate 16 /min Lian Clutter PA-C Work Phone: [facility] 09-29-2024 13:12-0500 SaO2% (BldA) [Mass fraction] 100 % Lian Clutter PA-C Work Phone: [facility] 09-29-2024 13:12-0500 Systolic blood pressure 122 mm[Hg] Lian Clutter PA-C Work Phone: [facility] 09-09-2024 17:16-0500 Body height 157.5 cm NIDAL CHOUJAA DO [facility] 09-09-2024 17:16-0500 Body temperature 98.24 [degF] NIDAL CHOUJAA DO [facility] 09-09-2024 17:16-0500 Body weight 68.2 kg NIDAL CHOUJAA DO [facility] 09-09-2024 17:16-0500 Diastolic Blood Pressure Non-Invasive 83 mm[Hg] NIDAL CHOUJAA DO [facility] 09-09-2024 17:16-0500 Heart rate 87 /min NIDAL CHOUJAA DO [facility] 09-09-2024 17:16-0500 Respiratory rate 18 /min NIDAL CHOUJAA DO [facility] 09-09-2024 17:16-0500 Systolic Blood Pressure Non-Invasive 169 mm[Hg] NIDAL CHOUJAA DO [facility] 07-19-2024 11:04-0500 Body mass index (BMI) [Ratio] 29.67 kg/m2 Harjit Martinez MD Work Phone: [facility] 07-19-2024 11:04-0500 Body temperature 97.39 [degF] Harjit Martinez MD Work Phone: [facility] 07-19-2024 11:04-0500 Body weight 72.4 kg Harjit Martinez MD Work Phone: [facility] 07-19-2024 11:04-0500 Diastolic blood pressure 84 mm[Hg] Harjit Martinez MD Work Phone: [facility] 07-19-2024 11:04-0500 Heart rate 79 /min Harjit Martinez MD Work Phone: [facility] 07-19-2024 11:04-0500 Respiratory rate 18 /min Harjit Martinez MD Work Phone: [facility] 07-19-2024 11:04-0500 SaO2% (BldA) [Mass fraction] 97 % Harjit Martinez MD Work Phone: [facility] 07-19-2024 11:04-0500 Systolic blood pressure 148 mm[Hg] Harjit Martinez MD Work Phone: [facility] 06-22-2024 18:16-0500 Body mass index (BMI) [Ratio] 29.18 kg/m2 Kavya Castillo [employer] HR DEVELOPER.CHOPPER OPERATOR Work Phone: [facility] 06-22-2024 18:16-0500 Body temperature 98.29 [degF] Kavya Castillo [employer] HR DEVELOPER.CHOPPER OPERATOR Work Phone: [facility] 06-22-2024 18:16-0500 Body weight 71.2 kg Kavya Castillo [employer] HR DEVELOPER.CHOPPER OPERATOR Work Phone: [facility] 06-22-2024 18:16-0500 Diastolic blood pressure 84 mm[Hg] Kavya Castillo [employer] HR DEVELOPER.CHOPPER OPERATOR Work Phone: [facility] 06-22-2024 18:16-0500 Heart rate 84 /min Kavya Castillo [employer] HR DEVELOPER.CHOPPER OPERATOR Work Phone: [facility] 06-22-2024 18:16-0500 Respiratory rate 18 /min Kavya Castillo [employer] HR DEVELOPER.CHOPPER OPERATOR Work Phone: [facility] 06-22-2024 18:16-0500 SaO2% (BldA) [Mass fraction] 98 % Kavya Castillo [employer] HR DEVELOPER.CHOPPER OPERATOR Work Phone: [facility] 06-22-2024 18:16-0500 Systolic blood pressure 132 mm[Hg] Kavya Castillo [employer] HR DEVELOPER.CHOPPER OPERATOR Work Phone: [facility] 03-30-2024 16:47-0400 Body mass index (BMI) [Ratio] 28.32 kg/m2 Alexis Leon APRN.CHOPPER OPERATOR Work Phone: [facility] 03-30-2024 16:47-0400 Body temperature 98.1 [degF] Alexis Leon APRN.CHOPPER OPERATOR Work Phone: [facility] 03-30-2024 16:47-0400 Body weight 69.1 kg Alexis Leon APRN.CHOPPER OPERATOR Work Phone: [facility] 03-30-2024 16:47-0400 Diastolic blood pressure 70 mm[Hg] Alexis Leon APRN.CHOPPER OPERATOR Work Phone: [facility] 03-30-2024 16:47-0400 Heart rate 88 /min Alexis Leon APRN.CHOPPER OPERATOR Work Phone: [facility] 03-30-2024 16:47-0400 Respiratory rate 16 /min Alexis Leon APRN.CHOPPER OPERATOR Work Phone: [facility] 03-30-2024 16:47-0400 SaO2% (BldA) [Mass fraction] 97 % Alexis Leon APRN.CHOPPER OPERATOR Work Phone: [facility] 03-30-2024 16:47-0400 Systolic blood pressure 124 mm[Hg] Alexis Leon APRN.CHOPPER OPERATOR Work Phone: [facility] 07-14-2022 19:51-0500 Diastolic blood pressure 76 mm[Hg] [facility] Work Phone: 07-14-2022 19:51-0500 Heart rate 89 /min [facility] Work Phone: 07-14-2022 19:51-0500 Respiratory rate 18 /min [facility] Work Phone: 07-14-2022 19:51-0500 SaO2% (BldA) [Mass fraction] 96 % [facility] Work Phone: 07-14-2022 19:51-0500 Systolic blood pressure 124 mm[Hg] [facility] Work Phone: 07-14-2022 17:01-0500 Body height 154.94 cm [facility] Work Phone: 07-14-2022 17:01-0500 Body mass index (BMI) [Ratio] 27.7 kg/m2 [facility] Work Phone: 07-14-2022 17:01-0500 Body temperature 100.9 [degF] [facility] Work Phone: 07-14-2022 17:01-0500 Body weight 66.6 kg [facility] Work Phone: 06-08-2022 03:43-0400 Diastolic blood pressure 79 mm[Hg] [facility] Work Phone: 06-08-2022 03:43-0400 Heart rate 67 /min [facility] Work Phone: 06-08-2022 03:43-0400 Respiratory rate 18 /min [facility] Work Phone: 06-08-2022 03:43-0400 SaO2% (BldA) [Mass fraction] 97 % [facility] Work Phone: 06-08-2022 03:43-0400 Systolic blood pressure 121 mm[Hg] [facility] Work Phone: 06-08-2022 00:27-0400 Body mass index (BMI) [Ratio] 27.6 kg/m2 [facility] Work Phone: 06-08-2022 00:27-0400 Body temperature 98 [degF] [facility] Work Phone: 06-08-2022 00:27-0400 Body weight 66.5 kg [facility] Work Phone: 10-28-2021 08:48-0400 Body height 156.21 cm [facility] Work Phone: 10-28-2021 08:48-0400 Body mass index (BMI) [Ratio] 26.8 kg/m2 [facility] Work Phone: 10-28-2021 08:48-0400 Body temperature 97.3 [degF] [facility] Work Phone: 10-28-2021 08:48-0400 Body weight 65.4 kg [facility] Work Phone: 10-28-2021 08:48-0400 Diastolic blood pressure 93 mm[Hg] [facility] Work Phone: 10-28-2021 08:48-0400 Heart rate 83 /min [facility] Work Phone: 10-28-2021 08:48-0400 Respiratory rate 18 /min [facility] Work Phone: 10-28-2021 08:48-0400 SaO2% (BldA) [Mass fraction] 100 % [facility] Work Phone: 10-28-2021 08:48-0400 Systolic blood pressure 136 mm[Hg] [facility] Work Phone: 06-07-2021 02:18-0400 Body height 157 cm [facility] 06-07-2021 02:18-0400 Body temperature 98.06 [degF] [facility] 06-07-2021 02:18-0400 Body weight 59.1 kg CHANDLER REICHFIELD DO [facility] 06-07-2021 02:18-0400 Diastolic blood pressure 79 mm[Hg] CHANDLER REICHFIELD DO [facility] 06-07-2021 02:18-0400 Heart rate 81 /min CHANDLER REICHFIELD DO [facility] 06-07-2021 02:18-0400 Respiratory rate 22 /min CHANDLER REICHFIELD DO [facility] 06-07-2021 02:18-0400 Systolic blood pressure 150 mm[Hg] CHANDLER REICHFIELD DO [facility] 06-30-2017 10:32-0500 Body height 157.48 cm Felipe Rios MD Work Phone: [facility] Work Phone: 06-30-2017 10:32-0500 Body mass index (BMI) [Ratio] 21.58 kg/m2 Felipe Rios MD Work Phone: [facility] Work Phone: 06-30-2017 10:32-0500 Body temperature 98.3 [degF] Felipe Rios MD Work Phone: [facility] Work Phone: 06-30-2017 10:32-0500 Body weight 53.52 kg Felipe Rios MD Work Phone: [facility] Work Phone: 06-30-2017 10:32-0500 Diastolic blood pressure 77 mm[Hg] Felipe Rios MD Work Phone: [facility] Work Phone: 06-30-2017 10:32-0500 Heart rate 69 /min Felipe Rios MD Work Phone: [facility] Work Phone: 06-30-2017 10:32-0500 Respiratory rate 20 /min Felipe Rios MD Work Phone: [facility] Work Phone: 06-30-2017 10:32-0500 Systolic blood pressure 122 mm[Hg] Felipe Rios MD Work Phone: [facility] Work Phone: 06-25-2017 09:05-0500 Body height 157.48 cm Felipe Rios MD Work Phone: [facility] Work Phone: 06-25-2017 09:05-0500 Body mass index (BMI) [Ratio] 21.4 kg/m2 Felipe Rios MD Work Phone: [facility] Work Phone: 06-25-2017 09:05-0500 Body temperature 98.4 [degF] Felipe Rios MD Work Phone: [facility] Work Phone: 06-25-2017 09:05-0500 Body weight 53.07 kg Felipe Rios MD Work Phone: [facility] Work Phone: 06-25-2017 09:05-0500 Diastolic blood pressure 83 mm[Hg] Felipe Rios MD Work Phone: [facility] Work Phone: 06-25-2017 09:05-0500 Heart rate 79 /min Felipe Rios MD Work Phone: [facility] Work Phone: 06-25-2017 09:05-0500 Respiratory rate 16 /min Felipe Rios MD Work Phone: [facility] Work Phone: 06-25-2017 09:05-0500 Systolic blood pressure 141 mm[Hg] Felipe Rios MD Work Phone: [facility] Work Phone: Encounters Encounter Date Encounter Type Care Provider Facility Start: 01-24-2025 [facility] Start: 12-31-2024 Encounter for genera l adult medical examination without abnormal findings Ed Physician Provider [facility] Start: 12-29-2024 End: 02-28-2025 Follow-up encounter Riya Camarillo APRN.CHOPPER OPERATOR Work Phone: [facility] Start: 12-29-2024 End: 12-29-2024 ambulatory RIYA CAMARILLO Facility:[facility] Start: 12-29-2024 End: 12-29-2024 Patient encounter procedure Riya Hart-Morris [employer] HR DEVELOPER.CHOPPER OPERATOR Work Phone: [facility] Comment on above: Encounter for absces s packing removal (Primary Dx); Wound check, abscess Start: 12-26-2024 Unlisted evaluation and management service Riya Camarillo APRN.CHOPPER OPERATOR Work Phone: [facility] Start: 12-26-2024 End: 12-26-2024 Patient encounter procedure Riya Prarubio-Wood [employer] HR DEVELOPER.CHOPPER OPERATOR Work Phone: [facility] Comment on above: Abscess of right but tock (Primary Dx) Start: 12-26-2024 End: 12-26-2024 ambulatory RIYA CAMARILLO Facility:[facility] Start: 12-26-2024 End: 12-26-2024 Emergency department patient visit [facility] Facility:[facility] Start: 11-29-2024 End: 11-29-2024 ambulatory [facility] Facility:[facility] Start: 09-30-2024 End: 09-30-2024 ambulatory [facility] Facility:[facility] Start: 09-29-2024 End: 09-29-2024 ambulatory [facility] Facility:[facility] Start: 09-29-2024 End: 09-29-2024 Office outpatient new 30 minutes Lian Quevedo PA-C Work Phone: [facility] Comment on above: 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 (HCC) (Primary Dx) Start: 09-09-2024 End: 09-09-2024 Emergency department patient visit ANGEL LUIS LY DO [facility] Start: 07-29-2024 End: 07-29-2024 ambulatory [facility] Facility:[facility] Start: 07-29-2024 End: 07-29-2024 Patient encounter procedure Rashida Paniagua APRN.CHOPPER OPERATOR Work Phone: [facility] Comment on above: Panic attack (Primar y Dx) Start: 07-19-2024 End: 07-19-2024 Emergency department patient visit [facility] Facility:[facility] Start: 07-19-2024 End: 07-19-2024 ambulatory [facility] Facility:[facility] Start: 07-19-2024 End: 07-19-2024 Office outpatient visit 15 minutes Harjit Martinez MD Work Phone: [facility] Comment on above: Chest pain, unspecif ied type (Primary Dx); SOB (shortness of breath) Start: 07-09-2024 End: 07-09-2024 Emergency department patient visit No Primary Care Physician Facility:[facility] Start: 06-22-2024 End: 06-22-2024 ambulatory [facility] Facility:[facility] Start: 06-22-2024 End: 06-22-2024 Patient encounter procedure Kavya Castillo APRN.CHOPPER OPERATOR Work Phone: [facility] Comment on above: Diarrhea, unspecifie d type (Primary Dx) Start: 03-30-2024 End: 03-30-2024 ambulatory ANNETTE LANGSTON Facility:[facility] Start: 03-30-2024 End: 03-30-2024 Patient encounter procedure Alexis Leon APRN.CHOPPER OPERATOR Work Phone: [facility] Comment on above: Blurred vision (Prim sondra Dx) Start: 07-14-2022 End: 07-14-2022 Emergency department patient visit [facility] Start: 06-08-2022 End: 06-08-2022 Emergency department patient visit [facility] Start: 10-28-2021 End: 10-28-2021 Emergency department patient visit [facility] Start: 06-14-2021 End: 06-14-2021 ambulatory [facility] Start: 06-07-2021 End: 06-07-2021 Emergency department patient visit CHANDLER GALAN DO [facility] Start: 05-20-2018 Patient encounter procedure Meño Pelletier Facility:[facility] Procedures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 (Patient taking differently: Inhale 1 Inhalation as instructed two times a day.) Fluticasone Propionate (FLOVENT DISKUS) 100 mcg/actuation dsdv Inhale 2 Puffs as instructed twice daily. doxycycline monohydrate 100 mg tablet Take 1 tablet by mouth two times a day for 10 days. FAMILY HISTORY Problem Relation Age of Onset None Mother None Father None Brother None Brother None Brother None Brother None Sister Social History Tobacco Use Smoking status: Every Day Current packs/day: 0.50 Average packs/day: 0.5 packs/day for 20.0 years (10.0 ttl pk-yrs) Types: Cigarettes Smokeless tobacco: Never Substance Use Topics Alcohol use: Yes Comment: rare now- did drink alot in 2004 Drug use: No Physical Exam Vitals and nursing note reviewed. Constitutional: General: She is not in acute distress. Appearance: Normal appearance. She is not ill-appearing. Skin: General: Skin is warm and dry. Capillary Refill: Capillary refill takes less than 2 seconds. Findings: Erythema present. No bruising or ecchymosis. Neurological: Mental Status: She is alert. General: No acute distress. Skin: Large boil on right buttock with erythema extending almost to the rectum; incision and drainage performed with significant purulent drainage obtained; two separate incisions packed with gauze and covered with large bandaid. {1. Abscess of right buttock (L02.31) - Abscess present for 4 days, with some drainage noted. Significant tenderness and erythema extending towards the rectum. - Performed incision and drainage (I&D) under local anesthesia with 4 cc of lidocaine. - Obtained purulent drainage; sent for bacterial culture to identify causative organism. - Placed packing in the abscess cavity to facilitate healing. - Provided patient with extra bandages and instructed to change them if they become soaked, wet, or dirty. - Advised patient that showering is permissible; keep the bandage on during the shower and replace it afterward. - Prescribed antibiotic; prescription sent to the pharmacy. - Recommended taking Tylenol or ibuprofen for pain management before the lidocaine effect diminishes. - Return here on Friday to remove packing and assess healing progress. - Follow-up with your PCP in 3-5 days if symptoms have not improved or sooner if symptoms worsen - Discussed red flags and need for immediate medical evaluation if any occur. - Discussed supportive care treatment with fluids, rest and analgesia. - Discussed expected course of illness Riya Camarillo APRN.CHOPPER OPERATOR and Recording using [employer] software for draft documentation of the visit was discussed with the patient/authorized inbound customer service representative; all questions welcomed and answered. Patient/authorized inbound customer service representative agreed to proceed Disposition The patient was discharged. OTC Medications were advised: Incision and Drainage Performed by: Riya Camarillo APRN.CHOPPER OPERATOR Authorized by: Riya Camarillo APRN.CHOPPER OPERATOR Informed Consent Consent Obtained: Verbal [place] Protocol A moment to CARE was completed. SIGN IN Personnel directly involved with the procedure wore the appropriate PPE. Special Equipment: Yes Patient/Surrogate Stated/Verified: Patient name, Date of , Relevant allergies and Intended procedure TIME OUT No relevant labs, photos, and/or imaging studies were applicable for review. Intended patient and procedure match source documents. Consent obtained and matches the intended procedure. Correct side/site marked and visible. Medications required for procedure verified. No fire risk assessment and interventions applicable. No implant(s) inserted. Pre-Procedure Details: The area was prepped with povidone Iodine (Betadine) and allowed to dry. A sterile partial body drape was applied following the usual aseptic technique. Procedure Details: Number of Locations: 1 Location 1: Indication: Abscess Approach: Percutaneous Body area: Lower extremity Location Details: Right buttocks Scalpel Size: 11 The fluid was aspirated with a 22 gauge needle. Incision Type: Single straight Incision Depth: Subcutaneous Drainage: Purulent Drainage Amount: Moderate Drainage Device: None Packin/4 in gauze Dressing: Moistened roll gauze Medications: 4 mL lidocaine 2 % Post-Procedure Details: Patient Tolerance: Patient tolerated the procedure well with no immediate complications Estimated Blood Loss: scant Specimens Sent: bacterial culture SIGN OUT All specimens correctly labeled and sent. All instruments, equipment, possible retained foreign bodies accounted for. The post-procedure POC has been communicated to the patient or surrogate. documented in this encounter [facility] 09-29-2024 Note HNO ID: [id number] Author: LIAN QUEVEDO PA-C Service: ? Author Type: Physician Nurse Wound Type: Progress Notes Filed: 09/29/2024 15:58 Note Text: This note was created using [employer]. Subjective Lisa Botello is a 59 year old female. Patient is a 59-year-old female who complains of congestion, cough, wheezing and headache that she has been experiencing for the past approximately 5 days. Patient reports no fever, chills or myalgia. Patient does have COPD and does continue to smoke cigarettes. Patient reports that she does not have a current albuterol inhaler and is in need of a refill for same. Patient does not use home oxygen. Review of Systems HENT: Positive for congestion. Respiratory: Positive for cough. Gastrointestinal: Positive for nausea. Neurological: Positive for headaches. All other systems reviewed and are negative. Objective BP 122/72 Pulse 82 Temp 36.3 ?C (97.3 ?F) Resp 16 Wt 73 kg (160 lb 15 oz) LMP 10/14/2011 SpO2 100% BMI 29.92 kg/m? Physical Exam Vitals and nursing note reviewed. Constitutional: Appearance: Normal appearance. She is normal weight. HENT: Head: Normocephalic and atraumatic. Right Ear: Tympanic membrane, ear canal and external ear normal. Left Ear: Tympanic membrane, ear canal and external ear normal. Nose: Nose normal. Mouth/Throat: Mouth: Mucous membranes are moist. Pharynx: Oropharynx is clear. Eyes: Extraocular Movements: Extraocular movements intact. Conjunctiva/sclera: Conjunctivae normal. Pupils: Pupils are equal, round, and reactive to light. Cardiovascular: Rate and Rhythm: Normal rate and regular rhythm. Pulses: Normal pulses. Heart sounds: Normal heart sounds. Pulmonary: Effort: Pulmonary effort is normal. Breath sounds: Wheezing present. Musculoskeletal: Cervical back: Normal range of motion and neck supple. Skin: General: Skin is warm and dry. Capillary Refill: Capillary refill takes less than 2 seconds. Neurological: General: No focal deficit present. Mental Status: She is alert and oriented to person, place, and time. Psychiatric: Mood and Affect: Mood normal. Behavior: Behavior normal. Thought Content: Thought content normal. Judgment: Judgment normal. Assessment and Plan Physical exam findings as noted above. Patient was provided with prescriptions for Zithromax 250 mg, prednisone 20 mg, Tessalon 100 mg and an albuterol MDI. Supportive care instructions were discussed and the patient was advised to report to an emergency department if she notes any worsening symptoms. Patient verbalizes clear understanding of all instructions. CLINICAL IMPRESSION: Acute Exacerbation COPD; Tobacco Abuse ASSESSMENT/PLAN: 1. Acute exacerbation of COPD with asthma (HCC) - ICD9: 493.22, ICD10: J44.1 - AZITHROMYCIN 250 MG TABLET - PREDNISONE 20 MG TABLET - BENZONATATE 100 MG CAPSULE - ALBUTEROL SULFATE HFA 90 MCG/ACTUATION AEROSOL INHALER - INHALATIONAL SPACING DEVICE Lian Quevedo PA-C [facility] 09-29-2024 History of Present illness Narrative This note was created using [employer]. Subjective Lisa Botello is a 59 year old female. Patient is a 59-year-old female who complains of congestion, cough, wheezing and headache that she has been experiencing for the past approximately 5 days. Patient reports no fever, chills or myalgia. Patient does have COPD and does continue to smoke cigarettes. Patient reports that she does not have a current albuterol inhaler and is in need of a refill for same. Patient does not use home oxygen. Review of Systems HENT: Positive for congestion. Respiratory: Positive for cough. Gastrointestinal: Positive for nausea. Neurological: Positive for headaches. All other systems reviewed and are negative. Objective BP 122/72 Pulse 82 Temp 36.3 C (97.3 F) Resp 16 Wt 73 kg (160 lb 15 oz) LMP 10/14/2011 SpO2 100% BMI 29.92 kg/m Physical Exam Vitals and nursing note reviewed. Constitutional: Appearance: Normal appearance. She is normal weight. HENT: Head: Normocephalic and atraumatic. Right Ear: Tympanic membrane, ear canal and external ear normal. Left Ear: Tympanic membrane, ear canal and external ear normal. Nose: Nose normal. Mouth/Throat: Mouth: Mucous membranes are moist. Pharynx: Oropharynx is clear. Eyes: Extraocular Movements: Extraocular movements intact. Conjunctiva/sclera: Conjunctivae normal. Pupils: Pupils are equal, round, and reactive to light. Cardiovascular: Rate and Rhythm: Normal rate and regular rhythm. Pulses: Normal pulses. Heart sounds: Normal heart sounds. Pulmonary: Effort: Pulmonary effort is normal. Breath sounds: Wheezing present. Musculoskeletal: Cervical back: Normal range of motion and neck supple. Skin: General: Skin is warm and dry. Capillary Refill: Capillary refill takes less than 2 seconds. Neurological: General: No focal deficit present. Mental Status: She is alert and oriented to person, place, and time. Psychiatric: Mood and Affect: Mood normal. Behavior: Behavior normal. Thought Content: Thought content normal. Judgment: Judgment normal. Assessment and Plan Physical exam findings as noted above. Patient was provided with prescriptions for Zithromax 250 mg, prednisone 20 mg, Tessalon 100 mg and an albuterol MDI. Supportive care instructions were discussed and the patient was advised to report to an emergency department if she notes any worsening symptoms. Patient verbalizes clear understanding of all instructions. CLINICAL IMPRESSION: Acute Exacerbation COPD; Tobacco Abuse ASSESSMENT/PLAN: 1. Acute exacerbation of COPD with asthma ([facility]) - ICD9: 493.22, ICD10: J44.1 - AZITHROMYCIN 250 MG TABLET - PREDNISONE 20 MG TABLET - BENZONATATE 100 MG CAPSULE - ALBUTEROL SULFATE HFA 90 MCG/ACTUATION AEROSOL INHALER - INHALATIONAL SPACING DEVICE Lian Quevedo PA-C documented in this encounter [facility] 09-09-2024 Hospital Discharge instructions Patient Education 09/09/2024 17:36:24 Adult Self-Care for Colds Adult Self-Care for Colds Colds are caused by viruses. They can't be cured with antibiotics. However, you can ease symptoms and support your body's efforts to heal itself. No matter which symptoms you have, be sure to: Drink plenty of fluids (water or clear soup) Stop smoking and drinking alcohol Get plenty of rest Understand a fever Take your temperature several times a day. If your fever is 100.4 F (38.0 C) for more than a day, call your healthcare provider. Relax, lie down. Go to bed if you want. Just get off your feet and rest. Also, drink plenty of fluids to avoid dehydration. Take acetaminophen or a nonsteroidal anti-inflammatory agent (NSAID), such as ibuprofen. Treat a troubled nose kindly Breathe steam or heated humidified air to open blocked nasal passages. buffing wheel operator a hot shower or use a vaporizer. Be careful not to get burned by the steam. Saline nasal sprays and decongestant tablets help open a stuffy nose. Antihistamines can also help, but they can cause side effects such as drowsiness and drying of the eyes, nose, and mouth. Soothe a sore throat and cough Gargle every 2 hours with 1/4 teaspoon of salt dissolved in 1/2 cup of warm water. Suck on throat lozenges and cough drops to moisten your throat. Cough medicines are available but it is unclear how well they actually work. Take acetaminophen or an NSAID, such as ibuprofen, to ease throat pain Ease digestive problems Put fluids back into your body. Take frequent sips of clear liquids such as water or broth. Avoid drinks that have a lot of sugar in them, such as juices and sodas. These can make diarrhea worse. Older children and adults can drink sports drinks. As your appetite returns, you can resume your normal diet. Ask your healthcare provider if there are any foods you should avoid. When you first notice symptoms, ask your healthcare provider if antiviral medicines are appropriate. Antibiotics should not be taken for colds or flu. Also, call your healthcare provider if you have any of the following symptoms or if you aren't feeling better after 7 days: Shortness of breath Pain or pressure in the chest or belly (abdomen) Worsening symptoms, especially after a period of improvement Fever of 100.4 F (38.0 C) or higher, or fever that doesn't go down with medicine Sudden dizziness or confusion Severe or continued vomiting Signs of dehydration, including extreme thirst, dark urine, infrequent urination, dry mouth Spotted, red, or very sore throat [phone] [employer] [place] [address], [place] [address]. All rights reserved. This information is not intended as a substitute for professional medical care. Always follow your healthcare professional's instructions. 09/09/2024 17:35:52 Neck Sprain or Strain Neck Sprain or Strain A sudden force that causes turning or bending of the neck can cause sprain or strain. An example would be the force from a car accident. This can stretch or tear muscles called a strain. It can also stretch or tear ligaments called a sprain. Either of these can cause neck pain. Sometimes neck pain occurs after a simple awkward movement. In either case, muscle spasm is commonly present and contributes to the pain. Unless you had a forceful physical injury (for example, a car accident or fall), X-rays are often not ordered for the initial evaluation of neck pain. If pain continues and does not respond to medical treatment, X-rays and other tests may be done later. Home care You may feel more soreness and spasm the first few days after the injury. Rest until symptoms start to improve. When lying down, use a comfortable pillow or a rolled towel that supports the head and keeps the spine in a neutral position. The position of the head should not be tilted forward or backward. Apply an ice pack over the injured area for 15 to 20 minutes every 3 to 6 hours. Do this for the first 24 to 48 hours. You can make an ice pack by filling a plastic bag that seals at the top with ice cubes and then wrapping it with a thin towel. After 48 hours, apply heat (warm shower or warm bath) for 15 to 20 minutes several times a day, or alternate ice and heat. You may use [id number] pain medicine to control pain, unless another pain medicine was prescribed. If you have chronic liver or kidney disease or ever had a stomach ulcer or gastrointestinal bleeding, talk with your healthcare provider before using these medicines. If a soft cervical collar was prescribed, only ear it for periods of increased pain. It should not be worn for more than 3 hours a day, or for longer than 1 to 2 weeks. Follow-up care Follow up with your healthcare provider, or as directed. Physical therapy may be needed. Sometimes fractures don t show up on the first X-ray. Bruises and sprains can sometimes hurt as much as a fracture. These injuries can take time to heal completely. If your symptoms don t improve or they get worse, talk with your healthcare provider. You may need a repeat X-ray or other tests. If X-rays were taken, you will be told of any new findings that may affect your care. Call 911 Call 911 if you have: Neck swelling, difficulty or painful swallowing Trouble breathing Chest pain When to seek medical advice Call your healthcare provider right away if any of these occur: Pain becomes worse or spreads into your arms or legs Weakness or numbness in one or both arms or legs [id number] [employer] [place] [address]. All rights reserved. This information is not intended as a substitute for professional medical care. Always follow your healthcare professional's instructions. Follow Up Care 09/09/2024 17:05:41 With:JOSE ELIAS LEONARDO [employer] HR DEVELOPER-[facility] Address: [address] [place] [address] [address] [facility] [place] [address] [phone] When:2-4 days [facility] 09-09-2024 Note Discharge Instructions Thank you for allowing [facility] to assist you with your healthcare needs. The following is important discharge information regarding your hospital visit. Diagnosis from Today's Visit Neck strain What to Do Next Instructions from Your Care Team Please follow-up with your primary care provider in the next 2-4 days should your symptoms persist or worsen. I am prescribing you a muscle relaxer and lidocaine patches to use as needed for your symptoms. Please do not drive while taking the muscle relaxer. You can rest, ice or heat, elevate, and minimize activity as tolerated. If you have any further concerns or worsening of your symptoms, you are welcome to return to the emergency department for reevaluation. Discharge Return to Work, School, or Sports (Return to Work, School, or Sports) - Ordered -- 09/09/24 16:00:00 EST, May return to: work, Ok for return, 09/09/24 18:26:00 EST Post Acute Orders No qualifying data available. You Need to Schedule the Following Appointments Follow Up with JOSE ELIAS LEONARDO When:Within 2-4 days Where:[address] [facility] [place] [address]- [phone] Allergies codeine penicillin Medications Please ask your primary doctor or pharmacist before taking any other medication not listed, including over the counter drugs, herbal medications, vitamins and or supplements as they may interact with your home medications. What How Much When Why Instructions Last Dose New cyclobenzaprine (cyclobenzaprine 5 mg oral tablet) 1 tab(s) by mouth Every 8 hours as needed for As needed for muscle pain Neck strain Duration: 5 Days Printed Prescription New lidocaine topical (Lidoderm 5% topical film) 1 patch(es) Topical Once a day as needed for As needed for muscle pain Duration: 30 Days remove patches after 12 hours Printed Prescription Unchanged ibuprofen (Motrin) 400 Milligram by mouth Every 6 hours Please take this list to your next doctor s visit. Bring all medications you take, including over the counter medications, herbals and other supplements with you to your doctor s visit. Patients and families are reminded to discard old lists and to update any records with all medication providers or retail pharmacies. Education Materials Adult Self-Care for Colds Colds are caused by viruses. They can't be cured with antibiotics. However, you can ease symptoms and support your body's efforts to heal itself. No matter which symptoms you have, be sure to: Drink plenty of fluids (water or clear soup) Stop smoking and drinking alcohol Get plenty of rest Understand a fever Take your temperature several times a day. If your fever is 100.4 F (38.0 C) for more than a day, call your healthcare provider. Relax, lie down. Go to bed if you want. Just get off your feet and rest. Also, drink plenty of fluids to avoid dehydration. Take acetaminophen or a nonsteroidal anti-inflammatory agent (NSAID), such as ibuprofen. Treat a troubled nose kindly Breathe steam or heated humidified air to open blocked nasal passages. buffing wheel operator a hot shower or use a vaporizer. Be careful not to get burned by the steam. Saline nasal sprays and decongestant tablets help open a stuffy nose. Antihistamines can also help, but they can cause side effects such as drowsiness and drying of the eyes, nose, and mouth. Soothe a sore throat and cough Gargle every 2 hours with 1/4 teaspoon of salt dissolved in 1/2 cup of warm water. Suck on throat lozenges and cough drops to moisten your throat. Cough medicines are available but it is unclear how well they actually work. Take acetaminophen or an NSAID, such as ibuprofen, to ease throat pain Ease digestive problems Put fluids back into your body. Take frequent sips of clear liquids such as water or broth. Avoid drinks that have a lot of sugar in them, such as juices and sodas. These can make diarrhea worse. Older children and adults can drink sports drinks. As your appetite returns, you can resume your normal diet. Ask your healthcare provider if there are any foods you should avoid. When you first notice symptoms, ask your healthcare provider if antiviral medicines are appropriate. Antibiotics should not be taken for colds or flu. Also, call your healthcare provider if you have any of the following symptoms or if you aren't feeling better after 7 days: Shortness of breath Pain or pressure in the chest or belly (abdomen) Worsening symptoms, especially after a period of improvement Fever of 100.4 F (38.0 C) or higher, or fever that doesn't go down with medicine Sudden dizziness or confusion Severe or continued vomiting Signs of dehydration, including extreme thirst, dark urine, infrequent urination, dry mouth Spotted, red, or very sore throat [phone] [employer] [place], [place] [id number]. All rights reserved. This information is not intended as a substitute for professional medical care. Always follow your healthcare professional's instructions. Neck Sprain or Strain A sudden force that causes turning or bending of the neck can cause sprain or strain. An example would be the force from a car accident. This can stretch or tear muscles called a strain. It can also stretch or tear ligaments called a sprain. Either of these can cause neck pain. Sometimes neck pain occurs after a simple awkward movement. In either case, muscle spasm is commonly present and contributes to the pain. Unless you had a forceful physical injury (for example, a car accident or fall), X-rays are often not ordered for the initial evaluation of neck pain. If pain continues and does not respond to medical treatment, X-rays and other tests may be done later. Home care You may feel more soreness and spasm the first few days after the injury. Rest until symptoms start to improve. When lying down, use a comfortable pillow or a rolled towel that supports the head and keeps the spine in a neutral position. The position of the head should not be tilted forward or backward. Apply an ice pack over the injured area for 15 to 20 minutes every 3 to 6 hours. Do this for the first 24 to 48 hours. You can make an ice pack by filling a plastic bag that seals at the top with ice cubes and then wrapping it with a thin towel. After 48 hours, apply heat (warm shower or warm bath) for 15 to 20 minutes several times a day, or alternate ice and heat. You may use qasg-tkn-allnnyf pain medicine to control pain, unless another pain medicine was prescribed. If you have chronic liver or kidney disease or ever had a stomach ulcer or gastrointestinal bleeding, talk with your healthcare provider before using these medicines. If a soft cervical collar was prescribed, only ear it for periods of increased pain. It should not be worn for more than 3 hours a day, or for longer than 1 to 2 weeks. Follow-up care Follow up with your healthcare provider, or as directed. Physical therapy may be needed. Sometimes fractures don t show up on the first X-ray. Bruises and sprains can sometimes hurt as much as a fracture. These injuries can take time to heal completely. If your symptoms don t improve or they get worse, talk with your healthcare provider. You may need a repeat X-ray or other tests. If X-rays were taken, you will be told of any new findings that may affect your care. Call 911 Call 911 if you have: Neck swelling, difficulty or painful swallowing Trouble breathing Chest pain When to seek medical advice Call your healthcare provider right away if any of these occur: Pain becomes worse or spreads into your arms or legs Weakness or numbness in one or both arms or legs [phone] [employer] [place] [address], [place] [address]. All rights reserved. This information is not intended as a substitute for professional medical care. Always follow your healthcare professional's instructions. Additional Information VACCINATE! IT SAVES LIVES! Members of the community who have not yet received the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 section [facility] Evaluation note No assessment inform ation available [facility] Work Phone: Evaluation note Diagnosis COPD (chronic obstructive pulmonary disease) (HCC)- Primary Chronic airway obstruction, not elsewhere classified Special screening for malignant neoplasms, colon Chronic pain due to trauma Amenorrhea Absence of menstruation Hot flashes Symptomatic menopausal or female climacteric states Vaginitis Vaginitis and vulvovaginitis, unspecified Controlled substance agreement signed Encounter for long-term (current) use of other medications Blurred vision- Primary Other specified visual disturbances documented in this encounter [facility] note* Diagnosis COPD (chronic obstructive pulmonary disease) (HCC)- Primary Chronic airway obstruction, not elsewhere classified Special screening for malignant neoplasms, colon Chronic pain due to trauma Amenorrhea Absence of menstruation Hot flashes Symptomatic menopausal or female climacteric states Vaginitis Vaginitis and vulvovaginitis, unspecified Controlled substance agreement signed Encounter for long-term (current) use of other medications Diarrhea, unspecified type- Primary documented in this encounter [facility] note* Diagnosis COPD (chronic obstructive pulmonary disease) (HCC)- Primary Chronic airway obstruction, not elsewhere classified Special screening for malignant neoplasms, colon Chronic pain due to trauma Amenorrhea Absence of menstruation Hot flashes Symptomatic menopausal or female climacteric states Vaginitis Vaginitis and vulvovaginitis, unspecified Controlled substance agreement signed Encounter for long-term (current) use of other medications Chest pain, unspecified type- Primary SOB (shortness of breath) Shortness of breath documented in this encounter [facility] note* Diagnosis COPD (chronic obstructive pulmonary disease) (HCC)- Primary Chronic airway obstruction, not elsewhere classified Special screening for malignant neoplasms, colon Chronic pain due to trauma Amenorrhea Absence of menstruation Hot flashes Symptomatic menopausal or female climacteric states Vaginitis Vaginitis and vulvovaginitis, unspecified Controlled substance agreement signed Encounter for long-term (current) use of other medications Panic attack- Primary Panic 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 documented in this encounter [facility] note* Diagnosis COPD (chronic obstructive pulmonary disease) (HCC)- Primary Chronic airway obstruction, not elsewhere classified Special screening for malignant neoplasms, colon Chronic pain due to trauma Amenorrhea Absence of menstruation Hot flashes Symptomatic menopausal or female climacteric states Vaginitis Vaginitis and vulvovaginitis, unspecified Controlled substance agreement signed Encounter for long-term (current) use of other medications Acute exacerbation of COPD with asthma (HCC)- Primary Chronic obstructive asthma with exacerbation documented in this encounter [facility] note* Diagnosis COPD (chronic obstructive pulmonary disease) (HCC)- Primary Chronic airway obstruction, not elsewhere classified Special screening for malignant neoplasms, colon Chronic pain due to trauma Amenorrhea Absence of menstruation Hot flashes Symptomatic menopausal or female climacteric states Vaginitis Vaginitis and vulvovaginitis, unspecified Controlled substance agreement signed Encounter for long-term (current) use of other medications Abscess of right buttock- Primary Cellulitis and abscess of buttock [facility] COPD (chronic obstructive pulmonary disease) (HCC)- Primary Chronic airway obstruction, not elsewhere classified Special screening for malignant neoplasms, colon Chronic pain due to trauma Amenorrhea Absence of menstruation Hot flashes Symptomatic menopausal or female climacteric states Vaginitis Vaginitis and vulvovaginitis, unspecified Controlled substance agreement signed Encounter for long-term (current) use of other medications Encounter for abscess packing removal- Primary Encounter for change or removal of nonsurgical wound dressing Wound check, abscess Encounter for other specified aftercare documented in this encounter [facility] Summary Purpose Family History Relationship Condition Age at Onset Recorded Date/T bia grandmother Cardiac disease Unknown Myocardial infarction Unknown uncle Myocardial infarction Unknown grandfather Malignant neoplasm of colon Unknown Advance Directives Advance Directive Response Recorded Date/ Time Advance Directives No September 01, 2017 2:25pm Living Will No October 28, 2021 8:53am Power of Machinery Dismantler No October 28 8:53am Advance Directive Response Recorded Date/ Time Advance Directives No September 01, 2017 1:25pm Living Will No July 14 022 5:07pm Power of Machinery Dismantler No July 14, 2022 5:07pm Chief Complaint and Reason for Visit Chief Complaint BACK PAIN Chief Complaint fall MORA, nausea Additional Source Comments INFORMATION SOURCE (unrecogn ized section and content) DATE CREATED AUTHOR 07/13/2018 [facility] Alesha Dominguez DATE CREATED AUTHOR AUTHOR'S ORGANIZ ATION 06/18/2021 [facility] ([place]) DATE CREATED AUTHOR AUTHOR'S ORGANIZ ATION 06/18/2021 [facility] DATE CREATED AUTHOR AUTHOR'S ORGANIZ ATION 09/19/2024 [facility] DATE CREATED AUTHOR AUTHOR'S ORGANIZ ATION 12/31/2024 [facility] DATE CREATED AUTHOR AUTHOR'S ORGANIZ ATION 01/24/2025 [facility] Goals (unrecognized section and content) Goals may be documented in a n alternate section Source Comments (unrecognize d section and content) In the event this informatio n is protected by the Federal Confidentiality of Alcohol and Drug Abuse Patient Records regulations: The Federal rules restrict any use of the information to criminally investigate or prosecute any alcohol or drug abuse patient.[facility] the event this information is protected by the Federal Confidentiality of Alcohol and Drug Abuse Patient Records regulations: The Federal rules restrict any use of the information to criminally investigate or prosecute any alcohol or drug abuse patient.[facility] the event this information is protected by the Federal Confidentiality of Alcohol and Drug Abuse Patient Records regulations: The Federal rules restrict any use of the information to criminally investigate or prosecute any alcohol or drug abuse patient.[facility] the event this information is protected by the Federal Confidentiality of Alcohol and Drug Abuse Patient Records regulations: The Federal rules restrict any use of the information to criminally investigate or prosecute any alcohol or drug abuse patient.[facility] the event this information is protected by the Federal Confidentiality of Alcohol and Drug Abuse Patient Records regulations: The Federal rules restrict any use of the information to criminally investigate or prosecute any alcohol or drug abuse patient.[facility] the event this information is protected by the Federal Confidentiality of Alcohol and Drug Abuse Patient Records regulations: The Federal rules restrict any use of the information to criminally investigate or prosecute any alcohol or drug abuse patient.[facility] the event this information is protected by the Federal Confidentiality of Alcohol and Drug Abuse Patient Records regulations: The Federal rules restrict any use of the information to criminally investigate or prosecute any alcohol or drug abuse patient.[facility] the event this information is protected by the Federal Confidentiality of Alcohol and Drug Abuse Patient Records regulations: The Federal rules restrict any use of the information to criminally investigate or prosecute any alcohol or drug abuse patient.[facility] Reason for Visit (unrecogniz ed section and content) Reason Comments Pain (Shoulder Pain) right side neck, sh oulder pain goes into head x 1 week Reason Comments Diarrhea Diarrhea and upset s tomach x 1 day Reason Comments Cough Cough, fever, diarrh ea and heart burn x 2 weeks Reason Comments Nausea gi upset and headach e x 3 days Reason Comments Abscess Right buttocks Reason Comments Derm Problem packing change under right buttock placed friday Care Teams (unrecognized sec tion and content) Site Superintendent Relationship Specialty Start Date End Date Annette Langston MD PCP - General Internal Medicine 09/02/17 Site Superintendent Relationship Specialty Start Date End Date Annette Langston MD PCP - General Internal Medicine 09/02/17 Site Superintendent Relationship Specialty Start Date End Date Annette Langston MD PCP - General Internal Medicine 09/02/17 Site Superintendent Relationship Specialty Start Date End Date Annette Langston MD PCP - General Internal Medicine 09/02/17 FOR RECORDS PERTAINING TO PATIENTS WHO ARE OR HAVE BEEN ENROLLED IN A CHEMICAL DEPENDENCY/SUBSTANCEABUSE PROGRAM, SOME INFORMATION MAY BE OMITTED. This clinical summary was aggregated from multiple sources. Caution should be exercised in using it in the provision of clinical care. This summary normalizes information from multiple sources, and as a consequence, information in this document may materially change the coding, format and clinical context of patient data. In addition, data may be omitted in some cases. CLINICAL DECISIONS SHOULD BE BASED ON THE PRIMARY CLINICAL RECORDS. [facility]. provides no warranty or guarantee of the accuracy or completeness of information in this document.
== END 2025-03-21 19:16 | disposition home or self-care (01) ==
PROVIDERS: Emergency Provider Emergency Medicine; Visit Provider Emergency Medicine
DX: J44.1 Chronic obstructive pulmonary disease with (acute) exacerbation (principal); J98.01 Acute bronchospasm; J06.9 Acute upper respiratory infection, unspecified; F17.200 Nicotine dependence, unspecified, uncomplicated
CPT/HCPCS: 71046; 80048; 85025; 93005; 94760; 99285; A4216

== ENCOUNTER 2025-07-13 00:47 | Emergency (ER) | payer BC, MEDICAID, SELFPAY ==
[2025-07-13 00:48] VITALS: BP 141/85; PULSE 92; RESP 17; TEMP 36.4; O2SAT 98; BMI 27.8
[2025-07-13 01:03] VITALS: BP 124/97; PULSE 89; RESP 18; TEMP 36.4; O2SAT 98
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
--- OUTSIDE RECORDS SUMMARY | 2025-07-13 01:14 | XMS RPT_ITS | CCD ---
Author Organization [facility] Care Team Providers Care Cardiac Cath Tech Name Role Phone Meño Pelletier Unavailable Unavailable No Family Physician given Unavailable UnavaJOSE ELIAS Lyle Primary Care Physician BINH JON DO Attending Unavailable BINH JON DO Primary Care Unavailable BINH JON DO Admitting Unavailable Felipe Rios MD Unavailable Sangita Patterson MD Unavailable Lian Tran Unavailable Unavailable Mack Langston MD Primary Care Provider JOSE ELIAS PARISI Primary Care Physician ANGEL LUIS LY DO Attending Unavailable JOSE ELIAS PARISI Primary Care Unavail able Unavailable Primary Care Provider Unavailabl e OLEGHE, EFEWONGBE B Primary Care Unavailable OLEGHE, EFEWONGBE B Primary Care Unavailable OLEGHE, EFEWONGBE B Primary Care Unavailable RIYA CAMARILLO Attending Unavailable RIYA CAMARILLO Attending Unavailable OLEGHE, EFEWONGBE B Primary Care Unavailable Dima Marino Attending Unavailable Care Physician, No Primary Primary Care Unava ilable Oleghe, Efewongbe Primary Care Unavailable Marvin Hutchinsono Attending Unavailable Kristopher Hutchinson Attending Unavailable Care Physician, No Primary Primary Care Unava ilable Provider, Ed Physician Attending Unavailab le Oleghe, Efewongbe Primary Care Unavailable Fabby Cadet Attending Unavailable Oleghe, Efewongbe Primary Care Unavailable Fabby Cadet Attending Unavailable [facility] Primary Care Unavailable [facility] Primary Care Unavailable Fabby Cadet Attending Unavailable Allergies Allergy Classification Reported Allergen(s) Allergy Type Date of Onset Reaction(s) Facility (13 sources) Codeine; Translations: [codeine] Drug Allergy 5 Mental Status Change [facility] (2 sources) Penicillin; Translations: [penicillins] Drug Allergy [facility] (1 source) Codeine Drug Allergy [facility] Repository (1 source) Penicillin Drug Allergy [facility] Repository (13 sources) Codeine Drug Allergy 7 [facility] Work Phone: (12 sources) Penicillins; Translations: [PENICILLINS] Allergy to substance 5 Intolerance [facility] Work Phone: (9 sources) Etodolac; Translations: [ETODOLAC] Drug Allergy 6 GI Upset [facility] (9 sources) metroNIDAZOLE; Translations: [METRONIDAZOLE HCL] Drug Allergy 2 GI Upset [facility] (9 sources) Orphenadrine; Translations: [ORPHENADRINE CITRATE] Drug Allergy 9 Intolerance [facility] (9 sources) Sulindac; Translations: [SULINDAC] Drug Allergy 9 [facility] (1 source) Codeine Drug Allergy 5 [facility] Repository Medications Current Medications Medication Drug [...] WITH BRONCHOSPASMS 1 Each 11 02/02/2015 Active [id number] 200 actuat albuterol 0.09 mg/actuat metered dose [...] dsdv Indications: COPD (chronic obstructive pulmonary disease) ([facility]) Inhale 2 Puffs as instructed twice daily. [...] Acute exacerbation of COPD with asthma (HCC) 1 Device one time only for 1 [...] MG PO 4 TIMES DAILY NEEDED 40 10 June 08, 2022 2:32am naproxen 500 mg [...] mouth twice daily CIPRO XR 500 MG [id number] One tablet by mouth twice daily CIPROFLOXACIN-CIPROFLOX HCL [id number] Lian Cornejo MATERIAL DAMAGE APPRAISER-C Start: 06-06-2013 End: 08-20-2013 take 500 mg [...] by mouth twice daily as needed LORAZEPAM [id number] Lian Cornejo MATERIAL DAMAGE APPRAISER-C metroNIDAZOLE 500 mg oral tablet (20 sources) Nitroimidazole Antimicrobial Start: 06-30-2017 take 1 tablet by mouth once in the evening FLAGYL 500 MG TABS Take 1 tablet by mouth at 1pm, 2pm, and 10 pm the day before surgery METRONIDAZOLE [id number] Felipe Rios MD Start: 06-25-2017 take 1 tablet by baldev th three times daily METRONIDAZOLE 500 MG TABS One tablet by mouth three times daily METRONIDAZOLE [id number] Lian Cornejo MATERIAL DAMAGE APPRAISER-C Start: 06-06-2013 End: 08-20-2013 take 500 mg by mouth every eight hours Metronidazole Discontinued 500 MG PO EVERY 8 HOURS June 06, 2013 6:22pm August 20, 2013 10:27pm neomycin sulfate 500 mg oral tablet (9 sources) Aminoglycoside Antibacterial Start: 06-30-2017 NEOMYCIN SULFATE 500 MG TABS Take 2 tablets at 1pm, 2pm, and 10pm the day before surgery NEOMYCIN SULFATE [id number] Felipe Rios MD ondansetron 4 mg disintegrating [...] 10 MG PO EVERY 4 HOURS NEEDED 30 October 26, 2017 9:00am October 31, 2017 1:31pm Start: 06-25-2017 take 1 tablet by baldev th every twelve hours as needed OXYCODONE HCL 5 MG TABS One tablet by mouth every 12 hours as needed OXYCODONE HCL [id number] Lian Cornejo MATERIAL DAMAGE APPRAISER-C Start: 06-25-2017 take 1 tablet by baldev th every six hours as needed OXYCODONE HCL 5 MG TABS One tablet by mouth every 6 hours as needed OXYCODONE HCL [id number] Lian Cornejo MATERIAL DAMAGE APPRAISER-C Start: 06-17-2017 End: 06-23-2017 take 5 mg [...] June 04, 2017 7:56am polyethylene glycol 3350 587307 mg / potassium chloride 2820 mg / sodium bicarbonate 6360 mg / sodium chloride 5530 mg / sodium sulfate 28327 mg powder for oral solution (9 sources) Osmotic Laxative Start: 06-30-2017 GOLYTELY 227.1 GM SOLR take as directed by the office prior to surgery PEG [id number]-[id number] [id number] Felipe Rios MD pramipexole dihydrochloride 0.25 mg [...] tab PO every 6 hours VANCOMYCIN HCL [id number] Felipe Rios MD Problems Active Problems Problem Classification Problem Date Documented Da te Episodic/Chronic Abdominal pain (3 sources) Abdominal pain; Translations: [Unspecified abdominal pain] Onset: 5 Episodic Alcohol-related disorders (16 sources) Alcohol dependence; Translations: [...] Translations: [Encounter for abscess packing removal] Onset: Episodic Other aftercare (1 source) Encounter for [...] Diarrhea; Translations: [Diarrhea, unspecified] 06-22-2024 Episodic Other gastrointestinal disorders (1 source) Diarrhea, unspecified; Translations: [Diarrhea, unspecified] Onset: 5 Episodic Other injuries and conditions due to external causes (1 source) Closed injury of head; Translations: [Unspecified injury of head, initial encounter] Episodic Other lower respiratory disease (1 source) Dyspnea; Translations: [Shortness of breath] 07-19-2024 Episodic Other lower respiratory disease (1 source) Shortness of breath; Translations: [Shortness of breath] Onset: 5 Episodic Other nervous system disorders (8 sources) [...] Classification Problem Date Documented Da te Episodic/Chronic Other aftercare (13 sources) Long-term drug therapy; Translations: [Other terminal supervisor (current) drug therapy] Onset: 06-25-2017 06-25-2017 Episodic Other skin disorders (8 sources) Sebaceous [...] Test Name Value Interpretation Reference Range Facility 12 Lead EKGon 03-21-[address] [facility] Cardiovascular Services [address] [place] [address] 12 Lead EKG 03/21/25 1430 MR#: [id number] Acct: [id number] Name: LISA BOTELLO Rep #: [id number] : 1965 60 From: Claude Gifford MD Attending Dr: Status: DEP ER Ordering Dr: Kristopher Hutchinson MD Date: 03/21/25 Location: ED Sex: F C Admitted: Test Reason : chest pain/sob Blood Pressure : */* mmHG Vent. Rate : 68 BPM Atrial Rate : 68 BPM P-R Int : 126 ms QRS Dur : 80 ms QT Int : 424 ms P-R-T Axes : 54 48 48 degrees QTcB Int : 450 ms Normal sinus rhythm Normal ECG Confirmed by CLAUDE GIFFORD MD ([id number]), subeditor SUNSHINE PENALOZA ([id number]) on 03/22/2025 9:03:21 AM Referred By: Confirmed By: CLAUDE GIFFORD MD 03/22/25 0903 Date Claude Gifford MD CC: Dr. Kristopher Hutchinson MD; No Primary Care Physician Signed Normal [facility] Basic Metabolic Profile (BMP )on 03-21-2025 BUN/CRE 21.4 RATIO High 10-20 [facility] Comment on above: Performed By: #### L 100.0100, L500.2500 #### [facility] [address] [place], [address] Calcium [Mass/Vol] 9.5 mg/dL Normal 7.6-11.0 [facility] Comment on above: Performed By: #### L 100.0100, L500.2500 #### [facility] [address] [place], [address] Chloride [Moles/Vol] 103 mmol/L Normal 98-108 [facility] Comment on above: Performed By: #### L 100.0100, L500.2500 #### [facility] [address] [place], [address] CO2 [Moles/Vol] 28.0 mmol/L Normal 21.0-32.0 [facility] Comment on above: Performed By: #### L 100.0100, L500.2500 #### [facility] [address] [place], [address] Creatinine [Mass/Vol] 0.59 mg/dL Low 0.70-1.20 [facility] Comment on above: Performed By: #### L 100.0100, L500.2500 #### [facility] [address] [place], [address] GAP 9 Normal 5-15 [facility] Comment on above: Performed By: #### L 100.0100, L500.2500 #### [facility] [address] [place], [address] GFR/1.73 sq M.predicted among non-blacks MDRD (S/P/Bld) [Vol rate/Area] 102 mL/min/{1.73_m2} Normal >60 [facility] Comment on above: Result Comment: mL/m in/1.73m2 CKD-EPI Creatinine Equation (2020) Performed By: #### L 100.0100, L500.2500 #### [facility] [address] [place], [address] Glucose [Mass/Vol] 88 mg/dL Normal 70-99 [facility] Comment on above: Performed By: #### L 100.0100, L500.2500 #### [facility] [address] [place], [address] Potassium [Moles/Vol] 4.0 mmol/L Normal 3.3-5.1 [facility] Comment on above: Performed By: #### L 100.0100, L500.2500 #### [facility] [address] [place], [address] Sodium [Moles/Vol] 140 mmol/L Normal 133-145 [facility] Comment on above: Performed By: #### L 100.0100, L500.2500 #### [facility] [address] [place], [address] Urea nitrogen [Mass/Vol] 13 mg/dL Normal 4-19 [facility] Comment on above: Performed By: #### L 100.0100, L500.2500 #### [facility] [address] [place], [address] CBC W/Diff, Automatedon 03-04 Absolute Lymph 2.64 X10 3/uL Normal 0.83-4.51 [facility] Comment on above: Performed By: #### L 100.0100, L500.2500 #### [facility] [address] [place], [address] Absolute Neut 3.4 X10 3/uL Normal 2.0-7.7 [facility] Comment on above: Performed By: #### L 100.0100, L500.2500 #### [facility] [address] [place], [address] Basophils/100 WBC (Bld) 0.5 % Normal 0-1 [facility] Comment on above: Performed By: #### L 100.0100, L500.2500 #### [facility] [address] [place], [address] Eosinophils/100 WBC (Bld) 3.7 % Normal 0-5 [facility] Comment on above: Performed By: #### L 100.0100, L500.2500 #### [facility] [address] [place], [address] Erythrocyte distribution width (RBC) [Ratio] 14.0 % Normal 11.6-14.6 [facility] Comment on above: Performed By: #### L 100.0100, L500.2500 #### [facility] [address] [place], [address] Hematocrit (Bld) [Volume fraction] 36.8 % Low 37-47 [facility] Comment on above: Performed By: #### L 100.0100, L500.2500 #### [facility] [address] [place], [address] Hemoglobin (Bld) [Mass/Vol] 12.5 g/dL Normal 12.0-15.0 [facility] Comment on above: Performed By: #### L 100.0100, L500.2500 #### [facility] [address] [place], [address] IG% 0.100 Normal 0.0-0.9 [facility] Comment on above: Result Comment: IG% - Immature Granulocytes (promyelocytes, myelocytes and metamyelocytes) > 1% indicates that a LEFT SHIFT is Present. Performed By: #### L 100.0100, L500.2500 #### [facility] [address] [place], [address] Lymphocytes/100 WBC (Bld) 36.3 % Normal 19-41 [facility] Comment on above: Performed By: #### L 100.0100, L500.2500 #### [facility] [address] [place], [address] MCH (RBC) [Entitic mass] 31.6 pg Normal 27.0-32.0 [facility] Comment on above: Performed By: #### L 100.0100, L500.2500 #### [facility] [address] [place], [address] MCHC (RBC) [Mass/Vol] 34.0 g/dL Normal 32-36 [facility] Comment on above: Performed By: #### L 100.0100, L500.2500 #### [facility] [address] [place], [address] MCV (RBC) [Entitic vol] 93.2 fL Normal 81-99 [facility] Comment on above: Performed By: #### L 100.0100, L500.2500 #### [facility] [address] [place], [address] Monocytes/100 WBC (Bld) 12.2 % High 0-10 [facility] Comment on above: Performed By: #### L 100.0100, L500.2500 #### [facility] [address] [place], [address] Neutrophils/100 WBC (Bld) 47.2 % Normal 47-70 [facility] Comment on above: Performed By: #### L 100.0100, L500.2500 #### [facility] [address] [place], [address] Nucleated RBC (Bld) [#/Vol] 0 10*3/uL Normal 0-5 [facility] Comment on above: Performed By: #### L 100.0100, L500.2500 #### [facility] [address] [place], [address] Platelet mean volume (Bld) [Entitic vol] 9.8 fL Normal 6.2-12.0 [facility] Comment on above: Performed By: #### L 100.0100, L500.2500 #### [facility] [address] [place], [address] Platelets (Bld) [#/Vol] 250 10*3/uL Normal 150-450 [facility] Comment on above: Performed By: #### L 100.0100, L500.2500 #### [facility] [address] [place], [address] RBC (Bld) [#/Vol] 3.95 10*6/uL Low 4.2-5.4 [facility] Comment on above: Performed By: #### L 100.0100, L500.2500 #### [facility] [address] [place], [address] RDW SD 47.9 fl High 35.1-43.9 [facility] Comment on above: Performed By: #### L 100.0100, L500.2500 #### [facility] [address] [place], [address] WBC (Bld) [#/Vol] 7.3 10*3/uL Normal 4.4-11.0 [facility] Comment on above: Performed By: #### L 100.0100, L500.2500 #### [facility] [address] [place], [address] Chest PA and Lateralon 03-[address] [facility] Imaging Services [address] [place] [address] Chest PA and Lateral MR#: [id number] Acct: [id number] Name: LISA BOTELLO Rep #: [id number] : 1965 F 60 From: Adan Reeves MD PCP: Care Physician,No Primary Status[facility] Study: Chest PA and Lateral Date of Exam: 03/21/25 Exam# [id number] Ordering Dr: Kristopher Hutchinson MD PROCEDURE: CHEST PA AND LATERAL 03/21/2025 REASON FOR EXAM: SUBJECTIVE FEVER, NONPRODUCTIVE COUGH AND INTERMIT TECHNIQUE: CHEST PA AND LATERAL COMPARISON: 06/08/2022 FINDINGS: Lungs/Pleura: Clear. No airspace consolidation, pneumothorax or pleural effusion. Heart/Mediastinum: Normal in size. Aortic arch calcification. Bones/Soft tissues: No significant abnormality. RAD/Chest PA and Lateral IMPRESSION: No evidence of acute cardiopulmonary disease. Reading Location: [id number] CC: Dr. Kristopher Hutchinson MD; No Primary Care Physician Waste Cotton Cleaner: Signed Normal [facility] Emergency Department Summary on 03-21-2025 Emergency Department Summary [facility] Medical Records Department [address] [place] [address] Emergency Department Summary 03/21/25 MR#: [id number] Acct: [id number] Name: LISA BOTELLO Rep #: [id number] : 1965 60 From: Kristopher Hutchinson MD PCP: Care Physician,No Primary Status:REG ER Location: ED HPI History of Present Illness Chief Complaint: Shortness of Breath Detail of Chief Complaint: Upper respiratory tract symptoms with intermittent wheezing and shortness o Informant: patient Onset/Context/Timing Onset: Days (Onset March 18) Context: sudden Timing: Continuous and Waxes and wanes Quality: Positive for Dyspnea on exertion and Wheezing; Negative for Orthopnea or PND Current Severity: Mild Maximum Severity: Moderate Worsened by: Exertion and Coughing Relieved by: Nothing Associated Symptoms cough, rhinorrhea, fever, subjective and sweats; Negative for post nasal drip, ear pain, sore throat, chills, clear sputum, white sputum, yellow sputum or green sputum Chest Pain: Positive for Intermittent (Only when she coughs) Narrative Narrative: Patient is a 60-year-old female. She has history of COPD, hepatitis, generalized anxiety disorder, and GERD who presents with upper respiratory tract infection symptoms started March 18. She endorses rhinorrhea, congestion, nonproductive cough with intermittent wheezing and shortness of breath. She states her inhaler has . She has not been on prednisone in the last 3 months. She had prophylaxis for DVT in 1993 when both of her lower extremity exam are in casts. She is never had a VTE. She denies leg pain, swelling discoloration. Patient denies abdominal pain, nausea, vomiting or diarrhea. She smokes and states 1 pack lasts a week. 5 years ago she smoked 2 to 3 packs/day. She denies weight loss. PE Risk Factors: Negative for Cancer, OCP + Smoking + > 35, Prior DVT or PE, Recent immobilization, Recent surgery or Recent travel Prior similar symptoms: Yes Recent Illness/Hospitalizatio n: No PFSH PFSH Medical History CASSANDRA (generalized anxiety disorder) Panic C. difficile colitis Headache Hay fever History of stomach ulcers History of hemorrhoids Lung disease History of attempted suicide Chronic leg pain Asthma GERD (gastroesophageal reflux disease) Arthritis Home Medications ???Medication ???Instructions ???Recorded ???Last Taken ???Type hydroxyzine HCl 25 mg tablet 25 mg PO TID PRN anxiety #90 tabs 09/30/24 Unknown Rx paroxetine HCl 10 mg tablet 10 mg PO QDAY #30 tabs 11/29/24 Un known Rx propranolol 10 mg tablet 10 mg PO TID PRN anxiety #90 tabs 11/29/24 Unknown Rx prednisone 20 mg tablet 60 mg (3 x 20 mg) PO DAILY #15 Unknown Rx TABLETS Allergy/AdvReac Type Severity Reaction Status Date / Time Penicillins Allergy Mild Rash Verified 03/21/25 14:14 codeine Allergy HALLUCINATI Verified 03/21/25 14:14 ON Family History Grandmother Heart disease Myocardial [...] none ROS ROS ED Constitutional Constitutional ED: Reports chills, fever(s) and sweats; Denies weight loss Eyes Eyes: Denies blurry vision or change in vision ENT ENT ED: Reports rhinorrhea; Denies ear pain or sore throat Cardiovascular Cardiovascular: Reports chest pain; Denies orthopnea, palpitations, paroxysmal nocturnal dyspnea or racing heartbeat Respiratory/Chest Respiratory/Chest: Reports cough and dyspnea; Denies dyspnea on exertion, orthopnea, paroxysmal nocturnal dyspnea or sputum Gastrointestinal Gastrointestinal: Denies abdominal pain, diarrhea, nausea or vomiting Musculoskeletal Musculoskeletal: Denies arthralgias or myalgias Integumentary Denies rash Neurologic Neurologic: Reports weakness; Denies headache(s) Psychiatric Psychiatric: Denies anxiety or depression Endocrine Endocrinology: Denies cold intolerance or heat intolerance EXAM Physical Exam Const Vital Signs: 03/21/25 14:12 03/21/25 16:04 03/21/25 16:05 Temperature 99 F Temperature Source Temporal Pulse Rate 95 63 60 Respiratory Rate 18 16 Respiratory Effort Respiratory Depth Respiratory Pattern Blood Pressure 123/62 H 135/75 H Blood Pressure Mean 82 95 Pulse Ox 99 100 98 Oxygen Delivery Method Room Air (more content not included)... [facility] Office Visit ([facility] ) KOBELISA ([id number]) 1965 F Date Time Provider Department 12/29/24 10:30 AM RIYA CAMARILLO [facility] During your visit today, we recorded the following information about you: Temperature Pulse Respiration Blood pressure 97 degrees 68/minute 16/minute 120/72 Weight 65.7 kg Riya Camarillo, ROGE.JOURNEYMAN POWERHOUSE OPERATOR 12/29/2024 10:51 AM Signed [facility] Subjective Lisa Botello is a [...] LMP 10/14/2011 SpO2 97% BMI 26.92 kg/m? .[facility] Physical Exam Vitals reviewed. Constitutional: Appearance: Normal [...] Discussed expected course of illness Riya Camarillo APRN.JOURNEYMAN POWERHOUSE OPERATOR Disposition The patient was discharged. Procedures Riya Camarillo APRN.NEELAM 12/29/2024 10:51 AM Signed ASSESSMENT/PLAN: 1. Encounter [...] Discussed expected course of illness Riya Camarillo APRN.JOURNEYMAN POWERHOUSE OPERATOR Allergies As of Date: 12/29/2024 Noted Allergy [...] 05/15/2010 Hyperlipidem (more content not included)... Normal [facility] Bacteria Wnd Culton 12-27-19 Bacteria identified Cx Nom (Wound) ORGANISM ID: 1 Rare skin erick GRAM STAIN: No organisms seen Few Polymorphonuclear leukocytes Normal [facility] Comment on above: Performed By: #### 6 [id number] ####[facility] LAB[facility] [id number] [address] [facility] CNOVon 12-26-2024 [facility] Office Visit ([facility] ) LISA BOTELLO ([id number]) 1965 F Date Time Provider Department 12/26/24 2:45 PM RIYA CAMARILLO [facility] During your visit today, we recorded the following information about you: Temperature Pulse Blood pressure Weight 97 degrees 94/minute 130/78 65 kg Height 1.562 m Riya Camarillo APRN.JOURNEYMAN POWERHOUSE OPERATOR 12/26/2024 3:49 PM Addendum [facility] Subjective Lisa Botello is a [...] terminated - COPD (chronic obstructive pulmonary disease) ([facility]) - GERD (gastroesophageal reflux disease) - Marijuana [...] - Recomm (more content not included)... Normal [facility] Incision and Drainageon 12-03 Riya Camarillo APRN.JOURNEYMAN POWERHOUSE OPERATOR 12/26/2024 3:49 PM Incision and Drainage Performed by: Riya Camairllo APRN.JOURNEYMAN POWERHOUSE OPERATOR Authorized by: Riya Camarillo APRN.NEELAM Informed Consent Consent Obtained: Verbal [place] Protocol A moment to CARE was completed. [...] been communicated to the patient or surrogate. [facility] MR/BMS.BPon 11-29-2024 MR/BMS.BP [address], [address] [place] [address] OFFICE VISIT Date of Service: 11/29/24 MR#: [id number] Acct: [id number] Name: LISA BOTELLO Rep #: [id number] : 1965 Provider: Dr. Fabby Gross se, DO Age/Sex: 59/F Location: [facility].BP Status: Signed Intake Vital [...] for follow up evaluation. Recently went to [place] to see her grandkids. Patient reports that [...] been living in a new apartment on [address], and does feel safe there. Review of [...] - We (more content not included)... Normal [facility] MR/BMS.BPon 09-30-2024 MR/BMS.BP [address], [address] [place] [address] OFFICE VISIT Date of Service: 09/30/24 MR#: [id number] Acct: [id number] Name: LISA BOTELLO Rep #: [id number] : 1965 Provider: Dr. Fabby Gross se DO Age/Sex: 59/F Location: [facility].BP Status: Signed Intake Vital [...] (Updated 09/30/24 @ 10:[address] Fabby Cadet, DO) CASSANDRA (generalized anxiety disorder) Panic C. [...] every day. Had been living at the [facility] for two months, but recently got her [...] History: Siblings - 4 brothers Born/Raised - [place], [place] Education - 10th grade Living Situation [...] Past: none (more content not included)... Normal [facility] Duc 09-29-2024 CN Office Visit ([facility] ) LISA BOTELLO ([id number]) 1965 F Date Time Provider Department 09/29/24 1:30 PM LIAN QUEVEDO [facility] During your visit today, we recorded the following information about you: Temperature Pulse Respiration Blood pressure 97.3 degrees 82/minute 16/minute 122/72 Weight 73 kg Lian Quevedo PA-C 09/29/2024 3:58 PM Signed This note was created using [employer]. Subjective Lisa Botello is a 59 year [...] 1. Acute exacerbation of COPD with asthma ([facility]) - ICD9: 493.22, ICD10: J44.1 - AZITHROMYCIN [...] Visit Diagnosis:Acute exacerbation of COPD with asthma ([facility]) [J44.1] Order(s):azithromycin (ZITHROMAX Z-BRITT) 250 mg tabletTake [...] 5 d (more content not included)... Normal [facility] CVFLURVon 09-09-2024 FLU A PCR Negative Normal Negative [facility] Comment on above: Performed By: #### C VFLURV #### [place] [address] FLU B PCR Negative Normal Negative [facility] Comment on above: Performed By: #### C VFLURV #### [place] [address] RSV PCR Negative Normal Negative [facility] Comment on above: Performed By: #### C VFLURV #### [place] [address] SARS-CoV-2 (COVID-19) RNA DIAMOND+probe Ql (Unsp spec) Negative Normal Negative [facility] Comment on above: Result Comment: Resu lts [...] results. Performed By: #### C VFLURV #### [place] [address] [address] LABORATORYOrdered By: Daylin Keys on 09-09-2024 FLUAV [...] influenza vaccines may cause inaccurate positive results. YUSRAOVon 07-29-2024 CNOV Office Visit ([facility] ) KOBELISA ([id number]) 1965 F Date Time Provider Department 07/29/24 5:30 PM RASHIDA PANIAGUA During your visit today, we recorded the following information about you: Rashida Paniagua APRN.CNP 07/29/2024 5:36 PM Signed Patient triaged at [facility]. Here today with panic attack patient [...] Status:Closed by RASHIDA PANIAGUA on 07/29/24 Normal [facility] 12 Lead EKGon 07-19-[address] [facility] Cardiovascular Services [address] [place] [address] 12 Lead EKG 07/19/24 1154 MR#: [id number] Acct: [id number] Name: LISA BOTELLO Rep #: [id number] : 1965 59 From: Claude Gifford MD [...] Normal sinus rhythm Normal ECG Confirmed by CLAUDE GIFFORD MD ([id number]), subeditor KENZIE CUELLAR ([id number]) on 07/21/2024 6:32:27 AM Referred By: MAURICE Confirmed By: CLAUDE GIFFORD MD 07/21/24 0632 Date Claude Gifford MD CC: Dr. Mack Langston MD; Dr. Kristopher Hutchinson MD Signed Normal [facility] CBC W/Diff, Automatedon 07-04 ATYPICAL LYMPH 1+ Normal [facility] Comment on above: Performed By: #### L 500.4050, L100.0100, L501.2450, L501.4020 ####[facility] [address] [place], [address] CNOVon 07-19-2024 CNOV Office Visit ([facility] ) LISA BOTELLO ([id number]) 1965 F Date Time Provider Department 07/19/24 11:00 AM HARJIT MARTINEZ [facility] During your visit today, we recorded the [...] She refuses EMS transport. Report called to [place]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 [employer] Work Phone: Glucose [Mass/Vol] 112 mg/dL High 70-110 [facility] [employer] Work Phone: Potassium [Moles/Vol] 3.4 mmol/L Low 3.5-5.1 [facility] [employer] Work Phone: Sodium [Moles/Vol] 134 mmol/L Low 136-145 [facility] [employer] Work Phone: Urea nitrogen [Mass/Vol] 6 mg/dL Low 7-18 [facility] [employer] Work Phone: Urea nitrogen/Creatinine [Mass ratio] 14.5955469 mg/mg Invalid Interpretation Code 10-20 [facility] [employer] Work Phone: Lab Report: CBC W/Diff, Auto matedon 07-29-2017 Basophils/100 WBC (Bld) 0.2 % Invalid Interpretation Code 0-1 [facility] [employer] Work Phone: Eosinophils/100 WBC (Bld) 2.6 % Invalid Interpretation Code 0-5 [facility] [employer] Work Phone: Erythrocyte distribution width (RBC) [Ratio] 12.2 % Invalid Interpretation Code 11.6-14.6 [facility] [employer] Work Phone: Hematocrit (Bld) [Volume fraction] 28.3 % Low 37-47 [facility] [employer] Work Phone: Hemoglobin (Bld) [Mass/Vol] 9.9 g/dL Low 12.0-15.0 [facility] [employer] Work Phone: Immature granulocytes/100 WBC (Bld) 0.300 % Invalid Interpretation Code 0.0-0.9 [facility] [employer] Work Phone: Lymphocytes (Bld) [#/Vol] 2.49 X10 3/UL Invalid Interpretation Code 0.83-4.51 [facility] [employer] Work Phone: Lymphocytes/100 WBC (Bld) 22.6 % Invalid Interpretation Code 19-41 [facility] [employer] Work Phone: MCH (RBC) [Entitic mass] 33.3 pg High 27.0-32.0 [facility] [employer] Work Phone: MCV (RBC) [Entitic vol] 95.3 fL Invalid Interpretation Code 81-99 [facility] [employer] Work Phone: mean corpuscular hemoglobin concentration, RBC 35.0 G/GL Invalid Interpretation Code 32-36 [facility] [employer] Work Phone: Monocytes/100 WBC (Bld) 12.6 % High 0-10 [facility] [employer] Work Phone: neutrophil count, blood 6.8 X10 3/UL Invalid Interpretation Code 2.0-7.7 [facility] [employer] Work Phone: Neutrophils/100 WBC (Bld) 61.7 % Invalid Interpretation Code 47-70 [facility] [employer] Work Phone: Platelet mean volume (Bld) [Entitic vol] 10.0 fL Invalid Interpretation Code 6.2-12.0 [facility] [employer] Work Phone: Platelets (Bld) [#/Vol] 332 10*3/uL Invalid Interpretation Code 150-450 [facility] [employer] Work Phone: RBC (Bld) [#/Vol] 2.97 10*6/uL Low 4.2-5.4 [facility] Work Phone: red blood cell distribution width, size density 40.7 fL Invalid Interpretation Code 35.1-43.9 [facility] [employer] Work Phone: WBC (Bld) [#/Vol] 11.0 10*3/uL Invalid Interpretation Code 4.4-11.0 [facility] [employer] Work Phone: Lab Report: Magnesiumon 07-05 Magnesium [Mass/Vol] 1.9 mg/dL Invalid Interpretation Code 1.8-2.4 [facility] [employer] Work Phone: Lab Report: Phosphoruson Phosphate [Mass/Vol] 3.1 mg/dL Invalid Interpretation Code 2.5-4.9 [facility] [employer] Work Phone: Microbiology: (P) Culture, S putumon 07-29-2017 Bacteria identified Respiratory culture Nom (Sput) . Invalid Interpretation Code [facility] [employer] Work Phone: Microbiology: Culture, Sputu mon 07-29-2017 Bacteria identified Respiratory culture Nom (Sput) . Invalid Interpretation Code [facility] [employer] Work Phone: Microbiology: Culture, Urine on 07-28-2017 GE use only - for [employer] import when terms are not otherwise specified . Invalid Interpretation Code [facility] [employer] Work Phone: Lab Report: (P) Urinalysis, Completeon 07-26-2017 Albumin Ql (U) 15 High Negative [facility] [employer] Work Phone: Bilirubin Ql (U) Negative Invalid Interpretation Code Negative [facility] [employer] Work Phone: Clarity (U) Cloudy Invalid Interpretation Code Clear [facility] [employer] Work Phone: Color (U) Yellow Invalid Interpretation Code Yellow [facility] [employer] Work Phone: Glucose Ql (U) Normal mg/dl Invalid Interpretation Code Normal [facility] [employer] Work Phone: Ketones (U) [Mass/Vol] 150 mg/dL High Negative [facility] [employer] Work Phone: Leukocyte esterase Test strip Ql (U) 100 High Negative [facility] [employer] Work Phone: Occult Blood, urine 250 High Negative [facility] [employer] Work Phone: pH (U) 6.0 [pH] Invalid Interpretation Code 5.0 - 8.0 [facility] [employer] Work Phone: Specific gravity Refractometry (U) [Rel density] 1.010 Invalid Interpretation Code 1.002-1.030 [facility] [employer] Work Phone: Lab Report: Urinalysis, Comp leteon 07-26-2017 bacteria, urine, microscopic RARE /hpf Invalid Interpretation Code None Seen [facility] [employer] Work Phone: Epithelial cells LM.HPF (Urine sed) [#/Area] 5-10 SEEN Invalid Interpretation Code 5-10 [facility] [employer] Work Phone: Mucus Ql (Urine sed) 0 SEEN Invalid Interpretation Code [facility] [employer] Work Phone: RBC LM.HPF (Urine sed) [#/Vol] 50-100 SEEN Invalid Interpretation Code 0-5 [facility] [employer] Work Phone: Urinalysis, white blood cells, culture and sensitivity 5-10 SEEN Invalid Interpretation Code 0-5 [facility] [employer] Work Phone: Lab Report: Basic Metabolic Profile (BMP)on 07-25-2017 Anion gap [Moles/Vol] 8 mmol/L Invalid Interpretation Code 5-15 [facility] [employer] Work Phone: Calcium [Mass/Vol] 7.9 mg/dL Low 8.5-10.1 [facility] [employer] [place] Work Phone: calculated corrected value of creatinine clearance with body surface area 86.21 mL/min Invalid Interpretation Code [facility] [employer] Work Phone: Chloride [Moles/Vol] 100 mmol/L Invalid Interpretation Code 98-107 [facility] [employer] Work Phone: CO2 (BldV) [Partial pressure] 27.0 mmol/L Invalid Interpretation Code 21.0-32.0 [facility] [employer] Work Phone: Creatinine [Mass/Vol] 0.59 mg/dL Invalid Interpretation Code 0.55-1.02 [facility] [employer] Work Phone: GFR/1.73 sq M.predicted among non-blacks MDRD (S/P/Bld) [Vol rate/Area] 113 mL/min/{1.73_m2} Invalid Interpretation Code >60 [facility] [employer] Work Phone: Glomerular Filtration rate 136 mL/min Invalid Interpretation Code >60 [facility] [employer] Work Phone: Glucose [Mass/Vol] 128 mg/dL High 70-110 [facility] [employer] Work Phone: Potassium [Moles/Vol] 4.4 mmol/L Invalid Interpretation Code 3.5-5.1 [facility] [employer] Work Phone: Sodium [Moles/Vol] 135 mmol/L Low 136-145 [facility] [employer] Work Phone: Urea nitrogen [Mass/Vol] 9 mg/dL Invalid Interpretation Code 7-18 [facility] [employer] Work Phone: Urea nitrogen/Creatinine [Mass ratio] 15.8597931 mg/mg Invalid Interpretation Code 10-20 [facility] [employer] Work Phone: Lab Report: CBC W/Diff, Auto matedon 07-25-2017 Basophils/100 WBC (Bld) 0.0 % Invalid Interpretation Code 0-1 [facility] [employer] Work Phone: Eosinophils/100 WBC (Bld) 0.0 % Invalid Interpretation Code 0-5 [facility] [employer] Work Phone: Erythrocyte distribution width (RBC) [Ratio] 12.2 % Invalid Interpretation Code 11.6-14.6 [facility] [employer] Work Phone: Hematocrit (Bld) [Volume fraction] 27.9 % Low 37-47 [facility] [employer] Work Phone: Hemoglobin (Bld) [Mass/Vol] 9.6 g/dL Low 12.0-15.0 [facility] [employer] Work Phone: Immature granulocytes/100 WBC (Bld) 0.300 % Invalid Interpretation Code 0.0-0.9 [facility] [employer] Work Phone: Lymphocytes (Bld) [#/Vol] 1.25 X10 3/UL Invalid Interpretation Code 0.83-4.51 [facility] [employer] Work Phone: Lymphocytes/100 WBC (Bld) 10.0 % Low 19-41 [facility] [employer] Work [phone] MCH (RBC) [Entitic mass] 33.2 pg High 27.0-32.0 [facility] [employer] Work Phone: MCV (RBC) [Entitic vol] 96.5 fL Invalid Interpretation Code 81-99 [facility] [employer] Work Phone: mean corpuscular hemoglobin concentration, RBC 34.4 G/GL Invalid Interpretation Code 32-36 [facility] [employer] Work Phone: Monocytes/100 WBC (Bld) 11.2 % High 0-10 [facility] [employer] Work Phone: neutrophil count, blood 9.8 X10 3/UL High 2.0-7.7 [facility] [employer] Work [phone] Neutrophils/100 WBC (Bld) 78.5 % High 47-70 [facility] [employer] Work Phone: Platelet mean volume (Bld) [Entitic vol] 9.8 fL Invalid Interpretation Code 6.2-12.0 [facility] [employer] Work Phone: Platelets (Bld) [#/Vol] 280 10*3/uL Invalid Interpretation Code 150-450 [facility] [employer] Work Phone: RBC (Bld) [#/Vol] 2.89 10*6/uL Low 4.2-5.4 [facility] [employer] Work Phone: red blood cell distribution width, size density 41.7 fL Invalid Interpretation Code 35.1-43.9 [facility] [employer] Work [phone] WBC (Bld) [#/Vol] 12.5 10*3/uL High 4.4-11.0 [facility] [employer] Work Phone: Lab Report: Lipid Profileon 07-25-2017 Cholesterol [Mass/Vol] 127 mg/dL Invalid Interpretation Code 200 [facility] [employer] Work Phone: Cholesterol in HDL [Mass/Vol] 46 mg/dL Invalid Interpretation Code [facility] [employer] Work Phone: Cholesterol in LDL [Mass/Vol] 71 mg/dL Invalid Interpretation Code 0-130 [facility] [employer] Work Phone: Lipoprotein.pre-beta [Mass/Vol] 10 mg/dL Invalid Interpretation Code 5-40 [facility] [employer] Work Phone: Triglyceride [Mass/Vol] 48 mg/dL Invalid Interpretation Code [facility] [employer] Work Phone: Lab Report: Magnesiumon 07-05 Magnesium [Mass/Vol] 3.1 mg/dL High 1.8-2.4 [facility] [employer] Work Phone: Lab Report: Phosphoruson Phosphate [Mass/Vol] 3.2 mg/dL Invalid Interpretation Code 2.5-4.9 [facility] [employer] Work Phone: Lab Report: Troponin-Ion Troponin I.cardiac [Mass/Vol] ng/mL Invalid Interpretation Code <0.06 [facility] [employer] Work Phone: Blood Bank: Type AND Screeno n 07-24-2017 GE use only - for [employer] import when terms are not otherwise specified Negative Normal [facility] [employer] Work Phone: Lab Report: Basic Metabolic Profile (BMP)on 07-24-2017 Anion gap [Moles/Vol] 8 mmol/L Invalid Interpretation Code 5-15 [facility] [employer] Work Phone: Calcium [Mass/Vol] 9.2 mg/dL Invalid Interpretation Code 8.5-10.1 [facility] [employer] Work Phone: calculated corrected value of creatinine clearance with body surface area 90.83 mL/min Invalid Interpretation Code [facility] [employer] Work Phone: Chloride [Moles/Vol] 100 mmol/L Invalid Interpretation Code 98-107 [facility] [employer] Work Phone: CO2 (BldV) [Partial pressure] 26.0 mmol/L Invalid Interpretation Code 21.0-32.0 [facility] [employer] Work Phone: Creatinine [Mass/Vol] 0.56 mg/dL Invalid Interpretation Code 0.55-1.02 [facility] [employer] Work Phone: GFR/1.73 sq M.predicted among non-blacks MDRD (S/P/Bld) [Vol rate/Area] 121 mL/min/{1.73_m2} Invalid Interpretation Code >60 [facility] [employer] Work Phone: Glomerular Filtration rate 146 mL/min Invalid Interpretation Code >60 [facility] [employer] Work Phone: Glucose [Mass/Vol] 85 mg/dL Invalid Interpretation Code 70-110 [facility] [employer] Work Phone: Potassium [Moles/Vol] 3.8 mmol/L Invalid Interpretation Code 3.5-5.1 [facility] [employer] Work Phone: Sodium [Moles/Vol] 134 mmol/L Low 136-145 [facility] [employer] Work Phone: Urea nitrogen [Mass/Vol] 7 mg/dL Invalid Interpretation Code 7-18 [facility] [employer] Work Phone: Urea nitrogen/Creatinine [Mass ratio] 12.5125716 mg/mg Invalid Interpretation Code 10-20 [facility] [employer] Work Phone: Lab Report: CBC W/Diff, Auto matedon 07-24-2017 Basophils/100 WBC (Bld) 0.5 % Invalid Interpretation Code 0-1 [facility] [employer] Work Phone: Eosinophils/100 WBC (Bld) 4.0 % Invalid Interpretation Code 0-5 [facility] [employer] Work Phone: Erythrocyte distribution width (RBC) [Ratio] 12.6 % Invalid Interpretation Code 11.6-14.6 [facility] [employer] Work Phone: Hematocrit (Bld) [Volume fraction] 35.2 % Low 37-47 [facility] [employer] Work Phone: Hemoglobin (Bld) [Mass/Vol] 11.8 g/dL Low 12.0-15.0 [facility] [employer] Work Phone: Immature granulocytes/100 WBC (Bld) 0.000 % Invalid Interpretation Code 0.0-0.9 [facility] [employer] Work [phone] Lymphocytes (Bld) [#/Vol] 2.39 X10 3/UL Invalid Interpretation Code 0.83-4.51 [facility] [employer] Work [phone] Lymphocytes/100 WBC (Bld) 36.5 % Invalid Interpretation Code 19-41 [facility] [employer] Work Phone: MCH (RBC) [Entitic mass] 32.4 pg High 27.0-32.0 [facility] [employer] Work Phone: MCV (RBC) [Entitic vol] 96.7 fL Invalid Interpretation Code 81-99 [facility] [employer] Work Phone: mean corpuscular hemoglobin concentration, RBC 33.5 G/GL Invalid Interpretation Code 32-36 [facility] Work Phone: Monocytes/100 WBC (Bld) 15.1 % High 0-10 [facility] [employer] Work Phone: neutrophil count, blood 2.9 X10 3/UL Invalid Interpretation Code 2.0-7.7 [facility] [employer] Work Phone: Neutrophils/100 WBC (Bld) 43.9 % Low 47-70 [facility] Work Phone: Platelet mean volume (Bld) [Entitic vol] 9.5 fL Invalid Interpretation Code 6.2-12.0 [facility] [employer] Work Phone: Platelets (Bld) [#/Vol] 288 10*3/uL Invalid Interpretation Code 150-450 [facility] [employer] Work Phone: RBC (Bld) [#/Vol] 3.64 10*6/uL Low 4.2-5.4 [facility] Work Phone: red blood cell distribution width, size density 44.7 fL High 35.1-43.9 [facility] [employer] Work [phone] WBC (Bld) [#/Vol] 6.5 10*3/uL Invalid Interpretation Code 4.4-11.0 [facility] [employer] Work Phone: Lab Report: M R Staph Aureus DNA by PCRon 07-24-2017 Methicillin-resistant Staphylococcus aureus (mecA gene) by PCR Negative Invalid Interpretation Code Negative [facility] [employer] Work Phone: Lab Report: Basic Metabolic Profile (BMP)on 07-22-2017 Anion gap [Moles/Vol] 7 mmol/L Invalid Interpretation Code 5-15 [facility] [employer] Work Phone: Calcium [Mass/Vol] 9.1 mg/dL Invalid Interpretation Code 8.5-10.1 [facility] [employer] Work Phone: calculated corrected value of creatinine clearance with body surface area 74.80 mL/min Invalid Interpretation Code [facility] [employer] Work Phone: Chloride [Moles/Vol] 102 mmol/L Invalid Interpretation Code 98-107 [facility] [employer] Work Phone: CO2 (BldV) [Partial pressure] 27.0 mmol/L Invalid Interpretation Code 21.0-32.0 [facility] [employer] Work Phone: Creatinine [Mass/Vol] 0.68 mg/dL Invalid Interpretation Code 0.55-1.02 [facility] [employer] Work Phone: GFR/1.73 sq M.predicted among non-blacks MDRD (S/P/Bld) [Vol rate/Area] 96 mL/min/{1.73_m2} Invalid Interpretation Code >60 [facility] [employer] Work Phone: Glomerular Filtration rate 116 mL/min Invalid Interpretation Code >60 [facility] [employer] Work Phone: Glucose [Mass/Vol] 84 mg/dL Invalid Interpretation Code 70-110 [facility] [employer] Work Phone: Potassium [Moles/Vol] 4.0 mmol/L Invalid Interpretation Code 3.5-5.1 [facility] [employer] Work Phone: Sodium [Moles/Vol] 136 mmol/L Invalid Interpretation Code 136-145 [facility] [employer] Work Phone: Urea nitrogen [Mass/Vol] 6 mg/dL Low 7-18 [facility] [employer] Work Phone: Urea nitrogen/Creatinine [Mass ratio] 8.9663030 mg/mg Low 10-20 [facility] [employer] Work Phone: Lab Report: CBC W/Diff, Auto matedon 07-22-2017 Basophils/100 WBC (Bld) 0.3 % Invalid Interpretation Code 0-1 [facility] [employer] Work Phone: Eosinophils/100 WBC (Bld) 2.7 % Invalid Interpretation Code 0-5 [facility] [employer] Work Phone: Erythrocyte distribution width (RBC) [Ratio] 13.4 % Invalid Interpretation Code 11.6-14.6 [facility] [employer] Work Phone: Hematocrit (Bld) [Volume fraction] 38.7 % Invalid Interpretation Code 37-47 [facility] [employer] Work Phone: Hemoglobin (Bld) [Mass/Vol] 13.1 g/dL Invalid Interpretation Code 12.0-15.0 [facility] [employer] Work Phone: Immature granulocytes/100 WBC (Bld) 0.200 % Invalid Interpretation Code 0.0-0.9 [facility] [employer] Work Phone: Lymphocytes (Bld) [#/Vol] 4.00 X10 3/UL Invalid Interpretation Code 0.83-4.51 [facility] [employer] Work Phone: Lymphocytes/100 WBC (Bld) 37.5 % Invalid Interpretation Code 19-41 [facility] [employer] Work Phone: MCH (RBC) [Entitic mass] 33.3 pg High 27.0-32.0 [facility] [employer] Work Phone: MCV (RBC) [Entitic vol] 98.5 fL Invalid Interpretation Code 81-99 [facility] [employer] Work Phone: mean corpuscular hemoglobin concentration, RBC 33.9 G/GL Invalid Interpretation Code 32-36 [facility] [employer] Work Phone: Monocytes/100 WBC (Bld) 11.6 % High 0-10 [facility] [employer] Work Phone: neutrophil count, blood 5.1 X10 3/UL Invalid Interpretation Code 2.0-7.7 [facility] [employer] Work Phone: Neutrophils/100 WBC (Bld) 47.7 % Invalid Interpretation Code 47-70 [facility] [employer] Work Phone: Platelet mean volume (Bld) [Entitic vol] 9.5 fL Invalid Interpretation Code 6.2-12.0 [facility] [employer] Work Phone: Platelets (Bld) [#/Vol] 337 10*3/uL Invalid Interpretation Code 150-450 [facility] [employer] Work Phone: RBC (Bld) [#/Vol] 3.93 10*6/uL Low 4.2-5.4 [facility] Work Phone: red blood cell distribution width, size density 47.3 fL High 35.1-43.9 [facility] [employer] Work Phone: WBC (Bld) [#/Vol] 10.7 10*3/uL Invalid Interpretation Code 4.4-11.0 [facility] [employer] Work Phone: Lab Report: Magnesiumon 07-04 Magnesium [Mass/Vol] 2.0 mg/dL Invalid Interpretation Code 1.8-2.4 [facility] [employer] Work Phone: Lab Report: Phosphoruson Phosphate [Mass/Vol] 4.2 mg/dL Invalid Interpretation Code 2.5-4.9 [facility] Work Phone: Microbiology: CDIFF (Molecul ar)on 07-22-2017 GE use only - for [employer] import when terms are not otherwise specified . Invalid Interpretation Code [facility] [employer] Work Phone: Office Visit: rectal pain/ h ospital follow upon 06-30-2017 Tobacco smoking status Never Invalid Interpretation Code [facility] [employer] Work Phone: Tobacco smoking status Tobacco smoking s tatus NHIS Invalid Interpretation Code [facility] [employer] Work Phone: Lab Report: (P) Urine Drug S creen (VISTA)on 06-25-2017 GE use only - for [employer] import when terms are not otherwise specified Invalid Interpretation Code [facility] Work Phone: Lab Report: Urine Drug Scree n (VISTA)on 06-25-2017 Amphetamines Ql (U) Negative Invalid Interpretation Code <1000 ng/mL [facility] Work Phone: Barbiturates Ql (U) Negative Invalid Interpretation Code < 200 ng/mL [facility] Work Phone: [phone] Benzodiazepines Ql (U) Negative Invalid Interpretation Code < 200 ng/mL [facility] Work Phone: [phone] Cocaine Ql (U) Negative Invalid Interpretation Code < 300 ng/mL [facility] Work Phone: [phone] Opiates Ql (U) Positive High < 300 ng/mL [facility] Work Phone: pH (U) 6 [pH] Invalid Interpretation Code [facility] Work Phone: Tetrahydrocannabinol Ql (U) Negative Invalid Interpretation Code < 50 ng/mL [facility] Work Phone: Office Visit: [facility] hosp f/uon 06-25-2017 Tobacco smoking status Never Invalid Interpretation Code [facility] [employer] Work Phone: Tobacco use status [facility] Current every da y smoker Invalid Interpretation Code [facility] [employer] Work Phone: Microbiology: CDIFF (Molecul ar)on 06-21-2017 GE use only - for [employer] import when terms are not otherwise specified . Invalid Interpretation Code [facility] [employer] Work Phone: Lab Report: Basic Metabolic Profile (BMP)on 06-18-2017 Anion gap [Moles/Vol] 7 mmol/L Invalid Interpretation Code 5-15 [facility] [employer] Work Phone: Calcium [Mass/Vol] 8.5 mg/dL Invalid Interpretation Code 8.5-10.1 [facility] [employer] Work Phone: calculated corrected value of creatinine clearance with body surface area 80.74 mL/min Invalid Interpretation Code [facility] [employer] Work Phone: Chloride [Moles/Vol] 107 mmol/L Invalid Interpretation Code 98-107 [facility] [employer] Work Phone: CO2 (BldV) [Partial pressure] 26.0 mmol/L Invalid Interpretation Code 21.0-32.0 [facility] [employer] Work Phone: Creatinine [Mass/Vol] 0.63 mg/dL Invalid Interpretation Code 0.55-1.02 [facility] [employer] Work Phone: GFR/1.73 sq M.predicted among non-blacks MDRD (S/P/Bld) [Vol rate/Area] 105 mL/min/{1.73_m2} Invalid Interpretation Code >60 [facility] [employer] Work Phone: Glomerular Filtration rate 127 mL/min Invalid Interpretation Code >60 [facility] [employer] Work Phone: Glucose [Mass/Vol] 91 mg/dL Invalid Interpretation Code 70-110 [facility] [employer] Work Phone: [phone] Potassium [Moles/Vol] 4.2 mmol/L Invalid Interpretation Code 3.5-5.1 [facility] [employer] Work Phone: Sodium [Moles/Vol] 140 mmol/L Invalid Interpretation Code 136-145 [facility] [employer] Work Phone: Urea nitrogen [Mass/Vol] 7 mg/dL Invalid Interpretation Code 7-18 [facility] [employer] Work Phone: Urea nitrogen/Creatinine [Mass ratio] 11.9102416 mg/mg Invalid Interpretation Code 10-20 [facility] [employer] Work Phone: Lab Report: CBC W/Diff, Auto matedon 06-18-2017 Basophils/100 WBC (Bld) 0.5 % Invalid Interpretation Code 0-1 [facility] [employer] Work Phone: Eosinophils/100 WBC (Bld) 3.1 % Invalid Interpretation Code 0-5 [facility] [employer] Work Phone: Erythrocyte distribution width (RBC) [Ratio] 13.5 % Invalid Interpretation Code 11.6-14.6 [facility] [employer] Work Phone: Hematocrit (Bld) [Volume fraction] 37.4 % Invalid Interpretation Code 37-47 [facility] Work Phone: Hemoglobin (Bld) [Mass/Vol] 12.1 g/dL Invalid Interpretation Code 12.0-15.0 [facility] Work Phone: [phone] Immature granulocytes/100 WBC (Bld) 0.200 % Invalid Interpretation Code 0.0-0.9 [facility] [employer] Work Phone: Lymphocytes (Bld) [#/Vol] 2.60 X10 3/UL Invalid Interpretation Code 0.83-4.51 [facility] [employer] Work Phone: [phone] Lymphocytes/100 WBC (Bld) 42.4 % High 19-41 [facility] Work Phone: MCH (RBC) [Entitic mass] 33.5 pg High 27.0-32.0 [facility] Work Phone: MCV (RBC) [Entitic vol] 103.6 fL High 81-99 [facility] Work Phone: mean corpuscular hemoglobin concentration, RBC 32.4 G/GL Invalid Interpretation Code 32-36 [facility] Work Phone: Monocytes/100 WBC (Bld) 8.0 % Invalid Interpretation Code 0-10 [facility] Work Phone: neutrophil count, blood 2.8 X10 3/UL Invalid Interpretation Code 2.0-7.7 [facility] Work Phone: Neutrophils/100 WBC (Bld) 45.8 % Low 47-70 [facility] Work [phone] Platelet mean volume (Bld) [Entitic vol] 9.7 fL Invalid Interpretation Code 6.2-12.0 [facility] Work [phone] Platelets (Bld) [#/Vol] 214 10*3/uL Invalid Interpretation Code 150-450 [facility] Work Phone: RBC (Bld) [#/Vol] 3.61 10*6/uL Low 4.2-5.4 [facility] Work Phone: red blood cell distribution width, size density 51.3 fL High 35.1-43.9 [facility] [employer] Work Phone: WBC (Bld) [#/Vol] 6.1 10*3/uL Invalid Interpretation Code 4.4-11.0 [facility] [employer] Work Phone: Microbiology: Culture, Blood (WB)on 09-29-2016 Bacteria identified Cx Nom (Bld) BC No growth in 5 days. Invalid Interpretation Code [facility] [employer] Work Phone: Lab Report: Magnesiumon 09-05 Magnesium [Mass/Vol] 1.7 mg/dL Low 1.8-2.4 [facility] [employer] Work Phone: Lab Report: Phosphoruson Phosphate [Mass/Vol] 2.8 mg/dL Invalid Interpretation Code 2.5-4.9 [facility] [employer] Work Phone: Lab Report: Lactic Acidon Lactate [Moles/Vol] 0.8 mmol/L Invalid Interpretation Code 0.4-2.0 [facility] [employer] Work Phone: No Panel Information Influenza Types A,B Direct FA (DAINA) Influenzae [facility] Work Phone: Vital Signs Date Time Vital Sign Value Performing Clinician Facility 12-29-2024 10:37-0400 Body mass index (BMI) [Ratio] 26.92 kg/m2 Riya Camarillo APRN.[employer] Work Phone: [facility] 12-29-2024 10:37-0400 Body temperature 97 [degF] Riya Camarillo APRN.[employer] Work Phone: [facility] 12-29-2024 10:37-0400 Body weight 65.7 kg Riya Camarillo APRN.[employer] Work Phone: [facility] 12-29-2024 10:37-0400 Diastolic blood pressure 72 mm[Hg] Riya Camarillo APRN.[employer] Work Phone: [facility] 12-29-2024 10:37-0400 Heart rate 68 /min Riya Praisler-Wood MARINATOR.[employer] Work Phone: [facility] 12-29-2024 10:37-0400 Respiratory rate 16 /min Riya Praisler-Wood MARINATOR.[employer] Work Phone: [facility] 12-29-2024 10:37-0400 SaO2% (BldA) [Mass fraction] 97 % Riya Praisler-Wood MARINATOR.[employer] Work Phone: [facility] 12-29-2024 10:37-0400 Systolic blood pressure 120 mm[Hg] Riya Praisler-Wood MARINATOR.[facility] Work Phone: [facility] 12-26-2024 14:39-0400 Body height 156.2 cm Riya Praisler-Wood MARINATOR.[facility] Work Phone: [facility] 12-26-2024 14:39-0400 Body mass index (BMI) [Ratio] 26.64 kg/m2 Riya Praisler-Wood MARINATOR.[employer] Work Phone: [facility] 12-26-2024 14:39-0400 Body temperature 97 [degF] Riya Praisler-Wood MARINATOR.[facility] Work Phone: [facility] 12-26-2024 14:39-0400 Body weight 65 kg Riya Praisler-Wood MARINATOR.[facility] Work Phone: [facility] 12-26-2024 14:39-0400 Diastolic blood pressure 78 mm[Hg] Riya Praisler-Wood MARINATOR.[facility] Work Phone: [facility] 12-26-2024 14:39-0400 Heart rate 94 /min Riya Praisler-Wood MARINATOR.[facility] Work Phone: [facility] 12-26-2024 14:39-0400 SaO2% (BldA) [Mass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
== END 2025-07-13 01:17 | disposition home or self-care (01) ==
LOC: ED 01:11
PROVIDERS: Emergency Provider Emergency Medicine; Visit Provider Emergency Medicine
DX: T23.201A Burn of second degree of right hand, unspecified site, initial encounter (principal); F41.9 Anxiety disorder, unspecified; F17.200 Nicotine dependence, unspecified, uncomplicated; F12.90 Cannabis use, unspecified, uncomplicated; T31.0 Burns involving less than 10% of body surface; Z98.51 Tubal ligation status; Z90.49 Acquired absence of other specified parts of digestive tract; K21.9 Gastro-esophageal reflux disease without esophagitis; X12.XXXA Contact with other hot fluids, initial encounter
CPT/HCPCS: 99282